=== PATIENT | female | born 1950 | race Caucasian/White ===

== ENCOUNTER 2018-06-30 14:34 | Inpatient (IN) | payer MEDICARE, MEDICAID ==
--- NOTE | 2018-06-30 15:30 | ED Physician Chart ---
ED Chief Complaint/HPI - Patient Information Date Seen:: 06/30/18 Time Seen:: 14:49 Chief Complaint:: anemia History of Present Illness:: PATIENT PRESENTS TO THE ER WITH HX OF ANEMIA WITH HB 6.8; NO TRAUMA, NO OTHER REMARKABLE S/S Allergies:: Allergies Allergy/AdvReac Type Severity Reaction Status Date / Time acetaminophen Allergy Verified 06/30/18 15:05 codeine Allergy Verified 06/30/18 15:05 hydrocodone Allergy Verified 06/30/18 15:05 tramadol Allergy Verified 06/30/18 15:06 Vitals:: Vital Signs - 8 hr 06/30/18 06/30/18 14:49 15:11 Temp 99.3 F HR 103 102 RR 24 BP 133/59 O2 Sat % 95 98 Historian:: Medical Records Review:: Nurse's Note Reviewed, Transfer documents Reviewed ED Review of Systems - Review of Systems General/Constitutional: Fever, No weight loss, Weakness, No diaphoresis, No edema, No loss of appetite Skin: No rash, No bruising, Other (deep sacral decubitus covered by a dressing) Head: No headache, No light-headedness Eyes: No loss of vision, No pain, No diplopia ENT: No earache, No nasal drainage, No sore throat, No tinnitus Neck: No neck pain, No swelling, No thyromegaly, No stiffness, No mass noted Cardio Vascular: No chest pain, No palpitations, No PND, No orthopnea, No edema Pulmonary: No SOB, No cough, No sputum, No wheezing GI: No nausea, No vomiting, No diarrhea, No pain, No melena, No hematochezia, No constipation, No hematemesis G/U: No dysuria, No frequency, No hematuria Musculoskeletal: No bone or joint pain, No back pain, No muscle pain Endocrine: No polyuria, No polydipsia Psychiatric: No prior psych history, No depression, No anxiety, No suicidal ideation Hematopoietic: No bruising, No lymphadenopathy Allergic/Immuno: No urticaria, No angioedema Neurological: No syncope, No focal symptoms, No weakness, No paresthesia, No headache, No seizure, No dizziness, No confusion, No vertigo ED Past Medical History - Past Medical History Obtainable: No Past Medical History: CAD, ESRD, Other (dialysis dependent; pneumonia; VENTILATOR DEPENDENT; RENAL DISEASE, HYPERLIPIDEMIA, TRACHEOSTOMY, GASTROSTOMY, RENAL DIALYSIS, VENTILATOR DEPENDENT, PSEUDOMONAS PNEUMONIA, DVT, ANOXIC BRAIN INJURY, ASPIRATION PNEUMONIA, CARDIAC ARREST, DYSPHAGIA, FALL HX WITH FX FEMORAL NECK, LEFT HUMERUS, ANEMIA, RESPIRATORY FAILURE, SEPSIS) Surgical History: PEG/GTube, other (tracheostomy) Family Medical History - Family Member Mother History Unknown: Yes ED Assessment - Assessment General Assessment: EK:24:27 p.m. atrial fibrillation, nonspecific ST T wave changes. CXR per my reading reveals bilateral pneumonia most marked on the left side. case presented to Dr. Snyder who raised his voice at both ca and [facility]. Dr. Snyder will admit the patient to the ICU. ED Septic Shock - . Is Septic Shock (SBP<90, OR Lactate>4 mmol\L) present?: No - <6hrs of presentation: Vital Signs: Vital Signs - 8 hr 06/30/18 06/30/18 14:49 15:11 Temp 99.3 F HR 103 102 RR 24 BP 133/59 O2 Sat % 95 98 ED Reassessment (Disposition) - Reassessment Reassessment Condition:: Unchanged - Diagnosis Diagnosis:: RENAL DISEASE, HYPERLIPIDEMIA, TRACHEOSTOMY, GASTROSTOMY, RENAL DIALYSIS, VENTILATOR DEPENDENT, PSEUDOMONAS PNEUMONIA, DVT, ANOXIC BRAIN INJURY, ASPIRATION PNEUMONIA, CARDIAC ARREST, DYSPHAGIA, FALL HX WITH FX FEMORAL NECK, LEFT HUMERUS, ANEMIA, RESPIRATORY FAILURE, SEPSIS - Patient Disposition Discharge/Transfer:: Acute Care w/in this hosp Admitted to:: ICU Condition at Disposition:: Stable, Unchanged
[2018-06-30 15:33] LABS: NEUTROPHILE ABSOLUTE 27.5 Th/cmm (1.8-8.0); RED CELL DISTRIBUTION WIDTH 17.3 % (11.5-20.0)
[2018-06-30 15:37] LABS: % BASOPHILS 0.1 % (0.0-2.0); % EOSINOPHILS 0.9 % (0.0-5.0); % LYMPHOCYTES 4.9 % (20.0-50.0); % MONOCYTES 4.2 % (2.0-10.0); % NEUTROPHILS 89.9 % (40.0-80.0); EOSINOPHILE ABSOLUTE 0.3 Th/cmm (0.1-0.4); LYMPHOCYTE ABSOLUTE 1.5 Th/cmm (1.5-3.0); MEAN CELL VOLUME 84.4 fl (81-100); MEAN CORPUSCULAR HGB CONC 33.2 pg (28.0-36.0); MEAN PLATELET VOLUME 7.6 fl; MONOCYTE ABSOLUTE 1.3 Th/cmm (0.3-1.0); PLATELET COUNT 390 Th/cmm (150-400); RED BLOOD COUNT 2.48 Mil/cmm (3.80-5.20)
[2018-06-30 15:40] LABS: HEMATOCRIT 20.9 % (41.0-60); WHITE BLOOD COUNT 30.6 Th/cmm (4.8-10.8)
[2018-06-30 15:51] LABS: INR 0.98 (0.5-1.4); PROTHROMBIN TIME (TEST) 10.2 SECONDS (9.5-11.5)
[2018-06-30 15:52] LABS: ALB/GLOB RATIO 0.6 (1.0-1.8); ALBUMIN 2.4 gm/dL (3.7-5.3); ANION GAP 18.9 (7.0-16.0); BILIRUBIN,TOTAL 0.3 mg/dL (0.3-1.0); CALCIUM SERUM 8.6 mg/dL (8.6-10.3); CARBON DIOXIDE 26.7 mEq/L (21.0-31.0); CREATININE - SERUM 3.5 mg/dL (0.6-1.2); GFR AFRICAN-AMERICAN 16.9 ml/min (>90); GFR NON AFRICAN-AMERICAN 13.9 ml/min; MAGNESIUM 2.8 mg/dL (1.9-2.7); PHOSPHOROUS 2.6 mg/dL (2.5-5.0); POTASSIUM SERUM 3.6 mEq/L (3.5-5.1); TOTAL PROTEIN,SERUM 6.3 gm/dL (6.0-8.3)
[2018-06-30] MEDS ORDERED: Dextrose 50% 50 mL Abboject IVP STA (16:10)
[2018-06-30] MEDS ORDERED: Dextrose 50% 50 mL Abboject IVP ONE ×2 (16:11→19:01)
[2018-06-30] MEDS ORDERED: Levofloxacin 250mg/50mL 250 MG/50 ML BAG IV ONE (16:16)
[2018-06-30 16:18] LABS: BAND NEUTROPHILE 10 % (0-10); EOSINOPHIL 1 % (0-5); LYMPHOCYTE 5 % (20-50); MONOCYTE 3 % (2-10); NEUTROPHILS 81 % (40-80)
[2018-06-30] MEDS ORDERED: LEVOFLOXACIN 750 MG/150 ML IV ONE (16:45)
[2018-06-30] MEDS ORDERED: Vancomycin HCl 1.5 GM in Sodium Chloride 0.9% 500 ML IV ONE (16:45)
[2018-06-30] MEDS ORDERED: Levofloxacin 500mg/100mL 500 MG/100 ML BAG IV ONE (16:45)
[2018-06-30] MEDS ORDERED: Dextrose 10% 1,000 ML IV ONE (17:19)
[2018-06-30] MEDS ORDERED: Dextrose 50% 50 mL Abboject IVP PRN (18:35)
[2018-06-30] MEDS ORDERED: GLUCAGON HCl 1 MG KIT IM PRN (18:35)
[2018-06-30] MEDS ORDERED: Dextrose 10% 1,000 ML IV SCH ×2 (19:30)
[2018-06-30 20:01] VITALS: BP 131/45
[2018-06-30] MEDS: Piperacillin/Tazobact 2.25 gm in 0.9% NS 50 ML IV SCH (20:13)
[2018-06-30] MEDS: INSULIN ASPART SLIDING SCALE 100 UNITS/ML UNIT SUBQ SCH (20:23)
[2018-07-01] MEDS ORDERED: Albumin 25% 12.5gm/50mL 12.5 GM/50 ML BTL IV ONE
[2018-07-01] MEDS: INSULIN ASPART SLIDING SCALE 100 UNITS/ML UNIT SUBQ SCH ×5 (00:02→23:52)
[2018-07-01] MEDS ORDERED: Piperacillin Sodium/Tazobact 2.25 gm Vial IV ONE (02:23)
[2018-07-01] MEDS: Piperacillin/Tazobact 2.25 gm in 0.9% NS 50 ML IV SCH ×3 (02:32→17:10)
[2018-07-01] MEDS ORDERED: Non-Formulary Item 1 EA (Esomeprazole Magnesium [Esomeprazole Magnesium] 40 MG) GT SCH ×2 (03:15→09:00)
[2018-07-01] MEDS ORDERED: ACIDOPHILUS GT SCH ×2 (03:15→09:00)
[2018-07-01] MEDS ORDERED: ALBUTEROL SULFATE 90 MCG IH SCH (03:15)
[2018-07-01] MEDS ORDERED: Non-Formulary Item 1 EA (Ipratropium Bromide [Atrovent Hfa] 2 PUFF) INH SCH (03:15)
[2018-07-01] MEDS ORDERED: PSYLLIUM HUSK GT SCH ×2 (03:15→09:00)
[2018-07-01] MEDS ORDERED: Non-Formulary Item 1 EA (Arginine/Ascorbate Sod/Vite Ac [Arginaid Powder] 1 EACH) GT SCH ×2 (03:15→09:00)
[2018-07-01] MEDS ORDERED: BULGARICUS GT SCH ×2 (03:15→09:00)
[2018-07-01] MEDS ORDERED: INSULIN ASPART SLIDING SCALE 100 UNITS/ML UNIT SUBQ SCH (03:15)
[2018-07-01] MEDS ORDERED: Insulin Detemir 100 units/mL 10mL Vial SUBQ SCH (03:15)
[2018-07-01] MEDS: Dextrose 5% 1,000 ML IV SCH (04:17)
--- NOTE | 2018-07-01 05:08 | History & Physical ---
ADMIT DATE: 06/30/2018 CHIEF COMPLAINT: Sent from the long term for abnormal labs with a hemoglobin of 6.8. On initial evaluation, the patient was altered. She was known to me from previous admission and she was more alert than right now. She was able to recognize the people. Currently, the patient is obtunded. On initial evaluation, vital signs showed temperature 99.3 degrees Fahrenheit, pulse 103, respirations 24, blood pressure 133/59. Laboratory work showed WBC count 30,600, hemoglobin 7.0, hematocrit 20.9, platelets are 390,000, neutrophil is 90%. Labs are reviewed. ALLERGIES: THE PATIENT IS ALLERGIC TO ACETAMINOPHEN, CODEINE, AND TRAMADOL. PAST MEDICAL HISTORY: Includes CKD stage 5, on hemodialysis under care of Dr. Juan Pablo Ball. Diabetes mellitus type 2, hypertension, vent-dependent respiratory failure, followed by Dr. Hernandez hyperlipidemia, GERD, status post PEG. PAST SURGICAL HISTORY: Includes a cholecystectomy and G-tube and left upper arm AV shunt placement. SOCIAL HISTORY: The patient lives at nursing facility. No history of smoking, alcohol or drug use. FAMILY HISTORY: Noncontributory. REVIEW OF SYSTEMS: The patient unable to give any history. So far, the patient has no fever. No diarrhea. No obvious GI bleed, hematochezia, hematemesis. PHYSICAL EXAMINATION: SKIN: Current vital shows temperature is 98.7 degrees Fahrenheit, pulse 96, respirations 24, blood pressure is 144/38. GENERAL: The patient is comfortable lying in the bed, not in acute distress, on the ventilator, status post tracheostomy., HEENT: Head is normocephalic, atraumatic. Oral cavity moist, pink tongue. Eyes: Pallor is present, no icterus. PERRLA, EOMI. NECK: Supple. No JVD. Trach site is clear. CHEST: Bilateral vesicular breath sounds. Occasional crackles. HEART: S1, S2 within normal limits. Regular rhythm. No murmur, no gallop. ABDOMEN: Soft, nontender, nondistended. Bowel sounds present. G-tube site is clear. EXTREMITIES: No cyanosis, no clubbing, no edema. BACK: The patient has stage IV sacral decubitus with yellow slough. NEUROLOGIC: Obtunded. LABORATORY DATA: Current lab shows WBC count is 30,600, hemoglobin 7, hematocrit 20.9, platelets are 390,000, neutrophils 89.9%. Sodium is 140, potassium 3.6, chloride 98, bicarbonate is 26.7, BUN is 97, creatinine is 3.5, glucose is 53. Chest x-ray is not available at this time. Lactic acid was 1.15. IMPRESSION: 1. Leukocytosis, most likely reactive versus sepsis. 2. Pneumonia. 3. Hypoglycemia with a blood glucose was in the 50s. 4. Diabetes mellitus type 2. 5. Hypertension. 6. Chronic kidney disease stage 5, on hemodialysis. 7. Ventilator-dependent respiratory failure. 8. History of status post PEG and status trach. 9. Anemia of chronic disease, rule out a gastrointestinal bleed. PLAN: Admitted to the ICU and consult Dr. Juan Pablo Ball Nephrology water resource consultant, Dr. Hernandez Pulmonary water resource consultant and Dr. Centeno for anemia. Do anemia workup including stool for occult blood and antibiotic suarez, I had started the patient on vancomycin, Zosyn and Levaquin. The patient had a recent history of Stenotrophomonas pneumonia, so I will continue Levaquin also. Two units of PRBC ordered during hemodialysis, it was given also. JOB# [id number] OSCAR
[2018-07-01 05:43] LABS: HEMOGLOBIN 8.9 gm/dL (12-16); MEAN CELL VOLUME 86.1 fl (81-100); MEAN CORPUSCULAR HEMOGLOBIN 28.7 pg (27.0-31.0); MEAN CORPUSCULAR HGB CONC 33.4 pg (28.0-36.0); MEAN PLATELET VOLUME 7.4 fl; PLATELET COUNT 317 Th/cmm (150-400); RED BLOOD COUNT 3.09 Mil/cmm (3.80-5.20); RED CELL DISTRIBUTION WIDTH 15.6 % (11.5-20.0)
[2018-07-01 05:53] LABS: WHITE BLOOD COUNT 20.9 Th/cmm (4.8-10.8)
[2018-07-01 06:13] LABS: CALCIUM SERUM 8.2 mg/dL (8.6-10.3); CARBON DIOXIDE 27.8 mEq/L (21.0-31.0); CREATININE - SERUM 2.1 mg/dL (0.6-1.2); GFR AFRICAN-AMERICAN 30.4 ml/min (>90); GFR NON AFRICAN-AMERICAN 25.1 ml/min
[2018-07-01 07:49] LABS: POTASSIUM SERUM 2.8 mEq/L (3.5-5.1)
[2018-07-01 08:01] LABS: HEMATOCRIT 26.6 % (41.0-60)
[2018-07-01 08:02] LABS: BAND NEUTROPHILE 3 % (0-10); BASOPHIL 0 % (0-3); EOSINOPHIL 0 % (0-5); LYMPHOCYTE 4 % (20-50); MONOCYTE 3 % (2-10); NEUTROPHILS 90 % (40-80)
[2018-07-01] MEDS ORDERED: VTE Chemical Prophylaxis Screen/ICU transfer MC PRN (08:09)
--- NOTE | 2018-07-01 08:41 | Diagnostic Imaging Report ---
CHEST X-RAY: AP view INDICATION: Pneumonia COMPARISON: None FINDINGS: Tracheostomy tube is noted. Congestive changes are seen with left lung infiltrates and small left effusion. Cardiomegaly is noted with atherosclerosis. There is deformity and probable old fracture of the left humeral neck and head. IMPRESSION: Congestive changes with left lung infiltrates and small left effusion. Follow-up recommended to ensure resolution Cardiomegaly and atherosclerotic vascular disease. Deformity and probable old fracture of the left humeral head and neck.
[2018-07-01 09:00] LABS: HEMATOCRIT 26.6 % (37.0-47.0); RBC RETICULOCYTE COUNT 3.09 Mil/cmm
[2018-07-01] MEDS ORDERED: Non-Formulary Item 1 EA (Amino Acids/Protein Hydrolys [Pro-Stat Sugar Free Liquid] 30 ML) GT SCH (09:00)
[2018-07-01] MEDS ORDERED: Non-Formulary Item 1 EA (Zinc Sulfate [Zinc Sulfate] 1 TAB) GT SCH (09:00)
[2018-07-01 09:01] LABS: ABSOLUTE RETICULOCYTE 117.4 Th/cmm; CORRECTED RETICULOCYTE COUNT 2.2 % (0.5-1.5); RETICULOCYTES % COUNTED 3.8 % (0.5-1.5)
[2018-07-01] MEDS: Pantoprazole 40 mg/Packet GT SCH (09:27)
[2018-07-01] MEDS: Lactobacillus Rhamnosus GG 15 Billion CFU CAP.SPRINK GT SCH (09:28)
[2018-07-01] MEDS: Vitamin B Complex w/Vitamin C Tab GT SCH (09:28)
[2018-07-01] MEDS: Insulin Detemir 100 units/mL 10mL Vial SUBQ SCH ×2 (09:29→21:11)
[2018-07-01] MEDS: KCL 20mEq/100mL Premix 20 MEQ/100 ML PIGGYBACK IV SCH ×2 (11:26→12:58)
[2018-07-01] MEDS ORDERED: Ipratropium Neb 0.5 mg/2.5 mL UD HHN SCH (13:00)
[2018-07-01] MEDS ORDERED: Albuterol Nebulizer 2.5mg/3mL HHN SCH (13:00)
[2018-07-01] MEDS: Sodium Ferric Gluconate 125 MG in Sodium Chloride 0.9% 100 ML IV SCH (13:30)
[2018-07-01] MEDS: Albuterol Nebulizer 2.5mg/3mL HHN SCH ×3 (15:00→23:20)
[2018-07-01] MEDS: Ipratropium Neb 0.5 mg/2.5 mL UD HHN SCH ×3 (15:01→23:20)
--- NOTE | 2018-07-01 15:07 | Infectious Disease Prog Note ---
Infectious Disease Subjective - Review of Systems Service Date: 07/01/18 Subjective: Doing the same, no fever. no diarrhea. Remains on the ventilator, s/pp trach and peg. Infectious Disease Objective - Results Result Diagrams: 07/01/18 05:25 07/01/18 05:25 Recent Labs: Laboratory Last Values WBC 20.9 Th/cmm (4.8-10.8) H* D 07/01/18 05:25 RBC 3.09 Mil/cmm (3.80-5.20) L 07/01/18 05:25 Hgb 8.9 gm/dL (12-16) L 07/01/18 05:25 Hct 26.6 % (37.0-47.0) L 07/01/18 05:25 MCV 86.1 fl (81-100) 07/01/18 05:25 MCH 28.7 pg (27.0-31.0) 07/01/18 05:25 MCHC Differential 33.4 pg (28.0-36.0) 07/01/18 05:25 RDW 15.6 % (11.5-20.0) 07/01/18 05:25 Plt Count 317 Th/cmm (150-400) 07/01/18 05:25 MPV 7.4 fl 07/01/18 05:25 Add Manual Diff YES 07/01/18 05:25 Neutrophils % 89.9 % (40.0-80.0) H 06/30/18 15:20 Band Neutrophils % 3 % (0-10) 07/01/18 05:25 Lymphocytes % 4.9 % (20.0-50.0) L 06/30/18 15:20 Monocytes % 4.2 % (2.0-10.0) 06/30/18 15:20 Eosinophils % 0.9 % (0.0-5.0) 06/30/18 15:20 Basophils % 0.1 % (0.0-2.0) 06/30/18 15:20 Neutrophils (Manual) 90 % (40-80) H 07/01/18 05:25 Lymphocytes 4 % (20-50) L 07/01/18 05:25 Monocytes 3 % (2-10) 07/01/18 05:25 Eosinophils 0 % (0-5) 07/01/18 05:25 Basophils 0 % (0-3) 07/01/18 05:25 Total Retics Counted 3.8 % (0.5-1.5) H 07/01/18 05:25 Absolute Retic 117.4 Th/cmm 07/01/18 05:25 Corrected Retic Count 2.2 % (0.5-1.5) H 07/01/18 05:25 PT 10.2 SECONDS (9.5-11.5) 06/30/18 15:20 INR 0.98 (0.5-1.4) 06/30/18 15:20 PTT (Actin FS) 29.5 SECONDS (26.0-38.0) 06/30/18 15:20 Sodium 138 mEq/L (136-145) 07/01/18 05:25 Potassium 2.8 mEq/L (3.5-5.1) L* 07/01/18 05:25 Chloride 97 mEq/L (98-107) L 07/01/18 05:25 Carbon Dioxide 27.8 mEq/L (21.0-31.0) 07/01/18 05:25 Anion Gap 16.0 (7.0-16.0) 07/01/18 05:25 BUN 44 mg/dL (7-25) H 07/01/18 05:25 Creatinine 2.1 mg/dL (0.6-1.2) H 07/01/18 05:25 Est GFR ( Amer) 30.4 ml/min (>90) 07/01/18 05:25 Est GFR (Non-Af Amer) 25.1 ml/min 07/01/18 05:25 BUN/Creatinine Ratio 21.0 07/01/18 05:25 Glucose 173 mg/dL (70-105) H D 07/01/18 05:25 POC Glucose 154 MG/DL (70 - 105) H 07/01/18 12:38 Whole Bld Lactic Acid 1.15 mmol/L (0.60-1.99) 06/30/18 15:20 Calcium 8.2 mg/dL (8.6-10.3) L 07/01/18 05:25 Phosphorus 2.6 mg/dL (2.5-5.0) 06/30/18 15:20 Magnesium 2.8 mg/dL (1.9-2.7) H 06/30/18 15:20 Total Bilirubin 0.3 mg/dL (0.3-1.0) 06/30/18 15:20 AST 27 U/L (13-39) 06/30/18 15:20 ALT 22 U/L (7-52) 06/30/18 15:20 Alkaline Phosphatase 426 U/L (34-104) H 06/30/18 15:20 Lactate Dehydrogenase 217 U/L (140-271) 07/01/18 05:25 Troponin I 0.07 ng/mL (0.01-0.05) H* 06/30/18 15:20 Total Protein 6.3 gm/dL (6.0-8.3) 06/30/18 15:20 Albumin 2.4 gm/dL (3.7-5.3) L 06/30/18 15:20 Globulin 3.9 gm/dL 06/30/18 15:20 Albumin/Globulin Ratio 0.6 (1.0-1.8) L 06/30/18 15:20 Random Vancomycin 27.5 ug/mL (5.0-40.0) 07/01/18 05:55 Blood Type O POSITIVE 06/30/18 21:44 Antibody Screen NEGATIVE 06/30/18 21:44 Crossmatch See Detail 06/30/18 21:44 - Physical Exam Vitals and I&O: Vital Signs Temp 98.5 F 07/01/18 14:00 Pulse 87 07/01/18 14:00 Resp 24 07/01/18 14:00 BP 119/20 07/01/18 14:00 Pulse Ox 100 07/01/18 14:00 Intake & Output 06/30/18 07/01/18 07/01/18 18:59 06:59 18:59 Intake Total 818.667 76.667 Balance 818.667 76.667 Weight (lbs) 65.771 kg Intake: Intake, IV Amount 818.667 76.667 Dextrose 5% 1,000 ml @ 40 68.667 mls/hr IV .Q24H [facility] Rx#: [id number] KCL 20mEq/100mL Premix 20 76.667 meq In 100 ml @ 50 mls/ hr IV Q2H [facility] Rx#: [id number] Levofloxacin 750mg/150mL 150 750 mg In 150 ml @ 100 mls/hr IV X1 ONE Rx#: [id number] Piperacillin Sodium/ 100 Tazobact 2.25 gm In Sodium Chloride 0.9% 50 ml @ 100 mls/hr IV Q8H [facility] Rx#:[id number] Other: Stool Characteristics Soft Brown Green Weight Source Estimated Active Medications: Current Medications Acetylcysteine (Mucomyst 20%) 3 ml HHN Q4HRT [facility] Stop: 08/30/18 14:59 Last Admin: 07/01/18 15:00 Dose: 3 ml Albuterol Sulfate (Albuterol 2.5mg/3ml Neb Ud) 2.5 mg HHN Q4HRT [facility] Stop: 08/30/18 14:59 Last Admin: 07/01/18 15:00 Dose: 2.5 mg Ascorbic Acid (Vitamin C) 500 mg GT BID [facility] Stop: 08/30/18 08:59 Last Admin: 07/01/18 09:28 Dose: 500 mg Atorvastatin Calcium (Lipitor) 40 mg GT HS [facility] Stop: 08/30/18 20:59 Calcium Carbonate (Os-Alon) 500 mg GT Q12H [facility] Stop: 08/30/18 08:59 Last Admin: 07/01/18 09:28 Dose: 500 mg Chlorhexidine Gluconate (Peridex) 15 ml MM 0800,1999 [facility] Stop: 08/30/18 19:59 Dextrose (D50w) 50 ml IVP PRN PRN PRN Reason: Blood Glucose less than 70 Stop: 08/29/18 18:34 Last Admin: 06/30/18 19:15 Dose: 50 ml Dextrose (Glutose 40%) 18.75 gm PO PRN PRN PRN Reason: Blood Glucose less than 70 Stop: 08/29/18 18:34 Folic Acid (Folate) 1 mg GT DAILY [facility] Stop: 08/31/18 08:59 Glucagon (Glucagen) 1 mg IM PRN PRN PRN Reason: Blood Glucose less than 70 Stop: 08/29/18 18:34 Heparin Sodium (Porcine) (Heparin) 5,000 units HD UD [facility] Stop: 07/02/18 00:00 Last Admin: 07/01/18 09:28 Dose: 5,000 units Piperacillin Sod/Tazobactam (Sod 2.25 gm/ Sodium Chloride) 50 mls @ 100 mls/hr IV Q8H [facility] Stop: 08/29/18 16:59 Last Admin: 07/01/18 09:27 Dose: 100 mls/hr Levofloxacin (Levaquin Pb) 500 mg in 100 mls @ 100 mls/hr IV Q48HR [facility] Stop: 08/31/18 19:59 Dextrose (D5w) 1,000 mls @ 40 mls/hr IV .Q24H [facility] Stop: 08/30/18 04:14 Last Infusion: 07/01/18 06:00 Dose: 40 mls/hr Ferric Sodium Gluconate Complex 125 mg/ Sodium Chloride 110 mls @ 100 mls/hr IV Q24HR [facility] Stop: 07/09/18 12:59 Last Admin: 07/01/18 13:30 Dose: 100 mls/hr Ibuprofen (Motrin) 400 mg GT Q6H PRN PRN Reason: PAIN OR TEMP >101 Stop: 08/30/18 03:13 Insulin Aspart (Novolog Insulin Sliding Scale) 0 units SUBQ Q6H [facility]; Protocol Stop: 08/30/18 05:59 Last Admin: 07/01/18 12:58 Dose: 2 units Insulin Detemir (Levemir Insulin) 20 units SUBQ Q12H [facility]; Protocol Stop: 08/30/18 08:59 Last Admin: 07/01/18 09:29 Dose: Not Given Ipratropium [place] (Atrovent Neb 0.5mg/2.5ml) 0.5 mg HHN Q4HRT [facility] Stop: 08/30/18 14:59 Last Admin: 07/01/18 15:01 Dose: 0.5 mg Lactobacillus Rhamnosus (Culturelle 15b) 1 each GT DAILY [facility] Stop: 08/30/18 08:59 Last Admin: 07/01/18 09:28 Dose: 1 each Miscellaneous (Vancomycin Iv Per Pharmacy) 1 ea PRN PRN PRN Reason: PROTOCOL Stop: 08/29/18 16:10 Miscellaneous (Zosyn Iv Per Pharmacy) 1 ea PRN PRN PRN Reason: PROTOCOL Stop: 08/29/18 16:16 Miscellaneous (Vte Chemical Prophylaxis Screen/Icu Transfer) 1 ea PRN PRN PRN Reason: PROTOCOL Stop: 08/30/18 08:08 Pantoprazole Sodium (Protonix) 40 mg GT DAILY [facility] Stop: 08/30/18 08:59 Last Admin: 07/01/18 09:27 Dose: 40 mg Psyllium Hydrophilic Mucilloid (Metamucil) 1 pkt GT Q12HR [facility] Stop: 08/30/18 08:59 Last Admin: 07/01/18 09:27 Dose: 1 pkt Vitamin B Complex/Vit C/Folic Acid (Vitamin B Complex W/Vitamin C) 1 tab GT DAILY [facility] Stop: 08/30/18 08:59 Last Admin: 07/01/18 09:28 Dose: 1 tab Zinc Sulfate (Zinc Sulfate) 220 mg GT DAILY [facility] Stop: 08/30/18 08:59 Last Admin: 07/01/18 09:28 Dose: 220 mg General: no acute distress, well developed, well nourished HEENT: atraumatic, normocephalic, PERRLA, EOMI Neck: supple, tracheostomy (ok), no thyromegaly Cardiovascular: S1S2, regular Lungs: clear to percussion, crackles Abdomen: soft, other (G tube ok.), no tender Extremities: AVF/AVG (left arm WNL.), no cyanosis, no clubbing Neurological: other (obtunded.) Skin: other (sacral stage 4 ulcer.) Infectious Disease Assmt/Plan - Problem List Patient Problems: All Active Problems ANEMIA WITH HB OF 6.8 (Acute) - Assessment Assessment: 1. Leukocytosis, most likely reactive versus sepsis. 2. Pneumonia. 3. Hypoglycemia with a blood glucose was in the 50s. 4. Diabetes mellitus type 2. 5. Hypertension. 6. Chronic kidney disease stage 5, on hemodialysis. 7. Ventilator-dependent respiratory failure. 8. History of status post PEG and status trach. 9. Anemia of chronic disease, rule out a gastrointestinal bleed. 10. Sacral decubitus. stage 4. - Plan Plan: Will continue the same regimen. Consult GI. Antibiotics. wound care. F/U as per consults. Nutritional Asmnt/Malnutr-PDOC - Dietary Evaluation Malnutrition Findings (Please click <Entered> for more info): Nutritional Asmnt/Malnutrition Start: 07/01/18 10: 22 Text: Status: Complete Freq: Protocol: Document 07/01/18 10:22 DALE (Rec: 07/01/18 10:31 DALE GENAO- [email or web address]) Nutritional Asmnt/Malnutrition Patient General Information Diagnosis PNA and Diaylsis dependent Pertinent Medical Hx/Surgical Hx ESRD-HD, DM II, HTN, gtube dependent Subjective Information Pt asleep at time of visit, visually verified TF running at 63ml/hr. Current Diet Order/ Nutrition Support Nepro @ 63ml/hr x 18hours Pertinent Medications vit C, lipitor, oscal, levemir 20units BID, culturelle, zosyn, metamucil, vit B complex with vit C, zinc sulfate Pertinent Labs 07/01: Na 138, Kk 2.8, CL 97, CO2 27.8, BUN 44, Cr 2.1, glucose 173, Ca 8.2 Nutritional Hx/Data Height 1.57 m Height (Calculated Centimeters) 157.5 Current Weight (lbs) 65.771 kg Weight (Calculated Kilograms) 65.8 Weight (Calculated Grams) 83993.9 Body Mass Index (BMI) 26.5 Weight Status Overweight GI Symptoms GI Symptoms None Last BM none noted Cultural/Ethnic/[employer] Belief unknown Usual diet at home Nepro @63ml/hr x 18hours Skin Integrity/Comment: Edvin score 10: sacrum pressure area ulceration bilateral heel pressure area reddened Estimated Nutritional Goals BEE in Kcals: Using Current wt Calories/Kcals/Kg 30-35kcals/kg Kcals Calculated 1979-2310kcals/day Protein: Using Current wt Protein g/k.4-1.6g/kg Protein Calculated 92-106g/day Fluid: ml per MD Nutritional Problem 1. Problem Problem Altered nutrition relate lab values related to Etiology renal dysfunction as evidenced by Signs/Symptoms: K 2.8, BUN 44, Cr 2.1. Intervention/Recommendation Comments Consider potassium supplement for better control of repleation with ESRD Recommend continuing Nepro @ 63ml/hr x 18hours providing 2268kcals and 102g protein Expected Outcomes/Goals Expected Outcomes/Goals Tolerance of Tube feeding
--- NOTE | 2018-07-01 17:03 | Consultation ---
DATE OF CONSULTATION: 07/01/2018 HEMATOLOGY ONCOLOGY CONSULTATION REFERRED BY: Dr. Jun Snyder. REASON FOR CONSULTATION: Severe anemia. HISTORY OF PRESENT ILLNESS: The patient is a 67-year-old female who was seen in ICU under [facility]. She was admitted with hemoglobin of 7 grams and transfuse 2 units packed red blood cells, her current hemoglobin is 8.9 grams. On admission, white count 3.6, MCV 84, platelet count 390. Coagulation panel normal. Creatinine 3.5. The patient was started on antibiotics and asked to evaluate because of severe anemia on admission. PAST MEDICAL HISTORY: Chronic kidney disease followed by the delivery consultant, history of GI bleeding, diabetes, hypertension, respiratory failure, status post tracheostomy. PAST SURGICAL HISTORY: Cholecystectomy, gastric tube placement, tracheostomy, and AV shunt for dialysis. SOCIAL HISTORY: Lives in nursing facility. PHYSICAL EXAMINATION: GENERAL: The patient is noncommunicative, obtunded. VITAL SIGNS: Stable. HEENT: Tracheostomy. No bleeding from mucosal surfaces. ABDOMEN: Soft, gastric tube in place. EXTREMITIES: Contracture of both upper and lower extremities with edema, more pronounced in the left upper extremity. Decubitus sacral ulcers, stage IV. Labs as mentioned above. ASSESSMENT: Normocytic anemia, most likely multifactorial from chronic kidney disease and possible blood loss from the sacral decubitus ulcer and/or GI source. I will follow the iron studies and the patient will benefit from IV iron. If the ferritin is less than 400 and if she has adequate iron reserves, then Epogen injection will be started. Also, stool occult blood to evaluate for GI blood loss. I will start the patient on Ferrlecit. Pending the iron results. Follow the B12 and folate level and stool occult blood and consider Epogen if the iron reserve is adequate. Discussed with the brother at bedside. Thank you, Dr. Snyder, for the opportunity to participate in the care of this interesting case. JOB# [id number]
--- NOTE | 2018-07-01 18:52 | Consultation ---
Consult Note - Consult Note Service Date: 07/01/18 Referring Physician: Jun Snyder Consult Note: PHYSICIAN Consultation Note: Date of Admission: 06/30/18 Purpose of Consultation: esrd Chief Complaint: low hemoglobin History of Present Illness: Patient RASHAAD HUANG was admitted to location Intensive Care Unit with PNEUMONIA AND DIAYLSIS DEPENDENT. She receives dialysis at [facility], has background of ESRD due to HTN and DM2 along with vent dependent respiratory failure. She was brought in for low hemoglobin and was given PRBC with dialysis last night. We are consulted to assist with renal mgmt. Past Medical History: as per hpi, she has anemia w esrd, has a L upper ext dialysis shunt, appears to have some degree of anoxic encephalopathy Allergies Allergy/AdvReac Type Severity Reaction Status Date / Time acetaminophen Allergy Verified 06/30/18 15:05 codeine Allergy Verified 06/30/18 15:05 hydrocodone Allergy Verified 06/30/18 15:05 tramadol Allergy Verified 06/30/18 15:06 Vital Signs Temp 97.9 F 07/01/18 17:00 Pulse 89 07/01/18 17:21 Resp 24 07/01/18 17:00 BP 127/25 07/01/18 17:00 Pulse Ox 100 07/01/18 18:00 Intake & Output 06/30/18 07/01/18 07/01/18 18:59 06:59 18:59 Intake Total 818.667 126.667 Balance 818.667 126.667 Weight (lbs) 65.771 kg Intake: Intake, IV Amount 818.667 126.667 Dextrose 5% 1,000 ml @ 40 68.667 mls/hr IV .Q24H ALONDRA Rx#: [id number] KCL 20mEq/100mL Premix 20 76.667 meq In 100 ml @ 50 mls/ hr IV Q2H ALONDRA Rx#: [id number] Levofloxacin 750mg/150mL 150 750 mg In 150 ml @ 100 mls/hr IV X1 ONE Rx#: [id number] Piperacillin Sodium/ 100 50 Tazobact 2.25 gm In Sodium Chloride 0.9% 50 ml @ 100 mls/hr IV Q8H ALONDRA Rx#:[id number] Other: Stool Characteristics Soft Liquid Brown Weight Source Estimated Laboratory Results - last 24 hr 06/30/18 06/30/1818 19:53 21:44 00:01 WBC RBC Hgb Hct MCV MCH MCHC Differential RDW Plt Count MPV Add Manual Diff Band Neutrophils % Neutrophils (Manual) Lymphocytes Monocytes Eosinophils Basophils Total Retics Counted Absolute Retic Corrected Retic Count Sodium Potassium Chloride Carbon Dioxide Anion Gap BUN Creatinine Est GFR ( Amer) Est GFR (Non-Af Amer) BUN/Creatinine Ratio Glucose POC Glucose 147 H 145 H Calcium Lactate Dehydrogenase Random Vancomycin Blood Type O POSITIVE Antibody Screen NEGATIVE Crossmatch See Detail 07/01/18 07/01/18 07/01/18 05:25 05:25 05:25 WBC 20.9 H* D RBC 3.09 L Hgb 8.9 L Hct 26.6 L D 26.6 L MCV 86.1 MCH 28.7 MCHC Differential 33.4 RDW 15.6 Plt Count 317 MPV 7.4 Add Manual Diff YES Band Neutrophils % 3 Neutrophils (Manual) 90 H Lymphocytes 4 L Monocytes 3 Eosinophils 0 Basophils 0 Total Retics Counted 3.8 H Absolute Retic 117.4 Corrected Retic Count 2.2 H Sodium 138 Potassium 2.8 L* Chloride 97 L Carbon Dioxide 27.8 Anion Gap 16.0 BUN 44 H Creatinine 2.1 H Est GFR ( Amer) 30.4 Est GFR (Non-Af Amer) 25.1 BUN/Creatinine Ratio 21.0 Glucose 173 H D POC Glucose Calcium 8.2 L Lactate Dehydrogenase 217 Random Vancomycin Blood Type Antibody Screen Crossmatch 07/01/18 07/01/18 07/01/18 05:55 06:06 09:31 WBC RBC Hgb Hct MCV MCH MCHC Differential RDW Plt Count MPV Add Manual Diff Band Neutrophils % Neutrophils (Manual) Lymphocytes Monocytes Eosinophils Basophils Total Retics Counted Absolute Retic Corrected Retic Count Sodium Potassium Chloride Carbon Dioxide Anion Gap BUN Creatinine Est GFR ( Amer) Est GFR (Non-Af Amer) BUN/Creatinine Ratio Glucose POC Glucose 178 H 168 H Calcium Lactate Dehydrogenase Random Vancomycin 27.5 Blood Type Antibody Screen Crossmatch 07/01/18 07/01/18 12:38 17:09 WBC RBC Hgb Hct MCV MCH MCHC Differential RDW Plt Count MPV Add Manual Diff Band Neutrophils % Neutrophils (Manual) Lymphocytes Monocytes Eosinophils Basophils Total Retics Counted Absolute Retic Corrected Retic Count Sodium Potassium Chloride Carbon Dioxide Anion Gap BUN Creatinine Est GFR ( Amer) Est GFR (Non-Af Amer) BUN/Creatinine Ratio Glucose POC Glucose 154 H 131 H Calcium Lactate Dehydrogenase Random Vancomycin Blood Type Antibody Screen Crossmatch Home Medication Medication Instructions Recorded Type Albuterol Sulfate [Proair Hfa] 90 mcg IH Q6H 06/30/18 History Amino Acids/Protein Hydrolys 30 ml GT DAILY 06/30/18 History [Pro-Stat Sugar Free 887 ml] Arginine/Ascorbate Sod/Melvina AC 1 each GT Q12H 06/30/18 History [Arginaid Powder] Ascorbic Acid [Vitamin C] 500 mg GT BID 06/30/18 History Atorvastatin Calcium [Lipitor] 40 mg GT HS 06/30/18 History Calcium Carbonate 500 mg GT Q12H 06/30/18 History Chlorhexidine Gluconate 0.12% 15 ml MM Q12H 06/30/18 History [Peridex] Esomeprazole Magnesium 40 mg GT Q12H 06/30/18 History Folic Acid/Vit Bcomp,C 0.8 mg GT DAILY 06/30/18 History [Nephro-Melvina Tablet] Ibuprofen 400 mg GT Q6H PRN 06/30/18 History Insulin Aspart Sliding Scale 0 units SUBQ Q6H 06/30/18 History [NovoLOG INSULIN SLIDING SCALE] Insulin Detemir [Levemir Insulin] 20 units SUBQ Q12H 06/30/18 History Ipratropium [place] [Atrovent Hfa] 2 puff INH Q6H 06/30/18 History L. Acidophilus/L.bulgaricus 1 each GT Q12H 06/30/18 History [Lactobacillus Tablet] Lidocaine Viscous 2% [Xylocaine 15 ml MM PRN PRN 06/30/18 History Viscous 2%] Psyllium Husk 1 gm GT Q12H 06/30/18 History Zinc Sulfate [Zinc Sulfate 111 1 tab GT DAILY 06/30/18 History mg-50 mg] Current Medications Generic Name Dose Route Start Last Admin Trade Name Freq PRN Reason Stop Dose Admin Acetylcysteine 3 ml 07/01/18 15:00 07/01/18 15:00 Mucomyst 20% HHN 08/30/18 14:59 3 ml Q4HRT ALONDRA Administration Albuterol Sulfate 2.5 mg 07/01/18 15:00 07/01/18 15:00 Albuterol 2.5mg/3ml Neb Ud HHN 08/30/18 14:59 2.5 mg Q4HRT ALONDRA Administration Ascorbic Acid 500 mg 07/01/18 09:00 07/01/18 17:11 Vitamin C GT 08/30/18 08:59 500 mg BID ALONDRA Administration Atorvastatin Calcium 40 mg 07/01/18 21:00 Lipitor GT 08/30/18 20:59 HS ALONDRA Calcium Carbonate 500 mg 07/01/18 09:00 07/01/18 09:28 Os-Alon GT 08/30/18 08:59 500 mg Q12H ALONDRA Administration [place] Oil/Micronesian Balsam/Trypsin 1 appl 07/02/18 09:00 Venelex TP 08/31/18 08:59 BID ALONDRA Chlorhexidine Gluconate 15 ml 07/01/18 20:00 Peridex MM 08/30/18 19:59 0800,2000 ALONDRA Dextrose 50 ml 06/30/18 18:35 06/30/18 19:15 D50w IVP 08/29/18 18:34 50 ml PRN PRN Administration Blood Glucose less than 70 Dextrose 18.75 gm 06/30/18 18:35 Glutose 40% PO 08/29/18 18:34 PRN PRN Blood Glucose less than 70 Folic Acid 1 mg 07/02/18 09:00 Folate GT 08/31/18 08:59 DAILY ALONDRA Glucagon 1 mg 06/30/18 18:35 Glucagen IM 08/29/18 18:34 PRN PRN Blood Glucose less than 70 Heparin Sodium (Porcine) 5,000 units 07/01/18 00:00 07/01/18 09:28 Heparin HD 07/02/18 00:00 5,000 units UD ALONDRA Administration Piperacillin Sod/Tazobactam 50 mls @ 100 mls/hr 06/30/18 17:00 07/01/18 17:10 Sod 2.25 gm/ Sodium Chloride IV 08/29/18 16:59 100 mls/hr Q8H ALONDRA Administration Levofloxacin 500 mg in 100 mls @ 100 mls/hr 07/02/18 20:00 Levaquin Pb IV 08/31/18 19:59 Q48HR ALONDRA Dextrose 1,000 mls @ 40 mls/hr 07/01/18 04:15 07/01/18 06:00 D5w IV 08/30/18 04:14 40 mls/hr .Q24H ALONDRA Infusion Ferric Sodium Gluconate 110 mls @ 100 mls/hr 07/01/18 13:00 07/01/18 13:30 Complex 125 mg/ Sodium IV 07/09/18 12:59 100 mls/hr Chloride Q24HR ALONDRA Administration Ibuprofen 400 mg 07/01/18 03:14 Motrin GT 08/30/18 03:13 Q6H PRN PAIN OR TEMP >101 Insulin Aspart 0 units 07/01/18 06:00 07/01/18 17:11 Novolog Insulin Sliding Scale SUBQ 08/30/18 05:59 Not Given Q6H ALONDRA Protocol Insulin Detemir 20 units 07/01/18 09:00 07/01/18 09:29 Levemir Insulin SUBQ 08/30/18 08:59 Not Given Q12H ALONDRA Protocol Ipratropium [place] 0.5 mg 07/01/18 15:00 07/01/18 15:01 Atrovent Neb 0.5mg/2.5ml HHN 08/30/18 14:59 0.5 mg Q4HRT ALONDRA Administration Lactobacillus Rhamnosus 1 each 07/01/18 09:00 07/01/18 09:28 Culturelle 15b 08/30/18 08:59 1 each DAILY ALONDRA Administration Miscellaneous 1 06/30/18 16:11 Vancomycin Iv Per Pharmacy 08/29/18 16:10 PRN PRN PROTOCOL Miscellaneous 1 06/30/18 16:17 Zosyn Iv Per Pharmacy 08/29/18 16:16 PRN PRN PROTOCOL Miscellaneous 1 07/01/18 08:09 Vte Chemical Prophylaxis Screen/Icu Transfer 08/30/18 08:08 PRN PRN PROTOCOL Pantoprazole Sodium 40 mg 07/01/18 09:00 07/01/18 09:27 Protonix GT 08/30/18 08:59 40 mg DAILY ALONDRA Administration Psyllium Hydrophilic Mucilloid 1 pkt 07/01/18 09:00 07/01/18 09:27 Metamucil GT 08/30/18 08:59 1 pkt Q12HR ALONDRA Administration Vitamin B Complex/Vit C/Folic Acid 1 tab 07/01/18 09:00 07/01/18 09:28 Vitamin B Complex W/Vitamin C GT 02/13/19 08:59 1 tab DAILY ALONDRA Administration Zinc Sulfate 220 mg 07/01/18 09:00 07/01/18 09:28 Zinc Sulfate GT 08/30/18 08:59 220 mg DAILY ALONDRA Administration Review of Systems: A 12 point ROS was reviewed with the pertinent positive and negatives noted in the HPI. Social History Smoking Status Smoker, status unknown Family Medical History Family Medical History Start: 06/30/18 17: 15 Freq: ONCE Status: Active Protocol: Document 06/30/18 19:15 DDTYRA (Rec: 06/30/18 20:17 DDTYRA [id number]) Family Medical History Mother History Unknown Yes Physical Exam: General: obtunded female in nad, vent dependent HEENT: head nc/at sclerae anicteric Neck: supple +trach Cardio: rrr Respiratory: coarse bs b/l Abdominal: soft ntnd +gtube intact Genital/Urinary: not done Extremities: no edema +lue avf +thrill Neurological: obtunded Assessment: 1. Sepsis 2. PNA 3. ESRd/dialysis status 4. Anemia w esrd acute on chronic s/p transfusion 5. VDRF Plan: Will receive next dialysis Tuesday unless earlier indictaed. Had HD last night w PRBC transfusion. Agree with abx dialysis dosed F/u cultures Supportive care guarded prognosis KRider x1 today for hypokalemia Signed, Faith Jaeger [id number]
[2018-07-01] MEDS: Chlorhexidine Gluconate 0.12% 15mL Mouthwash MM SCH (20:00)
[2018-07-01] MEDS: Atorvastatin Calcium 10 MG TAB GT SCH (20:47)
[2018-07-01] MEDS ORDERED: Non-Formulary Item 1 EA (Atorvastatin Calcium [Lipitor] 40 MG) GT SCH (21:00)
--- NOTE | 2018-07-02 00:09 | Consultation ---
DATE OF CONSULTATION: 07/01/2018 REQUESTING PHYSICIAN: Dr. Jun Snyder REASON FOR CONSULTATION: Severe anemia. HISTORY OF PRESENT ILLNESS: Thank you for asking me to see this patient in consultation. This is a 67-year-old female with chronic anoxic encephalopathy, vent and trach dependent as well as G-tube dependent, who presents with hemoglobin of 6.9. The patient has been seen by our group previously at the [facility] in [place] and has been consulted for a very similar type of presentation in which her FOBT was positive. Of note, she has had a colonoscopy in March of this year, which her daughter had told me reportedly was normal; however, we never were able to review these records as she cannot recall where this colonoscopy was performed. She has not been having any overt GI bleeding that has been witnessed. She does have chronic kidney disease and is currently being followed by Hematology as well. PAST SURGICAL HISTORY: Cholecystectomy, G-tube placement, tracheostomy, AV shunt for dialysis. PAST MEDICAL HISTORY: End-stage renal disease, GI bleeding, diabetes, hypertension, respiratory failure. SOCIAL HISTORY: Lives in a nursing facility. REVIEW OF SYSTEMS: Unable to obtain given the patient's current state. FAMILY HISTORY: Noncontributory for GI disease. PHYSICAL EXAMINATION: VITAL SIGNS: Temperature 98.5, pulse of 88, respiratory rate of 20, blood pressure is 108/20. GENERAL: In no acute distress. Intact tracheostomy. LUNGS: Clear bilaterally. No wheezes, rales or rhonchi. ABDOMEN: Soft, nontender, bowel sounds are positive. Intact G-tube. EXTREMITIES: Show no lower extremity edema. NEUROLOGIC: Unable to assess. HEART: Regular rate and rhythm. Normal S1, S2. LABORATORY DATA: Initial hemoglobin at time of transfer was 7.0, it is currently up to 9 after blood transfusion. MCV of 84. INR 1. Stool occult positive. ASSESSMENT AND PLAN: This is a 67-year-old female with anoxic encephalopathy, trach dependent, vent dependent, G-tube dependent, currently on hemodialysis with anemia. 1. Anemia, multifactorial. 2. FOBT positive with recent normal colonoscopy. 3. End-stage renal disease. 4. Trach dependent and G-tube dependent. At this point, given the patient's recent colonoscopy as well as other sources and multifactorial reasons to having anemia does not make good moral and ethical sense to repeat any endoscopic workup unless she is having any overt GI bleeding. FOBT is really more of a good screening test for colorectal cancer and if she has already had a negative colonoscopy, repeating the study is relatively meaningless value. We will try to track down her colonoscopy results. Discussed with the family about how aggressive they want any intervention, but only offer endoscopic workup if patient is having overt gastrointestinal bleeding. At this point, would just recommend and agree with Hematology's assessment and try erythropoietin, iron and monitoring CBC and transfuse on an as needed basis. We will continue to follow alongside with this patient with you. Thank you very much for this consultation. JOB# [id number]
[2018-07-02] MEDS: Piperacillin/Tazobact 2.25 gm in 0.9% NS 50 ML IV SCH ×3 (01:00→17:14)
[2018-07-02] MEDS: Ipratropium Neb 0.5 mg/2.5 mL UD HHN SCH ×6 (03:01→23:25)
[2018-07-02] MEDS: Albuterol Nebulizer 2.5mg/3mL HHN SCH ×6 (03:01→23:25)
[2018-07-02] MEDS: Dextrose 5% 1,000 ML IV SCH (04:00)
[2018-07-02] MEDS: INSULIN ASPART SLIDING SCALE 100 UNITS/ML UNIT SUBQ SCH ×3 (06:07→18:48)
[2018-07-02 06:10] LABS: HEMATOCRIT 26.5 % (41.0-60); HEMOGLOBIN 8.9 gm/dL (12-16); MEAN CELL VOLUME 85.3 fl (81-100); MEAN CORPUSCULAR HEMOGLOBIN 28.5 pg (27.0-31.0); MEAN CORPUSCULAR HGB CONC 33.4 pg (28.0-36.0); PLATELET COUNT 301 Th/cmm (150-400); RED BLOOD COUNT 3.11 Mil/cmm (3.80-5.20); RED CELL DISTRIBUTION WIDTH 15.8 % (11.5-20.0)
[2018-07-02 06:12] LABS: WHITE BLOOD COUNT 16.8 Th/cmm (4.8-10.8)
[2018-07-02 06:29] LABS: ALB/GLOB RATIO 0.6 (1.0-1.8); ALBUMIN 2.4 gm/dL (3.7-5.3); BILIRUBIN,TOTAL 0.3 mg/dL (0.3-1.0); CALCIUM SERUM 8.5 mg/dL (8.6-10.3); CARBON DIOXIDE 24.6 mEq/L (21.0-31.0); CREATININE - SERUM 2.9 mg/dL (0.6-1.2); GFR AFRICAN-AMERICAN 20.9 ml/min (>90); GFR NON AFRICAN-AMERICAN 17.3 ml/min; POTASSIUM SERUM 3.6 mEq/L (3.5-5.1); TOTAL PROTEIN,SERUM 6.2 gm/dL (6.0-8.3)
[2018-07-02 06:52] LABS: BAND NEUTROPHILE 3 % (0-10); BASOPHIL 0 % (0-3); EOSINOPHIL 0 % (0-5); LYMPHOCYTE 7 % (20-50); MONOCYTE 4 % (2-10); NEUTROPHILS 86 % (40-80)
--- NOTE | 2018-07-02 08:24 | Consultation ---
DATE OF CONSULTATION: Patient of Dr. Jun Snyder. Thank you very much for this consultation. HISTORY OF PRESENT ILLNESS: The patient is a 67-year-old female with history of chronic respiratory failure, ventilator dependent, renal failure on dialysis, who has history of cardiac arrest, anoxic encephalopathy, presented with congestion, anemia and fever. She was started on antibiotics, admitted for further treatment and management. Blood transfusion ordered. The patient is a [facility] resident, had a G-tube and she on a ventilator. OTHER PAST MEDICAL HISTORY: Diabetes, hypertension. SOCIAL HISTORY: Smoking and drinking. REVIEW OF SYSTEMS: Unable to obtain because of the patient's condition. PHYSICAL EXAMINATION: GENERAL: The patient is on a vent, no distress. VITAL SIGNS: Temperature is 98.4, pulse is 85, respiration 24, blood pressure 150/43, saturation 100%. HEENT: Atraumatic, normocephalic. Pupils react to light and accommodation. Ears, nose and throat normal. NECK: Supple. No JVD. CHEST: There is rhonchi bilaterally, fair air entry. HEART: Regular rate. ABDOMEN: Soft. EXTREMITIES: 1+ edema. LABORATORY DATA: WBC is 28.9, hemoglobin 8.9, hematocrit 26.6, platelets is 317. Sodium 130, potassium 2.8, BUN is 44, creatinine 2.1. IMPRESSION: 1. Respiratory failure. 2. Pneumonia. 3. Dysphagia . 4. Renal failure. 5. Anemia. PLAN: 1. Ventilator support. 2. Sputum culture with antibiotics. 3. Nebulizer. 4. Mucomyst and pulmonary toilet. Supportive care. I will follow the patient with you. Thank you very much for this consultation. Chest x-ray shows bilateral infiltrate more on the left than the right. JOB# [id number]
[2018-07-02] MEDS: Insulin Detemir 100 units/mL 10mL Vial SUBQ SCH ×2 (08:57→20:46)
[2018-07-02] MEDS: Vitamin B Complex w/Vitamin C Tab GT SCH (08:57)
[2018-07-02] MEDS: Pantoprazole 40 mg/Packet GT SCH (08:57)
[2018-07-02] MEDS: Lactobacillus Rhamnosus GG 15 Billion CFU CAP.SPRINK GT SCH (08:57)
[2018-07-02] MEDS: Chlorhexidine Gluconate 0.12% 15mL Mouthwash MM SCH ×2 (08:58→20:44)
[2018-07-02] MEDS: Venelex 60gm Tube TP SCH ×2 (09:05→17:15)
--- NOTE | 2018-07-02 10:03 | Diagnostic Imaging Report ---
CHEST X-RAY: AP view INDICATION: Shortness of breath COMPARISON: 06/30/2018 FINDINGS: Tracheostomy tube is stable. Left lung infiltrates are noted with small left effusion. Mild cardiomegaly is noted with atherosclerosis. IMPRESSION: Left lung infiltrates and small left effusion. A mild degree of congestion cannot be excluded.
[2018-07-02] MEDS: Sodium Ferric Gluconate 125 MG in Sodium Chloride 0.9% 100 ML IV SCH (13:00)
--- NOTE | 2018-07-02 19:04 | General Progress Note ---
Subjective - Review of Systems Service Date: 07/02/18 Events since last encounter: none new Subjective: obtunded on vent Objective - Results Result Diagrams: 07/02/18 06:00 07/02/18 06:00 Recent Labs: Laboratory Last Values WBC 16.8 Th/cmm (4.8-10.8) H 07/02/18 06:00 RBC 3.11 Mil/cmm (3.80-5.20) L 07/02/18 06:00 Hgb 8.9 gm/dL (12-16) L 07/02/18 06:00 Hct 26.5 % (41.0-60) L 07/02/18 06:00 MCV 85.3 fl (81-100) 07/02/18 06:00 MCH 28.5 pg (27.0-31.0) 07/02/18 06:00 MCHC Differential 33.4 pg (28.0-36.0) 07/02/18 06:00 RDW 15.8 % (11.5-20.0) 07/02/18 06:00 Plt Count 301 Th/cmm (150-400) 07/02/18 06:00 MPV 7.0 fl 07/02/18 06:00 Add Manual Diff YES 07/02/18 06:00 Neutrophils % 89.9 % (40.0-80.0) H 06/30/18 15:20 Band Neutrophils % 3 % (0-10) 07/02/18 06:00 Lymphocytes % 4.9 % (20.0-50.0) L 06/30/18 15:20 Monocytes % 4.2 % (2.0-10.0) 06/30/18 15:20 Eosinophils % 0.9 % (0.0-5.0) 06/30/18 15:20 Basophils % 0.1 % (0.0-2.0) 06/30/18 15:20 Neutrophils (Manual) 86 % (40-80) H 07/02/18 06:00 Lymphocytes 7 % (20-50) L 07/02/18 06:00 Monocytes 4 % (2-10) 07/02/18 06:00 Eosinophils 0 % (0-5) 07/02/18 06:00 Basophils 0 % (0-3) 07/02/18 06:00 Total Retics Counted 3.8 % (0.5-1.5) H 07/01/18 05:25 Absolute Retic 117.4 Th/cmm 07/01/18 05:25 Corrected Retic Count 2.2 % (0.5-1.5) H 07/01/18 05:25 PT 10.2 SECONDS (9.5-11.5) 06/30/18 15:20 INR 0.98 (0.5-1.4) 06/30/18 15:20 PTT (Actin FS) 29.5 SECONDS (26.0-38.0) 06/30/18 15:20 Sodium 135 mEq/L (136-145) L 07/02/18 06:00 Potassium 3.6 mEq/L (3.5-5.1) 07/02/18 06:00 Chloride 95 mEq/L (98-107) L 07/02/18 06:00 Carbon Dioxide 24.6 mEq/L (21.0-31.0) 07/02/18 06:00 Anion Gap 19.0 (7.0-16.0) H 07/02/18 06:00 BUN 63 mg/dL (7-25) H 07/02/18 06:00 Creatinine 2.9 mg/dL (0.6-1.2) H 07/02/18 06:00 Est GFR ( Amer) 20.9 ml/min (>90) 07/02/18 06:00 Est GFR (Non-Af Amer) 17.3 ml/min 07/02/18 06:00 BUN/Creatinine Ratio 21.7 07/02/18 06:00 Glucose 297 mg/dL (70-105) H 07/02/18 06:00 POC Glucose 84 MG/DL (70 - 105) 07/02/18 18:45 Whole Bld Lactic Acid 1.15 mmol/L (0.60-1.99) 06/30/18 15:20 Calcium 8.5 mg/dL (8.6-10.3) L 07/02/18 06:00 Phosphorus 2.6 mg/dL (2.5-5.0) 06/30/18 15:20 Magnesium 2.8 mg/dL (1.9-2.7) H 06/30/18 15:20 Total Bilirubin 0.3 mg/dL (0.3-1.0) 07/02/18 06:00 AST 27 U/L (13-39) 07/02/18 06:00 ALT 24 U/L (7-52) 07/02/18 06:00 Alkaline Phosphatase 373 U/L (34-104) H 07/02/18 06:00 Lactate Dehydrogenase 217 U/L (140-271) 07/01/18 05:25 Troponin I 0.07 ng/mL (0.01-0.05) H* 06/30/18 15:20 Total Protein 6.2 gm/dL (6.0-8.3) 07/02/18 06:00 Albumin 2.4 gm/dL (3.7-5.3) L 07/02/18 06:00 Globulin 3.8 gm/dL 07/02/18 06:00 Albumin/Globulin Ratio 0.6 (1.0-1.8) L 07/02/18 06:00 Stool Occult Blood NEGATIVE (NEGATIVE) 07/02/18 06:00 Random Vancomycin 20.3 ug/mL (5.0-40.0) 07/02/18 06:00 Hep Bs Antigen Negative (Negative) 06/30/18 15:20 Hepatitis C Antibody <0.1 s/co ratio (0.0-0.9) 06/30/18 15:20 Blood Type O POSITIVE 06/30/18 21:44 Antibody Screen NEGATIVE 06/30/18 21:44 Crossmatch See Detail 06/30/18 21:44 - Physical Exam Vitals and I&O: Vital Signs Temp 98.8 F 07/02/18 18:00 Pulse 95 07/02/18 18:00 Resp 24 07/02/18 18:00 BP 118/23 07/02/18 18:00 Pulse Ox 100 07/02/18 18:00 Intake & Output 07/02/18 07/02/18 07/03/18 06:59 18:59 06:59 Intake Total 1786 470 Output Total 0 Balance 1786 470 Weight (lbs) 76.657 kg 84.368 kg Intake: Intake, IV Amount 930 50 Dextrose 5% 1,000 ml @ 40 880 mls/hr IV .Q24H [facility] Rx#: [id number] Piperacillin Sodium/ 50 50 Tazobact 2.25 gm In Sodium Chloride 0.9% 50 ml @ 100 mls/hr IV Q8H [facility] Rx#:[id number] Oral 0 0 Tube Feeding 756 240 Other 100 180 Output: Urine 0 Other: # Voids 2 # Bowel Movements 2 2 Stool Characteristics Soft Liquid Liquid Brown Brown Weight Source Bedscale Bedscale Active Medications: Current Medications Acetylcysteine (Mucomyst 20%) 3 ml HHN Q4HRT [facility] Stop: 08/30/18 14:59 Last Admin: 07/02/18 14:54 Dose: 3 ml Albuterol Sulfate (Albuterol 2.5mg/3ml Neb Ud) 2.5 mg HHN Q4HRT [facility] Stop: 08/30/18 14:59 Last Admin: 07/02/18 14:54 Dose: 2.5 mg Ascorbic Acid (Vitamin C) 500 mg GT BID [facility] Stop: 08/30/18 08:59 Last Admin: 07/02/18 17:15 Dose: 500 mg Atorvastatin Calcium (Lipitor) 40 mg GT HS [facility] Stop: 08/30/18 20:59 Last Admin: 07/01/18 20:47 Dose: 40 mg Calcium Carbonate (Os-Alon) 500 mg GT Q12H [facility] Stop: 08/30/18 08:59 Last Admin: 07/02/18 08:57 Dose: 500 mg [place] Oil/[place] Balsam/Trypsin (Venelex) 1 appl TP BID [facility] Stop: 08/31/18 08:59 Last Admin: 07/02/18 17:15 Dose: 1 appl Chlorhexidine Gluconate (Peridex) 15 ml MM 0800,2000 [facility] Stop: 08/30/18 19:59 Last Admin: 07/02/18 08:58 Dose: 15 ml Dextrose (D50w) 50 ml IVP PRN PRN PRN Reason: Blood Glucose less than 70 Stop: 08/29/18 18:34 Last Admin: 06/30/18 19:15 Dose: 50 ml Dextrose (Glutose 40%) 18.75 gm PO PRN PRN PRN Reason: Blood Glucose less than 70 Stop: 08/29/18 18:34 Folic Acid (Folate) 1 mg GT DAILY [facility] Stop: 08/31/18 08:59 Last Admin: 07/02/18 08:57 Dose: 1 mg Glucagon (Glucagen) 1 mg IM PRN PRN PRN Reason: Blood Glucose less than 70 Stop: 08/29/18 18:34 Piperacillin Sod/Tazobactam (Sod 2.25 gm/ Sodium Chloride) 50 mls @ 100 mls/hr IV Q8H [facility] Stop: 08/29/18 16:59 Last Admin: 07/02/18 17:14 Dose: 100 mls/hr Levofloxacin (Levaquin Pb) 500 mg in 100 mls @ 100 mls/hr IV Q48HR [facility] Stop: 08/31/18 19:59 Dextrose (D5w) 1,000 mls @ 40 mls/hr IV .Q24H [facility] Stop: 08/30/18 04:14 Last Admin: 07/02/18 04:00 Dose: 40 mls/hr Ferric Sodium Gluconate Complex 125 mg/ Sodium Chloride 110 mls @ 100 mls/hr IV Q24HR [facility] Stop: 07/09/18 12:59 Last Admin: 07/02/18 13:00 Dose: 100 mls/hr Vancomycin HCl 1 gm/ Sodium (Chloride) 250 mls @ 165 mls/hr IV 1700 [facility] Stop: 07/02/18 23:00 Last Admin: 07/02/18 17:15 Dose: 165 mls/hr Ibuprofen (Motrin) 400 mg GT Q6H PRN PRN Reason: PAIN OR TEMP >101 Stop: 08/30/18 03:13 Insulin Aspart (Novolog Insulin Sliding Scale) 0 units SUBQ Q6H [facility]; Protocol Stop: 08/30/18 05:59 Last Admin: 07/02/18 18:48 Dose: Not Given Insulin Detemir (Levemir Insulin) 20 units SUBQ Q12H [facility]; Protocol Stop: 08/30/18 08:59 Last Admin: 07/02/18 08:57 Dose: 20 units Ipratropium [place] (Atrovent Neb 0.5mg/2.5ml) 0.5 mg HHN Q4HRT [facility] Stop: 08/30/18 14:59 Last Admin: 07/02/18 14:54 Dose: 0.5 mg Lactobacillus Rhamnosus (Culturelle 15b) 1 each GT DAILY [facility] Stop: 08/30/18 08:59 Last Admin: 07/02/18 08:57 Dose: 1 each Miscellaneous (Vancomycin Iv Per Pharmacy) 1 ea MC PRN PRN PRN Reason: PROTOCOL Stop: 08/29/18 16:10 Miscellaneous (Zosyn Iv Per Pharmacy) 1 ea PRN PRN PRN Reason: PROTOCOL Stop: 08/29/18 16:16 Miscellaneous (Vte Chemical Prophylaxis Screen/Icu Transfer) 1 ea PRN PRN PRN Reason: PROTOCOL Stop: 08/30/18 08:08 Pantoprazole Sodium (Protonix) 40 mg GT DAILY [facility] Stop: 08/30/18 08:59 Last Admin: 07/02/18 08:57 Dose: 40 mg Psyllium Hydrophilic Mucilloid (Metamucil) 1 pkt GT Q12HR [facility] Stop: 08/30/18 08:59 Last Admin: 07/02/18 09:06 Dose: Not Given Vitamin B Complex/Vit C/Folic Acid (Vitamin B Complex W/Vitamin C) 1 tab GT DAILY [facility] Stop: 08/30/18 08:59 Last Admin: 07/02/18 08:57 Dose: 1 tab Zinc Sulfate (Zinc Sulfate) 220 mg GT DAILY [facility] Stop: 08/30/18 08:59 Last Admin: 07/02/18 08:57 Dose: 220 mg Physical Exam: obtunded trach-vent nad head nc/at sclerae anicteric cv rrr lungs coarse b/l abd soft gtube ext no edema Assessment/Plan - Problem List Patient Problems: All Active Problems ANEMIA WITH HB OF 6.8 (Acute) - Assessment Assessment: severe sepsis coag neg staph bacteremia esrd/dialysis status anemia w esrd chronic vdrf - Plan Plan: hd tomorrow cont abx monitor labs supportive care Nutritional Asmnt/Malnutr-PDOC - Dietary Evaluation Malnutrition Findings (Please click <Entered> for more info): Nutritional Asmnt/Malnutrition Start: 07/01/18 10: 22 Text: Status: Complete Freq: Protocol: Document 07/01/18 10:22 DALE (Rec: 07/01/18 10:31 DALE GENAO- [email or web address]) Nutritional Asmnt/Malnutrition Patient General Information Diagnosis PNA and Diaylsis dependent Pertinent Medical Hx/Surgical Hx ESRD-HD, DM II, HTN, gtube dependent Subjective Information Pt asleep at time of visit, visually verified TF running at 63ml/hr. Current Diet Order/ Nutrition Support Nepro @ 63ml/hr x 18hours Pertinent Medications vit C, lipitor, oscal, levemir 20units BID, culturelle, zosyn, metamucil, vit B complex with vit C, zinc sulfate Pertinent Labs 07/01: Na 138, Kk 2.8, CL 97, CO2 27.8, BUN 44, Cr 2.1, glucose 173, Ca 8.2 Nutritional Hx/Data Height 1.57 m Height (Calculated Centimeters) 157.5 Current Weight (lbs) 65.771 kg Weight (Calculated Kilograms) 65.8 Weight (Calculated Grams) 49380.9 Body Mass Index (BMI) 26.5 Weight Status Overweight GI Symptoms GI Symptoms None Last BM none noted Cultural/Ethnic/Alevism Belief unknown Usual diet at home Nepro @63ml/hr x 18hours Skin Integrity/Comment: Edvin score 10: sacrum pressure area ulceration bilateral heel pressure area reddened Estimated Nutritional Goals BEE in Kcals: Using Current wt Calories/Kcals/Kg 30-35kcals/kg Kcals Calculated 1980-2310kcals/day Protein: Using Current wt Protein g/k.4-1.6g/kg Protein Calculated 92-106g/day Fluid: ml per MD Nutritional Problem 1. Problem Problem Altered nutrition relate lab values related to Etiology renal dysfunction as evidenced by Signs/Symptoms: K 2.8, BUN 44, Cr 2.1. Intervention/Recommendation Comments Consider potassium supplement for better control of repleation with ESRD Recommend continuing Nepro @ 63ml/hr x 18hours providing 2268kcals and 102g protein Expected Outcomes/Goals Expected Outcomes/Goals Tolerance of Tube feeding
[2018-07-02] MEDS: Levofloxacin 500mg/100mL Premix Bag IV SCH (20:44)
[2018-07-02] MEDS: Atorvastatin Calcium 10 MG TAB GT SCH (20:45)
[2018-07-03] MEDS: INSULIN ASPART SLIDING SCALE 100 UNITS/ML UNIT SUBQ SCH ×4 (00:17→18:00)
[2018-07-03] MEDS: Piperacillin/Tazobact 2.25 gm in 0.9% NS 50 ML IV SCH ×3 (00:19→17:20)
[2018-07-03] MEDS: Ipratropium Neb 0.5 mg/2.5 mL UD HHN SCH ×6 (03:01→22:40)
[2018-07-03] MEDS: Albuterol Nebulizer 2.5mg/3mL HHN SCH ×6 (03:01→22:40)
--- NOTE | 2018-07-03 03:16 | Progress Notes ---
DATE: 07/02/2018 ICU PROGRESS NOTE SUBJECTIVE: The patient lying in the bed, not in acute distress, no fever, no chills. OBJECTIVE: CURRENT VITAL SIGNS: Temperature 98.9, pulse is 95, respiration is 24, blood pressure 116/27. GENERAL: The patient is comfortable, not in acute distress, on the ventilator, status post tracheostomy, status post PEG. HEENT: Head is normocephalic, atraumatic. Oral cavity moist, pink tongue. Eyes: Pallor is present, no icterus. Pupils PERRLA. NECK: Trach site is clear. CHEST: Bilateral breath sounds. Crackles present bilaterally. HEART: S1, S2 within normal limits. Regular rhythm. No murmur, no gallop. ABDOMEN: Soft, nontender, nondistended. Bowel sounds present. G-tube site is clear. EXTREMITIES: No cyanosis, no clubbing, no edema. BACK: The patient has stage IV sacral decubitus ulcer. NEUROLOGIC: The patient's mental status is better, opens her eyes now. LABORATORY DATA: Current lab shows WBC count is 16,800, hemoglobin 8.9, hematocrit 26.5, platelets are 201,000, neutrophils 86%. INR is 0.98. Sodium is 135, potassium 3.6, chloride 95, bicarbonate is 25, BUN is 63, creatinine 2.9, glucose is 297,000. Occult blood, one of the 2 is positive. Blood cultures 2 sets growing gram-positive cocci in clusters. Sputum culture is growing poor specimen and sacral decubitus ulcer grew gram-negative rods. Chest x-ray showed left lung infiltrates with a small effusion. IMPRESSION: 1. Staphylococcal sepsis. 2. Pneumonia. 3. Infected sacral decubitus ulcer, stage 4. 4. Diabetes mellitus type 2. 5. Hypertension. 6. Chronic kidney disease stage 5, on hemodialysis. 7. Vent-dependent respiratory failure. 8. Status post PEG placement and status post trach placement. 9. Anemia of chronic disease and gastrointestinal bleed. 10. Metabolic encephalopathy, improving. PLAN: Continue as per the consultants. Antibiotic suarez, the patient will continue vancomycin IV, Levaquin IV and Zosyn. Wound care. Check 3-phase bone scan, rule out sacral osteomyelitis. Repeat blood cultures 2 sets. A 3-phase bone scan, rule out osteomyelitis. CT scan of chest, abdomen and pelvis to rule out any abscess, nodules respectively. JOB# [id number]
[2018-07-03 04:55] LABS: MEAN PLATELET VOLUME 7.6 fl
[2018-07-03 05:14] LABS: HEMATOCRIT 23.3 % (41.0-60); MEAN CELL VOLUME 84.3 fl (81-100); MEAN CORPUSCULAR HGB CONC 34.4 pg (28.0-36.0); PLATELET COUNT 289 Th/cmm (150-400); RED BLOOD COUNT 2.76 Mil/cmm (3.80-5.20); RED CELL DISTRIBUTION WIDTH 16.1 % (11.5-20.0)
[2018-07-03 05:26] LABS: WHITE BLOOD COUNT 18.4 Th/cmm (4.8-10.8)
[2018-07-03 05:35] LABS: POTASSIUM SERUM 3.8 mEq/L (3.5-5.1)
[2018-07-03 06:02] LABS: ALB/GLOB RATIO 0.6 (1.0-1.8); ALBUMIN 2.3 gm/dL (3.7-5.3); ANION GAP 20.4 (7.0-16.0); BILIRUBIN,TOTAL 0.4 mg/dL (0.3-1.0); CALCIUM SERUM 8.3 mg/dL (8.6-10.3); CARBON DIOXIDE 23.4 mEq/L (21.0-31.0); CREATININE - SERUM 3.6 mg/dL (0.6-1.2); GFR AFRICAN-AMERICAN 16.3 ml/min (>90); GFR NON AFRICAN-AMERICAN 13.5 ml/min
[2018-07-03 06:25] LABS: BAND NEUTROPHILE 2 % (0-10); EOSINOPHIL 2 % (0-5); LYMPHOCYTE 6 % (20-50); MONOCYTE 4 % (2-10); NEUTROPHILS 86 % (40-80)
[2018-07-03] MEDS: Chlorhexidine Gluconate 0.12% 15mL Mouthwash MM SCH ×2 (08:00→20:10)
[2018-07-03] MEDS: Venelex 60gm Tube TP SCH ×2 (09:00→18:00)
[2018-07-03] MEDS ORDERED: Probiotic Screen MC PRN (09:27)
[2018-07-03] MEDS: Lactobacillus Rhamnosus GG 15 Billion CFU CAP.SPRINK GT SCH (09:55)
[2018-07-03] MEDS: Vitamin B Complex w/Vitamin C Tab GT SCH (09:57)
--- NOTE | 2018-07-03 10:33 | General Progress Note ---
Subjective - Review of Systems Service Date: 07/03/18 Subjective: non communicative Objective - Results Result Diagrams: 07/03/18 04:20 07/03/18 04:20 Recent Labs: Laboratory Last Values WBC 18.4 Th/cmm (4.8-10.8) H 07/03/18 04:20 RBC 2.76 Mil/cmm (3.80-5.20) L 07/03/18 04:20 Hgb 8.0 gm/dL (12-16) L 07/03/18 04:20 Hct 23.3 % (41.0-60) L 07/03/18 04:20 MCV 84.3 fl (81-100) 07/03/18 04:20 MCH 29.0 pg (27.0-31.0) 07/03/18 04:20 MCHC Differential 34.4 pg (28.0-36.0) 07/03/18 04:20 RDW 16.1 % (11.5-20.0) 07/03/18 04:20 Plt Count 289 Th/cmm (150-400) 07/03/18 04:20 MPV 7.6 fl 07/03/18 04:20 Add Manual Diff YES 07/03/18 04:20 Neutrophils % 89.9 % (40.0-80.0) H 06/30/18 15:20 Band Neutrophils % 2 % (0-10) 07/03/18 04:20 Lymphocytes % 4.9 % (20.0-50.0) L 06/30/18 15:20 Monocytes % 4.2 % (2.0-10.0) 06/30/18 15:20 Eosinophils % 0.9 % (0.0-5.0) 06/30/18 15:20 Basophils % 0.1 % (0.0-2.0) 06/30/18 15:20 Neutrophils (Manual) 86 % (40-80) H 07/03/18 04:20 Lymphocytes 6 % (20-50) L 07/03/18 04:20 Monocytes 4 % (2-10) 07/03/18 04:20 Eosinophils 2 % (0-5) 07/03/18 04:20 Basophils 0 % (0-3) 07/02/18 06:00 Total Retics Counted 3.8 % (0.5-1.5) H 07/01/18 05:25 Absolute Retic 117.4 Th/cmm 07/01/18 05:25 Corrected Retic Count 2.2 % (0.5-1.5) H 07/01/18 05:25 PT 10.2 SECONDS (9.5-11.5) 06/30/18 15:20 INR 0.98 (0.5-1.4) 06/30/18 15:20 PTT (Actin FS) 29.5 SECONDS (26.0-38.0) 06/30/18 15:20 Sodium 132 mEq/L (136-145) L 07/03/18 04:20 Potassium 3.8 mEq/L (3.5-5.1) 07/03/18 04:20 Chloride 92 mEq/L (98-107) L 07/03/18 04:20 Carbon Dioxide 23.4 mEq/L (21.0-31.0) 07/03/18 04:20 Anion Gap 20.4 (7.0-16.0) H 07/03/18 04:20 BUN 76 mg/dL (7-25) H 07/03/18 04:20 Creatinine 3.6 mg/dL (0.6-1.2) H 07/03/18 04:20 Est GFR ( Amer) 16.3 ml/min (>90) 07/03/18 04:20 Est GFR (Non-Af Amer) 13.5 ml/min 07/03/18 04:20 BUN/Creatinine Ratio 21.1 07/03/18 04:20 Glucose 245 mg/dL (70-105) H 07/03/18 04:20 POC Glucose 294 MG/DL (70 - 105) H 07/03/18 06:19 Whole Bld Lactic Acid 1.15 mmol/L (0.60-1.99) 06/30/18 15:20 Calcium 8.3 mg/dL (8.6-10.3) L 07/03/18 04:20 Phosphorus 2.6 mg/dL (2.5-5.0) 06/30/18 15:20 Magnesium 2.8 mg/dL (1.9-2.7) H 06/30/18 15:20 Total Bilirubin 0.4 mg/dL (0.3-1.0) 07/03/18 04:20 AST 24 U/L (13-39) 07/03/18 04:20 ALT 20 U/L (7-52) 07/03/18 04:20 Alkaline Phosphatase 351 U/L (34-104) H 07/03/18 04:20 Lactate Dehydrogenase 217 U/L (140-271) 07/01/18 05:25 Troponin I 0.07 ng/mL (0.01-0.05) H* 06/30/18 15:20 Total Protein 6.0 gm/dL (6.0-8.3) 07/03/18 04:20 Albumin 2.3 gm/dL (3.7-5.3) L 07/03/18 04:20 Globulin 3.7 gm/dL 07/03/18 04:20 Albumin/Globulin Ratio 0.6 (1.0-1.8) L 07/03/18 04:20 Stool Occult Blood NEGATIVE (NEGATIVE) 07/02/18 06:00 Random Vancomycin 30.0 ug/mL (5.0-40.0) 07/03/18 04:20 Hep Bs Antigen Negative (Negative) 06/30/18 15:20 Hepatitis C Antibody <0.1 s/co ratio (0.0-0.9) 06/30/18 15:20 Blood Type O POSITIVE 06/30/18 21:44 Antibody Screen NEGATIVE 06/30/18 21:44 Crossmatch See Detail 06/30/18 21:44 - Physical Exam Vitals and I&O: Vital Signs Temp 98.9 F 07/03/18 06:00 Pulse 97 07/03/18 09:10 Resp 24 07/03/18 06:00 BP 139/30 07/03/18 06:00 Pulse Ox 100 07/03/18 09:10 Intake & Output 07/02/18 07/03/18 07/03/18 18:59 06:59 18:59 Intake Total 630 1230 Balance 630 1230 Weight (lbs) 84.368 kg 84.459 kg Intake: Intake, IV Amount 210 150 Levofloxacin 500mg/100mL 100 500 mg In 100 ml @ 100 mls/hr IV Q48HR [facility] Rx#: [id number] Piperacillin Sodium/ 100 50 Tazobact 2.25 gm In Sodium Chloride 0.9% 50 ml @ 100 mls/hr IV Q8H [facility] Rx#:[id number] Sodium Ferric Gluconate 110 125 mg In Sodium Chloride 0.9% 100 ml @ 100 mls/hr IV Q24HR [facility] Rx#: [id number] Oral 0 Tube Feeding 240 930 Other 180 150 Other: # Voids 0 1 # Bowel Movements 2 1 Stool Characteristics Liquid Liquid Brown Brown Weight Source Bedscale Bedscale Active Medications: Current Medications Acetylcysteine (Mucomyst 20%) 3 ml HHN Q4HRT [facility] Stop: 08/30/18 14:59 Last Admin: 07/03/18 07:10 Dose: 3 ml Albuterol Sulfate (Albuterol 2.5mg/3ml Neb Ud) 2.5 mg HHN Q4HRT [facility] Stop: 08/30/18 14:59 Last Admin: 07/03/18 07:10 Dose: 2.5 mg Ascorbic Acid (Vitamin C) 500 mg GT BID [facility] Stop: 08/30/18 08:59 Last Admin: 07/03/18 09:52 Dose: Not Given Atorvastatin Calcium (Lipitor) 40 mg GT HS [facility] Stop: 08/30/18 20:59 Last Admin: 07/02/18 20:45 Dose: 40 mg Calcium Carbonate (Os-Alon) 500 mg GT Q12H [facility] Stop: 08/30/18 08:59 Last Admin: 07/03/18 09:54 Dose: Not Given [place] Oil/[place] Balsam/Trypsin (Venelex) 1 appl TP BID [facility] Stop: 08/31/18 08:59 Last Admin: 07/02/18 17:15 Dose: 1 appl Chlorhexidine Gluconate (Peridex) 15 ml MM 0800,2000 [facility] Stop: 08/30/18 19:59 Last Admin: 07/02/18 20:44 Dose: 15 ml Dextrose (D50w) 50 ml IVP PRN PRN PRN Reason: Blood Glucose less than 70 Stop: 08/29/18 18:34 Last Admin: 06/30/18 19:15 Dose: 50 ml Dextrose (Glutose 40%) 18.75 gm PO PRN PRN PRN Reason: Blood Glucose less than 70 Stop: 08/29/18 18:34 Folic Acid (Folate) 1 mg GT DAILY [facility] Stop: 08/31/18 08:59 Last Admin: 07/03/18 09:55 Dose: Not Given Glucagon (Glucagen) 1 mg IM PRN PRN PRN Reason: Blood Glucose less than 70 Stop: 08/29/18 18:34 Piperacillin Sod/Tazobactam (Sod 2.25 gm/ Sodium Chloride) 50 mls @ 100 mls/hr IV Q8H [facility] Stop: 08/29/18 16:59 Last Admin: 07/03/18 10:05 Dose: 100 mls/hr Levofloxacin (Levaquin Pb) 500 mg in 100 mls @ 100 mls/hr IV Q48HR [facility] Stop: 08/31/18 19:59 Last Infusion: 07/03/18 00:18 Dose: Infused Dextrose (D5w) 1,000 mls @ 40 mls/hr IV .Q24H [facility] Stop: 08/30/18 04:14 Last Admin: 07/02/18 04:00 Dose: 40 mls/hr Ferric Sodium Gluconate Complex 125 mg/ Sodium Chloride 110 mls @ 100 mls/hr IV Q24HR [facility] Stop: 07/09/18 12:59 Last Infusion: 07/02/18 14:06 Dose: Infused Ibuprofen (Motrin) 400 mg GT Q6H PRN PRN Reason: PAIN OR TEMP >101 Stop: 08/30/18 03:13 Insulin Aspart (Novolog Insulin Sliding Scale) 0 units SUBQ Q6H [facility]; Protocol Stop: 08/30/18 05:59 Last Admin: 07/03/18 06:24 Dose: 6 units Insulin Detemir (Levemir Insulin) 20 units SUBQ Q12H [facility]; Protocol Stop: 08/30/18 08:59 Last Admin: 07/02/18 20:46 Dose: Not Given Ipratropium [place] (Atrovent Neb 0.5mg/2.5ml) 0.5 mg HHN Q4HRT [facility] Stop: 08/30/18 14:59 Last Admin: 07/03/18 07:10 Dose: 0.5 mg Lactobacillus Rhamnosus (Culturelle 15b) 1 each GT DAILY [facility] Stop: 08/30/18 08:59 Last Admin: 07/03/18 09:55 Dose: Not Given Miscellaneous (Vancomycin Iv Per Pharmacy) 1 ea MC PRN PRN PRN Reason: PROTOCOL Stop: 08/29/18 16:10 Miscellaneous (Zosyn Iv Per Pharmacy) 1 ea PRN PRN PRN Reason: PROTOCOL Stop: 08/29/18 16:16 Miscellaneous (Vte Chemical Prophylaxis Screen/Icu Transfer) 1 ea PRN PRN PRN Reason: PROTOCOL Stop: 08/30/18 08:08 Miscellaneous (Probiotic Screen) 1 ea PRN PRN PRN Reason: PROTOCOL Stop: 09/01/18 09:26 Pantoprazole Sodium (Protonix) 40 mg GT DAILY [facility] Stop: 08/30/18 08:59 Last Admin: 07/02/18 08:57 Dose: 40 mg Psyllium Hydrophilic Mucilloid (Metamucil) 1 pkt GT Q12HR [facility] Stop: 08/30/18 08:59 Last Admin: 07/03/18 09:56 Dose: Not Given Vitamin B Complex/Vit C/Folic Acid (Vitamin B Complex W/Vitamin C) 1 tab GT DAILY [facility] Stop: 08/30/18 08:59 Last Admin: 07/03/18 09:57 Dose: Not Given Zinc Sulfate (Zinc Sulfate) 220 mg GT DAILY [facility] Stop: 08/30/18 08:59 Last Admin: 07/03/18 09:57 Dose: Not Given General: Other HEENT: Atraumatic, Other (trach) Abdomen: Other (gastric tube) Extremities: Edema, Other (peripheral iv in right arm) - Procedures Procedures: Procedures Procedure Code Date RESPIRATORY VENTILATION, 24-96 CONSECUTIVE HOURS [id number] 06/30/18 Assessment/Plan - Problem List Patient Problems: All Active Problems ANEMIA WITH HB OF 6.8 (Acute) - Assessment Assessment: Normocytic anemia, most likely multifactorial from chronic kidney disease and possible blood loss from the sacral decubitus ulcer and/or GI source. I will follow the iron studies and the patient will benefit from IV iron. If the ferritin is less than 400 and if she has adequate iron reserves, then Epogen injection will be started. Also, stool occult blood to evaluate for GI blood loss. I will start the patient on Ferrlecit. Pending the iron results. Follow the B12 and folate level and stool occult blood and consider Epogen if the iron reserve is adequate. Nutritional Asmnt/Malnutr-PDOC - Dietary Evaluation Malnutrition Findings (Please click <Entered> for more info): Nutritional Asmnt/Malnutrition Start: 07/01/18 10: 22 Text: Status: Complete Freq: Protocol: Document 07/01/18 10:22 CARIJAMIE (Rec: 07/01/18 10:31 DALE CHADWICK- [email or web address]) Nutritional Asmnt/Malnutrition Patient General Information Diagnosis PNA and Diaylsis dependent Pertinent Medical Hx/Surgical Hx ESRD-HD, DM II, HTN, gtube dependent Subjective Information Pt asleep at time of visit, visually verified TF running at 63ml/hr. Current Diet Order/ Nutrition Support Nepro @ 63ml/hr x 18hours Pertinent Medications vit C, lipitor, oscal, levemir 20units BID, culturelle, zosyn, metamucil, vit B complex with vit C, zinc sulfate Pertinent Labs 07/01: Na 138, Kk 2.8, CL 97, CO2 27.8, BUN 44, Cr 2.1, glucose 173, Ca 8.2 Nutritional Hx/Data Height 1.57 m Height (Calculated Centimeters) 157.5 Current Weight (lbs) 65.771 kg Weight (Calculated Kilograms) 65.8 Weight (Calculated Grams) 50123.9 Body Mass Index (BMI) 26.5 Weight Status Overweight GI Symptoms GI Symptoms None Last BM none noted Cultural/Ethnic/Sabianism Belief unknown Usual diet at home Nepro @63ml/hr x 18hours Skin Integrity/Comment: Edvin score 10: sacrum pressure area ulceration bilateral heel pressure area reddened Estimated Nutritional Goals BEE in Kcals: Using Current wt Calories/Kcals/Kg 30-35kcals/kg Kcals Calculated 1979-2310kcals/day Protein: Using Current wt Protein g/k.4-1.6g/kg Protein Calculated 92-106g/day Fluid: ml per MD Nutritional Problem 1. Problem Problem Altered nutrition relate lab values related to Etiology renal dysfunction as evidenced by Signs/Symptoms: K 2.8, BUN 44, Cr 2.1. Intervention/Recommendation Comments Consider potassium supplement for better control of repleation with ESRD Recommend continuing Nepro @ 63ml/hr x 18hours providing 2268kcals and 102g protein Expected Outcomes/Goals Expected Outcomes/Goals Tolerance of Tube feeding
[2018-07-03] MEDS: Insulin Detemir 100 units/mL 10mL Vial SUBQ SCH ×2 (10:53→21:36)
[2018-07-03] MEDS: Pantoprazole 40 mg/Packet GT SCH (13:05)
--- NOTE | 2018-07-03 13:14 | GI Progress Note ---
Subjective - Review of Systems Service Date: 07/03/18 Events since last encounter: Pt seen and examined, no events Objective - Results Result Diagrams: 07/03/18 04:20 07/03/18 04:20 Recent Labs: Laboratory Last Values WBC 18.4 Th/cmm (4.8-10.8) H 07/03/18 04:20 RBC 2.76 Mil/cmm (3.80-5.20) L 07/03/18 04:20 Hgb 8.0 gm/dL (12-16) L 07/03/18 04:20 Hct 23.3 % (41.0-60) L 07/03/18 04:20 MCV 84.3 fl (81-100) 07/03/18 04:20 MCH 29.0 pg (27.0-31.0) 07/03/18 04:20 MCHC Differential 34.4 pg (28.0-36.0) 07/03/18 04:20 RDW 16.1 % (11.5-20.0) 07/03/18 04:20 Plt Count 289 Th/cmm (150-400) 07/03/18 04:20 MPV 7.6 fl 07/03/18 04:20 Add Manual Diff YES 07/03/18 04:20 Neutrophils % 89.9 % (40.0-80.0) H 06/30/18 15:20 Band Neutrophils % 2 % (0-10) 07/03/18 04:20 Lymphocytes % 4.9 % (20.0-50.0) L 06/30/18 15:20 Monocytes % 4.2 % (2.0-10.0) 06/30/18 15:20 Eosinophils % 0.9 % (0.0-5.0) 06/30/18 15:20 Basophils % 0.1 % (0.0-2.0) 06/30/18 15:20 Neutrophils (Manual) 86 % (40-80) H 07/03/18 04:20 Lymphocytes 6 % (20-50) L 07/03/18 04:20 Monocytes 4 % (2-10) 07/03/18 04:20 Eosinophils 2 % (0-5) 07/03/18 04:20 Basophils 0 % (0-3) 07/02/18 06:00 Total Retics Counted 3.8 % (0.5-1.5) H 07/01/18 05:25 Absolute Retic 117.4 Th/cmm 07/01/18 05:25 Corrected Retic Count 2.2 % (0.5-1.5) H 07/01/18 05:25 PT 10.2 SECONDS (9.5-11.5) 06/30/18 15:20 INR 0.98 (0.5-1.4) 06/30/18 15:20 PTT (Actin FS) 29.5 SECONDS (26.0-38.0) 06/30/18 15:20 Sodium 132 mEq/L (136-145) L 07/03/18 04:20 Potassium 3.8 mEq/L (3.5-5.1) 07/03/18 04:20 Chloride 92 mEq/L (98-107) L 07/03/18 04:20 Carbon Dioxide 23.4 mEq/L (21.0-31.0) 07/03/18 04:20 Anion Gap 20.4 (7.0-16.0) H 07/03/18 04:20 BUN 76 mg/dL (7-25) H 07/03/18 04:20 Creatinine 3.6 mg/dL (0.6-1.2) H 07/03/18 04:20 Est GFR ( Amer) 16.3 ml/min (>90) 07/03/18 04:20 Est GFR (Non-Af Amer) 13.5 ml/min 07/03/18 04:20 BUN/Creatinine Ratio 21.1 07/03/18 04:20 Glucose 245 mg/dL (70-105) H 07/03/18 04:20 POC Glucose 210 MG/DL (70 - 105) H 07/03/18 12:53 Whole Bld Lactic Acid 1.15 mmol/L (0.60-1.99) 06/30/18 15:20 Calcium 8.3 mg/dL (8.6-10.3) L 07/03/18 04:20 Phosphorus 2.6 mg/dL (2.5-5.0) 06/30/18 15:20 Magnesium 2.8 mg/dL (1.9-2.7) H 06/30/18 15:20 Total Bilirubin 0.4 mg/dL (0.3-1.0) 07/03/18 04:20 AST 24 U/L (13-39) 07/03/18 04:20 ALT 20 U/L (7-52) 07/03/18 04:20 Alkaline Phosphatase 351 U/L (34-104) H 07/03/18 04:20 Lactate Dehydrogenase 217 U/L (140-271) 07/01/18 05:25 Troponin I 0.07 ng/mL (0.01-0.05) H* 06/30/18 15:20 Total Protein 6.0 gm/dL (6.0-8.3) 07/03/18 04:20 Albumin 2.3 gm/dL (3.7-5.3) L 07/03/18 04:20 Globulin 3.7 gm/dL 07/03/18 04:20 Albumin/Globulin Ratio 0.6 (1.0-1.8) L 07/03/18 04:20 Stool Occult Blood NEGATIVE (NEGATIVE) 07/02/18 06:00 Random Vancomycin 30.0 ug/mL (5.0-40.0) 07/03/18 04:20 Hep Bs Antigen Negative (Negative) 06/30/18 15:20 Hepatitis C Antibody <0.1 s/co ratio (0.0-0.9) 06/30/18 15:20 Blood Type O POSITIVE 06/30/18 21:44 Antibody Screen NEGATIVE 06/30/18 21:44 Crossmatch See Detail 06/30/18 21:44 - Physical Exam Vitals and I&O: Vital Signs Temp 97.8 F 07/03/18 08:00 Pulse 101 07/03/18 13:08 Resp 24 07/03/18 11:00 BP 110/26 07/03/18 11:00 Pulse Ox 100 07/03/18 13:08 Intake & Output 07/02/18 07/03/18 07/03/18 18:59 06:59 18:59 Intake Total 630 1230 Balance 630 1230 Weight (lbs) 84.368 kg 84.459 kg Intake: Intake, IV Amount 210 150 Levofloxacin 500mg/100mL 100 500 mg In 100 ml @ 100 mls/hr IV Q48HR [facility] Rx#: [id number] Piperacillin Sodium/ 100 50 Tazobact 2.25 gm In Sodium Chloride 0.9% 50 ml @ 100 mls/hr IV Q8H [facility] Rx#:[id number] Sodium Ferric Gluconate 110 125 mg In Sodium Chloride 0.9% 100 ml @ 100 mls/hr IV Q24HR [facility] Rx#: [id number] Oral 0 Tube Feeding 240 930 Other 180 150 Other: # Voids 0 1 # Bowel Movements 2 1 Stool Characteristics Liquid Liquid Brown Brown Weight Source Bedscale Bedscale Active Medications: Current Medications Acetylcysteine (Mucomyst 20%) [address] [facility] Stop: 08/30/18 14:59 Last Admin: 07/03/18 11:13 Dose: 3 ml Albuterol Sulfate (Albuterol 2.5mg/3ml Neb Ud) 2.[address] [facility] Stop: 08/30/18 14:59 Last Admin: 07/03/18 11:14 Dose: 2.5 mg Ascorbic Acid (Vitamin C) [address] [facility] Stop: 08/30/18 08:59 Last Admin: 07/03/18 09:52 Dose: Not Given Atorvastatin Calcium (Lipitor) [address] [facility] Stop: 08/30/18 20:59 Last Admin: 07/02/18 20:45 Dose: 40 mg Calcium Carbonate (Os-Alon) [address] [facility] Stop: 08/30/18 08:59 Last Admin: 07/03/18 09:54 Dose: Not Given [place] Oil/[place] Balsam/Trypsin (Venelex) [address] [facility] Stop: 08/31/18 08:59 Last Admin: 07/03/18 09:00 Dose: 1 appl Chlorhexidine Gluconate (Peridex) 15 ml MM 0800,1999 [facility] Stop: 08/30/18 19:59 Last Admin: 07/03/18 08:00 Dose: 15 ml Dextrose (D50w) 50 ml IVP PRN PRN PRN Reason: Blood Glucose less than 70 Stop: 08/29/18 18:34 Last Admin: 06/30/18 19:15 Dose: 50 ml Dextrose (Glutose 40%) 18.75 gm PO PRN PRN PRN Reason: Blood Glucose less than 70 Stop: 08/29/18 18:34 Folic Acid (Folate) [address] [facility] Stop: 08/31/18 08:59 Last Admin: 07/03/18 09:55 Dose: Not Given Glucagon (Glucagen) 1 mg IM PRN PRN PRN Reason: Blood Glucose less than 70 Stop: 08/29/18 18:34 Piperacillin Sod/Tazobactam (Sod 2.25 gm/ Sodium Chloride) 50 mls @ 100 mls/hr IV Q8H [facility] Stop: 08/29/18 16:59 Last Admin: 07/03/18 10:05 Dose: 100 mls/hr Levofloxacin (Levaquin Pb) 500 mg in 100 mls @ 100 mls/hr IV Q48HR [facility] Stop: 08/31/18 19:59 Last Infusion: 07/03/18 00:18 Dose: Infused Dextrose (D5w) 1,000 mls @ 40 mls/hr IV .Q24H [facility] Stop: 08/30/18 04:14 Last Admin: 07/02/18 04:00 Dose: 40 mls/hr Ferric Sodium Gluconate Complex 125 mg/ Sodium Chloride 110 mls @ 100 mls/hr IV Q24HR [facility] Stop: 07/09/18 12:59 Last Infusion: 07/02/18 14:06 Dose: Infused Ibuprofen (Motrin) 400 mg GT Q6H PRN PRN Reason: PAIN OR TEMP >101 Stop: 08/30/18 03:13 Insulin Aspart (Novolog Insulin Sliding Scale) [address] [facility]; Protocol Stop: 08/30/18 05:59 Last Admin: 07/03/18 12:58 Dose: 4 units Insulin Detemir (Levemir Insulin) [address] [facility]; Protocol Stop: 08/30/18 08:59 Last Admin: 07/03/18 10:53 Dose: 20 units Ipratropium [place] (Atrovent Neb 0.5mg/2.5ml) 0.[address] [facility] Stop: 08/30/18 14:59 Last Admin: 07/03/18 11:14 Dose: 0.5 mg Lactobacillus Rhamnosus (Culturelle 15b) [address] [facility] Stop: 08/30/18 08:59 Last Admin: 07/03/18 09:55 Dose: Not Given Miscellaneous (Vancomycin Iv Per Pharmacy) 1 ea MC PRN PRN PRN Reason: PROTOCOL Stop: 08/29/18 16:10 Miscellaneous (Zosyn Iv Per Pharmacy) 1 ea PRN PRN PRN Reason: PROTOCOL Stop: 08/29/18 16:16 Miscellaneous (Vte Chemical Prophylaxis Screen/Icu Transfer) 1 ea PRN PRN PRN Reason: PROTOCOL Stop: 08/30/18 08:08 Miscellaneous (Probiotic Screen) 1 ea PRN PRN PRN Reason: PROTOCOL Stop: 09/01/18 09:26 Pantoprazole Sodium (Protonix) 40 mg GT DAILY [facility] Stop: 08/30/18 08:59 Last Admin: 07/03/18 13:05 Dose: 40 mg Psyllium Hydrophilic Mucilloid (Metamucil) 1 pkt GT Q12HR [facility] Stop: 08/30/18 08:59 Last Admin: 07/03/18 09:56 Dose: Not Given Vitamin B Complex/Vit C/Folic Acid (Vitamin B Complex W/Vitamin C) 1 tab GT DAILY [facility] Stop: 08/30/18 08:59 Last Admin: 07/03/18 09:57 Dose: Not Given Zinc Sulfate (Zinc Sulfate) 220 mg GT DAILY [facility] Stop: 08/30/18 08:59 Last Admin: 07/03/18 09:57 Dose: Not Given General: Other HEENT: Atraumatic, PERRLA, EOMI, Other (trach) Neck: Supple Cardiovascular: Regular rate, Normal S1, Normal S2 Lungs: Clear to auscultation Abdomen: Bowel sounds, Soft, Other (gastric tube) Extremities: Edema, Other (peripheral iv in right arm) - Procedures Procedures: Procedures Procedure Code Date RESPIRATORY VENTILATION, 24-96 CONSECUTIVE HOURS [id number] 06/30/18 Assessment/Plan - Problem List Patient Problems: All Active Problems ANEMIA WITH HB OF 6.8 (Acute) - Assessment Assessment: 1. FOBT+, then negative 2. Anemia - multifactorial 3. Recent negative colonoscopy 4. ESRD, septicemia -would be conservative in this case -track down colonoscopy report to personally review, I tasked nursing staff to help -Iron supplementation, supportive care -PRBCs if Hg<7 -Will follow
[2018-07-03] MEDS: Sodium Ferric Gluconate 125 MG in Sodium Chloride 0.9% 100 ML IV SCH (17:21)
--- NOTE | 2018-07-03 18:29 | General Progress Note ---
Subjective - Review of Systems Service Date: 07/03/18 Events since last encounter: REMAINS MECHANICALLY VENTILATED VIA TRACH HB BETTER AT 8 FROM ADMISSION LEVEL OF 6.8 AFTER 2 UNITS PRBCS Subjective: UNABLE TO OBTAIN Objective - Results Result Diagrams: 07/03/18 04:20 07/03/18 04:20 Recent Labs: Laboratory Last Values WBC 18.4 Th/cmm (4.8-10.8) H 07/03/18 04:20 RBC 2.76 Mil/cmm (3.80-5.20) L 07/03/18 04:20 Hgb 8.0 gm/dL (12-16) L 07/03/18 04:20 Hct 23.3 % (41.0-60) L 07/03/18 04:20 MCV 84.3 fl (81-100) 07/03/18 04:20 MCH 29.0 pg (27.0-31.0) 07/03/18 04:20 MCHC Differential 34.4 pg (28.0-36.0) 07/03/18 04:20 RDW 16.1 % (11.5-20.0) 07/03/18 04:20 Plt Count 289 Th/cmm (150-400) 07/03/18 04:20 MPV 7.6 fl 07/03/18 04:20 Add Manual Diff YES 07/03/18 04:20 Neutrophils % 89.9 % (40.0-80.0) H 06/30/18 15:20 Band Neutrophils % 2 % (0-10) 07/03/18 04:20 Lymphocytes % 4.9 % (20.0-50.0) L 06/30/18 15:20 Monocytes % 4.2 % (2.0-10.0) 06/30/18 15:20 Eosinophils % 0.9 % (0.0-5.0) 06/30/18 15:20 Basophils % 0.1 % (0.0-2.0) 06/30/18 15:20 Neutrophils (Manual) 86 % (40-80) H 07/03/18 04:20 Lymphocytes 6 % (20-50) L 07/03/18 04:20 Monocytes 4 % (2-10) 07/03/18 04:20 Eosinophils 2 % (0-5) 07/03/18 04:20 Basophils 0 % (0-3) 07/02/18 06:00 Total Retics Counted 3.8 % (0.5-1.5) H 07/01/18 05:25 Absolute Retic 117.4 Th/cmm 07/01/18 05:25 Corrected Retic Count 2.2 % (0.5-1.5) H 07/01/18 05:25 PT 10.2 SECONDS (9.5-11.5) 06/30/18 15:20 INR 0.98 (0.5-1.4) 06/30/18 15:20 PTT (Actin FS) 29.5 SECONDS (26.0-38.0) 06/30/18 15:20 Sodium 132 mEq/L (136-145) L 07/03/18 04:20 Potassium 3.8 mEq/L (3.5-5.1) 07/03/18 04:20 Chloride 92 mEq/L (98-107) L 07/03/18 04:20 Carbon Dioxide 23.4 mEq/L (21.0-31.0) 07/03/18 04:20 Anion Gap 20.4 (7.0-16.0) H 07/03/18 04:20 BUN 76 mg/dL (7-25) H 07/03/18 04:20 Creatinine 3.6 mg/dL (0.6-1.2) H 07/03/18 04:20 Est GFR ( Amer) 16.3 ml/min (>90) 07/03/18 04:20 Est GFR (Non-Af Amer) 13.5 ml/min 07/03/18 04:20 BUN/Creatinine Ratio 21.1 07/03/18 04:20 Glucose 245 mg/dL (70-105) H 07/03/18 04:20 POC Glucose 116 MG/DL (70 - 105) H 07/03/18 17:38 Whole Bld Lactic Acid 1.15 mmol/L (0.60-1.99) 06/30/18 15:20 Calcium 8.3 mg/dL (8.6-10.3) L 07/03/18 04:20 Phosphorus 2.6 mg/dL (2.5-5.0) 06/30/18 15:20 Magnesium 2.8 mg/dL (1.9-2.7) H 06/30/18 15:20 Total Bilirubin 0.4 mg/dL (0.3-1.0) 07/03/18 04:20 AST 24 U/L (13-39) 07/03/18 04:20 ALT 20 U/L (7-52) 07/03/18 04:20 Alkaline Phosphatase 351 U/L (34-104) H 07/03/18 04:20 Lactate Dehydrogenase 217 U/L (140-271) 07/01/18 05:25 Troponin I 0.07 ng/mL (0.01-0.05) H* 06/30/18 15:20 Total Protein 6.0 gm/dL (6.0-8.3) 07/03/18 04:20 Albumin 2.3 gm/dL (3.7-5.3) L 07/03/18 04:20 Globulin 3.7 gm/dL 07/03/18 04:20 Albumin/Globulin Ratio 0.6 (1.0-1.8) L 07/03/18 04:20 Stool Occult Blood NEGATIVE (NEGATIVE) 07/02/18 06:00 Random Vancomycin 30.0 ug/mL (5.0-40.0) 07/03/18 04:20 Hep Bs Antigen Negative (Negative) 06/30/18 15:20 Hepatitis C Antibody <0.1 s/co ratio (0.0-0.9) 06/30/18 15:20 Blood Type O POSITIVE 06/30/18 21:44 Antibody Screen NEGATIVE 06/30/18 21:44 Crossmatch See Detail 06/30/18 21:44 - Physical Exam Vitals and I&O: Vital Signs Temp 98.7 F 07/03/18 12:00 Pulse 96 07/03/18 17:10 Resp 24 07/03/18 15:00 BP 118/32 07/03/18 15:00 Pulse Ox 100 07/03/18 17:10 Intake & Output 07/02/18 07/03/18 07/03/18 18:59 06:59 18:59 Intake Total 630 1230 50 Balance 630 1230 50 Weight (lbs) 84.368 kg 84.459 kg Intake: Intake, IV Amount 210 150 50 Levofloxacin 500mg/100mL 100 500 mg In 100 ml @ 100 mls/hr IV Q48HR [facility] Rx#: [id number] Piperacillin Sodium/ 100 50 50 Tazobact 2.25 gm In Sodium Chloride 0.9% 50 ml @ 100 mls/hr IV Q8H [facility] Rx#:[id number] Sodium Ferric Gluconate 110 125 mg In Sodium Chloride 0.9% 100 ml @ 100 mls/hr IV Q24HR [facility] Rx#: [id number] Oral 0 Tube Feeding 240 930 Other 180 150 Other: # Voids 0 1 # Bowel Movements 2 1 Stool Characteristics Liquid Liquid Brown Brown Weight Source Bedscale Bedscale Active Medications: Current Medications Acetylcysteine (Mucomyst 20%) 3 ml HHN Q4HRT [facility] Stop: 08/30/18 14:59 Last Admin: 07/03/18 14:57 Dose: 3 ml Albuterol Sulfate (Albuterol 2.5mg/3ml Neb Ud) 2.5 mg HHN Q4HRT [facility] Stop: 08/30/18 14:59 Last Admin: 07/03/18 14:57 Dose: 2.5 mg Ascorbic Acid (Vitamin C) 500 mg GT BID [facility] Stop: 08/30/18 08:59 Last Admin: 07/03/18 17:21 Dose: 500 mg Atorvastatin Calcium (Lipitor) 40 mg GT HS [facility] Stop: 08/30/18 20:59 Calcium Carbonate (Os-Alon) 500 mg GT Q12H [facility] Stop: 08/30/18 08:59 Last Admin: 07/03/18 09:54 Dose: Not Given [place] Oil/[place] Balsam/Trypsin (Venelex) 1 appl TP BID [facility] Stop: 08/31/18 08:59 Last Admin: 07/03/18 09:00 Dose: 1 appl Chlorhexidine Gluconate (Peridex) 15 ml MM 0800,1999 [facility] Stop: 08/30/18 19:59 Last Admin: 07/03/18 08:00 Dose: 15 ml Dextrose (D50w) 50 ml IVP PRN PRN PRN Reason: Blood Glucose less than 70 Stop: 08/29/18 18:34 Last Admin: 06/30/18 19:15 Dose: 50 ml Dextrose (Glutose 40%) 18.75 gm PO PRN PRN PRN Reason: Blood Glucose less than 70 Stop: 08/29/18 18:34 Folic Acid (Folate) 1 mg GT DAILY [facility] Stop: 08/31/18 08:59 Last Admin: 07/03/18 09:55 Dose: Not Given Glucagon (Glucagen) 1 mg IM PRN PRN PRN Reason: Blood Glucose less than 70 Stop: 08/29/18 18:34 Piperacillin Sod/Tazobactam (Sod 2.25 gm/ Sodium Chloride) 50 mls @ 100 mls/hr IV Q8H [facility] Stop: 08/29/18 16:59 Last Admin: 07/03/18 17:20 Dose: 100 mls/hr Levofloxacin (Levaquin Pb) 500 mg in 100 mls @ 100 mls/hr IV Q48HR [facility] Stop: 08/31/18 19:59 Last Infusion: 07/03/18 00:18 Dose: Infused Dextrose (D5w) 1,000 mls @ 40 mls/hr IV .Q24H [facility] Stop: 08/30/18 04:14 Last Admin: 07/02/18 04:00 Dose: 40 mls/hr Ferric Sodium Gluconate Complex 125 mg/ Sodium Chloride 110 mls @ 100 mls/hr IV Q24HR [facility] Stop: 07/09/18 12:59 Last Admin: 07/03/18 17:21 Dose: 100 mls/hr Ibuprofen (Motrin) 400 mg GT Q6H PRN PRN Reason: PAIN OR TEMP >101 Stop: 08/30/18 03:13 Insulin Aspart (Novolog Insulin Sliding Scale) 0 units SUBQ Q6H [facility]; Protocol Stop: 08/30/18 05:59 Last Admin: 07/03/18 12:58 Dose: 4 units Insulin Detemir (Levemir Insulin) 20 units SUBQ Q12H [facility]; Protocol Stop: 08/30/18 08:59 Last Admin: 07/03/18 10:53 Dose: 20 units Ipratropium [place] (Atrovent Neb 0.5mg/2.5ml) 0.5 mg HHN Q4HRT [facility] Stop: 08/30/18 14:59 Last Admin: 07/03/18 14:58 Dose: 0.5 mg Lactobacillus Rhamnosus (Culturelle 15b) 1 each GT DAILY [facility] Stop: 08/30/18 08:59 Last Admin: 07/03/18 09:55 Dose: Not Given Miscellaneous (Vancomycin Iv Per Pharmacy) 1 ea MC PRN PRN PRN Reason: PROTOCOL Stop: 08/29/18 16:10 Miscellaneous (Zosyn Iv Per Pharmacy) 1 ea PRN PRN PRN Reason: PROTOCOL Stop: 08/29/18 16:16 Miscellaneous (Vte Chemical Prophylaxis Screen/Icu Transfer) 1 ea PRN PRN PRN Reason: PROTOCOL Stop: 08/30/18 08:08 Miscellaneous (Probiotic Screen) 1 ea PRN PRN PRN Reason: PROTOCOL Stop: 09/01/18 09:26 Pantoprazole Sodium (Protonix) 40 mg GT DAILY [facility] Stop: 08/30/18 08:59 Last Admin: 07/03/18 13:05 Dose: 40 mg Psyllium Hydrophilic Mucilloid (Metamucil) 1 pkt GT Q12HR [facility] Stop: 08/30/18 08:59 Last Admin: 07/03/18 09:56 Dose: Not Given Vitamin B Complex/Vit C/Folic Acid (Vitamin B Complex W/Vitamin C) 1 tab GT DAILY [facility] Stop: 08/30/18 08:59 Last Admin: 07/03/18 09:57 Dose: Not Given Zinc Sulfate (Zinc Sulfate) 220 mg GT DAILY [facility] Stop: 08/30/18 08:59 Last Admin: 07/03/18 09:57 Dose: Not Given General: Other (MECHANICALLY VENTILATED VIA TRACH) HEENT: Atraumatic, PERRLA, EOMI, Other (trach) Neck: Supple Cardiovascular: Regular rate, Normal S1, Normal S2 Lungs: Clear to auscultation Abdomen: Bowel sounds, Soft, Other (gastric tube) Extremities: Edema, Other (peripheral iv in right arm) - Procedures Procedures: Procedures Procedure Code Date RESPIRATORY VENTILATION, 24-96 CONSECUTIVE HOURS [id number] 06/30/18 Assessment/Plan - Problem List Patient Problems: All Active Problems ANEMIA WITH HB OF 6.8 (Acute) - Assessment Assessment: ESRD FROM DM/HTN ACUTE ON CHRONIC ANEMIA OF CKD CHRONIC VENT DEPENDENT RESP FAILURE DYSPHAGIA WITH G TUBE STATUS - Plan Plan: HD TODAY START EPO CONT IV IRON TRANSFUSE NECESSARY Nutritional Asmnt/Malnutr-PDOC - Dietary Evaluation Malnutrition Findings (Please click <Entered> for more info): Nutritional Asmnt/Malnutrition Start: 07/01/18 10: 22 Text: Status: Complete Freq: Protocol: Document 07/01/18 10:22 DALE (Rec: 07/01/18 10:31 CARIJAMIE GENAO- [email or web address]) Nutritional Asmnt/Malnutrition Patient General Information Diagnosis PNA and Diaylsis dependent Pertinent Medical Hx/Surgical Hx ESRD-HD, DM II, HTN, gtube dependent Subjective Information Pt asleep at time of visit, visually verified TF running at 63ml/hr. Current Diet Order/ Nutrition Support Nepro @ 63ml/hr x 18hours Pertinent Medications vit C, lipitor, oscal, levemir 20units BID, culturelle, zosyn, metamucil, vit B complex with vit C, zinc sulfate Pertinent Labs 07/01: Na 138, Kk 2.8, CL 97, CO2 27.8, BUN 44, Cr 2.1, glucose 173, Ca 8.2 Nutritional Hx/Data Height 1.57 m Height (Calculated Centimeters) 157.5 Current Weight (lbs) 65.771 kg Weight (Calculated Kilograms) 65.8 Weight (Calculated Grams) 16899.9 Body Mass Index (BMI) 26.5 Weight Status Overweight GI Symptoms GI Symptoms None Last BM none noted Cultural/Ethnic/Yarsani Belief unknown Usual diet at home Nepro @63ml/hr x 18hours Skin Integrity/Comment: Edvin score 10: sacrum pressure area ulceration bilateral heel pressure area reddened Estimated Nutritional Goals BEE in Kcals: Using Current wt Calories/Kcals/Kg 30-35kcals/kg Kcals Calculated 1979-2310kcals/day Protein: Using Current wt Protein g/k.4-1.6g/kg Protein Calculated 92-106g/day Fluid: ml per MD Nutritional Problem 1. Problem Problem Altered nutrition relate lab values related to Etiology renal dysfunction as evidenced by Signs/Symptoms: K 2.8, BUN 44, Cr 2.1. Intervention/Recommendation Comments Consider potassium supplement for better control of repleation with ESRD Recommend continuing Nepro @ 63ml/hr x 18hours providing 2268kcals and 102g protein Expected Outcomes/Goals Expected Outcomes/Goals Tolerance of Tube feeding
[2018-07-03] MEDS: Dextrose 5% 1,000 ML IV SCH (19:00)
[2018-07-04] MEDS: INSULIN ASPART SLIDING SCALE 100 UNITS/ML UNIT SUBQ SCH ×4 (00:31→18:23)
[2018-07-04] MEDS: Piperacillin/Tazobact 2.25 gm in 0.9% NS 50 ML IV SCH ×3 (00:31→16:27)
[2018-07-04] MEDS: Albuterol Nebulizer 2.5mg/3mL HHN SCH ×6 (03:18→23:32)
[2018-07-04] MEDS: Ipratropium Neb 0.5 mg/2.5 mL UD HHN SCH ×6 (03:18→23:32)
[2018-07-04 06:07] LABS: FOLIC ACID 18.3 ng/mL (>3.0)
[2018-07-04 06:32] LABS: HEMATOCRIT 24.6 % (41.0-60); MEAN CELL VOLUME 85.1 fl (81-100); MEAN CORPUSCULAR HEMOGLOBIN 27.6 pg (27.0-31.0); MEAN CORPUSCULAR HGB CONC 32.5 pg (28.0-36.0); MEAN PLATELET VOLUME 7.3 fl; PLATELET COUNT 255 Th/cmm (150-400); RED BLOOD COUNT 2.89 Mil/cmm (3.80-5.20); RED CELL DISTRIBUTION WIDTH 16.2 % (11.5-20.0); WHITE BLOOD COUNT 12.4 Th/cmm (4.8-10.8)
[2018-07-04 07:35] LABS: ALB/GLOB RATIO 0.6 (1.0-1.8); ALBUMIN 2.3 gm/dL (3.7-5.3); ANION GAP 16.7 (7.0-16.0); BILIRUBIN,TOTAL 0.4 mg/dL (0.3-1.0); CALCIUM SERUM 8.4 mg/dL (8.6-10.3); CARBON DIOXIDE 26.6 mEq/L (21.0-31.0); CREATININE - SERUM 2.6 mg/dL (0.6-1.2); GFR AFRICAN-AMERICAN 23.8 ml/min (>90); GFR NON AFRICAN-AMERICAN 19.6 ml/min; POTASSIUM SERUM 3.3 mEq/L (3.5-5.1); TOTAL PROTEIN,SERUM 5.9 gm/dL (6.0-8.3)
[2018-07-04 07:51] LABS: BAND NEUTROPHILE 3 % (0-10); NEUTROPHILS 84 % (40-80)
[2018-07-04 07:52] LABS: BASOPHIL 0 % (0-3); EOSINOPHIL 0 % (0-5); LYMPHOCYTE 9 % (20-50); MONOCYTE 4 % (2-10)
[2018-07-04] MEDS: Venelex 60gm Tube TP SCH ×2 (09:00→17:35)
--- NOTE | 2018-07-04 09:06 | Diagnostic Imaging Report ---
CHEST X-RAY: AP view INDICATION: Shortness of breath COMPARISON: 07/02/2018 FINDINGS: Tracheostomy tube is stable. Multifocal left lung infiltrates are seen with small left effusion and mild congestive changes also noted. Cardiomegaly is noted. There is posttraumatic deformity of the left shoulder. IMPRESSION: Multifocal left lung infiltrates and small left effusion. Mild congestive changes.
[2018-07-04] MEDS: Pantoprazole 40 mg/Packet GT SCH (09:15)
[2018-07-04] MEDS: Chlorhexidine Gluconate 0.12% 15mL Mouthwash MM SCH ×2 (09:15→20:15)
[2018-07-04] MEDS: Vitamin B Complex w/Vitamin C Tab GT SCH (09:16)
[2018-07-04] MEDS: Lactobacillus Rhamnosus GG 15 Billion CFU CAP.SPRINK GT SCH (09:16)
--- NOTE | 2018-07-04 09:31 | Diagnostic Imaging Report ---
CT Chest without IV contrast HISTORY: Nodules COMPARISON: Chest x-ray on 07/04/2018. Technique: Axial images were obtained from the base of the neck to the upper abdomen without administration of IV contrast. Coronal reconstructions were made. Total DLP 374, CTD I 10.2 Findings: Tracheostomy tube is noted. Small amount of mucus is seen within the trachea. Multiple mildly prominent mediastinal lymph nodes are seen the largest along the pretracheal region measuring 1.5 cm. Diffuse atherosclerotic vascular disease is noted with mitral valve calcifications. There are multifocal bilateral pulmonary infiltrates and areas of consolidative change greatest along the bibasal region.. Multifocal small nodular infiltrates are noted. Right upper lobe consolidative changes is noted measuring 2.2 x 1.4 cm. Small bilateral pleural effusions are noted. Degenerative changes are seen throughout the spine. IMPRESSION: Multifocal bilateral pulmonary infiltrates including small multifocal nodular infiltrates. Consolidative changes of the lung bases are noted. There is also focal consolidation changes in the right upper lobe is noted measuring 2.2 x 1.4. Findings suggest infectious etiology. Neoplastic etiology is less likely, however, follow-up is recommended to ensure resolution of these findings. Mild mediastinal lymphadenopathy which may be due to infectious, inflammatory, neoplastic process. Diffuse atherosclerotic vascular disease. Tracheostomy tube noted.
[2018-07-04] MEDS: Insulin Detemir 100 units/mL 10mL Vial SUBQ SCH ×2 (09:44→20:51)
--- NOTE | 2018-07-04 09:44 | Diagnostic Imaging Report ---
CT abdomen and pelvis without intravenous contrast Indication: Abscess Comparison: CT chest the same day, Technique: Axial images were obtained from the lung bases to the bilateral proximal femurs without IV contrast. Coronal reconstructions were made. total DLP: 374, CTDI10.2 FINDINGS: Evaluation of the solid organs is limited due to lack of IV contrast. No evidence of focal hepatic lesions. Calcification seen adjacent of ligament. The patient status post cholecystectomy. A 2 mm splenic granulomas noted. No focal pancreatic lesions. There is heterogeneous density 5.3 cm left adrenal mass containing fat components. There is also additional heterogeneous density 4.2 cm right adrenal mass containing fat components. No hydronephrosis or nephrolithiasis Heavy atherosclerotic vascular calcifications are seen including renal vascular calcifications. Uterine calcifications are noted. Postsurgical changes are seen within the pelvis with surgical clips noted. There are inflammatory changes seen along the posterior sacral region. Multiple fluid-filled loops of small and large bowel are noted. No appendicitis. Percutaneous gastric feeding tube is noted. Trace presacral free fluid is noted. Degenerative changes of the spine and pelvis are noted at including advanced degenerative changes lower lumbar spine. Markedly displaced fracture left femoral head and neck is noted soft tissue density seen in this region and likely an effusion. Old left inferior pubic ramus bone fracture is noted. Anasarca noted. There is mild urinary bladder wall thickening. IMPRESSION: No evidence of an abscess. Multiple fluid-filled loops of small and large bowel, nonspecific. No evidence of obstruction. Inflammatory process cannot be excluded. Complex age indeterminate fracture of the left proximal femur involving the head and neck with its region with soft tissue density and probably joint effusion. Please correlate patient's clinical history and old exams. Bilateral adrenal heterogeneous density masses on the left measuring 5.3 cm and on the right measuring 4.2 cm there is a fat density. Findings likely represent adrenal myelolipomas. Percutaneous gastric feeding tube. Postsurgical changes of the pelvic region, please correlate with surgical history Trace presacral free fluid. Anasarca. Mild urinary bladder wall thickening, inflammatory process cannot be excluded. Inflammatory changes of the posterior sacral region. Small sacral decubitus ulcer cannot be excluded. Evidence of prior cholecystectomy Heavy atherosclerotic vascular disease.
--- NOTE | 2018-07-04 10:08 | Progress Notes ---
DATE: 07/03/2018 SUBJECTIVE: The patient lying in the bed, not in acute distress, no fever, no chills. OBJECTIVE: VITAL SIGNS: Shows temperature is 97.8, pulse 100, respirations 24, blood pressure 186/25. GENERAL: The patient is comfortable lying in the bed, not in acute distress, on the ventilator, status post tracheostomy. HEAD, EYES, EARS, NOSE, AND THROAT: Head is normocephalic, atraumatic. Oral cavity moist, pink tongue. NECK: Supple, no JVD, no carotid bruit. Trachea midline. CHEST: Bilateral breath sounds. No crackles or wheezing. HEART: S1, S2 within normal limits. Regular rhythm. No murmur or gallop. ABDOMEN: Soft, nontender, nondistended. Bowel sounds present. EXTREMITIES: No cyanosis, no clubbing, no edema. NEUROLOGIC: Alert and awake, but unable to communicate. LABORATORY DATA: Current lab shows WBC count is 18,600, hemoglobin 8.0, hematocrit 23.3, platelets are 289,000, neutrophils 56%. INR 0.98, sodium is 132, potassium 3.8, chloride 92, bicarb is 23.4, BUN is 76, creatinine 3.6, glucose is 245. ASSESSMENT: 1. Staphylococcal sepsis. 2. Pneumonia. 3. Infected sacral decubitus ulcer stage 4. 4. Diabetes mellitus type 2. 5. Hypertension. 6. History of chronic kidney disease stage 5, on hemodialysis. 7. Vent dependent respiratory failure. 8. Status post PEG placement, status post trach placement. 9. Anemia of chronic disease and GI bleed. 10. Metabolic encephalopathy, improving. RECOMMENDATION AND PLAN: Plan continue as per the surgical product sales consultant. Antibiotic suarez, the patient is receiving vancomycin, Levaquin and Zosyn. Wound care. Check 3-phase bone scan, rule out osteomyelitis. Check the repeat blood culture done today. CT scan of the abdomen, pelvis and chest pending. JOB# [id number]
[2018-07-04] MEDS: Sodium Ferric Gluconate 125 MG in Sodium Chloride 0.9% 100 ML IV SCH (12:24)
--- NOTE | 2018-07-04 15:39 | GI Progress Note ---
Subjective - Review of Systems Service Date: 07/04/18 Events since last encounter: No events, reviewed Ct scan, abdomen is soft, tolerating tube feeds. We cannot locate her daughter to try and retrive colonoscopy report Objective - Results Result Diagrams: 07/04/18 06:00 07/04/18 06:00 Recent Labs: Laboratory Last Values WBC 12.4 Th/cmm (4.8-10.8) H 07/04/18 06:00 RBC 2.89 Mil/cmm (3.80-5.20) L 07/04/18 06:00 Hgb 8.0 gm/dL (12-16) L 07/04/18 06:00 Hct 24.6 % (41.0-60) L 07/04/18 06:00 MCV 85.1 fl (81-100) 07/04/18 06:00 MCH 27.6 pg (27.0-31.0) 07/04/18 06:00 MCHC Differential 32.5 pg (28.0-36.0) 07/04/18 06:00 RDW 16.2 % (11.5-20.0) 07/04/18 06:00 Plt Count 255 Th/cmm (150-400) 07/04/18 06:00 MPV 7.3 fl 07/04/18 06:00 Add Manual Diff YES 07/04/18 06:00 Neutrophils % 89.9 % (40.0-80.0) H 06/30/18 15:20 Band Neutrophils % 3 % (0-10) 07/04/18 06:00 Lymphocytes % 4.9 % (20.0-50.0) L 06/30/18 15:20 Monocytes % 4.2 % (2.0-10.0) 06/30/18 15:20 Eosinophils % 0.9 % (0.0-5.0) 06/30/18 15:20 Basophils % 0.1 % (0.0-2.0) 06/30/18 15:20 Neutrophils (Manual) 84 % (40-80) H 07/04/18 06:00 Lymphocytes 9 % (20-50) L 07/04/18 06:00 Monocytes 4 % (2-10) 07/04/18 06:00 Eosinophils 0 % (0-5) 07/04/18 06:00 Basophils 0 % (0-3) 07/04/18 06:00 Total Retics Counted 3.8 % (0.5-1.5) H 07/01/18 05:25 Absolute Retic 117.4 Th/cmm 07/01/18 05:25 Corrected Retic Count 2.2 % (0.5-1.5) H 07/01/18 05:25 PT 10.2 SECONDS (9.5-11.5) 06/30/18 15:20 INR 0.98 (0.5-1.4) 06/30/18 15:20 PTT (Actin FS) 29.5 SECONDS (26.0-38.0) 06/30/18 15:20 Sodium 133 mEq/L (136-145) L 07/04/18 06:00 Potassium 3.3 mEq/L (3.5-5.1) L 07/04/18 06:00 Chloride 93 mEq/L (98-107) L 07/04/18 06:00 Carbon Dioxide 26.6 mEq/L (21.0-31.0) 07/04/18 06:00 Anion Gap 16.7 (7.0-16.0) H 07/04/18 06:00 BUN 50 mg/dL (7-25) H 07/04/18 06:00 Creatinine 2.6 mg/dL (0.6-1.2) H 07/04/18 06:00 Est GFR ( Amer) 23.8 ml/min (>90) 07/04/18 06:00 Est GFR (Non-Af Amer) 19.6 ml/min 07/04/18 06:00 BUN/Creatinine Ratio 19.2 07/04/18 06:00 Glucose 276 mg/dL (70-105) H 07/04/18 06:00 POC Glucose 239 MG/DL (70 - 105) H 07/04/18 12:09 Whole Bld Lactic Acid 1.15 mmol/L (0.60-1.99) 06/30/18 15:20 Calcium 8.4 mg/dL (8.6-10.3) L 07/04/18 06:00 Phosphorus 2.6 mg/dL (2.5-5.0) 06/30/18 15:20 Magnesium 2.8 mg/dL (1.9-2.7) H 06/30/18 15:20 Iron 20 ug/dL (27-139) L 07/01/18 05:25 TIBC 98 ug/dL (250-450) L 07/01/18 05:25 Iron Saturation 20 % (15-55) 07/01/18 05:25 Unsaturated IBC 78 ug/dL (118-369) L 07/01/18 05:25 Transferrin 78 mg/dL (200-370) L 07/01/18 05:25 Erythropoietin 16.0 mIU/mL (2.6-18.5) 07/01/18 05:25 Ferritin 3105 ng/mL (15-150) H 07/01/18 05:25 Total Bilirubin 0.4 mg/dL (0.3-1.0) 07/04/18 06:00 AST 21 U/L (13-39) 07/04/18 06:00 ALT 19 U/L (7-52) 07/04/18 06:00 Alkaline Phosphatase 336 U/L (34-104) H 07/04/18 06:00 Lactate Dehydrogenase 217 U/L (140-271) 07/01/18 05:25 Troponin I 0.07 ng/mL (0.01-0.05) H* 06/30/18 15:20 Total Protein 5.9 gm/dL (6.0-8.3) L 07/04/18 06:00 Albumin 2.3 gm/dL (3.7-5.3) L 07/04/18 06:00 Globulin 3.6 gm/dL 07/04/18 06:00 Albumin/Globulin Ratio 0.6 (1.0-1.8) L 07/04/18 06:00 Vitamin B12 >1999 pg/mL (232-1245) H 07/01/18 05:25 Folic Acid 18.3 ng/mL (>3.0) 07/01/18 05:25 Stool Occult Blood POSITIVE (NEGATIVE) H 07/04/18 03:12 Vancomycin Trough 24.9 ug/mL (5-10) H 07/04/18 06:00 Random Vancomycin 30.0 ug/mL (5.0-40.0) 07/03/18 04:20 Hep Bs Antigen Negative (Negative) 06/30/18 15:20 Hepatitis C Antibody <0.1 s/co ratio (0.0-0.9) 06/30/18 15:20 Blood Type O POSITIVE 06/30/18 21:44 Antibody Screen NEGATIVE 06/30/18 21:44 Crossmatch See Detail 06/30/18 21:44 - Physical Exam Vitals and I&O: Vital Signs Temp 99.7 F 07/04/18 12:00 Pulse 100 07/04/18 14:21 Resp 24 07/04/18 14:00 BP 125/43 07/04/18 14:00 Pulse Ox 100 07/04/18 14:21 Intake & Output 07/03/18 07/04/18 07/04/18 18:59 06:59 18:59 Intake Total 50 2207.333 50 Output Total 1999 Balance 50 207.333 50 Weight (lbs) 83.869 kg Intake: Intake, IV Amount 50 667.333 50 Dextrose 5% 1,000 ml @ 40 457.333 mls/hr IV .Q24H [facility] Rx#: [id number] Piperacillin Sodium/ 50 100 50 Tazobact 2.25 gm In Sodium Chloride 0.9% 50 ml @ 100 mls/hr IV Q8H [facility] Rx#:[id number] Sodium Ferric Gluconate 110 125 mg In Sodium Chloride 0.9% 100 ml @ 100 mls/hr IV Q24HR [facility] Rx#: [id number] Tube Feeding 1260 Other 280 Output: Hemodialysis 1999 Other: # Voids 0 # Bowel Movements 2 Stool Characteristics Soft Liquid Green Brown Weight Source Bedscale Active Medications: Current Medications Acetylcysteine (Mucomyst 20%) 3 ml HHN Q4HRT [facility] Stop: 08/30/18 14:59 Last Admin: 07/04/18 14:20 Dose: 3 ml Albuterol Sulfate (Albuterol 2.5mg/3ml Neb Ud) 2.5 mg HHN Q4HRT [facility] Stop: 08/30/18 14:59 Last Admin: 07/04/18 14:20 Dose: 2.5 mg Ascorbic Acid (Vitamin C) 500 mg GT BID [facility] Stop: 08/30/18 08:59 Last Admin: 07/04/18 09:16 Dose: 500 mg Atorvastatin Calcium (Lipitor) 40 mg GT HS [facility] Stop: 08/30/18 20:59 Last Admin: 12/17/18 20:09 Dose: 40 mg Calcium Carbonate (Os-Alon) 500 mg GT Q12H [facility] Stop: 08/30/18 08:59 Last Admin: 07/04/18 09:16 Dose: 500 mg [place] Oil/[place] Balsam/Trypsin (Venelex) 1 appl TP BID [facility] Stop: 08/31/18 08:59 Last Admin: 07/03/18 18:00 Dose: 1 appl Chlorhexidine Gluconate (Peridex) 15 ml MM 0800,1999 [facility] Stop: 08/30/18 19:59 Last Admin: 07/04/18 09:15 Dose: 15 ml Dextrose (D50w) 50 ml IVP PRN PRN PRN Reason: Blood Glucose less than 70 Stop: 08/29/18 18:34 Last Admin: 06/30/18 19:15 Dose: 50 ml Dextrose (Glutose 40%) 18.75 gm PO PRN PRN PRN Reason: Blood Glucose less than 70 Stop: 08/29/18 18:34 Epoetin Rj (Epogen) 10,000 units SUBQ TuTa [facility] Stop: 09/02/18 15:59 Folic Acid (Folate) 1 mg GT DAILY [facility] Stop: 08/31/18 08:59 Last Admin: 07/04/18 09:16 Dose: 1 mg Glucagon (Glucagen) 1 mg IM PRN PRN PRN Reason: Blood Glucose less than 70 Stop: 08/29/18 18:34 Piperacillin Sod/Tazobactam (Sod 2.25 gm/ Sodium Chloride) 50 mls @ 100 mls/hr IV Q8H [facility] Stop: 08/29/18 16:59 Last Infusion: 07/04/18 12:18 Dose: Infused Levofloxacin (Levaquin Pb) 500 mg in 100 mls @ 100 mls/hr IV Q48HR [facility] Stop: 08/31/18 19:59 Last Infusion: 07/03/18 00:18 Dose: Infused Dextrose (D5w) 1,000 mls @ 40 mls/hr IV .Q24H [facility] Stop: 08/30/18 04:14 Last Infusion: 07/04/18 06:26 Dose: 40 mls/hr Ferric Sodium Gluconate Complex 125 mg/ Sodium Chloride 110 mls @ 100 mls/hr IV Q24HR [facility] Stop: 07/09/18 12:59 Last Admin: 07/04/18 12:24 Dose: 100 mls/hr Vancomycin HCl 1 gm/ Sodium (Chloride) 250 mls @ 165 mls/hr IV ONCE ONE Stop: 07/04/18 18:30 Ibuprofen (Motrin) 400 mg GT Q6H PRN PRN Reason: PAIN OR TEMP >101 Stop: 08/30/18 03:13 Insulin Aspart (Novolog Insulin Sliding Scale) 0 units SUBQ Q6H [facility]; Protocol Stop: 08/30/18 05:59 Last Admin: 07/04/18 12:13 Dose: 4 units Insulin Detemir (Levemir Insulin) 20 units SUBQ Q12H [facility]; Protocol Stop: 08/30/18 08:59 Last Admin: 07/04/18 09:44 Dose: 20 units Ipratropium [place] (Atrovent Neb 0.5mg/2.5ml) 0.5 mg HHN Q4HRT [facility] Stop: 08/30/18 14:59 Last Admin: 07/04/18 14:20 Dose: 0.5 mg Lactobacillus Rhamnosus (Culturelle 15b) 1 each GT DAILY [facility] Stop: 08/30/18 08:59 Last Admin: 07/04/18 09:16 Dose: 1 each Miscellaneous (Vancomycin Iv Per Pharmacy) 1 [facility] PRN PRN PRN Reason: PROTOCOL Stop: 08/29/18 16:10 Miscellaneous (Zosyn Iv Per Pharmacy) 1 [facility] PRN PRN PRN Reason: PROTOCOL Stop: 08/29/18 16:16 Miscellaneous (Vte Chemical Prophylaxis Screen/Icu Transfer) 1 [facility] PRN PRN PRN Reason: PROTOCOL Stop: 08/30/18 08:08 Miscellaneous (Probiotic Screen) 1 [facility] PRN PRN PRN Reason: PROTOCOL Stop: 09/01/18 09:26 Pantoprazole Sodium (Protonix) 40 mg GT DAILY [facility] Stop: 08/30/18 08:59 Last Admin: 07/04/18 09:15 Dose: 40 mg Psyllium Hydrophilic Mucilloid (Metamucil) 1 pkt GT Q12HR [facility] Stop: 08/30/18 08:59 Last Admin: 07/04/18 11:15 Dose: Not Given Vitamin B Complex/Vit C/Folic Acid (Vitamin B Complex W/Vitamin C) 1 tab GT DAILY [facility] Stop: 08/30/18 08:59 Last Admin: 07/04/18 09:16 Dose: 1 tab Zinc Sulfate (Zinc Sulfate) 220 mg GT DAILY [facility] Stop: 08/30/18 08:59 Last Admin: 07/04/18 09:15 Dose: 220 mg General: Other (MECHANICALLY VENTILATED VIA TRACH) HEENT: Atraumatic, PERRLA, EOMI, Other (trach) Neck: Supple Cardiovascular: Regular rate, Normal S1, Normal S2 Lungs: Clear to auscultation Abdomen: Bowel sounds, Soft, Other (gastric tube) Extremities: Edema, Other (peripheral iv in right arm) - Procedures Procedures: Procedures Procedure Code Date RESPIRATORY VENTILATION, 24-96 CONSECUTIVE HOURS [id number] 06/30/18 Assessment/Plan - Problem List Patient Problems: All Active Problems ANEMIA WITH HB OF 6.8 (Acute) - Assessment Assessment: 1. FOBT+, then negative 2. Anemia - multifactorial 3. Recent negative colonoscopy 4. ESRD, septicemia -would be conservative in this case. Has had a recent colonoscopy , risks outweigh benefits, no overt bleeding -track down colonoscopy report to personally review, I tasked nursing staff to help -Iron supplementation, supportive care -Pt is not acting like an acute bowel obstruction, may have mild ileus but not clinically active just yet -PRBCs if Hg<7 -Will follow
[2018-07-04] MEDS ORDERED: Epoetin Alfa 20000 Units/mL Vial SUBQ SCH (16:00)
--- NOTE | 2018-07-04 16:15 | Cardiology ---
07/03/2018 PATIENT OF: Dr. Jun Snyder. M-MODE ECHOCARDIOGRAM: Mitral valve, anterior leaflet of mitral valve shows normal excursion, EF velocity. Posterior leaflet of the mitral valve shows normal excursion. Left ventricular posterior wall showed increased thickness, normal excursion. Interventricular septum shows increased thickness, normal excursion, hypertrophy of the left ventricle, ejection fraction 35%. Left atrium enlarged 5.3 cm. There is a mass in the right atrium consistent with myxoma. Aortic root shows normal dimension, normal excursion of aortic leaflets. CONCLUSION: Left atrial myxoma, left atrial enlargement, hypertrophy of the left ventricle, ejection fraction 75%. 2D ECHO: Long axis view showed normal sized left ventricle with hypertrophy of the left ventricle. Left atrium enlarged. There is a left atrial myxoma nonobstructing. Aortic root shows normal dimension, normal excursion of aortic leaflets. Short axis view of mitral valve is normal. Short axis view of aortic valve normal. Apical four chamber view showed normal sized left ventricle with hypertrophy of the left ventricle, ejection fraction 75%. Left atrium enlarged 5.3 cm with left atrial myxoma. Right ventricle and right atrium normal. No pericardial effusion. CONCLUSION: Hypertrophy of the left ventricle. Left atrial enlargement, left atrial myxoma, ejection fraction 75%. Doppler study showed [id number] mitral regurgitation. Trace tricuspid regurgitation, right ventricular systolic pressure 30 mmHg. JOB# [id number]
--- NOTE | 2018-07-04 16:28 | General Progress Note ---
Subjective - Review of Systems Service Date: 07/04/18 Subjective: Pt seen and examined. No distress Objective - Results Result Diagrams: 07/04/18 06:00 07/04/18 06:00 Recent Labs: Laboratory Last Values WBC 12.4 Th/cmm (4.8-10.8) H 07/04/18 06:00 RBC 2.89 Mil/cmm (3.80-5.20) L 07/04/18 06:00 Hgb 8.0 gm/dL (12-16) L 07/04/18 06:00 Hct 24.6 % (41.0-60) L 07/04/18 06:00 MCV 85.1 fl (81-100) 07/04/18 06:00 MCH 27.6 pg (27.0-31.0) 07/04/18 06:00 MCHC Differential 32.5 pg (28.0-36.0) 07/04/18 06:00 RDW 16.2 % (11.5-20.0) 07/04/18 06:00 Plt Count 255 Th/cmm (150-400) 07/04/18 06:00 MPV 7.3 fl 07/04/18 06:00 Add Manual Diff YES 07/04/18 06:00 Neutrophils % 89.9 % (40.0-80.0) H 06/30/18 15:20 Band Neutrophils % 3 % (0-10) 07/04/18 06:00 Lymphocytes % 4.9 % (20.0-50.0) L 06/30/18 15:20 Monocytes % 4.2 % (2.0-10.0) 06/30/18 15:20 Eosinophils % 0.9 % (0.0-5.0) 06/30/18 15:20 Basophils % 0.1 % (0.0-2.0) 06/30/18 15:20 Neutrophils (Manual) 84 % (40-80) H 07/04/18 06:00 Lymphocytes 9 % (20-50) L 07/04/18 06:00 Monocytes 4 % (2-10) 07/04/18 06:00 Eosinophils 0 % (0-5) 07/04/18 06:00 Basophils 0 % (0-3) 07/04/18 06:00 Total Retics Counted 3.8 % (0.5-1.5) H 07/01/18 05:25 Absolute Retic 117.4 Th/cmm 07/01/18 05:25 Corrected Retic Count 2.2 % (0.5-1.5) H 07/01/18 05:25 PT 10.2 SECONDS (9.5-11.5) 06/30/18 15:20 INR 0.98 (0.5-1.4) 06/30/18 15:20 PTT (Actin FS) 29.5 SECONDS (26.0-38.0) 06/30/18 15:20 Sodium 133 mEq/L (136-145) L 07/04/18 06:00 Potassium 3.3 mEq/L (3.5-5.1) L 07/04/18 06:00 Chloride 93 mEq/L (98-107) L 07/04/18 06:00 Carbon Dioxide 26.6 mEq/L (21.0-31.0) 07/04/18 06:00 Anion Gap 16.7 (7.0-16.0) H 07/04/18 06:00 BUN 50 mg/dL (7-25) H 07/04/18 06:00 Creatinine 2.6 mg/dL (0.6-1.2) H 07/04/18 06:00 Est GFR ( Amer) 23.8 ml/min (>90) 07/04/18 06:00 Est GFR (Non-Af Amer) 19.6 ml/min 07/04/18 06:00 BUN/Creatinine Ratio 19.2 07/04/18 06:00 Glucose 276 mg/dL (70-105) H 07/04/18 06:00 POC Glucose 178 MG/DL (70 - 105) H 07/04/18 15:45 Whole Bld Lactic Acid 1.15 mmol/L (0.60-1.99) 06/30/18 15:20 Calcium 8.4 mg/dL (8.6-10.3) L 07/04/18 06:00 Phosphorus 2.6 mg/dL (2.5-5.0) 06/30/18 15:20 Magnesium 2.8 mg/dL (1.9-2.7) H 06/30/18 15:20 Iron 20 ug/dL (27-139) L 07/01/18 05:25 TIBC 98 ug/dL (250-450) L 07/01/18 05:25 Iron Saturation 20 % (15-55) 07/01/18 05:25 Unsaturated IBC 78 ug/dL (118-369) L 07/01/18 05:25 Transferrin 78 mg/dL (200-370) L 07/01/18 05:25 Erythropoietin 16.0 mIU/mL (2.6-18.5) 07/01/18 05:25 Ferritin 3105 ng/mL (15-150) H 07/01/18 05:25 Total Bilirubin 0.4 mg/dL (0.3-1.0) 07/04/18 06:00 AST 21 U/L (13-39) 07/04/18 06:00 ALT 19 U/L (7-52) 07/04/18 06:00 Alkaline Phosphatase 336 U/L (34-104) H 07/04/18 06:00 Lactate Dehydrogenase 217 U/L (140-271) 07/01/18 05:25 Troponin I 0.07 ng/mL (0.01-0.05) H* 06/30/18 15:20 Total Protein 5.9 gm/dL (6.0-8.3) L 07/04/18 06:00 Albumin 2.3 gm/dL (3.7-5.3) L 07/04/18 06:00 Globulin 3.6 gm/dL 07/04/18 06:00 Albumin/Globulin Ratio 0.6 (1.0-1.8) L 07/04/18 06:00 Vitamin B12 >1999 pg/mL (232-1245) H 07/01/18 05:25 Folic Acid 18.3 ng/mL (>3.0) 07/01/18 05:25 Stool Occult Blood POSITIVE (NEGATIVE) H 07/04/18 03:12 Vancomycin Trough 24.9 ug/mL (5-10) H 07/04/18 06:00 Random Vancomycin 30.0 ug/mL (5.0-40.0) 07/03/18 04:20 Hep Bs Antigen Negative (Negative) 06/30/18 15:20 Hepatitis C Antibody <0.1 s/co ratio (0.0-0.9) 06/30/18 15:20 Blood Type O POSITIVE 06/30/18 21:44 Antibody Screen NEGATIVE 06/30/18 21:44 Crossmatch See Detail 06/30/18 21:44 - Physical Exam Vitals and I&O: Vital Signs Temp 99.7 F 07/04/18 12:00 Pulse 99 07/04/18 15:00 Resp 24 07/04/18 15:00 BP 112/43 07/04/18 15:00 Pulse Ox 100 07/04/18 15:00 Intake & Output 07/03/18 07/04/18 07/04/18 18:59 06:59 18:59 Intake Total 50 2207.333 160 Output Total 1999 Balance 50 207.333 160 Weight (lbs) 83.869 kg Intake: Intake, IV Amount 50 667.333 160 Dextrose 5% 1,000 ml @ 40 457.333 mls/hr IV .Q24H [facility] Rx#: [id number] Piperacillin Sodium/ 50 100 50 Tazobact 2.25 gm In Sodium Chloride 0.9% 50 ml @ 100 mls/hr IV Q8H [facility] Rx#:[id number] Sodium Ferric Gluconate 110 110 125 mg In Sodium Chloride 0.9% 100 ml @ 100 mls/hr IV Q24HR [facility] Rx#: [id number] Tube Feeding 1260 Other 280 Output: Hemodialysis 1999 Other: # Voids 0 # Bowel Movements 2 Stool Characteristics Soft Liquid Green Brown Weight Source Bedscale Active Medications: Current Medications Acetylcysteine (Mucomyst 20%) 3 ml HHN Q4HRT [facility] Stop: 08/30/18 14:59 Last Admin: 07/04/18 14:20 Dose: 3 ml Albuterol Sulfate (Albuterol 2.5mg/3ml Neb Ud) 2.5 mg HHN Q4HRT [facility] Stop: 08/30/18 14:59 Last Admin: 07/04/18 14:20 Dose: 2.5 mg Ascorbic Acid (Vitamin C) 500 mg GT BID [facility] Stop: 08/30/18 08:59 Last Admin: 07/04/18 09:16 Dose: 500 mg Atorvastatin Calcium (Lipitor) 40 mg GT HS [facility] Stop: 08/30/18 20:59 Last Admin: 07/03/18 20:09 Dose: 40 mg Calcium Carbonate (Os-Mago) 500 mg GT Q12H [facility] Stop: 08/30/18 08:59 Last Admin: 07/04/18 09:16 Dose: 500 mg [place] Oil/[place] Balsam/Trypsin (Venelex) 1 appl TP BID [facility] Stop: 08/31/18 08:59 Last Admin: 07/03/18 18:00 Dose: 1 appl Chlorhexidine Gluconate (Peridex) 15 ml MM 0800,2000 [facility] Stop: 08/30/18 19:59 Last Admin: 07/04/18 09:15 Dose: 15 ml Dextrose (D50w) 50 ml IVP PRN PRN PRN Reason: Blood Glucose less than 70 Stop: 08/29/18 18:34 Last Admin: 06/30/18 19:15 Dose: 50 ml Dextrose (Glutose 40%) 18.75 gm PO PRN PRN PRN Reason: Blood Glucose less than 70 Stop: 08/29/18 18:34 Epoetin Rj (Epogen) 10,000 units SUBQ TuThSa [facility] Stop: 09/02/18 15:59 Folic Acid (Folate) 1 mg GT DAILY [facility] Stop: 08/31/18 08:59 Last Admin: 07/04/18 09:16 Dose: 1 mg Glucagon (Glucagen) 1 mg IM PRN PRN PRN Reason: Blood Glucose less than 70 Stop: 08/29/18 18:34 Piperacillin Sod/Tazobactam (Sod 2.25 gm/ Sodium Chloride) 50 mls @ 100 mls/hr IV Q8H [facility] Stop: 08/29/18 16:59 Last Infusion: 07/04/18 12:18 Dose: Infused Levofloxacin (Levaquin Pb) 500 mg in 100 mls @ 100 mls/hr IV Q48HR [facility] Stop: 08/31/18 19:59 Last Infusion: 07/03/18 00:18 Dose: Infused Dextrose (D5w) 1,000 mls @ 40 mls/hr IV .Q24H [facility] Stop: 08/30/18 04:14 Last Infusion: 07/04/18 06:26 Dose: 40 mls/hr Ferric Sodium Gluconate Complex 125 mg/ Sodium Chloride 110 mls @ 100 mls/hr IV Q24HR [facility] Stop: 07/09/18 12:59 Last Infusion: 07/04/18 15:57 Dose: Infused Vancomycin HCl 1 gm/ Sodium (Chloride) 250 mls @ 165 mls/hr IV ONCE ONE Stop: 07/04/18 18:30 Ibuprofen (Motrin) 400 mg GT Q6H PRN PRN Reason: PAIN OR TEMP >101 Stop: 08/30/18 03:13 Insulin Aspart (Novolog Insulin Sliding Scale) 0 units SUBQ Q6H [facility]; Protocol Stop: 08/30/18 05:59 Last Admin: 07/04/18 12:13 Dose: 4 units Insulin Detemir (Levemir Insulin) 20 units SUBQ Q12H [facility]; Protocol Stop: 08/30/18 08:59 Last Admin: 07/04/18 09:44 Dose: 20 units Ipratropium [place] (Atrovent Neb 0.5mg/2.5ml) 0.5 mg HHN Q4HRT [facility] Stop: 08/30/18 14:59 Last Admin: 07/04/18 14:20 Dose: 0.5 mg Lactobacillus Rhamnosus (Culturelle 15b) 1 each GT DAILY [facility] Stop: 08/30/18 08:59 Last Admin: 07/04/18 09:16 Dose: 1 each Miscellaneous (Vancomycin Iv Per Pharmacy) 1 [facility] PRN PRN PRN Reason: PROTOCOL Stop: 08/29/18 16:10 Miscellaneous (Zosyn Iv Per Pharmacy) 1 [facility] PRN PRN PRN Reason: PROTOCOL Stop: 08/29/18 16:16 Miscellaneous (Vte Chemical Prophylaxis Screen/Icu Transfer) 1 [facility] PRN PRN PRN Reason: PROTOCOL Stop: 08/30/18 08:08 Miscellaneous (Probiotic Screen) 1 [facility] PRN PRN PRN Reason: PROTOCOL Stop: 09/01/18 09:26 Pantoprazole Sodium (Protonix) 40 mg GT DAILY [facility] Stop: 08/30/18 08:59 Last Admin: 07/04/18 09:15 Dose: 40 mg Psyllium Hydrophilic Mucilloid (Metamucil) 1 pkt GT Q12HR [facility] Stop: 08/30/18 08:59 Last Admin: 07/04/18 11:15 Dose: Not Given Vitamin B Complex/Vit C/Folic Acid (Vitamin B Complex W/Vitamin C) 1 tab GT DAILY [facility] Stop: 08/30/18 08:59 Last Admin: 07/04/18 09:16 Dose: 1 tab Zinc Sulfate (Zinc Sulfate) 220 mg GT DAILY [facility] Stop: 08/30/18 08:59 Last Admin: 07/04/18 09:15 Dose: 220 mg General: Other (MECHANICALLY VENTILATED VIA TRACH) HEENT: Atraumatic, PERRLA, EOMI, Other (trach) Cardiovascular: Regular rate, Normal S1, Normal S2 Lungs: Clear to auscultation Abdomen: Bowel sounds, Soft, Other (gastric tube) Extremities: Edema, Other (peripheral iv in right arm) - Procedures Procedures: Procedures Procedure Code Date RESPIRATORY VENTILATION, GREATER THAN 96 CONSECUTIVE HOURS [id number] 06/30/18 Assessment/Plan - Problem List Patient Problems: All Active Problems ANEMIA WITH HB OF 6.8 (Acute) - Assessment Assessment: ESRD with dialysis status sepsis anemia w esrd chronic resp failure pneumonia - Plan Plan: HD tomorrow cont abx monitor labs supportive care/vent Nutritional Asmnt/Malnutr-PDOC - Dietary Evaluation Malnutrition Findings (Please click <Entered> for more info): Nutritional Asmnt/Malnutrition Start: 07/01/18 10: 22 Text: Status: Complete Freq: Protocol: Document 07/04/18 14:30 [email or web address] (Rec: 07/04/18 14:39 [email or web address]) Nutritional Asmnt/Malnutrition Patient General Information Nutritional Screening High Risk Diagnosis pneumonia and dialysis dependent Pertinent Medical Hx/Surgical Hx HTN, RESP FAILURE, DM, ANEMIA Subjective Information PER NURSING NOTE, PT OBTUNDED, TRACH TO VENT, ABDOMEN SOFT, NONTENDER, BOWEL SOUNDS NOTED 2+ EDEMA Current Diet Order/ Nutrition Support NEPRO @ 63 ML/HR Patient / S.O Not Indicated Pertinent Medications MULTI VIT, PROTONIX, CULTURFELLE, ZINC SULFATE, LEVEMIR, INS-SS, VIT C, LIPITOR, OS MAGO, FOLATE, GLUCAGEN Pertinent Labs NA 133, POTASS 3.3, CL 93, BUN /CR 50/2.6, eGFR 19.6, CA 8.4, WBC 12.4 BEDSIDE GLUCOSE: 239, 282, 292 , 144 Nutritional Hx/Data Height 1.57 m Height (Calculated Centimeters) 157.5 Current Weight (lbs) 83.461 kg Weight (Calculated Kilograms) 83.5 Weight (Calculated Grams) 36156.0 [place] Body Weight 110 % [place] Body Weight 167 Body Mass Index (BMI) 33.6 Weight Status Obese GI Symptoms Last BM TODAY X 2 Difficult in: Chewing Swallowing Food Allergies No Skin Integrity/Comment: REED: 12, PRESSURE AREAS: SACRUM, XUAN HEEL Estimated Nutritional Goals BEE in Kcals: Adj wt of IBW Protein: Adj wt of IBW
[2018-07-04] MEDS: Levofloxacin 500mg/100mL Premix Bag IV SCH (19:56)
[2018-07-04] MEDS: Linezolid 600mg/300mL 600 MG/300 ML BAG IV SCH (20:55)
[2018-07-05] MEDS: INSULIN ASPART SLIDING SCALE 100 UNITS/ML UNIT SUBQ SCH ×5 (00:25→23:32)
[2018-07-05] MEDS: Piperacillin/Tazobact 2.25 gm in 0.9% NS 50 ML IV SCH ×3 (00:28→17:19)
--- NOTE | 2018-07-05 03:30 | Progress Notes ---
DATE: 07/04/2018 SUBJECTIVE: The patient lying in the bed, in no acute distress, no fever, no chills. OBJECTIVE: VITAL SIGNS: Currently shows temperature is 99 degrees Fahrenheit, pulse 104, respirations 24, blood pressure 115/29. GENERAL: The patient is comfortable lying in the bed, not in acute distress. HEENT: Head is normocephalic, atraumatic. Oral cavity moist, pink tongue. NECK: Supple. No JVD. Trach site is clear. CHEST: Bilateral breath sounds. Crackles present. HEART: S1, S2 within normal limits. Regular rhythm. No murmur, no gallop. ABDOMEN: Soft, nontender, nondistended. PEG site is clear. EXTREMITIES: No cyanosis, no clubbing. No edema. BACK: The patient has stage IV sacral decubitus ulcer. NEUROLOGIC: Alert and awake. LABORATORY DATA: WBC count 12,400, hemoglobin 8, hematocrit 24.6, platelets are 255,000, neutrophils 84%. Sodium is 133, potassium 3.3, chloride 93, bicarbonate is 26.6, BUN is 50, creatinine 2.6, glucose is 276. The wound culture from the sacrum grew Proteus mirabilis and VRE. Blood culture grew Staphylococcus haemolyticus and Staphylococcus epidermidis in different sets. ASSESSMENT: 1. Sepsis. 2. Pneumonia. 3. Infected sacral decubitus ulcer stage IV. 4. Rule out osteomyelitis. 5. Diabetes mellitus type 2. 6. Hypertension. 7. Chronic kidney disease stage 5, on hemodialysis. 8. Vent-dependent respiratory failure. 9. Status post PEG placement, status post trach, PEG placement. 10. Anemia of chronic disease and GI bleed. 11. Metabolic encephalopathy, improving. PLAN: 1. Continue as per the consult. 2. Antibiotic Wells: Change vancomycin to Zyvox and continue Zosyn. 3. Wound care. 4. Check 3-phase bone scan report. JOB# [id number]
[2018-07-05] MEDS: Albuterol Nebulizer 2.5mg/3mL HHN SCH ×6 (04:44→23:05)
[2018-07-05] MEDS: Ipratropium Neb 0.5 mg/2.5 mL UD HHN SCH ×6 (04:44→23:05)
[2018-07-05 05:52] LABS: % BASOPHILS 0.7 % (0.0-2.0); % EOSINOPHILS 1.2 % (0.0-5.0); % LYMPHOCYTES 7.3 % (20.0-50.0); % MONOCYTES 5.7 % (2.0-10.0); % NEUTROPHILS 85.1 % (40.0-80.0); BASOPHILE ABSOLUTE 0.1 Th/cumm (0-0.2); EOSINOPHILE ABSOLUTE 0.2 Th/cmm (0.1-0.4); HEMATOCRIT 23.6 % (41.0-60); LYMPHOCYTE ABSOLUTE 1.1 Th/cmm (1.5-3.0); MEAN PLATELET VOLUME 6.9 fl; MONOCYTE ABSOLUTE 0.8 Th/cmm (0.3-1.0); NEUTROPHILE ABSOLUTE 12.2 Th/cmm (1.8-8.0); PLATELET COUNT 252 Th/cmm (150-400); RED BLOOD COUNT 2.77 Mil/cmm (3.80-5.20)
[2018-07-05 06:24] LABS: HEMOGLOBIN 7.8 gm/dL (12-16)
[2018-07-05 07:23] LABS: BAND NEUTROPHILE 1 % (0-10); NEUTROPHILS 80 % (40-80)
[2018-07-05 07:24] LABS: EOSINOPHIL 1 % (0-5); LYMPHOCYTE 10 % (20-50); MONOCYTE 8 % (2-10)
[2018-07-05 07:26] LABS: WHITE BLOOD COUNT 14.4 Th/cmm (4.8-10.8)
[2018-07-05 07:47] LABS: ALB/GLOB RATIO 0.6 (1.0-1.8); ALBUMIN 2.2 gm/dL (3.7-5.3); ANION GAP 18.1 (7.0-16.0); BILIRUBIN,TOTAL 0.3 mg/dL (0.3-1.0); CALCIUM SERUM 8.6 mg/dL (8.6-10.3); CARBON DIOXIDE 26.4 mEq/L (21.0-31.0); CREATININE - SERUM 3.5 mg/dL (0.6-1.2); GFR AFRICAN-AMERICAN 16.9 ml/min (>90); GFR NON AFRICAN-AMERICAN 13.9 ml/min; POTASSIUM SERUM 3.5 mEq/L (3.5-5.1); TOTAL PROTEIN,SERUM 5.7 gm/dL (6.0-8.3)
[2018-07-05] MEDS: Chlorhexidine Gluconate 0.12% 15mL Mouthwash MM SCH ×2 (09:07→20:45)
--- NOTE | 2018-07-05 09:18 | Diagnostic Imaging Report ---
Nuclear medicine 3 phase bone scan History: Pain rule out sacral osteomyelitis Comparison: CT abdomen and pelvis on 07/03/2018 Technique/procedure: 25.4 mCi of technetium 99m MDP was administered intravenously flow blood flow and delayed images of the pelvis and bilateral proximal femurs were obtained. Findings: Flow images demonstrate no significant increased focal uptake. Blood pool images demonstrate faint uptake seen along the left proximal femoral region. Delayed images demonstrate increased uptake along the left hip joint and left proximal femur. Assessment for sacral uptake was limited due to positioning, however, no focal sacral uptake identified. IMPRESSION: Limited examination due to patient's medical condition. Assessment for sacral uptake was limited due to positioning however, no focal sacral uptake identified. Increased uptake along left hip joint and left proximal femur likely related to findings of age indeterminate left femoral neck fracture extending left to the left femoral head with destructive changes noted in this region. This may be a combination of posttraumatic etiology and possible infectious etiologies. Osteomyelitis in this region cannot be excluded. Clinical correlation and follow-up recommended.
[2018-07-05] MEDS: Insulin Detemir 100 units/mL 10mL Vial SUBQ SCH ×2 (09:30→20:50)
--- NOTE | 2018-07-05 11:13 | General Progress Note ---
Subjective - Review of Systems Service Date: 07/05/18 Subjective: non communicative Objective - Results Result Diagrams: 07/05/18 05:35 07/05/18 05:35 Recent Labs: Laboratory Last Values WBC 14.4 Th/cmm (4.8-10.8) H 07/05/18 05:35 RBC 2.77 Mil/cmm (3.80-5.20) L 07/05/18 05:35 Hgb 7.8 gm/dL (12-16) L* 07/05/18 05:35 Hct 23.6 % (41.0-60) L 07/05/18 05:35 MCV 85.0 fl (81-100) 07/05/18 05:35 MCH 28.0 pg (27.0-31.0) 07/05/18 05:35 MCHC Differential 33.0 pg (28.0-36.0) 07/05/18 05:35 RDW 16.0 % (11.5-20.0) 07/05/18 05:35 Plt Count 252 Th/cmm (150-400) 07/05/18 05:35 MPV 6.9 fl 07/05/18 05:35 Add Manual Diff YES 07/04/18 06:00 Neutrophils % 85.1 % (40.0-80.0) H 07/05/18 05:35 Band Neutrophils % 1 % (0-10) 07/05/18 05:35 Lymphocytes % 7.3 % (20.0-50.0) L 07/05/18 05:35 Monocytes % 5.7 % (2.0-10.0) 07/05/18 05:35 Eosinophils % 1.2 % (0.0-5.0) 07/05/18 05:35 Basophils % 0.7 % (0.0-2.0) 07/05/18 05:35 Neutrophils (Manual) 80 % (40-80) 07/05/18 05:35 Lymphocytes 10 % (20-50) L 07/05/18 05:35 Monocytes 8 % (2-10) 07/05/18 05:35 Eosinophils 1 % (0-5) 07/05/18 05:35 Basophils 0 % (0-3) 07/04/18 06:00 Total Retics Counted 3.8 % (0.5-1.5) H 07/01/18 05:25 Absolute Retic 117.4 Th/cmm 07/01/18 05:25 Corrected Retic Count 2.2 % (0.5-1.5) H 07/01/18 05:25 PT 10.2 SECONDS (9.5-11.5) 06/30/18 15:20 INR 0.98 (0.5-1.4) 06/30/18 15:20 PTT (Actin FS) 29.5 SECONDS (26.0-38.0) 06/30/18 15:20 Sodium 132 mEq/L (136-145) L 07/05/18 05:35 Potassium 3.5 mEq/L (3.5-5.1) 07/05/18 05:35 Chloride 91 mEq/L (98-107) L 07/05/18 05:35 Carbon Dioxide 26.4 mEq/L (21.0-31.0) 07/05/18 05:35 Anion Gap 18.1 (7.0-16.0) H 07/05/18 05:35 BUN 68 mg/dL (7-25) H 07/05/18 05:35 Creatinine 3.5 mg/dL (0.6-1.2) H 07/05/18 05:35 Est GFR ( Amer) 16.9 ml/min (>90) 07/05/18 05:35 Est GFR (Non-Af Amer) 13.9 ml/min 07/05/18 05:35 BUN/Creatinine Ratio 19.4 07/05/18 05:35 Glucose 113 mg/dL (70-105) H D 07/05/18 05:35 POC Glucose 147 MG/DL (70 - 105) H 07/05/18 09:10 Whole Bld Lactic Acid 1.15 mmol/L (0.60-1.99) 06/30/18 15:20 Calcium 8.6 mg/dL (8.6-10.3) 07/05/18 05:35 Phosphorus 2.6 mg/dL (2.5-5.0) 06/30/18 15:20 Magnesium 2.8 mg/dL (1.9-2.7) H 06/30/18 15:20 Iron 20 ug/dL (27-139) L 07/01/18 05:25 TIBC 98 ug/dL (250-450) L 07/01/18 05:25 Iron Saturation 20 % (15-55) 07/01/18 05:25 Unsaturated IBC 78 ug/dL (118-369) L 07/01/18 05:25 Transferrin 78 mg/dL (200-370) L 07/01/18 05:25 Erythropoietin 16.0 mIU/mL (2.6-18.5) 07/01/18 05:25 Ferritin 3105 ng/mL (15-150) H 07/01/18 05:25 Total Bilirubin 0.3 mg/dL (0.3-1.0) 07/05/18 05:35 AST 22 U/L (13-39) 07/05/18 05:35 ALT 19 U/L (7-52) 07/05/18 05:35 Alkaline Phosphatase 312 U/L (34-104) H 07/05/18 05:35 Lactate Dehydrogenase 217 U/L (140-271) 07/01/18 05:25 Troponin I 0.07 ng/mL (0.01-0.05) H* 06/30/18 15:20 Total Protein 5.7 gm/dL (6.0-8.3) L 07/05/18 05:35 Albumin 2.2 gm/dL (3.7-5.3) L 07/05/18 05:35 Globulin 3.5 gm/dL 07/05/18 05:35 Albumin/Globulin Ratio 0.6 (1.0-1.8) L 07/05/18 05:35 Vitamin B12 >1999 pg/mL (232-1245) H 07/01/18 05:25 Folic Acid 18.3 ng/mL (>3.0) 07/01/18 05:25 Stool Occult Blood POSITIVE (NEGATIVE) H 07/04/18 03:12 Vancomycin Trough 24.9 ug/mL (5-10) H 07/04/18 06:00 Random Vancomycin 30.0 ug/mL (5.0-40.0) 07/03/18 04:20 Hep Bs Antigen Negative (Negative) 06/30/18 15:20 Hepatitis C Antibody <0.1 s/co ratio (0.0-0.9) 06/30/18 15:20 Blood Type O POSITIVE 07/05/18 09:40 Antibody Screen NEGATIVE 07/05/18 09:40 Crossmatch See Detail 07/05/18 09:40 - Physical Exam Vitals and I&O: Vital Signs Temp 99.0 F 07/05/18 10:00 Pulse 96 07/05/18 10:56 Resp 24 07/05/18 10:00 BP 126/56 07/05/18 10:00 Pulse Ox 99 07/05/18 10:56 Intake & Output 07/04/18 07/05/18 07/05/18 18:59 06:59 18:59 Intake Total 1138 1300 Balance 1138 1300 Weight (lbs) 83.461 kg 82.327 kg Intake: Intake, IV Amount 210 450 Levofloxacin 500mg/100mL 100 500 mg In 100 ml @ 100 mls/hr IV Q48HR [facility] Rx#: [id number] Linezolid 600mg/300mL 600 300 mg In 300 ml @ 300 mls/ hr IV Q12HR [facility] Rx#: [id number] Piperacillin Sodium/ 100 50 Tazobact 2.25 gm In Sodium Chloride 0.9% 50 ml @ 100 mls/hr IV Q8H [facility] Rx#:[id number] Sodium Ferric Gluconate 110 125 mg In Sodium Chloride 0.9% 100 ml @ 100 mls/hr IV Q24HR [facility] Rx#: [id number] Tube Feeding 378 850 Other 550 Other: # Bowel Movements 2 2 Stool Characteristics Soft Soft Brown Brown Green Weight Source Bedscale Bedscale Active Medications: Current Medications Acetylcysteine (Mucomyst 20%) 3 ml HHN Q4HRT [facility] Stop: 08/30/18 14:59 Last Admin: 07/05/18 10:55 Dose: 3 ml Albuterol Sulfate (Albuterol 2.5mg/3ml Neb Ud) 2.5 mg HHN Q4HRT [facility] Stop: 08/30/18 14:59 Last Admin: 07/05/18 10:55 Dose: 2.5 mg Ascorbic Acid (Vitamin C) 500 mg GT BID [facility] Stop: 08/30/18 08:59 Last Admin: 07/04/18 16:28 Dose: 500 mg Atorvastatin Calcium (Lipitor) 40 mg GT HS [facility] Stop: 08/30/18 20:59 Last Admin: 07/04/18 20:14 Dose: 40 mg Calcium Carbonate (Os-Mago) 500 mg GT Q12H [facility] Stop: 08/30/18 08:59 Last Admin: 07/04/18 20:50 Dose: 500 mg [place] Oil/[place] Balsam/Trypsin (Venelex) 1 appl TP BID [facility] Stop: 08/31/18 08:59 Last Admin: 07/04/18 17:35 Dose: 1 appl Chlorhexidine Gluconate (Peridex) 15 ml MM 0800,2000 [facility] Stop: 08/30/18 19:59 Last Admin: 07/05/18 09:07 Dose: 15 ml Dextrose (D50w) 50 ml IVP PRN PRN PRN Reason: Blood Glucose less than 70 Stop: 08/29/18 18:34 Last Admin: 06/30/18 19:15 Dose: 50 ml Dextrose (Glutose 40%) 18.75 gm PO PRN PRN PRN Reason: Blood Glucose less than 70 Stop: 08/29/18 18:34 Epoetin Rj (Epogen) 10,000 units SUBQ TuThSa [facility] Stop: 09/02/18 15:59 Last Admin: 07/04/18 16:27 Dose: 10,000 units Folic Acid (Folate) 1 mg GT DAILY [facility] Stop: 08/31/18 08:59 Last Admin: 07/04/18 09:16 Dose: 1 mg Glucagon (Glucagen) 1 mg IM PRN PRN PRN Reason: Blood Glucose less than 70 Stop: 08/29/18 18:34 Piperacillin Sod/Tazobactam (Sod 2.25 gm/ Sodium Chloride) 50 mls @ 100 mls/hr IV Q8H [facility] Stop: 08/29/18 16:59 Last Infusion: 07/05/18 01:17 Dose: Infused Ferric Sodium Gluconate Complex 125 mg/ Sodium Chloride 110 mls @ 100 mls/hr IV Q24HR [facility] Stop: 07/09/18 12:59 Last Infusion: 07/04/18 15:57 Dose: Infused Linezolid (Zyvox) 600 mg in 300 mls @ 300 mls/hr IV Q12HR [facility] Stop: 09/02/18 20:59 Last Infusion: 07/04/18 22:00 Dose: Infused Ibuprofen (Motrin) 400 mg GT Q6H PRN PRN Reason: PAIN OR TEMP >101 Stop: 08/30/18 03:13 Insulin Aspart (Novolog Insulin Sliding Scale) 0 units SUBQ Q6H [facility]; Protocol Stop: 08/30/18 05:59 Last Admin: 07/05/18 05:56 Dose: Not Given Insulin Detemir (Levemir Insulin) 20 units SUBQ Q12H [facility]; Protocol Stop: 08/30/18 08:59 Last Admin: 07/05/18 09:30 Dose: Not Given Ipratropium [place] (Atrovent Neb 0.5mg/2.5ml) 0.5 mg HHN Q4HRT [facility] Stop: 08/30/18 14:59 Last Admin: 07/05/18 10:55 Dose: 0.5 mg Lactobacillus Rhamnosus (Culturelle 15b) 1 each GT DAILY [facility] Stop: 08/30/18 08:59 Last Admin: 07/04/18 09:16 Dose: 1 each Miscellaneous (Zosyn Iv Per Pharmacy) 1 [facility] PRN PRN PRN Reason: PROTOCOL Stop: 08/29/18 16:16 Miscellaneous (Vte Chemical Prophylaxis Screen/Icu Transfer) 1 [facility] PRN PRN PRN Reason: PROTOCOL Stop: 08/30/18 08:08 Miscellaneous (Probiotic Screen) 1 [facility] PRN PRN PRN Reason: PROTOCOL Stop: 09/01/18 09:26 Pantoprazole Sodium (Protonix) 40 mg GT DAILY [facility] Stop: 08/30/18 08:59 Last Admin: 07/04/18 09:15 Dose: 40 mg Psyllium Hydrophilic Mucilloid (Metamucil) 1 pkt GT Q12HR [facility] Stop: 08/30/18 08:59 Last Admin: 07/04/18 20:46 Dose: Not Given Vitamin B Complex/Vit C/Folic Acid (Vitamin B Complex W/Vitamin C) 1 tab GT DAILY [facility] Stop: 08/30/18 08:59 Last Admin: 07/04/18 09:16 Dose: 1 tab Zinc Sulfate (Zinc Sulfate) 220 mg GT DAILY [facility] Stop: 08/30/18 08:59 Last Admin: 07/04/18 09:15 Dose: 220 mg General: Other (MECHANICALLY VENTILATED VIA TRACH) HEENT: Atraumatic, PERRLA, EOMI, Other (trach) Neck: Supple Cardiovascular: Regular rate, Normal S1, Normal S2 Lungs: Clear to auscultation Abdomen: Bowel sounds, Soft, Other (gastric tube) Extremities: Edema, Other (peripheral iv in right arm) - Procedures Procedures: Procedures Procedure Code Date RESPIRATORY VENTILATION, GREATER THAN 96 CONSECUTIVE HOURS [id number] 06/30/18 Assessment/Plan - Problem List Patient Problems: All Active Problems ANEMIA WITH HB OF 6.8 (Acute) - Assessment Assessment: Normocytic anemia, most likely multifactorial from chronic kidney disease and possible blood loss from the sacral decubitus ulcer and/or GI source. I will follow the iron studies and the patient will benefit from IV iron. If the ferritin is less than 400 and if she has adequate iron reserves, then Epogen injection will be started. Also, stool occult blood to evaluate for GI blood loss. I will start the patient on Ferrlecit. Pending the iron results. Follow the B12 and folate level and stool occult blood and consider Epogen if the iron reserve is adequate. 07/05: hgb is lower, tx with HD today. Continue iv ferrlecit, epo, folic acid and follow anemia wagner Nutritional Asmnt/Malnutr-PDOC - Dietary Evaluation Malnutrition Findings (Please click <Entered> for more info): Nutritional Asmnt/Malnutrition Start: 07/01/18 10: 22 Text: Status: Complete Freq: Protocol: Document 07/04/18 14:30 MBONUS (Rec: 07/04/18 14:39 [email or web address]) Nutritional Asmnt/Malnutrition Patient General Information Nutritional Screening High Risk Diagnosis pneumonia and dialysis dependent Pertinent Medical Hx/Surgical Hx HTN, RESP FAILURE, DM, ANEMIA Subjective Information PER NURSING NOTE, PT OBTUNDED, TRACH TO VENT, ABDOMEN SOFT, NONTENDER, BOWEL SOUNDS NOTED 2+ EDEMA Current Diet Order/ Nutrition Support NEPRO @ 63 ML/HR Patient / S.O Not Indicated Pertinent Medications MULTI VIT, PROTONIX, CULTURFELLE, ZINC SULFATE, LEVEMIR, INS-SS, VIT C, LIPITOR, OS MAGO, FOLATE, GLUCAGEN Pertinent Labs NA 133, POTASS 3.3, CL 93, BUN /CR 50/2.6, eGFR 19.6, CA 8.4, WBC 12.4 BEDSIDE GLUCOSE: 239, 282, 292 , 144 Nutritional Hx/Data Height 1.57 m Height (Calculated Centimeters) 157.5 Current Weight (lbs) 83.461 kg Weight (Calculated Kilograms) 83.5 Weight (Calculated Grams) 69610.0 [place] Body Weight 110 % [place] Body Weight 167 Body Mass Index (BMI) 33.6 Weight Status Obese GI Symptoms Last BM TODAY X 2 Difficult in: Chewing Swallowing Food Allergies No Skin Integrity/Comment: REED: 12, PRESSURE AREAS: SACRUM, XUAN HEEL Estimated Nutritional Goals BEE in Kcals: Adj wt of IBW Protein: Adj wt of IBW
[2018-07-05] MEDS: Venelex 60gm Tube TP SCH ×2 (12:53→17:20)
[2018-07-05] MEDS: Sodium Ferric Gluconate 125 MG in Sodium Chloride 0.9% 100 ML IV SCH (12:53)
[2018-07-05] MEDS: Lactobacillus Rhamnosus GG 15 Billion CFU CAP.SPRINK GT SCH (12:53)
[2018-07-05] MEDS: Vitamin B Complex w/Vitamin C Tab GT SCH (12:53)
[2018-07-05] MEDS: Pantoprazole 40 mg/Packet GT SCH (12:53)
[2018-07-05] MEDS: Linezolid 600mg/300mL 600 MG/300 ML BAG IV SCH ×2 (12:54→20:45)
--- NOTE | 2018-07-05 13:59 | GI Progress Note ---
Subjective - Review of Systems Service Date: 07/05/18 Events since last encounter: No events Objective - Results Result Diagrams: 07/05/18 05:35 07/05/18 05:35 Recent Labs: Laboratory Last Values WBC 14.4 Th/cmm (4.8-10.8) H 07/05/18 05:35 RBC 2.77 Mil/cmm (3.80-5.20) L 07/05/18 05:35 Hgb 7.8 gm/dL (12-16) L* 07/05/18 05:35 Hct 23.6 % (41.0-60) L 07/05/18 05:35 MCV 85.0 fl (81-100) 07/05/18 05:35 MCH 28.0 pg (27.0-31.0) 07/05/18 05:35 MCHC Differential 33.0 pg (28.0-36.0) 07/05/18 05:35 RDW 16.0 % (11.5-20.0) 07/05/18 05:35 Plt Count 252 Th/cmm (150-400) 07/05/18 05:35 MPV 6.9 fl 07/05/18 05:35 Add Manual Diff YES 07/04/18 06:00 Neutrophils % 85.1 % (40.0-80.0) H 07/05/18 05:35 Band Neutrophils % 1 % (0-10) 07/05/18 05:35 Lymphocytes % 7.3 % (20.0-50.0) L 07/05/18 05:35 Monocytes % 5.7 % (2.0-10.0) 07/05/18 05:35 Eosinophils % 1.2 % (0.0-5.0) 07/05/18 05:35 Basophils % 0.7 % (0.0-2.0) 07/05/18 05:35 Neutrophils (Manual) 80 % (40-80) 07/05/18 05:35 Lymphocytes 10 % (20-50) L 07/05/18 05:35 Monocytes 8 % (2-10) 07/05/18 05:35 Eosinophils 1 % (0-5) 07/05/18 05:35 Basophils 0 % (0-3) 07/04/18 06:00 Total Retics Counted 3.8 % (0.5-1.5) H 07/01/18 05:25 Absolute Retic 117.4 Th/cmm 07/01/18 05:25 Corrected Retic Count 2.2 % (0.5-1.5) H 07/01/18 05:25 PT 10.2 SECONDS (9.5-11.5) 06/30/18 15:20 INR 0.98 (0.5-1.4) 06/30/18 15:20 PTT (Actin FS) 29.5 SECONDS (26.0-38.0) 06/30/18 15:20 Sodium 132 mEq/L (136-145) L 07/05/18 05:35 Potassium 3.5 mEq/L (3.5-5.1) 07/05/18 05:35 Chloride 91 mEq/L (98-107) L 07/05/18 05:35 Carbon Dioxide 26.4 mEq/L (21.0-31.0) 07/05/18 05:35 Anion Gap 18.1 (7.0-16.0) H 07/05/18 05:35 BUN 68 mg/dL (7-25) H 07/05/18 05:35 Creatinine 3.5 mg/dL (0.6-1.2) H 07/05/18 05:35 Est GFR ( Amer) 16.9 ml/min (>90) 07/05/18 05:35 Est GFR (Non-Af Amer) 13.9 ml/min 07/05/18 05:35 BUN/Creatinine Ratio 19.4 07/05/18 05:35 Glucose 113 mg/dL (70-105) H D 07/05/18 05:35 POC Glucose 128 MG/DL (70 - 105) H 07/05/18 12:41 Whole Bld Lactic Acid 1.15 mmol/L (0.60-1.99) 06/30/18 15:20 Calcium 8.6 mg/dL (8.6-10.3) 07/05/18 05:35 Phosphorus 2.6 mg/dL (2.5-5.0) 06/30/18 15:20 Magnesium 2.8 mg/dL (1.9-2.7) H 06/30/18 15:20 Iron 20 ug/dL (27-139) L 07/01/18 05:25 TIBC 98 ug/dL (250-450) L 07/01/18 05:25 Iron Saturation 20 % (15-55) 07/01/18 05:25 Unsaturated IBC 78 ug/dL (118-369) L 07/01/18 05:25 Transferrin 78 mg/dL (200-370) L 07/01/18 05:25 Erythropoietin 16.0 mIU/mL (2.6-18.5) 07/01/18 05:25 Ferritin 3105 ng/mL (15-150) H 07/01/18 05:25 Total Bilirubin 0.3 mg/dL (0.3-1.0) 07/05/18 05:35 AST 22 U/L (13-39) 07/05/18 05:35 ALT 19 U/L (7-52) 07/05/18 05:35 Alkaline Phosphatase 312 U/L (34-104) H 07/05/18 05:35 Lactate Dehydrogenase 217 U/L (140-271) 07/01/18 05:25 Troponin I 0.07 ng/mL (0.01-0.05) H* 06/30/18 15:20 Total Protein 5.7 gm/dL (6.0-8.3) L 07/05/18 05:35 Albumin 2.2 gm/dL (3.7-5.3) L 07/05/18 05:35 Globulin 3.5 gm/dL 07/05/18 05:35 Albumin/Globulin Ratio 0.6 (1.0-1.8) L 07/05/18 05:35 Vitamin B12 >1999 pg/mL (232-1245) H 07/01/18 05:25 Folic Acid 18.3 ng/mL (>3.0) 07/01/18 05:25 Stool Occult Blood POSITIVE (NEGATIVE) H 07/04/18 03:12 Vancomycin Trough 24.9 ug/mL (5-10) H 07/04/18 06:00 Random Vancomycin 30.0 ug/mL (5.0-40.0) 07/03/18 04:20 Hep Bs Antigen Negative (Negative) 06/30/18 15:20 Hepatitis C Antibody <0.1 s/co ratio (0.0-0.9) 06/30/18 15:20 Blood Type O POSITIVE 07/05/18 09:40 Antibody Screen NEGATIVE 07/05/18 09:40 Crossmatch See Detail 07/05/18 09:40 - Physical Exam Vitals and I&O: Vital Signs Temp 99.0 F 07/05/18 10:00 Pulse 89 07/05/18 13:40 Resp 24 07/05/18 10:00 BP 126/56 07/05/18 10:00 Pulse Ox 99 07/05/18 13:40 Intake & Output 07/04/18 07/05/18 07/05/18 18:59 06:59 18:59 Intake Total 1138 1300 Balance 1138 1300 Weight (lbs) 83.461 kg 82.327 kg Intake: Intake, IV Amount 210 450 Levofloxacin 500mg/100mL 100 500 mg In 100 ml @ 100 mls/hr IV Q48HR [facility] Rx#: [id number] Linezolid 600mg/300mL 600 300 mg In 300 ml @ 300 mls/ hr IV Q12HR [facility] Rx#: [id number] Piperacillin Sodium/ 100 50 Tazobact 2.25 gm In Sodium Chloride 0.9% 50 ml @ 100 mls/hr IV Q8H [facility] Rx#:[id number] Sodium Ferric Gluconate 110 125 mg In Sodium Chloride 0.9% 100 ml @ 100 mls/hr IV Q24HR [facility] Rx#: [id number] Tube Feeding 378 850 Other 550 Other: # Bowel Movements 2 2 Stool Characteristics Soft Soft Brown Brown Green Weight Source Bedscale Bedscale Active Medications: Current Medications Acetylcysteine (Mucomyst 20%) 3 ml HHN Q4HRT [facility] Stop: 08/30/18 14:59 Last Admin: 07/05/18 10:55 Dose: 3 ml Albuterol Sulfate (Albuterol 2.5mg/3ml Neb Ud) 2.5 mg HHN Q4HRT [facility] Stop: 08/30/18 14:59 Last Admin: 07/05/18 10:55 Dose: 2.5 mg Ascorbic Acid (Vitamin C) 500 mg GT BID [facility] Stop: 08/30/18 08:59 Last Admin: 07/05/18 12:53 Dose: 500 mg Atorvastatin Calcium (Lipitor) 40 mg GT HS [facility] Stop: 08/30/18 20:59 Last Admin: 07/04/18 20:14 Dose: 40 mg Calcium Carbonate (Os-Al[place]) 500 mg GT Q12H [facility] Stop: 08/30/18 08:59 Last Admin: 07/05/18 12:53 Dose: 500 mg [employer] Oil/[place] Balsam/Trypsin (Venelex) 1 appl TP BID [facility] Stop: 08/31/18 08:59 Last Admin: 07/05/18 12:53 Dose: 1 appl Chlorhexidine Gluconate (Peridex) 15 ml MM 0800,2000 [facility] Stop: 08/30/18 19:59 Last Admin: 07/05/18 09:07 Dose: 15 ml Dextrose (D50w) 50 ml IVP PRN PRN PRN Reason: Blood Glucose less than 70 Stop: 08/29/18 18:34 Last Admin: 06/30/18 19:15 Dose: 50 ml Dextrose (Glutose 40%) 18.75 gm PO PRN PRN PRN Reason: Blood Glucose less than 70 Stop: 08/29/18 18:34 Epoetin Rj (Epogen) 10,000 units SUBQ TuTa [facility] Stop: 09/02/18 15:59 Last Admin: 07/04/18 16:27 Dose: 10,000 units Folic Acid (Folate) 1 mg GT DAILY [facility] Stop: 08/31/18 08:59 Last Admin: 07/05/18 12:53 Dose: 1 mg Glucagon (Glucagen) 1 mg IM PRN PRN PRN Reason: Blood Glucose less than 70 Stop: 08/29/18 18:34 Piperacillin Sod/Tazobactam (Sod 2.25 gm/ Sodium Chloride) 50 mls @ 100 mls/hr IV Q8H [facility] Stop: 08/29/18 16:59 Last Admin: 07/05/18 12:53 Dose: 100 mls/hr Ferric Sodium Gluconate Complex 125 mg/ Sodium Chloride 110 mls @ 100 mls/hr IV Q24HR [facility] Stop: 07/09/18 12:59 Last Admin: 07/05/18 12:53 Dose: 100 mls/hr Linezolid (Zyvox) 600 mg in 300 mls @ 300 mls/hr IV Q12HR [facility] Stop: 09/02/18 20:59 Last Admin: 07/05/18 12:54 Dose: 300 mls/hr Ibuprofen (Motrin) 400 mg GT Q6H PRN PRN Reason: PAIN OR TEMP >101 Stop: 08/30/18 03:13 Insulin Aspart (Novolog Insulin Sliding Scale) 0 units SUBQ Q6H [facility]; Protocol Stop: 08/30/18 05:59 Last Admin: 07/05/18 12:55 Dose: Not Given Insulin Detemir (Levemir Insulin) 20 units SUBQ Q12H [facility]; Protocol Stop: 08/30/18 08:59 Last Admin: 07/05/18 09:30 Dose: Not Given Ipratropium [place] (Atrovent Neb 0.5mg/2.5ml) 0.5 mg HHN Q4HRT [facility] Stop: 08/30/18 14:59 Last Admin: 07/05/18 10:55 Dose: 0.5 mg Lactobacillus Rhamnosus (Culturelle 15b) 1 each GT DAILY [facility] Stop: 08/30/18 08:59 Last Admin: 07/05/18 12:53 Dose: 1 each Miscellaneous (Zosyn Iv Per Pharmacy) 1 [facility] PRN PRN PRN Reason: PROTOCOL Stop: 08/29/18 16:16 Miscellaneous (Vte Chemical Prophylaxis Screen/Icu Transfer) 1 [facility] PRN PRN PRN Reason: PROTOCOL Stop: 08/30/18 08:08 Miscellaneous (Probiotic Screen) 1 [facility] PRN PRN PRN Reason: PROTOCOL Stop: 09/01/18 09:26 Pantoprazole Sodium (Protonix) 40 mg GT DAILY [facility] Stop: 08/30/18 08:59 Last Admin: 07/05/18 12:53 Dose: 40 mg Psyllium Hydrophilic Mucilloid (Metamucil) 1 pkt GT Q12HR [facility] Stop: 08/30/18 08:59 Last Admin: 07/05/18 12:55 Dose: Not Given Vitamin B Complex/Vit C/Folic Acid (Vitamin B Complex W/Vitamin C) 1 tab GT DAILY [facility] Stop: 08/30/18 08:59 Last Admin: 07/05/18 12:53 Dose: 1 tab Zinc Sulfate (Zinc Sulfate) 220 mg GT DAILY [facility] Stop: 08/30/18 08:59 Last Admin: 07/05/18 12:53 Dose: 220 mg General: Other (MECHANICALLY VENTILATED VIA TRACH) HEENT: Atraumatic, PERRLA, EOMI, Other (trach) Neck: Supple Cardiovascular: Regular rate, Normal S1, Normal S2 Lungs: Clear to auscultation Abdomen: Bowel sounds, Soft, Other (gastric tube) Extremities: Edema, Other (peripheral iv in right arm) - Procedures Procedures: Procedures Procedure Code Date RESPIRATORY VENTILATION, GREATER THAN 96 CONSECUTIVE HOURS [id number] 06/30/18 Assessment/Plan - Problem List Patient Problems: All Active Problems ANEMIA WITH HB OF 6.8 (Acute) - Assessment Assessment: 1. FOBT+, then negative 2. Anemia - multifactorial 3. Recent negative colonoscopy 4. ESRD, septicemia -Has had a recent colonoscopy , risks outweigh benefits, no overt bleeding -Iron supplementation, supportive care -Pt is not acting like an acute bowel obstruction, may have mild ileus but not clinically active just yet -PRBCs if Hg<7 -Will follow
[2018-07-05 14:20] LABS: HEMOGLOBIN 10.6 gm/dL (12-16)
[2018-07-05 14:23] LABS: HEMATOCRIT 31.3 % (41.0-60)
--- NOTE | 2018-07-05 15:32 | Infectious Disease Prog Note ---
Infectious Disease Subjective - Review of Systems Service Date: 07/05/18 Subjective: Doing the same, no fever. no diarrhea. Remains on the ventilator, s/pp trach and peg. Infectious Disease Objective - Results Result Diagrams: 07/05/18 14:15 07/05/18 05:35 Recent Labs: Laboratory Last Values WBC 14.4 Th/cmm (4.8-10.8) H 07/05/18 05:35 RBC 2.77 Mil/cmm (3.80-5.20) L 07/05/18 05:35 Hgb 10.6 gm/dL (12-16) L 07/05/18 14:15 Hct 31.3 % (41.0-60) L D 07/05/18 14:15 MCV 85.0 fl (81-100) 07/05/18 05:35 MCH 28.0 pg (27.0-31.0) 07/05/18 05:35 MCHC Differential 33.0 pg (28.0-36.0) 07/05/18 05:35 RDW 16.0 % (11.5-20.0) 07/05/18 05:35 Plt Count 252 Th/cmm (150-400) 07/05/18 05:35 MPV 6.9 fl 07/05/18 05:35 Add Manual Diff YES 07/04/18 06:00 Neutrophils % 85.1 % (40.0-80.0) H 07/05/18 05:35 Band Neutrophils % 1 % (0-10) 07/05/18 05:35 Lymphocytes % 7.3 % (20.0-50.0) L 07/05/18 05:35 Monocytes % 5.7 % (2.0-10.0) 07/05/18 05:35 Eosinophils % 1.2 % (0.0-5.0) 07/05/18 05:35 Basophils % 0.7 % (0.0-2.0) 07/05/18 05:35 Neutrophils (Manual) 80 % (40-80) 07/05/18 05:35 Lymphocytes 10 % (20-50) L 07/05/18 05:35 Monocytes 8 % (2-10) 07/05/18 05:35 Eosinophils 1 % (0-5) 07/05/18 05:35 Basophils 0 % (0-3) 07/04/18 06:00 Total Retics Counted 3.8 % (0.5-1.5) H 07/01/18 05:25 Absolute Retic 117.4 Th/cmm 07/01/18 05:25 Corrected Retic Count 2.2 % (0.5-1.5) H 07/01/18 05:25 PT 10.2 SECONDS (9.5-11.5) 06/30/18 15:20 INR 0.98 (0.5-1.4) 06/30/18 15:20 PTT (Actin FS) 29.5 SECONDS (26.0-38.0) 06/30/18 15:20 Sodium 132 mEq/L (136-145) L 07/05/18 05:35 Potassium 3.5 mEq/L (3.5-5.1) 07/05/18 05:35 Chloride 91 mEq/L (98-107) L 07/05/18 05:35 Carbon Dioxide 26.4 mEq/L (21.0-31.0) 07/05/18 05:35 Anion Gap 18.1 (7.0-16.0) H 07/05/18 05:35 BUN 68 mg/dL (7-25) H 07/05/18 05:35 Creatinine 3.5 mg/dL (0.6-1.2) H 07/05/18 05:35 Est GFR ( Amer) 16.9 ml/min (>90) 07/05/18 05:35 Est GFR (Non-Af Amer) 13.9 ml/min 07/05/18 05:35 BUN/Creatinine Ratio 19.4 07/05/18 05:35 Glucose 113 mg/dL (70-105) H D 07/05/18 05:35 POC Glucose 128 MG/DL (70 - 105) H 07/05/18 12:41 Whole Bld Lactic Acid 1.15 mmol/L (0.60-1.99) 06/30/18 15:20 Calcium 8.6 mg/dL (8.6-10.3) 07/05/18 05:35 Phosphorus 2.6 mg/dL (2.5-5.0) 06/30/18 15:20 Magnesium 2.8 mg/dL (1.9-2.7) H 06/30/18 15:20 Iron 20 ug/dL (27-139) L 07/01/18 05:25 TIBC 98 ug/dL (250-450) L 07/01/18 05:25 Iron Saturation 20 % (15-55) 07/01/18 05:25 Unsaturated IBC 78 ug/dL (118-369) L 07/01/18 05:25 Transferrin 78 mg/dL (200-370) L 07/01/18 05:25 Erythropoietin 16.0 mIU/mL (2.6-18.5) 07/01/18 05:25 Ferritin 3105 ng/mL (15-150) H 07/01/18 05:25 Total Bilirubin 0.3 mg/dL (0.3-1.0) 07/05/18 05:35 AST 22 U/L (13-39) 07/05/18 05:35 ALT 19 U/L (7-52) 07/05/18 05:35 Alkaline Phosphatase 312 U/L (34-104) H 07/05/18 05:35 Lactate Dehydrogenase 217 U/L (140-271) 07/01/18 05:25 Troponin I 0.07 ng/mL (0.01-0.05) H* 06/30/18 15:20 Total Protein 5.7 gm/dL (6.0-8.3) L 07/05/18 05:35 Albumin 2.2 gm/dL (3.7-5.3) L 07/05/18 05:35 Globulin 3.5 gm/dL 07/05/18 05:35 Albumin/Globulin Ratio 0.6 (1.0-1.8) L 07/05/18 05:35 Vitamin B12 >1999 pg/mL (232-1245) H 07/01/18 05:25 Folic Acid 18.3 ng/mL (>3.0) 07/01/18 05:25 Stool Occult Blood POSITIVE (NEGATIVE) H 07/04/18 03:12 Vancomycin Trough 24.9 ug/mL (5-10) H 07/04/18 06:00 Random Vancomycin 30.0 ug/mL (5.0-40.0) 07/03/18 04:20 Hep Bs Antigen Negative (Negative) 06/30/18 15:20 Hepatitis C Antibody <0.1 s/co ratio (0.0-0.9) 06/30/18 15:20 Blood Type O POSITIVE 07/05/18 09:40 Antibody Screen NEGATIVE 07/05/18 09:40 Crossmatch See Detail 07/05/18 09:40 - Physical Exam Vitals and I&O: Vital Signs Temp 99.0 F 07/05/18 10:00 Pulse 89 07/05/18 13:40 Resp 24 07/05/18 10:00 BP 126/56 07/05/18 10:00 Pulse Ox 99 07/05/18 13:40 Intake & Output 07/04/18 07/05/18 07/05/18 18:59 06:59 18:59 Intake Total 1138 1300 Balance 1138 1300 Weight (lbs) 83.461 kg 82.327 kg Intake: Intake, IV Amount 210 450 Levofloxacin 500mg/100mL 100 500 mg In 100 ml @ 100 mls/hr IV Q48HR [facility] Rx#: [id number] Linezolid 600mg/300mL 600 300 mg In 300 ml @ 300 mls/ hr IV Q12HR [facility] Rx#: [id number] Piperacillin Sodium/ 100 50 Tazobact 2.25 gm In Sodium Chloride 0.9% 50 ml @ 100 mls/hr IV Q8H [facility] Rx#:[id number] Sodium Ferric Gluconate 110 125 mg In Sodium Chloride 0.9% 100 ml @ 100 mls/hr IV Q24HR [facility] Rx#: [id number] Tube Feeding 378 850 Other 550 Other: # Bowel Movements 2 2 Stool Characteristics Soft Soft Brown Brown Green Weight Source Bedscale Bedscale Active Medications: Current Medications Acetylcysteine (Mucomyst 20%) 3 ml HHN Q4HRT [facility] Stop: 08/30/18 14:59 Last Admin: 07/05/18 10:55 Dose: 3 ml Albuterol Sulfate (Albuterol 2.5mg/3ml Neb Ud) 2.5 mg HHN Q4HRT [facility] Stop: 08/30/18 14:59 Last Admin: 07/05/18 10:55 Dose: 2.5 mg Ascorbic Acid (Vitamin C) 500 mg GT BID [facility] Stop: 08/30/18 08:59 Last Admin: 07/05/18 12:53 Dose: 500 mg Atorvastatin Calcium (Lipitor) 40 mg GT HS [facility] Stop: 08/30/18 20:59 Last Admin: 07/04/18 20:14 Dose: 40 mg Calcium Carbonate (Os-Mago) 500 mg GT Q12H [facility] Stop: 08/30/18 08:59 Last Admin: 07/05/18 12:53 Dose: 500 mg [place] Oil/[place] Balsam/Trypsin (Venelex) 1 appl TP BID [facility] Stop: 08/31/18 08:59 Last Admin: 07/05/18 12:53 Dose: 1 appl Chlorhexidine Gluconate (Peridex) 15 ml MM 0800,2000 [facility] Stop: 08/30/18 19:59 Last Admin: 07/05/18 09:07 Dose: 15 ml Dextrose (D50w) 50 ml IVP PRN PRN PRN Reason: Blood Glucose less than 70 Stop: 08/29/18 18:34 Last Admin: 06/30/18 19:15 Dose: 50 ml Dextrose (Glutose 40%) 18.75 gm PO PRN PRN PRN Reason: Blood Glucose less than 70 Stop: 08/29/18 18:34 Epoetin Rj (Epogen) 10,000 units SUBQ TuThSa [facility] Stop: 09/02/18 15:59 Last Admin: 07/04/18 16:27 Dose: 10,000 units Folic Acid (Folate) 1 mg GT DAILY [facility] Stop: 08/31/18 08:59 Last Admin: 07/05/18 12:53 Dose: 1 mg Glucagon (Glucagen) 1 mg IM PRN PRN PRN Reason: Blood Glucose less than 70 Stop: 08/29/18 18:34 Piperacillin Sod/Tazobactam (Sod 2.25 gm/ Sodium Chloride) 50 mls @ 100 mls/hr IV Q8H [facility] Stop: 08/29/18 16:59 Last Admin: 07/05/18 12:53 Dose: 100 mls/hr Ferric Sodium Gluconate Complex 125 mg/ Sodium Chloride 110 mls @ 100 mls/hr IV Q24HR [facility] Stop: 07/09/18 12:59 Last Admin: 07/05/18 12:53 Dose: 100 mls/hr Linezolid (Zyvox) 600 mg in 300 mls @ 300 mls/hr IV Q12HR [facility] Stop: 09/02/18 20:59 Last Admin: 07/05/18 12:54 Dose: 300 mls/hr Colistimethate Sodium 150 mg/ (Sodium Chloride) 100 mls @ 100 mls/hr IV Q12HR [facility] Stop: 09/03/18 20:59 Ibuprofen (Motrin) 400 mg GT Q6H PRN PRN Reason: PAIN OR TEMP >101 Stop: 08/30/18 03:13 Insulin Aspart (Novolog Insulin Sliding Scale) 0 units SUBQ Q6H [facility]; Protocol Stop: 08/30/18 05:59 Last Admin: 07/05/18 12:55 Dose: Not Given Insulin Detemir (Levemir Insulin) 20 units SUBQ Q12H [facility]; Protocol Stop: 08/30/18 08:59 Last Admin: 07/05/18 09:30 Dose: Not Given Ipratropium [place] (Atrovent Neb 0.5mg/2.5ml) 0.5 mg HHN Q4HRT [facility] Stop: 08/30/18 14:59 Last Admin: 07/05/18 10:55 Dose: 0.5 mg Lactobacillus Rhamnosus (Culturelle 15b) 1 each GT DAILY [facility] Stop: 08/30/18 08:59 Last Admin: 07/05/18 12:53 Dose: 1 each Miscellaneous (Zosyn Iv Per Pharmacy) 1 ea PRN PRN PRN Reason: PROTOCOL Stop: 08/29/18 16:16 Miscellaneous (Vte Chemical Prophylaxis Screen/Icu Transfer) 1 [facility] PRN PRN PRN Reason: PROTOCOL Stop: 08/30/18 08:08 Miscellaneous (Probiotic Screen) 1 [facility] PRN PRN PRN Reason: PROTOCOL Stop: 09/01/18 09:26 Pantoprazole Sodium (Protonix) 40 mg GT DAILY [facility] Stop: 08/30/18 08:59 Last Admin: 07/05/18 12:53 Dose: 40 mg Psyllium Hydrophilic Mucilloid (Metamucil) 1 pkt GT Q12HR [facility] Stop: 08/30/18 08:59 Last Admin: 07/05/18 12:55 Dose: Not Given Vitamin B Complex/Vit C/Folic Acid (Vitamin B Complex W/Vitamin C) 1 tab GT DAILY [facility] Stop: 08/30/18 08:59 Last Admin: 07/05/18 12:53 Dose: 1 tab Zinc Sulfate (Zinc Sulfate) 220 mg GT DAILY [facility] Stop: 08/30/18 08:59 Last Admin: 07/05/18 12:53 Dose: 220 mg General: no acute distress, well developed, well nourished, other (ventilator dependant.) HEENT: atraumatic, normocephalic, PERRLA Neck: supple, no thyromegaly, no lymphadenopathy Cardiovascular: S1S2, regular Lungs: clear to percussion, crackles, no clear to auscultation bilaterally Abdomen: soft, other (g tube is ok.), no tender, no distended, no mass Extremities: edema, no cyanosis, no clubbing Neurological: awake, alert Skin: other (sacral stage 4 ulcer) - Procedures Procedures: Procedures Procedure Code Date RESPIRATORY VENTILATION, GREATER THAN 96 CONSECUTIVE HOURS [id number] 06/30/18 Infectious Disease Assmt/Plan - Problem List Patient Problems: All Active Problems ANEMIA WITH HB OF 6.8 (Acute) - Assessment Assessment: 1. Leukocytosis, most likely reactive versus sepsis. 2. Pneumonia. 3. Hypoglycemia with a blood glucose was in the 50s. 4. Diabetes mellitus type 2. 5. Hypertension. 6. Chronic kidney disease stage 5, on hemodialysis. 7. Ventilator-dependent respiratory failure. 8. History of status post PEG and status trach. 9. Anemia of chronic disease, rule out a gastrointestinal bleed. 10. Sacral decubitus. stage 4. 11. MDRO Pseudomonas infection. 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 13. Proteus infection. - Plan Plan: Will continue the same treatment,.. Consult GI. Antibiotics. Continue Zyvox, and change zosyn to colisitin. wound care. F/U as per consults. US arterial upper extremities Nutritional Asmnt/Malnutr-PDOC - Dietary Evaluation Malnutrition Findings (Please click <Entered> for more info): Nutritional Asmnt/Malnutrition Start: 07/01/18 10: 22 Text: Status: Complete Freq: Protocol: Document 07/04/18 14:30 MBONUS (Rec: 07/04/18 14:39 [email or web address]) Nutritional Asmnt/Malnutrition Patient General Information Nutritional Screening High Risk Diagnosis pneumonia and dialysis dependent Pertinent Medical Hx/Surgical Hx HTN, RESP FAILURE, DM, ANEMIA Subjective Information PER NURSING NOTE, PT OBTUNDED, TRACH TO VENT, ABDOMEN SOFT, NONTENDER, BOWEL SOUNDS NOTED 2+ EDEMA Current Diet Order/ Nutrition Support NEPRO @ 63 ML/HR Patient / S.O Not Indicated Pertinent Medications MULTI VIT, PROTONIX, CULTURFELLE, ZINC SULFATE, LEVEMIR, INS-SS, VIT C, LIPITOR, OS MAGO, FOLATE, GLUCAGEN Pertinent Labs NA 133, POTASS 3.3, CL 93, BUN /CR 50/2.6, eGFR 19.6, CA 8.4, WBC 12.4 BEDSIDE GLUCOSE: 239, 282, 292 , 144 Nutritional Hx/Data Height 1.57 m Height (Calculated Centimeters) 157.5 Current Weight (lbs) 83.461 kg Weight (Calculated Kilograms) 83.5 Weight (Calculated Grams) 68680.0 [place] Body Weight 110 % [place] Body Weight 167 Body Mass Index (BMI) 33.6 Weight Status Obese GI Symptoms Last BM TODAY X 2 Difficult in: Chewing Swallowing Food Allergies No Skin Integrity/Comment: REED: 12, PRESSURE AREAS: SACRUM, XUAN HEEL Estimated Nutritional Goals BEE in Kcals: Adj wt of IBW Protein: Adj wt of IBW
--- NOTE | 2018-07-05 16:10 | General Progress Note ---
Subjective - Review of Systems Service Date: 07/05/18 Subjective: Pt seen and examined. No distress Objective - Results Result Diagrams: 07/05/18 14:15 07/05/18 05:35 Recent Labs: Laboratory Last Values WBC 14.4 Th/cmm (4.8-10.8) H 07/05/18 05:35 RBC 2.77 Mil/cmm (3.80-5.20) L 07/05/18 05:35 Hgb 10.6 gm/dL (12-16) L 07/05/18 14:15 Hct 31.3 % (41.0-60) L D 07/05/18 14:15 MCV 85.0 fl (81-100) 07/05/18 05:35 MCH 28.0 pg (27.0-31.0) 07/05/18 05:35 MCHC Differential 33.0 pg (28.0-36.0) 07/05/18 05:35 RDW 16.0 % (11.5-20.0) 07/05/18 05:35 Plt Count 252 Th/cmm (150-400) 07/05/18 05:35 MPV 6.9 fl 07/05/18 05:35 Add Manual Diff YES 07/04/18 06:00 Neutrophils % 85.1 % (40.0-80.0) H 07/05/18 05:35 Band Neutrophils % 1 % (0-10) 07/05/18 05:35 Lymphocytes % 7.3 % (20.0-50.0) L 07/05/18 05:35 Monocytes % 5.7 % (2.0-10.0) 07/05/18 05:35 Eosinophils % 1.2 % (0.0-5.0) 07/05/18 05:35 Basophils % 0.7 % (0.0-2.0) 07/05/18 05:35 Neutrophils (Manual) 80 % (40-80) 07/05/18 05:35 Lymphocytes 10 % (20-50) L 07/05/18 05:35 Monocytes 8 % (2-10) 07/05/18 05:35 Eosinophils 1 % (0-5) 07/05/18 05:35 Basophils 0 % (0-3) 07/04/18 06:00 Total Retics Counted 3.8 % (0.5-1.5) H 07/01/18 05:25 Absolute Retic 117.4 Th/cmm 07/01/18 05:25 Corrected Retic Count 2.2 % (0.5-1.5) H 07/01/18 05:25 PT 10.2 SECONDS (9.5-11.5) 06/30/18 15:20 INR 0.98 (0.5-1.4) 06/30/18 15:20 PTT (Actin FS) 29.5 SECONDS (26.0-38.0) 06/30/18 15:20 Sodium 132 mEq/L (136-145) L 07/05/18 05:35 Potassium 3.5 mEq/L (3.5-5.1) 07/05/18 05:35 Chloride 91 mEq/L (98-107) L 07/05/18 05:35 Carbon Dioxide 26.4 mEq/L (21.0-31.0) 07/05/18 05:35 Anion Gap 18.1 (7.0-16.0) H 07/05/18 05:35 BUN 68 mg/dL (7-25) H 07/05/18 05:35 Creatinine 3.5 mg/dL (0.6-1.2) H 07/05/18 05:35 Est GFR ( Amer) 16.9 ml/min (>90) 07/05/18 05:35 Est GFR (Non-Af Amer) 13.9 ml/min 07/05/18 05:35 BUN/Creatinine Ratio 19.4 07/05/18 05:35 Glucose 113 mg/dL (70-105) H D 07/05/18 05:35 POC Glucose 128 MG/DL (70 - 105) H 07/05/18 12:41 Whole Bld Lactic Acid 1.15 mmol/L (0.60-1.99) 06/30/18 15:20 Calcium 8.6 mg/dL (8.6-10.3) 07/05/18 05:35 Phosphorus 2.6 mg/dL (2.5-5.0) 06/30/18 15:20 Magnesium 2.8 mg/dL (1.9-2.7) H 06/30/18 15:20 Iron 20 ug/dL (27-139) L 07/01/18 05:25 TIBC 98 ug/dL (250-450) L 07/01/18 05:25 Iron Saturation 20 % (15-55) 07/01/18 05:25 Unsaturated IBC 78 ug/dL (118-369) L 07/01/18 05:25 Transferrin 78 mg/dL (200-370) L 07/01/18 05:25 Erythropoietin 16.0 mIU/mL (2.6-18.5) 07/01/18 05:25 Ferritin 3105 ng/mL (15-150) H 07/01/18 05:25 Total Bilirubin 0.3 mg/dL (0.3-1.0) 07/05/18 05:35 AST 22 U/L (13-39) 07/05/18 05:35 ALT 19 U/L (7-52) 07/05/18 05:35 Alkaline Phosphatase 312 U/L (34-104) H 07/05/18 05:35 Lactate Dehydrogenase 217 U/L (140-271) 07/01/18 05:25 Troponin I 0.07 ng/mL (0.01-0.05) H* 06/30/18 15:20 Total Protein 5.7 gm/dL (6.0-8.3) L 07/05/18 05:35 Albumin 2.2 gm/dL (3.7-5.3) L 07/05/18 05:35 Globulin 3.5 gm/dL 07/05/18 05:35 Albumin/Globulin Ratio 0.6 (1.0-1.8) L 07/05/18 05:35 Vitamin B12 >1999 pg/mL (232-1245) H 07/01/18 05:25 Folic Acid 18.3 ng/mL (>3.0) 07/01/18 05:25 Stool Occult Blood POSITIVE (NEGATIVE) H 07/04/18 03:12 Vancomycin Trough 24.9 ug/mL (5-10) H 07/04/18 06:00 Random Vancomycin 30.0 ug/mL (5.0-40.0) 07/03/18 04:20 Hep Bs Antigen Negative (Negative) 06/30/18 15:20 Hepatitis C Antibody <0.1 s/co ratio (0.0-0.9) 06/30/18 15:20 Blood Type O POSITIVE 07/05/18 09:40 Antibody Screen NEGATIVE 07/05/18 09:40 Crossmatch See Detail 07/05/18 09:40 - Physical Exam Vitals and I&O: Vital Signs Temp 99.0 F 07/05/18 10:00 Pulse 97 07/05/18 15:25 Resp 24 07/05/18 10:00 BP 126/56 07/05/18 10:00 Pulse Ox 99 07/05/18 15:25 Intake & Output 07/04/18 07/05/18 07/05/18 18:59 06:59 18:59 Intake Total 1138 1300 Balance 1138 1300 Weight (lbs) 83.461 kg 82.327 kg Intake: Intake, IV Amount 210 450 Levofloxacin 500mg/100mL 100 500 mg In 100 ml @ 100 mls/hr IV Q48HR [facility] Rx#: [id number] Linezolid 600mg/300mL 600 300 mg In 300 ml @ 300 mls/ hr IV Q12HR [facility] Rx#: [id number] Piperacillin Sodium/ 100 50 Tazobact 2.25 gm In Sodium Chloride 0.9% 50 ml @ 100 mls/hr IV Q8H [facility] Rx#:[id number] Sodium Ferric Gluconate 110 125 mg In Sodium Chloride 0.9% 100 ml @ 100 mls/hr IV Q24HR [facility] Rx#: [id number] Tube Feeding 378 850 Other 550 Other: # Bowel Movements 2 2 Stool Characteristics Soft Soft Soft Brown Brown Liquid Green Brown Weight Source Bedscale Bedscale Active Medications: Current Medications Acetylcysteine (Mucomyst 20%) 3 ml HHN Q4HRT [facility] Stop: 08/30/18 14:59 Last Admin: 07/05/18 15:38 Dose: 3 ml Albuterol Sulfate (Albuterol 2.5mg/3ml Neb Ud) 2.5 mg HHN Q4HRT [facility] Stop: 08/30/18 14:59 Last Admin: 07/05/18 15:38 Dose: 2.5 mg Ascorbic Acid (Vitamin C) 500 mg GT BID [facility] Stop: 08/30/18 08:59 Last Admin: 07/05/18 12:53 Dose: 500 mg Atorvastatin Calcium (Lipitor) 40 mg GT HS [facility] Stop: 08/30/18 20:59 Last Admin: 12/18/18 20:14 Dose: 40 mg Calcium Carbonate (Os-Mago) 500 mg GT Q12H [facility] Stop: 08/30/18 08:59 Last Admin: 07/05/18 12:53 Dose: 500 mg [place] Oil/[place] Balsam/Trypsin (Venelex) 1 appl TP BID [facility] Stop: 08/31/18 08:59 Last Admin: 07/05/18 12:53 Dose: 1 appl Chlorhexidine Gluconate (Peridex) 15 ml MM 0800,2000 [facility] Stop: 08/30/18 19:59 Last Admin: 07/05/18 09:07 Dose: 15 ml Dextrose (D50w) 50 ml IVP PRN PRN PRN Reason: Blood Glucose less than 70 Stop: 08/29/18 18:34 Last Admin: 06/30/18 19:15 Dose: 50 ml Dextrose (Glutose 40%) 18.75 gm PO PRN PRN PRN Reason: Blood Glucose less than 70 Stop: 08/29/18 18:34 Epoetin Rj (Epogen) 10,000 units SUBQ TuTa [facility] Stop: 09/02/18 15:59 Last Admin: 07/04/18 16:27 Dose: 10,000 units Folic Acid (Folate) 1 mg GT DAILY [facility] Stop: 08/31/18 08:59 Last Admin: 07/05/18 12:53 Dose: 1 mg Glucagon (Glucagen) 1 mg IM PRN PRN PRN Reason: Blood Glucose less than 70 Stop: 08/29/18 18:34 Piperacillin Sod/Tazobactam (Sod 2.25 gm/ Sodium Chloride) 50 mls @ 100 mls/hr IV Q8H [facility] Stop: 08/29/18 16:59 Last Admin: 07/05/18 12:53 Dose: 100 mls/hr Ferric Sodium Gluconate Complex 125 mg/ Sodium Chloride 110 mls @ 100 mls/hr IV Q24HR [facility] Stop: 07/09/18 12:59 Last Admin: 07/05/18 12:53 Dose: 100 mls/hr Linezolid (Zyvox) 600 mg in 300 mls @ 300 mls/hr IV Q12HR [facility] Stop: 09/02/18 20:59 Last Admin: 07/05/18 12:54 Dose: 300 mls/hr Colistimethate Sodium 150 mg/ (Sodium Chloride) 100 mls @ 100 mls/hr IV Q36H [facility] Stop: 09/03/18 16:59 Ibuprofen (Motrin) 400 mg GT Q6H PRN PRN Reason: PAIN OR TEMP >101 Stop: 08/30/18 03:13 Insulin Aspart (Novolog Insulin Sliding Scale) 0 units SUBQ Q6H [facility]; Protocol Stop: 08/30/18 05:59 Last Admin: 07/05/18 12:55 Dose: Not Given Insulin Detemir (Levemir Insulin) 20 units SUBQ Q12H [facility]; Protocol Stop: 08/30/18 08:59 Last Admin: 07/05/18 09:30 Dose: Not Given Ipratropium [place] (Atrovent Neb 0.5mg/2.5ml) 0.5 mg HHN Q4HRT [facility] Stop: 08/30/18 14:59 Last Admin: 07/05/18 15:38 Dose: 0.5 mg Lactobacillus Rhamnosus (Culturelle 15b) 1 each GT DAILY [facility] Stop: 08/30/18 08:59 Last Admin: 07/05/18 12:53 Dose: 1 each Miscellaneous (Vte Chemical Prophylaxis Screen/Icu Transfer) 1 ea PRN PRN PRN Reason: PROTOCOL Stop: 08/30/18 08:08 Miscellaneous (Probiotic Screen) 1 ea PRN PRN PRN Reason: PROTOCOL Stop: 09/01/18 09:26 Pantoprazole Sodium (Protonix) 40 mg GT DAILY [facility] Stop: 08/30/18 08:59 Last Admin: 07/05/18 12:53 Dose: 40 mg Psyllium Hydrophilic Mucilloid (Metamucil) 1 pkt GT Q12HR [facility] Stop: 08/30/18 08:59 Last Admin: 07/05/18 12:55 Dose: Not Given Vitamin B Complex/Vit C/Folic Acid (Vitamin B Complex W/Vitamin C) 1 tab GT DAILY [facility] Stop: 08/30/18 08:59 Last Admin: 07/05/18 12:53 Dose: 1 tab Zinc Sulfate (Zinc Sulfate) 220 mg GT DAILY [facility] Stop: 08/30/18 08:59 Last Admin: 07/05/18 12:53 Dose: 220 mg General: Other (MECHANICALLY VENTILATED VIA TRACH) HEENT: Atraumatic, PERRLA, EOMI, Other (trach) Neck: Supple Cardiovascular: Regular rate, Normal S1, Normal S2 Lungs: Clear to auscultation Abdomen: Bowel sounds, Soft, Other (gastric tube) Extremities: Edema (BUE 1-2 edema) - Procedures Procedures: Procedures Procedure Code Date RESPIRATORY VENTILATION, GREATER THAN 96 CONSECUTIVE HOURS [id number] 06/30/18 Assessment/Plan - Problem List Patient Problems: All Active Problems ANEMIA WITH HB OF 6.8 (Acute) - Assessment Assessment: ESRD with dialysis status sepsis anemia w esrd chronic resp failure pneumonia BUE edema - Plan Plan: HD today transfuse 1 unit PRBC cont epogen cont abx check C diff in stool supportive care/vent Nutritional Asmnt/Malnutr-PDOC - Dietary Evaluation Malnutrition Findings (Please click <Entered> for more info): Nutritional Asmnt/Malnutrition Start: 07/01/18 10: 22 Text: Status: Complete Freq: Protocol: Document 07/04/18 14:30 MBONUS (Rec: 07/04/18 14:39 [email or web address]) Nutritional Asmnt/Malnutrition Patient General Information Nutritional Screening High Risk Diagnosis pneumonia and dialysis dependent Pertinent Medical Hx/Surgical Hx HTN, RESP FAILURE, DM, ANEMIA Subjective Information PER NURSING NOTE, PT OBTUNDED, TRACH TO VENT, ABDOMEN SOFT, NONTENDER, BOWEL SOUNDS NOTED 2+ EDEMA Current Diet Order/ Nutrition Support NEPRO @ 63 ML/HR Patient / S.O Not Indicated Pertinent Medications MULTI VIT, PROTONIX, CULTURFELLE, ZINC SULFATE, LEVEMIR, INS-SS, VIT C, LIPITOR, OS MAGO, FOLATE, GLUCAGEN Pertinent Labs NA 133, POTASS 3.3, CL 93, BUN /CR 50/2.6, eGFR 19.6, CA 8.4, WBC 12.4 BEDSIDE GLUCOSE: 239, 282, 292 , 144 Nutritional Hx/Data Height 1.57 m Height (Calculated Centimeters) 157.5 Current Weight (lbs) 83.461 kg Weight (Calculated Kilograms) 83.5 Weight (Calculated Grams) 12090.0 [place] Body Weight 110 % [place] Body Weight 167 Body Mass Index (BMI) 33.6 Weight Status Obese GI Symptoms Last BM TODAY X 2 Difficult in: Chewing Swallowing Food Allergies No Skin Integrity/Comment: REED: 12, PRESSURE AREAS: SACRUM, XUAN HEEL Estimated Nutritional Goals BEE in Kcals: Adj wt of IBW Protein: Adj wt of IBW
[2018-07-05] MEDS ORDERED: Menthol/Zinc Oxide Oint 113gm Tube TP PRN (16:25)
[2018-07-06] MEDS: Piperacillin/Tazobact 2.25 gm in 0.9% NS 50 ML IV SCH ×3 (00:27→16:26)
[2018-07-06] MEDS: Albuterol Nebulizer 2.5mg/3mL HHN SCH ×6 (03:11→22:36)
[2018-07-06] MEDS: Ipratropium Neb 0.5 mg/2.5 mL UD HHN SCH ×6 (03:11→22:36)
[2018-07-06 05:08] LABS: % EOSINOPHILS 1.2 % (0.0-5.0); % LYMPHOCYTES 10.8 % (20.0-50.0); % MONOCYTES 5.9 % (2.0-10.0); % NEUTROPHILS 82.1 % (40.0-80.0); EOSINOPHILE ABSOLUTE 0.1 Th/cmm (0.1-0.4); HEMATOCRIT 27.1 % (41.0-60); LYMPHOCYTE ABSOLUTE 1.2 Th/cmm (1.5-3.0); MEAN CELL VOLUME 85.3 fl (81-100); MEAN CORPUSCULAR HEMOGLOBIN 28.3 pg (27.0-31.0); MEAN CORPUSCULAR HGB CONC 33.2 pg (28.0-36.0); MEAN PLATELET VOLUME 7.4 fl; MONOCYTE ABSOLUTE 0.7 Th/cmm (0.3-1.0); NEUTROPHILE ABSOLUTE 9.4 Th/cmm (1.8-8.0); PLATELET COUNT 250 Th/cmm (150-400); RED BLOOD COUNT 3.17 Mil/cmm (3.80-5.20); RED CELL DISTRIBUTION WIDTH 15.6 % (11.5-20.0); WHITE BLOOD COUNT 11.4 Th/cmm (4.8-10.8)
[2018-07-06 05:21] LABS: ALB/GLOB RATIO 0.6 (1.0-1.8); ALBUMIN 2.2 gm/dL (3.7-5.3); ANION GAP 16.5 (7.0-16.0); BILIRUBIN,TOTAL 0.4 mg/dL (0.3-1.0); CALCIUM SERUM 8.7 mg/dL (8.6-10.3); CARBON DIOXIDE 26.4 mEq/L (21.0-31.0); CREATININE - SERUM 2.7 mg/dL (0.6-1.2); GFR AFRICAN-AMERICAN 22.7 ml/min (>90); GFR NON AFRICAN-AMERICAN 18.8 ml/min; TOTAL PROTEIN,SERUM 5.9 gm/dL (6.0-8.3)
[2018-07-06 05:37] LABS: POTASSIUM SERUM 2.9 mEq/L (3.5-5.1)
[2018-07-06] MEDS: INSULIN ASPART SLIDING SCALE 100 UNITS/ML UNIT SUBQ SCH ×4 (05:59→23:59)
--- NOTE | 2018-07-06 06:16 | Consultation ---
DATE OF CONSULTATION: 07/05/2018 SURGICAL CONSULTATION NOTE TIME: 10:09 p.m. HISTORY OF PRESENT ILLNESS: The patient is sent from sn[facility] for abnormal labs with a hemoglobin of 6.8, altered, obtunded. Surgical consultation requested for sacrococcyx decubitus wound. The patient with leukocytosis, pneumonia, hypoglycemia, diabetes, hypertension, chronic kidney disease stage 5, on dialysis, ventilatory dependent respiratory failure, status post trach and PEG, anemia of chronic disease, rule out GI bleed. Dr. Juan Pablo Ball, Nephrology fashion consultant has been following the patient as well as Dr. Hernandez from a pulmonary standpoint. The patient has recent history of pneumonia as well too. PHYSICAL EXAMINATION: VITAL SIGNS: The patient has a low-grade fever, some tachycardia. She is overweight. She has BMI of 34, 84 kilograms. GENERAL: She is obtunded. Encephalopathic. HEENT AND NECK: Otherwise unremarkable. CHEST: Clear to auscultation bilaterally. CARDIOVASCULAR: Regular rate. ABDOMEN: Soft. She has surgical incisions, which are well healed. No obvious ventral hernias. She has a G-tube. She is bedridden. She is fecally incontinent. Her sacral coccyx decubitus ulcer area showed some excoriated skin. 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 There is no obvious bony involvement. There is some yellow slough and denuded skin, subcutaneous tissue and fascia and some ischemic areas. NEUROVASCULAR AND EXTREMITIES: Otherwise normal. LABORATORY AND DIAGNOSTIC DATA: Her white blood cell count is 14.4, H and H is 7.8 and 23.6, packed red blood cells earlier today, platelet count 252. Sodium is 132, chloride 91, anion gap is 18.1, BUN and creatinine 68 and 3.5, alk phos 312. Microbiology endotracheal wash Pseudomonas aeruginosa in sacrum, Proteus mirabilis and Enterococcus durans/hirae. Blood staph haemolyticus and Staph epidermidis in the blood on 06/30/2018, the patient is on Zosyn, Metamucil. IMPRESSION AND PLAN: The patient with multiple medical problems, multiple consultants on the case including Infectious Disease. The patient with anemia of chronic disease, given packed red blood cells. The patient with sepsis, anemia, chronic respiratory failure, pneumonia and the patient has sacrococcyx decubitus wound with some ischemic denuded yellow sloughed areas, probably can get by with some Santyl onto the wound. No surgical debridement necessarily required at this time as these are considered a bedside debridement. We will talk with family and obtain consent if they agree to the procedure. Continue local wound care. Consideration for diverting colostomy. The patient has an excoriated sacrococcyx buttock area. The patient is fecally incontinent and bedridden state, encephalopathic, diversion of stool may help to keep this area clean, but she is of somewhat poor surgical candidate. We will speak with family about that possibility as well too. JOB# [id number]
[2018-07-06] MEDS ORDERED: Potassium Chloride Elixir 20 mEq /15 mL UDC GT ONE (07:42)
[2018-07-06] MEDS ORDERED: KCL 20mEq/100mL Premix 20 MEQ/100 ML PIGGYBACK IV ONE (07:43)
--- NOTE | 2018-07-06 07:58 | GI Progress Note ---
Subjective - Review of Systems Service Date: 07/06/18 Events since last encounter: No events, no reported gi bleeding Objective - Results Result Diagrams: 07/06/18 04:18 07/06/18 04:18 Recent Labs: Laboratory Last Values WBC 11.4 Th/cmm (4.8-10.8) H D 07/06/18 04:18 RBC 3.17 Mil/cmm (3.80-5.20) L 07/06/18 04:18 Hgb 9.0 gm/dL (12-16) L 07/06/18 04:18 Hct 27.1 % (41.0-60) L 07/06/18 04:18 MCV 85.3 fl (81-100) 07/06/18 04:18 MCH 28.3 pg (27.0-31.0) 07/06/18 04:18 MCHC Differential 33.2 pg (28.0-36.0) 07/06/18 04:18 RDW 15.6 % (11.5-20.0) 07/06/18 04:18 Plt Count 250 Th/cmm (150-400) 07/06/18 04:18 MPV 7.4 fl 07/06/18 04:18 Add Manual Diff YES 07/04/18 06:00 Neutrophils % 82.1 % (40.0-80.0) H 07/06/18 04:18 Band Neutrophils % 1 % (0-10) 07/05/18 05:35 Lymphocytes % 10.8 % (20.0-50.0) L 07/06/18 04:18 Monocytes % 5.9 % (2.0-10.0) 07/06/18 04:18 Eosinophils % 1.2 % (0.0-5.0) 07/06/18 04:18 Basophils % 0.0 % (0.0-2.0) 07/06/18 04:18 Neutrophils (Manual) 80 % (40-80) 07/05/18 05:35 Lymphocytes 10 % (20-50) L 07/05/18 05:35 Monocytes 8 % (2-10) 07/05/18 05:35 Eosinophils 1 % (0-5) 07/05/18 05:35 Basophils 0 % (0-3) 07/04/18 06:00 Total Retics Counted 3.8 % (0.5-1.5) H 07/01/18 05:25 Absolute Retic 117.4 Th/cmm 07/01/18 05:25 Corrected Retic Count 2.2 % (0.5-1.5) H 07/01/18 05:25 PT 10.2 SECONDS (9.5-11.5) 06/30/18 15:20 INR 0.98 (0.5-1.4) 06/30/18 15:20 PTT (Actin FS) 29.5 SECONDS (26.0-38.0) 06/30/18 15:20 Sodium 134 mEq/L (136-145) L 07/06/18 04:18 Potassium 2.9 mEq/L (3.5-5.1) L* 07/06/18 04:18 Chloride 94 mEq/L (98-107) L 07/06/18 04:18 Carbon Dioxide 26.4 mEq/L (21.0-31.0) 07/06/18 04:18 Anion Gap 16.5 (7.0-16.0) H 07/06/18 04:18 BUN 45 mg/dL (7-25) H 07/06/18 04:18 Creatinine 2.7 mg/dL (0.6-1.2) H 07/06/18 04:18 Est GFR ( Amer) 22.7 ml/min (>90) 07/06/18 04:18 Est GFR (Non-Af Amer) 18.8 ml/min 07/06/18 04:18 BUN/Creatinine Ratio 16.7 07/06/18 04:18 Glucose 143 mg/dL (70-105) H 07/06/18 04:18 POC Glucose 123 MG/DL (70 - 105) H 07/06/18 05:58 Whole Bld Lactic Acid 1.15 mmol/L (0.60-1.99) 06/30/18 15:20 Calcium 8.7 mg/dL (8.6-10.3) 07/06/18 04:18 Phosphorus 2.6 mg/dL (2.5-5.0) 06/30/18 15:20 Magnesium 2.8 mg/dL (1.9-2.7) H 06/30/18 15:20 Iron 20 ug/dL (27-139) L 07/01/18 05:25 TIBC 98 ug/dL (250-450) L 07/01/18 05:25 Iron Saturation 20 % (15-55) 07/01/18 05:25 Unsaturated IBC 78 ug/dL (118-369) L 07/01/18 05:25 Transferrin 78 mg/dL (200-370) L 07/01/18 05:25 Erythropoietin 16.0 mIU/mL (2.6-18.5) 07/01/18 05:25 Ferritin 3105 ng/mL (15-150) H 07/01/18 05:25 Total Bilirubin 0.4 mg/dL (0.3-1.0) 07/06/18 04:18 AST 26 U/L (13-39) 07/06/18 04:18 ALT 21 U/L (7-52) 07/06/18 04:18 Alkaline Phosphatase 367 U/L (34-104) H 07/06/18 04:18 Lactate Dehydrogenase 217 U/L (140-271) 07/01/18 05:25 Troponin I 0.07 ng/mL (0.01-0.05) H* 06/30/18 15:20 Total Protein 5.9 gm/dL (6.0-8.3) L 07/06/18 04:18 Albumin 2.2 gm/dL (3.7-5.3) L 07/06/18 04:18 Globulin 3.7 gm/dL 07/06/18 04:18 Albumin/Globulin Ratio 0.6 (1.0-1.8) L 07/06/18 04:18 Vitamin B12 >1999 pg/mL (232-1245) H 07/01/18 05:25 Folic Acid 18.3 ng/mL (>3.0) 07/01/18 05:25 Stool Occult Blood POSITIVE (NEGATIVE) H 07/04/18 03:12 Vancomycin Trough 24.9 ug/mL (5-10) H 07/04/18 06:00 Random Vancomycin 30.0 ug/mL (5.0-40.0) 07/03/18 04:20 Hep Bs Antigen Negative (Negative) 06/30/18 15:20 Hepatitis C Antibody <0.1 s/co ratio (0.0-0.9) 06/30/18 15:20 Blood Type O POSITIVE 07/05/18 09:40 Antibody Screen NEGATIVE 07/05/18 09:40 Crossmatch See Detail 07/05/18 09:40 - Physical Exam Vitals and I&O: Vital Signs Temp 99.0 F 07/06/18 07:00 Pulse 96 07/06/18 07:00 Resp 24 07/06/18 07:00 BP 111/27 07/06/18 07:00 Pulse Ox 100 07/06/18 07:00 Intake & Output 07/05/18 07/06/18 07/06/18 18:59 06:59 18:59 Intake Total 1168 1256 Output Total 0 Balance 1168 1256 Weight (lbs) 84.822 kg 78.925 kg Intake: Intake, IV Amount 610 350 Colistimethate 150 mg In 100 Sodium Chloride 0.9% 100 ml @ 100 mls/hr IV Q36H [facility] Rx#:[id number] Linezolid 600mg/300mL 600 300 300 mg In 300 ml @ 300 mls/ hr IV Q12HR [facility] Rx#: [id number] Piperacillin Sodium/ 100 50 Tazobact 2.25 gm In Sodium Chloride 0.9% 50 ml @ 100 mls/hr IV Q8H [facility] Rx#:[id number] Sodium Ferric Gluconate 110 125 mg In Sodium Chloride 0.9% 100 ml @ 100 mls/hr IV Q24HR [facility] Rx#: [id number] Oral 0 Tube Feeding 378 756 Other 180 150 Output: Urine 0 Other: # Bowel Movements 2 2 Stool Characteristics Soft Soft Liquid Liquid Brown Brown Weight Source Bedscale Bedscale Active Medications: Current Medications Acetylcysteine (Mucomyst 20%) 3 ml HHN Q4HRT [facility] Stop: 08/30/18 14:59 Last Admin: 07/06/18 07:19 Dose: 3 ml Albuterol Sulfate (Albuterol 2.5mg/3ml Neb Ud) 2.5 mg HHN Q4HRT [facility] Stop: 08/30/18 14:59 Last Admin: 07/06/18 07:19 Dose: 2.5 mg Ascorbic Acid (Vitamin C) 500 mg GT BID [facility] Stop: 08/30/18 08:59 Last Admin: 07/05/18 17:20 Dose: 500 mg Atorvastatin Calcium (Lipitor) 40 mg GT HS [facility] Stop: 08/30/18 20:59 Last Admin: 07/05/18 20:46 Dose: 40 mg Calamine/Phenol (Calmoseptine) 1 appl TP QID PRN PRN Reason: Skin Irritation Stop: 09/03/18 16:24 Calcium Carbonate (Os-Alon) 500 mg GT Q12H [facility] Stop: 08/30/18 08:59 Last Admin: 07/05/18 20:46 Dose: 500 mg Cedar Oil/[place] Balsam/Trypsin (Venelex) 1 appl TP BID [facility] Stop: 08/31/18 08:59 Last Admin: 07/05/18 17:20 Dose: 1 appl Chlorhexidine Gluconate (Peridex) 15 ml MM 0800,1999 [facility] Stop: 08/30/18 19:59 Last Admin: 07/05/18 20:45 Dose: 15 ml Dextrose (D50w) 50 ml IVP PRN PRN PRN Reason: Blood Glucose less than 70 Stop: 08/29/18 18:34 Last Admin: 06/30/18 19:15 Dose: 50 ml Dextrose (Glutose 40%) 18.75 gm PO PRN PRN PRN Reason: Blood Glucose less than 70 Stop: 08/29/18 18:34 Epoetin Rj (Epogen) 10,000 units SUBQ TuThSa [facility] Stop: 09/02/18 15:59 Last Admin: 07/04/18 16:27 Dose: 10,000 units Folic Acid (Folate) 1 mg GT DAILY [facility] Stop: 08/31/18 08:59 Last Admin: 07/05/18 12:53 Dose: 1 mg Glucagon (Glucagen) 1 mg IM PRN PRN PRN Reason: Blood Glucose less than 70 Stop: 08/29/18 18:34 Piperacillin Sod/Tazobactam (Sod 2.25 gm/ Sodium Chloride) 50 mls @ 100 mls/hr IV Q8H [facility] Stop: 08/29/18 16:59 Last Infusion: 07/06/18 01:00 Dose: Infused Ferric Sodium Gluconate Complex 125 mg/ Sodium Chloride 110 mls @ 100 mls/hr IV Q24HR [facility] Stop: 07/09/18 12:59 Last Infusion: 07/05/18 18:45 Dose: Infused Linezolid (Zyvox) 600 mg in 300 mls @ 300 mls/hr IV Q12HR [facility] Stop: 09/02/18 20:59 Last Infusion: 07/05/18 21:50 Dose: Infused Colistimethate Sodium 150 mg/ (Sodium Chloride) 100 mls @ 100 mls/hr IV Q36H [facility] Stop: 09/03/18 16:59 Last Infusion: 07/05/18 18:45 Dose: Infused Potassium Chloride (Potassium Chloride) 20 meq in 100 mls @ 50 mls/hr IV X1 ONE Stop: 07/06/18 09:42 Ibuprofen (Motrin) 400 mg GT Q6H PRN PRN Reason: PAIN OR TEMP >101 Stop: 08/30/18 03:13 Insulin Aspart (Novolog Insulin Sliding Scale) 0 units SUBQ Q6H [facility]ON[facility]; Protocol Stop: 08/30/18 05:59 Last Admin: 07/06/18 05:59 Dose: Not Given Insulin Detemir (Levemir Insulin) 20 units SUBQ Q12H [facility]; Protocol Stop: 08/30/18 08:59 Last Admin: 07/05/18 20:50 Dose: 20 units Ipratropium [place] (Atrovent Neb 0.5mg/2.5ml) 0.5 mg HHN Q4HRT [facility] Stop: 08/30/18 14:59 Last Admin: 07/06/18 03:11 Dose: 0.5 mg Lactobacillus Rhamnosus (Culturelle 15b) 1 each GT DAILY [facility] Stop: 08/30/18 08:59 Last Admin: 07/05/18 12:53 Dose: 1 each Miscellaneous (Vte Chemical Prophylaxis Screen/Icu Transfer) 1 ea PRN PRN PRN Reason: PROTOCOL Stop: 08/30/18 08:08 Miscellaneous (Probiotic Screen) 1 ea PRN PRN PRN Reason: PROTOCOL Stop: 09/01/18 09:26 Pantoprazole Sodium (Protonix) 40 mg GT DAILY [facility]A Stop: 08/30/18 08:59 Last Admin: 07/05/18 12:53 Dose: 40 mg Psyllium Hydrophilic Mucilloid (Metamucil) 1 pkt GT Q12HR [facility] Stop: 08/30/18 08:59 Last Admin: 07/05/18 20:45 Dose: Not Given Vitamin B Complex/Vit C/Folic Acid (Vitamin B Complex W/Vitamin C) 1 tab GT DAILY [facility] Stop: 08/30/18 08:59 Last Admin: 07/05/18 12:53 Dose: 1 tab Zinc Sulfate (Zinc Sulfate) 220 mg GT DAILY [facility] Stop: 08/30/18 08:59 Last Admin: 07/05/18 12:53 Dose: 220 mg General: Other (MECHANICALLY VENTILATED VIA TRACH) HEENT: Atraumatic, PERRLA, EOMI, Other (trach) Neck: Supple Cardiovascular: Regular rate, Normal S1, Normal S2 Lungs: Clear to auscultation Abdomen: Bowel sounds, Soft, Other (gastric tube) Extremities: Edema (BUE 1-2 edema) - Procedures Procedures: Procedures Procedure Code Date RESPIRATORY VENTILATION, GREATER THAN 96 CONSECUTIVE HOURS [id number] 06/30/18 Assessment/Plan - Problem List Patient Problems: All Active Problems ANEMIA WITH HB OF 6.8 (Acute) - Assessment Assessment: 1. FOBT+, then negative 2. Anemia - multifactorial 3. Recent negative colonoscopy 4. ESRD, septicemia -Has had a recent colonoscopy , risks outweigh benefits, no overt bleeding; multifactorial anemia -Iron supplementation, supportive care -Pt is not acting like an acute bowel obstruction, may have mild ileus but not clinically active just yet -PRBCs if Hg<7 -Will follow
[2018-07-06] MEDS: Chlorhexidine Gluconate 0.12% 15mL Mouthwash MM SCH ×2 (08:18→21:15)
[2018-07-06] MEDS: Pantoprazole 40 mg/Packet GT SCH (08:19)
[2018-07-06] MEDS: Lactobacillus Rhamnosus GG 15 Billion CFU CAP.SPRINK GT SCH (08:19)
[2018-07-06] MEDS: Vitamin B Complex w/Vitamin C Tab GT SCH (08:19)
--- NOTE | 2018-07-06 09:04 | Diagnostic Imaging Report ---
Bilateral upper extremity Doppler venous ultrasound exam HISTORY: Swelling Sonographic sector images were obtained to the venous systems of both arms. Associated Doppler data was obtained. Exam of the right arm demonstrates patency of the internal jugular, subclavian, axillary, brachial, ectopic veins. No thrombus is seen. Normal compressibility and augmentation responses. Evaluation of the venous system of the left arm is very limited and suboptimal due to patient size and overlying dressings. The left internal jugular vein appears patent. There is incomplete visualization through the region of the left axillary, brachial, and basilic veins. Findings consistent with a JEWEL ST[employer]ER shunt noted which appears patent. The left cephalic vein is patent. IMPRESSION: 1. Incomplete visualization and assessment of the venous system of the left arm due to patient's size and overlying dressings 2. Patency of the venous system of the right arm.
[2018-07-06] MEDS: Venelex 60gm Tube TP SCH ×2 (09:18→16:25)
[2018-07-06] MEDS: Insulin Detemir 100 units/mL 10mL Vial SUBQ SCH ×2 (09:49→21:07)
--- NOTE | 2018-07-06 11:27 | General Progress Note ---
Subjective - Review of Systems Service Date: 07/06/18 Subjective: non communicative on vent/ trach Objective - Results Result Diagrams: 07/06/18 04:18 07/06/18 04:18 Recent Labs: Laboratory Last Values WBC 11.4 Th/cmm (4.8-10.8) H D 07/06/18 04:18 RBC 3.17 Mil/cmm (3.80-5.20) L 07/06/18 04:18 Hgb 9.0 gm/dL (12-16) L 07/06/18 04:18 Hct 27.1 % (41.0-60) L 07/06/18 04:18 MCV 85.3 fl (81-100) 07/06/18 04:18 MCH 28.3 pg (27.0-31.0) 07/06/18 04:18 MCHC Differential 33.2 pg (28.0-36.0) 07/06/18 04:18 RDW 15.6 % (11.5-20.0) 07/06/18 04:18 Plt Count 250 Th/cmm (150-400) 07/06/18 04:18 MPV 7.4 fl 07/06/18 04:18 Add Manual Diff YES 07/04/18 06:00 Neutrophils % 82.1 % (40.0-80.0) H 07/06/18 04:18 Band Neutrophils % 1 % (0-10) 07/05/18 05:35 Lymphocytes % 10.8 % (20.0-50.0) L 07/06/18 04:18 Monocytes % 5.9 % (2.0-10.0) 07/06/18 04:18 Eosinophils % 1.2 % (0.0-5.0) 07/06/18 04:18 Basophils % 0.0 % (0.0-2.0) 07/06/18 04:18 Neutrophils (Manual) 80 % (40-80) 07/05/18 05:35 Lymphocytes 10 % (20-50) L 07/05/18 05:35 Monocytes 8 % (2-10) 07/05/18 05:35 Eosinophils 1 % (0-5) 07/05/18 05:35 Basophils 0 % (0-3) 07/04/18 06:00 Total Retics Counted 3.8 % (0.5-1.5) H 07/01/18 05:25 Absolute Retic 117.4 Th/cmm 07/01/18 05:25 Corrected Retic Count 2.2 % (0.5-1.5) H 07/01/18 05:25 PT 10.2 SECONDS (9.5-11.5) 06/30/18 15:20 INR 0.98 (0.5-1.4) 06/30/18 15:20 PTT (Actin FS) 29.5 SECONDS (26.0-38.0) 06/30/18 15:20 Sodium 134 mEq/L (136-145) L 07/06/18 04:18 Potassium 2.9 mEq/L (3.5-5.1) L* 07/06/18 04:18 Chloride 94 mEq/L (98-107) L 07/06/18 04:18 Carbon Dioxide 26.4 mEq/L (21.0-31.0) 07/06/18 04:18 Anion Gap 16.5 (7.0-16.0) H 07/06/18 04:18 BUN 45 mg/dL (7-25) H 07/06/18 04:18 Creatinine 2.7 mg/dL (0.6-1.2) H 07/06/18 04:18 Est GFR ( Amer) 22.7 ml/min (>90) 07/06/18 04:18 Est GFR (Non-Af Amer) 18.8 ml/min 07/06/18 04:18 BUN/Creatinine Ratio 16.7 07/06/18 04:18 Glucose 143 mg/dL (70-105) H 07/06/18 04:18 POC Glucose 123 MG/DL (70 - 105) H 07/06/18 05:58 Whole Bld Lactic Acid 1.15 mmol/L (0.60-1.99) 06/30/18 15:20 Calcium 8.7 mg/dL (8.6-10.3) 07/06/18 04:18 Phosphorus 2.6 mg/dL (2.5-5.0) 06/30/18 15:20 Magnesium 2.8 mg/dL (1.9-2.7) H 06/30/18 15:20 Iron 20 ug/dL (27-139) L 07/01/18 05:25 TIBC 98 ug/dL (250-450) L 07/01/18 05:25 Iron Saturation 20 % (15-55) 07/01/18 05:25 Unsaturated IBC 78 ug/dL (118-369) L 07/01/18 05:25 Transferrin 78 mg/dL (200-370) L 07/01/18 05:25 Erythropoietin 16.0 mIU/mL (2.6-18.5) 07/01/18 05:25 Ferritin 3105 ng/mL (15-150) H 07/01/18 05:25 Total Bilirubin 0.4 mg/dL (0.3-1.0) 07/06/18 04:18 AST 26 U/L (13-39) 07/06/18 04:18 ALT 21 U/L (7-52) 07/06/18 04:18 Alkaline Phosphatase 367 U/L (34-104) H 07/06/18 04:18 Lactate Dehydrogenase 217 U/L (140-271) 07/01/18 05:25 Troponin I 0.07 ng/mL (0.01-0.05) H* 06/30/18 15:20 Total Protein 5.9 gm/dL (6.0-8.3) L 07/06/18 04:18 Albumin 2.2 gm/dL (3.7-5.3) L 07/06/18 04:18 Globulin 3.7 gm/dL 07/06/18 04:18 Albumin/Globulin Ratio 0.6 (1.0-1.8) L 07/06/18 04:18 Vitamin B12 >1999 pg/mL (232-1245) H 07/01/18 05:25 Folic Acid 18.3 ng/mL (>3.0) 07/01/18 05:25 Stool Occult Blood POSITIVE (NEGATIVE) H 07/04/18 03:12 Vancomycin Trough 24.9 ug/mL (5-10) H 07/04/18 06:00 Random Vancomycin 30.0 ug/mL (5.0-40.0) 07/03/18 04:20 Hep Bs Antigen Negative (Negative) 06/30/18 15:20 Hepatitis C Antibody <0.1 s/co ratio (0.0-0.9) 06/30/18 15:20 Blood Type O POSITIVE 07/05/18 09:40 Antibody Screen NEGATIVE 07/05/18 09:40 Crossmatch See Detail 07/05/18 09:40 - Physical Exam Vitals and I&O: Vital Signs Temp 99.0 F 07/06/18 07:00 Pulse 94 07/06/18 11:05 Resp 24 07/06/18 07:00 BP 111/27 07/06/18 07:00 Pulse Ox 100 07/06/18 11:05 Intake & Output 07/05/18 07/06/18 07/06/18 18:59 06:59 18:59 Intake Total 1168 1256 Output Total 0 Balance 1168 1256 Weight (lbs) 84.822 kg 78.925 kg Intake: Intake, IV Amount 610 350 Colistimethate 150 mg In 100 Sodium Chloride 0.9% 100 ml @ 100 mls/hr IV Q36H [facility] Rx#:[id number] Linezolid 600mg/300mL 600 300 300 mg In 300 ml @ 300 mls/ hr IV Q12HR [facility] Rx#: [id number] Piperacillin Sodium/ 100 50 Tazobact 2.25 gm In Sodium Chloride 0.9% 50 ml @ 100 mls/hr IV Q8H [facility] Rx#:[id number] Sodium Ferric Gluconate 110 125 mg In Sodium Chloride 0.9% 100 ml @ 100 mls/hr IV Q24HR COUNTS INCLUDE 234 BEDS AT [facility] Rx#: [id number] Oral 0 Tube Feeding 378 756 Other 180 150 Output: Urine 0 Other: # Bowel Movements 2 2 Stool Characteristics Soft Soft Liquid Liquid Brown Brown Weight Source Bedscale Bedscale Active Medications: Current Medications Acetylcysteine (Mucomyst 20%) 3 ml HHN Q4HRT [facility] Stop: 08/30/18 14:59 Last Admin: 07/06/18 11:03 Dose: 3 ml Albuterol Sulfate (Albuterol 2.5mg/3ml Neb Ud) 2.5 mg HHN Q4HRT [facility] Stop: 08/30/18 14:59 Last Admin: 07/06/18 11:02 Dose: 2.5 mg Ascorbic Acid (Vitamin C) 500 mg GT BID [facility] Stop: 08/30/18 08:59 Last Admin: 07/06/18 08:19 Dose: 500 mg Atorvastatin Calcium (Lipitor) 40 mg GT HS [facility] Stop: 08/30/18 20:59 Last Admin: 07/05/18 20:46 Dose: 40 mg Calamine/Phenol (Calmoseptine) 1 appl TP QID PRN PRN Reason: Skin Irritation Stop: 09/03/18 16:24 Last Admin: 07/06/18 08:19 Dose: 1 appl Calcium Carbonate (Os-Mago) 500 mg GT Q12H [facility] Stop: 08/30/18 08:59 Last Admin: 07/06/18 08:19 Dose: 500 mg [place] Oil/[place]onese Balsam/Trypsin (Venelex) 1 appl TP BID COUNTS INCLUDE 234 BEDS AT THE [facility] Stop: 08/31/18 08:59 Last Admin: 07/06/18 09:18 Dose: 1 appl Chlorhexidine Gluconate (Peridex) 15 ml MM 0800,1999 COUNTS INCLUDE 234 BEDS AT [facility] Stop: 08/30/18 19:59 Last Admin: 07/06/18 08:18 Dose: 15 ml Dextrose (D50w) 50 ml IVP PRN PRN PRN Reason: Blood Glucose less than 70 Stop: 08/29/18 18:34 Last Admin: 06/30/18 19:15 Dose: 50 ml Dextrose (Glutose 40%) 18.75 gm PO PRN PRN PRN Reason: Blood Glucose less than 70 Stop: 08/29/18 18:34 Epoetin Rj (Epogen) 10,000 units SUBQ TuTa COUNTS INCLUDE 234 BEDS AT THE [facility] Stop: 09/02/18 15:59 Last Admin: 07/04/18 16:27 Dose: 10,000 units Folic Acid (Folate) 1 mg GT DAILY COUNTS INCLUDE 234 BEDS AT THE [facility] Stop: 08/31/18 08:59 Last Admin: 07/06/18 08:19 Dose: 1 mg Glucagon (Glucagen) 1 mg IM PRN PRN PRN Reason: Blood Glucose less than 70 Stop: 08/29/18 18:34 Piperacillin Sod/Tazobactam (Sod 2.25 gm/ Sodium Chloride) 50 mls @ 100 mls/hr IV Q8H COUNTS INCLUDE 234 BEDS AT THE [facility] Stop: 08/29/18 16:59 Last Admin: 07/06/18 09:18 Dose: 100 mls/hr Linezolid (Zyvox) 600 mg in 300 mls @ 300 mls/hr IV Q12HR COUNTS INCLUDE 234 BEDS AT THE [facility] Stop: 09/02/18 20:59 Last Infusion: 07/05/18 21:50 Dose: Infused Colistimethate Sodium 150 mg/ (Sodium Chloride) 100 mls @ 100 mls/hr IV Q36H [facility] Stop: 09/03/18 16:59 Last Infusion: 07/05/18 18:45 Dose: Infused Ibuprofen (Motrin) 400 mg GT Q6H PRN PRN Reason: PAIN OR TEMP >101 Stop: 08/30/18 03:13 Insulin Aspart (Novolog Insulin Sliding Scale) 0 units SUBQ Q6H COUNTS INCLUDE 234 BEDS AT THE [facility]; Protocol Stop: 08/30/18 05:59 Last Admin: 07/06/18 05:59 Dose: Not Given Insulin Detemir (Levemir Insulin) 20 units SUBQ Q12H [facility]; Protocol Stop: 08/30/18 08:59 Last Admin: 07/06/18 09:49 Dose: Not Given Ipratropium [place] (Atrovent Neb 0.5mg/2.5ml) 0.5 mg HHN Q4HRT [facility] Stop: 08/30/18 14:59 Last Admin: 07/06/18 11:02 Dose: 0.5 mg Lactobacillus Rhamnosus (Culturelle 15b) 1 each GT DAILY [facility] Stop: 08/30/18 08:59 Last Admin: 07/06/18 08:19 Dose: 1 each Miscellaneous (Vte Chemical Prophylaxis Screen/Icu Transfer) 1 ea PRN PRN PRN Reason: PROTOCOL Stop: 08/30/18 08:08 Miscellaneous (Probiotic Screen) 1 ea PRN PRN PRN Reason: PROTOCOL Stop: 09/01/18 09:26 Pantoprazole Sodium (Protonix) 40 mg GT DAILY [facility] Stop: 08/30/18 08:59 Last Admin: 07/06/18 08:19 Dose: 40 mg Psyllium Hydrophilic Mucilloid (Metamucil) 1 pkt GT Q12HR [facility] Stop: 08/30/18 08:59 Last Admin: 07/06/18 09:50 Dose: Not Given Vitamin B Complex/Vit C/Folic Acid (Vitamin B Complex W/Vitamin C) 1 tab GT DAILY [facility] Stop: 08/30/18 08:59 Last Admin: 07/06/18 08:19 Dose: 1 tab Zinc Sulfate (Zinc Sulfate) 220 mg GT DAILY [facility] Stop: 08/30/18 08:59 Last Admin: 07/06/18 08:19 Dose: 220 mg General: Other (MECHANICALLY VENTILATED VIA TRACH) HEENT: Atraumatic, PERRLA, EOMI, Other (trach) Neck: Supple Cardiovascular: Regular rate, Normal S1, Normal S2 Lungs: Clear to auscultation Abdomen: Bowel sounds, Soft, Other (gastric tube) Extremities: Edema (BUE 1-2 edema) - Procedures Procedures: Procedures Procedure Code Date RESPIRATORY VENTILATION, GREATER THAN 96 CONSECUTIVE HOURS [id number] 06/30/18 Assessment/Plan - Problem List Patient Problems: All Active Problems ANEMIA WITH HB OF 6.8 (Acute) - Assessment Assessment: Normocytic anemia, most likely multifactorial from chronic kidney disease and possible blood loss from the sacral decubitus ulcer and/or GI source. I will follow the iron studies and the patient will benefit from IV iron. If the ferritin is less than 400 and if she has adequate iron reserves, then Epogen injection will be started. Also, stool occult blood to evaluate for GI blood loss. I will start the patient on Ferrlecit. Pending the iron results. Follow the B12 and folate level and stool occult blood and consider Epogen if the iron reserve is adequate. 07/05: hgb is lower, tx with HD today. Continue iv ferrlecit, epo, folic acid and follow anemia wagner 07/06: lab noted ferritin>3000. dc ferrlecit and continue epo and folic acid. For sacral dec debridment Nutritional Asmnt/Malnutr-PDOC - Dietary Evaluation Malnutrition Findings (Please click <Entered> for more info): Nutritional Asmnt/Malnutrition Start: 07/01/18 10: 22 Text: Status: Complete Freq: Protocol: Document 07/04/18 14:30 MBONUS (Rec: 07/04/18 14:39 [email or web address]) Nutritional Asmnt/Malnutrition Patient General Information Nutritional Screening High Risk Diagnosis pneumonia and dialysis dependent Pertinent Medical Hx/Surgical Hx HTN, RESP FAILURE, DM, ANEMIA Subjective Information PER NURSING NOTE, PT OBTUNDED, TRACH TO VENT, ABDOMEN SOFT, NONTENDER, BOWEL SOUNDS NOTED 2+ EDEMA Current Diet Order/ Nutrition Support NEPRO @ 63 ML/HR Patient / S.O Not Indicated Pertinent Medications MULTI VIT, PROTONIX, CULTURFELLE, ZINC SULFATE, LEVEMIR, INS-SS, VIT C, LIPITOR, OS MAGO, FOLATE, GLUCAGEN Pertinent Labs NA 133, POTASS 3.3, CL 93, BUN /CR 50/2.6, eGFR 19.6, CA 8.4, WBC 12.4 BEDSIDE GLUCOSE: 239, 282, 292 , 144 Nutritional Hx/Data Height 1.57 m Height (Calculated Centimeters) 157.5 Current Weight (lbs) 83.461 kg Weight (Calculated Kilograms) 83.5 Weight (Calculated Grams) 12847.0 [place] Body Weight 110 % [place] Body Weight 167 Body Mass Index (BMI) 33.6 Weight Status Obese GI Symptoms Last BM TODAY X 2 Difficult in: Chewing Swallowing Food Allergies No Skin Integrity/Comment: REED: 12, PRESSURE AREAS: SACRUM, XUAN HEEL Estimated Nutritional Goals BEE in Kcals: Adj wt of IBW Protein: Adj wt of IBW
[2018-07-06] MEDS: Linezolid 600mg/300mL 600 MG/300 ML BAG IV SCH ×2 (11:33→21:14)
[2018-07-06 12:36] LABS: ANION GAP 18.5 (7.0-16.0); CALCIUM SERUM 8.6 mg/dL (8.6-10.3); CARBON DIOXIDE 25.2 mEq/L (21.0-31.0); CREATININE - SERUM 2.9 mg/dL (0.6-1.2); GFR AFRICAN-AMERICAN 20.9 ml/min (>90); GFR NON AFRICAN-AMERICAN 17.3 ml/min; POTASSIUM SERUM 3.7 mEq/L (3.5-5.1)
--- NOTE | 2018-07-06 13:11 | Infectious Disease Prog Note ---
Infectious Disease Subjective - Review of Systems Service Date: 07/06/18 Subjective: Doing the same, no fever. no diarrhea. Remains on the ventilator, s/p trach and peg. Infectious Disease Objective - Results Result Diagrams: 07/06/18 04:18 07/06/18 12:00 Recent Labs: Laboratory Last Values WBC 11.4 Th/cmm (4.8-10.8) H D 07/06/18 04:18 RBC 3.17 Mil/cmm (3.80-5.20) L 07/06/18 04:18 Hgb 9.0 gm/dL (12-16) L 07/06/18 04:18 Hct 27.1 % (41.0-60) L 07/06/18 04:18 MCV 85.3 fl (81-100) 07/06/18 04:18 MCH 28.3 pg (27.0-31.0) 07/06/18 04:18 MCHC Differential 33.2 pg (28.0-36.0) 07/06/18 04:18 RDW 15.6 % (11.5-20.0) 07/06/18 04:18 Plt Count 250 Th/cmm (150-400) 07/06/18 04:18 MPV 7.4 fl 07/06/18 04:18 Add Manual Diff YES 07/04/18 06:00 Neutrophils % 82.1 % (40.0-80.0) H 07/06/18 04:18 Band Neutrophils % 1 % (0-10) 07/05/18 05:35 Lymphocytes % 10.8 % (20.0-50.0) L 07/06/18 04:18 Monocytes % 5.9 % (2.0-10.0) 07/06/18 04:18 Eosinophils % 1.2 % (0.0-5.0) 07/06/18 04:18 Basophils % 0.0 % (0.0-2.0) 07/06/18 04:18 Neutrophils (Manual) 80 % (40-80) 07/05/18 05:35 Lymphocytes 10 % (20-50) L 07/05/18 05:35 Monocytes 8 % (2-10) 07/05/18 05:35 Eosinophils 1 % (0-5) 07/05/18 05:35 Basophils 0 % (0-3) 07/04/18 06:00 Total Retics Counted 3.8 % (0.5-1.5) H 07/01/18 05:25 Absolute Retic 117.4 Th/cmm 07/01/18 05:25 Corrected Retic Count 2.2 % (0.5-1.5) H 07/01/18 05:25 PT 10.2 SECONDS (9.5-11.5) 06/30/18 15:20 INR 0.98 (0.5-1.4) 06/30/18 15:20 PTT (Actin FS) 29.5 SECONDS (26.0-38.0) 06/30/18 15:20 Sodium 133 mEq/L (136-145) L 07/06/18 12:00 Potassium 3.7 mEq/L (3.5-5.1) 07/06/18 12:00 Chloride 93 mEq/L (98-107) L 07/06/18 12:00 Carbon Dioxide 25.2 mEq/L (21.0-31.0) 07/06/18 12:00 Anion Gap 18.5 (7.0-16.0) H 07/06/18 12:00 BUN 50 mg/dL (7-25) H 07/06/18 12:00 Creatinine 2.9 mg/dL (0.6-1.2) H 07/06/18 12:00 Est GFR ( Amer) 20.9 ml/min (>90) 07/06/18 12:00 Est GFR (Non-Af Amer) 17.3 ml/min 07/06/18 12:00 BUN/Creatinine Ratio 17.2 07/06/18 12:00 Glucose 159 mg/dL (70-105) H 07/06/18 12:00 POC Glucose 135 MG/DL (70 - 105) H 07/06/18 11:45 Whole Bld Lactic Acid 1.15 mmol/L (0.60-1.99) 06/30/18 15:20 Calcium 8.6 mg/dL (8.6-10.3) 07/06/18 12:00 Phosphorus 2.6 mg/dL (2.5-5.0) 06/30/18 15:20 Magnesium 2.8 mg/dL (1.9-2.7) H 06/30/18 15:20 Iron 20 ug/dL (27-139) L 07/01/18 05:25 TIBC 98 ug/dL (250-450) L 07/01/18 05:25 Iron Saturation 20 % (15-55) 07/01/18 05:25 Unsaturated IBC 78 ug/dL (118-369) L 07/01/18 05:25 Transferrin 78 mg/dL (200-370) L 07/01/18 05:25 Erythropoietin 16.0 mIU/mL (2.6-18.5) 07/01/18 05:25 Ferritin 3105 ng/mL (15-150) H 07/01/18 05:25 Total Bilirubin 0.4 mg/dL (0.3-1.0) 07/06/18 04:18 AST 26 U/L (13-39) 07/06/18 04:18 ALT 21 U/L (7-52) 07/06/18 04:18 Alkaline Phosphatase 367 U/L (34-104) H 07/06/18 04:18 Lactate Dehydrogenase 217 U/L (140-271) 07/01/18 05:25 Troponin I 0.07 ng/mL (0.01-0.05) H* 06/30/18 15:20 Total Protein 5.9 gm/dL (6.0-8.3) L 07/06/18 04:18 Albumin 2.2 gm/dL (3.7-5.3) L 07/06/18 04:18 Globulin 3.7 gm/dL 07/06/18 04:18 Albumin/Globulin Ratio 0.6 (1.0-1.8) L 07/06/18 04:18 Vitamin B12 >1999 pg/mL (232-1245) H 07/01/18 05:25 Folic Acid 18.3 ng/mL (>3.0) 07/01/18 05:25 Stool Occult Blood POSITIVE (NEGATIVE) H 07/04/18 03:12 Vancomycin Trough 24.9 ug/mL (5-10) H 07/04/18 06:00 Random Vancomycin 30.0 ug/mL (5.0-40.0) 07/03/18 04:20 Hep Bs Antigen Negative (Negative) 06/30/18 15:20 Hepatitis C Antibody <0.1 s/co ratio (0.0-0.9) 06/30/18 15:20 Blood Type O POSITIVE 07/05/18 09:40 Antibody Screen NEGATIVE 07/05/18 09:40 Crossmatch See Detail 07/05/18 09:40 - Physical Exam Vitals and I&O: Vital Signs Temp 99.0 F 07/06/18 07:00 Pulse 94 07/06/18 11:05 Resp 24 07/06/18 07:00 BP 111/27 07/06/18 07:00 Pulse Ox 100 07/06/18 11:05 Intake & Output 07/05/18 07/06/18 07/06/18 18:59 06:59 18:59 Intake Total 1168 1256 150 Output Total 0 Balance 1168 1256 150 Weight (lbs) 84.822 kg 78.925 kg Intake: Intake, IV Amount 610 350 150 Colistimethate 150 mg In 100 Sodium Chloride 0.9% 100 ml @ 100 mls/hr IV Q36H [facility] Rx#:[id number] Linezolid 600mg/300mL 600 300 300 mg In 300 ml @ 300 mls/ hr IV Q12HR [facility] Rx#: [id number] Piperacillin Sodium/ 100 50 50 Tazobact 2.25 gm In Sodium Chloride 0.9% 50 ml @ 100 mls/hr IV Q8H [facility] Rx#:[id number] Sodium Ferric Gluconate 110 125 mg In Sodium Chloride 0.9% 100 ml @ 100 mls/hr IV Q24HR [facility] Rx#: [id number] Oral 0 Tube Feeding 378 756 Other 180 150 Output: Urine 0 Other: # Bowel Movements 2 2 Stool Characteristics Soft Soft Soft Liquid Liquid Liquid Brown Brown Brown Weight Source Bedscale Bedscale Active Medications: Current Medications Acetylcysteine (Mucomyst 20%) 3 ml HHN Q4HRT [facility] Stop: 08/30/18 14:59 Last Admin: 07/06/18 11:03 Dose: 3 ml Albuterol Sulfate (Albuterol 2.5mg/3ml Neb Ud) 2.5 mg HHN Q4HRT [facility] Stop: 08/30/18 14:59 Last Admin: 07/06/18 11:02 Dose: 2.5 mg Ascorbic Acid (Vitamin C) 500 mg GT BID [facility] Stop: 08/30/18 08:59 Last Admin: 07/06/18 08:19 Dose: 500 mg Atorvastatin Calcium (Lipitor) 40 mg GT HS [facility] Stop: 08/30/18 20:59 Last Admin: 07/05/18 20:46 Dose: 40 mg Calamine/Phenol (Calmoseptine) 1 appl TP QID PRN PRN Reason: Skin Irritation Stop: 09/03/18 16:24 Last Admin: 07/06/18 08:19 Dose: 1 appl Calcium Carbonate (Os-Mago) 500 mg GT Q12H [facility] Stop: 08/30/18 08:59 Last Admin: 07/06/18 08:19 Dose: 500 mg [place] Oil/[place]e Balsam/Trypsin (Venelex) 1 appl TP BID [facility] Stop: 08/31/18 08:59 Last Admin: 07/06/18 09:18 Dose: 1 appl Chlorhexidine Gluconate (Peridex) 15 ml MM 0800,2000 [facility] Stop: 08/30/18 19:59 Last Admin: 07/06/18 08:18 Dose: 15 ml Dextrose (D50w) 50 ml IVP PRN PRN PRN Reason: Blood Glucose less than 70 Stop: 08/29/18 18:34 Last Admin: 06/30/18 19:15 Dose: 50 ml Dextrose (Glutose 40%) 18.75 gm PO PRN PRN PRN Reason: Blood Glucose less than 70 Stop: 08/29/18 18:34 Epoetin Rj (Epogen) 10,000 units SUBQ TuThSa [facility] Stop: 09/02/18 15:59 Last Admin: 07/04/18 16:27 Dose: 10,000 units Folic Acid (Folate) 1 mg GT DAILY [facility] Stop: 08/31/18 08:59 Last Admin: 07/06/18 08:19 Dose: 1 mg Glucagon (Glucagen) 1 mg IM PRN PRN PRN Reason: Blood Glucose less than 70 Stop: 08/29/18 18:34 Piperacillin Sod/Tazobactam (Sod 2.25 gm/ Sodium Chloride) 50 mls @ 100 mls/hr IV Q8H [facility] Stop: 08/29/18 16:59 Last Infusion: 07/06/18 11:48 Dose: Infused Linezolid (Zyvox) 600 mg in 300 mls @ 300 mls/hr IV Q12HR [facility] Stop: 09/02/18 20:59 Last Admin: 07/06/18 11:33 Dose: 300 mls/hr Colistimethate Sodium 150 mg/ (Sodium Chloride) 100 mls @ 100 mls/hr IV Q36H [facility] Stop: 09/03/18 16:59 Last Infusion: 07/05/18 18:45 Dose: Infused Ibuprofen (Motrin) 400 mg GT Q6H PRN PRN Reason: PAIN OR TEMP >101 Stop: 08/30/18 03:13 Insulin Aspart (Novolog Insulin Sliding Scale) 0 units SUBQ Q6H [facility]; Protocol Stop: 08/30/18 05:59 Last Admin: 07/06/18 11:48 Dose: Not Given Insulin Detemir (Levemir Insulin) 20 units SUBQ Q12H [facility]; Protocol Stop: 08/30/18 08:59 Last Admin: 07/06/18 09:49 Dose: Not Given Ipratropium [place] (Atrovent Neb 0.5mg/2.5ml) 0.5 mg HHN Q4HRT [facility] Stop: 08/30/18 14:59 Last Admin: 07/06/18 11:02 Dose: 0.5 mg Lactobacillus Rhamnosus (Culturelle 15b) 1 each GT DAILY [facility] Stop: 08/30/18 08:59 Last Admin: 07/06/18 08:19 Dose: 1 each Miscellaneous (Vte Chemical Prophylaxis Screen/Icu Transfer) 1 ea PRN PRN PRN Reason: PROTOCOL Stop: 08/30/18 08:08 Miscellaneous (Probiotic Screen) 1 [facility] PRN PRN PRN Reason: PROTOCOL Stop: 09/01/18 09:26 Pantoprazole Sodium (Protonix) 40 mg GT DAILY [facility] Stop: 08/30/18 08:59 Last Admin: 07/06/18 08:19 Dose: 40 mg Psyllium Hydrophilic Mucilloid (Metamucil) 1 pkt GT Q12HR [facility] Stop: 08/30/18 08:59 Last Admin: 07/06/18 09:50 Dose: Not Given Vitamin B Complex/Vit C/Folic Acid (Vitamin B Complex W/Vitamin C) 1 tab GT DAILY [facility] Stop: 08/30/18 08:59 Last Admin: 07/06/18 08:19 Dose: 1 tab Zinc Sulfate (Zinc Sulfate) 220 mg GT DAILY [facility] Stop: 08/30/18 08:59 Last Admin: 07/06/18 08:19 Dose: 220 mg General: no acute distress, well developed, well nourished HEENT: atraumatic, normocephalic, PERRLA, EOMI Neck: supple, tracheostomy, no thyromegaly, no lymphadenopathy Cardiovascular: S1S2, regular Lungs: clear to auscultation bilaterally, clear to percussion Abdomen: soft, no tender, no distended Extremities: no cyanosis, no clubbing, no edema Neurological: awake, alert Skin: other (sacral wound) - Procedures Procedures: Procedures Procedure Code Date RESPIRATORY VENTILATION, GREATER THAN 96 CONSECUTIVE HOURS [id number] 06/30/18 Infectious Disease Assmt/Plan - Problem List Patient Problems: All Active Problems ANEMIA WITH HB OF 6.8 (Acute) - Assessment Assessment: 1. Leukocytosis, most likely reactive versus sepsis. 2. Pneumonia. 3. Hypoglycemia with a blood glucose was in the 50s. 4. Diabetes mellitus type 2. 5. Hypertension. 6. Chronic kidney disease stage 5, on hemodialysis. 7. Ventilator-dependent respiratory failure. 8. History of status post PEG and status trach. 9. Anemia of chronic disease, rule out a gastrointestinal bleed. 10. Sacral decubitus. stage 4. 11. MDRO Pseudomonas infection. 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 13. Proteus infection. - Plan Plan: Will continue the same treatment,.. Consult GI. Antibiotics. Continue Zyvox, and colisitin. wound care. F/U as per consults. debridement tomorrow. Nutritional Asmnt/Malnutr-PDOC - Dietary Evaluation Malnutrition Findings (Please click <Entered> for more info): Nutritional Asmnt/Malnutrition Start: 07/01/18 10: 22 Text: Status: Complete Freq: Protocol: Document 07/04/18 14:30 MBONUS (Rec: 07/04/18 14:39 [email or web address]) Nutritional Asmnt/Malnutrition Patient General Information Nutritional Screening High Risk Diagnosis pneumonia and dialysis dependent Pertinent Medical Hx/Surgical Hx HTN, RESP FAILURE, DM, ANEMIA Subjective Information PER NURSING NOTE, PT OBTUNDED, TRACH TO VENT, ABDOMEN SOFT, NONTENDER, BOWEL SOUNDS NOTED 2+ EDEMA Current Diet Order/ Nutrition Support NEPRO @ 63 ML/HR Patient / S.O Not Indicated Pertinent Medications MULTI VIT, PROTONIX, CULTURFELLE, ZINC SULFATE, LEVEMIR, INS-SS, VIT C, LIPITOR, OS MAGO, FOLATE, GLUCAGEN Pertinent Labs NA 133, POTASS 3.3, CL 93, BUN /CR 50/2.6, eGFR 19.6, CA 8.4, WBC 12.4 BEDSIDE GLUCOSE: 239, 282, 292 , 144 Nutritional Hx/Data Height 1.57 m Height (Calculated Centimeters) 157.5 Current Weight (lbs) 83.461 kg Weight (Calculated Kilograms) 83.5 Weight (Calculated Grams) 29252.0 [place] Body Weight 110 % [place] Body Weight 167 Body Mass Index (BMI) 33.6 Weight Status Obese GI Symptoms Last BM TODAY X 2 Difficult in: Chewing Swallowing Food Allergies No Skin Integrity/Comment: REED: 12, PRESSURE AREAS: SACRUM, XUAN HEEL Estimated Nutritional Goals BEE in Kcals: Adj wt of IBW Protein: Adj wt of IBW
[2018-07-06] MEDS: Epoetin Alfa 20000 Units/mL Vial SUBQ SCH (16:26)
--- NOTE | 2018-07-06 16:40 | General Progress Note ---
Subjective - Review of Systems Service Date: 07/06/18 Events since last encounter: none new dialyzed yesterday w prbc transfusion Subjective: obtunded on vent Objective - Results Result Diagrams: 07/06/18 04:18 07/06/18 12:00 Recent Labs: Laboratory Last Values WBC 11.4 Th/cmm (4.8-10.8) H D 07/06/18 04:18 RBC 3.17 Mil/cmm (3.80-5.20) L 07/06/18 04:18 Hgb 9.0 gm/dL (12-16) L 07/06/18 04:18 Hct 27.1 % (41.0-60) L 07/06/18 04:18 MCV 85.3 fl (81-100) 07/06/18 04:18 MCH 28.3 pg (27.0-31.0) 07/06/18 04:18 MCHC Differential 33.2 pg (28.0-36.0) 07/06/18 04:18 RDW 15.6 % (11.5-20.0) 07/06/18 04:18 Plt Count 250 Th/cmm (150-400) 07/06/18 04:18 MPV 7.4 fl 07/06/18 04:18 Add Manual Diff YES 07/04/18 06:00 Neutrophils % 82.1 % (40.0-80.0) H 07/06/18 04:18 Band Neutrophils % 1 % (0-10) 07/05/18 05:35 Lymphocytes % 10.8 % (20.0-50.0) L 07/06/18 04:18 Monocytes % 5.9 % (2.0-10.0) 07/06/18 04:18 Eosinophils % 1.2 % (0.0-5.0) 07/06/18 04:18 Basophils % 0.0 % (0.0-2.0) 07/06/18 04:18 Neutrophils (Manual) 80 % (40-80) 07/05/18 05:35 Lymphocytes 10 % (20-50) L 07/05/18 05:35 Monocytes 8 % (2-10) 07/05/18 05:35 Eosinophils 1 % (0-5) 07/05/18 05:35 Basophils 0 % (0-3) 07/04/18 06:00 Total Retics Counted 3.8 % (0.5-1.5) H 07/01/18 05:25 Absolute Retic 117.4 Th/cmm 07/01/18 05:25 Corrected Retic Count 2.2 % (0.5-1.5) H 07/01/18 05:25 PT 10.2 SECONDS (9.5-11.5) 06/30/18 15:20 INR 0.98 (0.5-1.4) 06/30/18 15:20 PTT (Actin FS) 29.5 SECONDS (26.0-38.0) 06/30/18 15:20 Sodium 133 mEq/L (136-145) L 07/06/18 12:00 Potassium 3.7 mEq/L (3.5-5.1) 07/06/18 12:00 Chloride 93 mEq/L (98-107) L 07/06/18 12:00 Carbon Dioxide 25.2 mEq/L (21.0-31.0) 07/06/18 12:00 Anion Gap 18.5 (7.0-16.0) H 07/06/18 12:00 BUN 50 mg/dL (7-25) H 07/06/18 12:00 Creatinine 2.9 mg/dL (0.6-1.2) H 07/06/18 12:00 Est GFR ( Amer) 20.9 ml/min (>90) 07/06/18 12:00 Est GFR (Non-Af Amer) 17.3 ml/min 07/06/18 12:00 BUN/Creatinine Ratio 17.2 07/06/18 12:00 Glucose 159 mg/dL (70-105) H 07/06/18 12:00 POC Glucose 135 MG/DL (70 - 105) H 07/06/18 11:45 Whole Bld Lactic Acid 1.15 mmol/L (0.60-1.99) 06/30/18 15:20 Calcium 8.6 mg/dL (8.6-10.3) 07/06/18 12:00 Phosphorus 2.6 mg/dL (2.5-5.0) 06/30/18 15:20 Magnesium 2.8 mg/dL (1.9-2.7) H 06/30/18 15:20 Iron 20 ug/dL (27-139) L 07/01/18 05:25 TIBC 98 ug/dL (250-450) L 07/01/18 05:25 Iron Saturation 20 % (15-55) 07/01/18 05:25 Unsaturated IBC 78 ug/dL (118-369) L 07/01/18 05:25 Transferrin 78 mg/dL (200-370) L 07/01/18 05:25 Erythropoietin 16.0 mIU/mL (2.6-18.5) 07/01/18 05:25 Ferritin 3105 ng/mL (15-150) H 07/01/18 05:25 Total Bilirubin 0.4 mg/dL (0.3-1.0) 07/06/18 04:18 AST 26 U/L (13-39) 07/06/18 04:18 ALT 21 U/L (7-52) 07/06/18 04:18 Alkaline Phosphatase 367 U/L (34-104) H 07/06/18 04:18 Lactate Dehydrogenase 217 U/L (140-271) 07/01/18 05:25 Troponin I 0.07 ng/mL (0.01-0.05) H* 06/30/18 15:20 Total Protein 5.9 gm/dL (6.0-8.3) L 07/06/18 04:18 Albumin 2.2 gm/dL (3.7-5.3) L 07/06/18 04:18 Globulin 3.7 gm/dL 07/06/18 04:18 Albumin/Globulin Ratio 0.6 (1.0-1.8) L 07/06/18 04:18 Vitamin B12 >1999 pg/mL (232-1245) H 07/01/18 05:25 Folic Acid 18.3 ng/mL (>3.0) 07/01/18 05:25 Stool Occult Blood POSITIVE (NEGATIVE) H 07/04/18 03:12 Vancomycin Trough 24.9 ug/mL (5-10) H 07/04/18 06:00 Random Vancomycin 30.0 ug/mL (5.0-40.0) 07/03/18 04:20 Hep Bs Antigen Negative (Negative) 06/30/18 15:20 Hepatitis C Antibody <0.1 s/co ratio (0.0-0.9) 06/30/18 15:20 Blood Type O POSITIVE 07/05/18 09:40 Antibody Screen NEGATIVE 07/05/18 09:40 Crossmatch See Detail 07/05/18 09:40 - Physical Exam Vitals and I&O: Vital Signs Temp 98.6 F 07/06/18 12:00 Pulse 95 07/06/18 15:45 Resp 23 07/06/18 14:00 BP 143/60 07/06/18 14:00 Pulse Ox 100 07/06/18 15:45 Intake & Output 07/05/18 07/06/18 07/06/18 18:59 06:59 18:59 Intake Total 1168 1256 450 Output Total 0 Balance 1168 1256 450 Weight (lbs) 84.822 kg 78.925 kg Intake: Intake, IV Amount 610 350 450 Colistimethate 150 mg In 100 Sodium Chloride 0.9% 100 ml @ 100 mls/hr IV Q36H [facility] Rx#:[id number] Linezolid 600mg/300mL 600 300 300 300 mg In 300 ml @ 300 mls/ hr IV Q12HR [facility] Rx#: [id number] Piperacillin Sodium/ 100 50 50 Tazobact 2.25 gm In Sodium Chloride 0.9% 50 ml @ 100 mls/hr IV Q8H [facility] Rx#:[id number] Sodium Ferric Gluconate 110 125 mg In Sodium Chloride 0.9% 100 ml @ 100 mls/hr IV Q24HR [facility] Rx#: [id number] Oral 0 Tube Feeding 378 756 Other 180 150 Output: Urine 0 Other: # Bowel Movements 2 2 Stool Characteristics Soft Soft Soft Liquid Liquid Liquid Brown Brown Brown Weight Source Bedscale Bedscale Active Medications: Current Medications Acetylcysteine (Mucomyst 20%) 3 ml HHN Q4HRT [facility] Stop: 08/30/18 14:59 Last Admin: 07/06/18 14:00 Dose: 3 ml Albuterol Sulfate (Albuterol 2.5mg/3ml Neb Ud) 2.5 mg HHN Q4HRT [facility] Stop: 08/30/18 14:59 Last Admin: 07/06/18 14:00 Dose: 2.5 mg Ascorbic Acid (Vitamin C) 500 mg GT BID [facility] Stop: 08/30/18 08:59 Last Admin: 07/06/18 16:26 Dose: 500 mg Atorvastatin Calcium (Lipitor) 40 mg GT HS [facility] Stop: 08/30/18 20:59 Last Admin: 07/05/18 20:46 Dose: 40 mg Calamine/Phenol (Calmoseptine) 1 appl TP QID PRN PRN Reason: Skin Irritation Stop: 09/03/18 16:24 Last Admin: 07/06/18 08:19 Dose: 1 appl Calcium Carbonate (Os-Mago) 500 mg GT Q12H [facility] Stop: 08/30/18 08:59 Last Admin: 07/06/18 08:19 Dose: 500 mg [place] Oil/[place] Balsam/Trypsin (Venelex) 1 appl TP BID [facility] Stop: 08/31/18 08:59 Last Admin: 07/06/18 16:25 Dose: 1 appl Chlorhexidine Gluconate (Peridex) 15 ml MM 0800,1999 [facility] Stop: 08/30/18 19:59 Last Admin: 07/06/18 08:18 Dose: 15 ml Dextrose (D50w) 50 ml IVP PRN PRN PRN Reason: Blood Glucose less than 70 Stop: 08/29/18 18:34 Last Admin: 06/30/18 19:15 Dose: 50 ml Dextrose (Glutose 40%) 18.75 gm PO PRN PRN PRN Reason: Blood Glucose less than 70 Stop: 08/29/18 18:34 Epoetin Rj (Epogen) 10,000 units SUBQ TuThSa@1700 [facility] Stop: 09/02/18 15:59 Last Admin: 07/06/18 16:26 Dose: 10,000 units Folic Acid (Folate) 1 mg GT DAILY [facility] Stop: 08/31/18 08:59 Last Admin: 07/06/18 08:19 Dose: 1 mg Glucagon (Glucagen) 1 mg IM PRN PRN PRN Reason: Blood Glucose less than 70 Stop: 08/29/18 18:34 Piperacillin Sod/Tazobactam (Sod 2.25 gm/ Sodium Chloride) 50 mls @ 100 mls/hr IV Q8H [facility] Stop: 08/29/18 16:59 Last Admin: 07/06/18 16:26 Dose: 100 mls/hr Linezolid (Zyvox) 600 mg in 300 mls @ 300 mls/hr IV Q12HR [facility] Stop: 09/02/18 20:59 Last Infusion: 07/06/18 14:53 Dose: Infused Colistimethate Sodium 150 mg/ (Sodium Chloride) 100 mls @ 100 mls/hr IV Q36H [facility] Stop: 09/03/18 16:59 Last Infusion: 07/05/18 18:45 Dose: Infused Ibuprofen (Motrin) 400 mg GT Q6H PRN PRN Reason: PAIN OR TEMP >101 Stop: 08/30/18 03:13 Insulin Aspart (Novolog Insulin Sliding Scale) 0 units SUBQ Q6H [facility]; Protocol Stop: 08/30/18 05:59 Last Admin: 07/06/18 11:48 Dose: Not Given Insulin Detemir (Levemir Insulin) 20 units SUBQ Q12H [facility]; Protocol Stop: 08/30/18 08:59 Last Admin: 07/06/18 09:49 Dose: Not Given Ipratropium [place] (Atrovent Neb 0.5mg/2.5ml) 0.5 mg HHN Q4HRT [facility] Stop: 08/30/18 14:59 Last Admin: 07/06/18 14:00 Dose: 0.5 mg Lactobacillus Rhamnosus (Culturelle 15b) 1 each GT DAILY [facility] Stop: 08/30/18 08:59 Last Admin: 07/06/18 08:19 Dose: 1 each Miscellaneous (Vte Chemical Prophylaxis Screen/Icu Transfer) 1 ea PRN PRN PRN Reason: PROTOCOL Stop: 08/30/18 08:08 Miscellaneous (Probiotic Screen) 1 [facility] PRN PRN PRN Reason: PROTOCOL Stop: 09/01/18 09:26 Pantoprazole Sodium (Protonix) 40 mg GT DAILY [facility] Stop: 08/30/18 08:59 Last Admin: 07/06/18 08:19 Dose: 40 mg Psyllium Hydrophilic Mucilloid (Metamucil) 1 pkt GT Q12HR [facility] Stop: 08/30/18 08:59 Last Admin: 07/06/18 09:50 Dose: Not Given Vitamin B Complex/Vit C/Folic Acid (Vitamin B Complex W/Vitamin C) 1 tab GT DAILY [facility] Stop: 08/30/18 08:59 Last Admin: 07/06/18 08:19 Dose: 1 tab Zinc Sulfate (Zinc Sulfate) 220 mg GT DAILY [facility] Stop: 08/30/18 08:59 Last Admin: 07/06/18 08:19 Dose: 220 mg Physical Exam: obtunded trach-vent nad head nc/at sclerae anicteric cv rrr lungs coarse b/l abd soft gtube ext no edema General: Other (MECHANICALLY VENTILATED VIA TRACH) HEENT: Atraumatic, PERRLA, EOMI, Other (trach) Neck: Supple Cardiovascular: Regular rate, Normal S1, Normal S2 Lungs: Clear to auscultation Abdomen: Bowel sounds, Soft, Other (gastric tube) Extremities: Edema (BUE 1-2 edema) - Procedures Procedures: Procedures Procedure Code Date RESPIRATORY VENTILATION, GREATER THAN 96 CONSECUTIVE HOURS [id number] 06/30/18 Assessment/Plan - Problem List Patient Problems: All Active Problems ANEMIA WITH HB OF 6.8 (Acute) - Assessment Assessment: severe sepsis coag neg staph bacteremia esrd/dialysis status anemia w esrd chronic vdrf - Plan Plan: hd tomorrow cont abx debridement tomorrow monitor labs supportive care Nutritional Asmnt/Malnutr-PDOC - Dietary Evaluation Malnutrition Findings (Please click <Entered> for more info): Nutritional Asmnt/Malnutrition Start: 07/01/18 10: 22 Text: Status: Complete Freq: Protocol: Document 07/04/18 14:30 [email or web address] (Rec: 07/04/18 14:39 [email or web address]) Nutritional Asmnt/Malnutrition Patient General Information Nutritional Screening High Risk Diagnosis pneumonia and dialysis dependent Pertinent Medical Hx/Surgical Hx HTN, RESP FAILURE, DM, ANEMIA Subjective Information PER NURSING NOTE, PT OBTUNDED, TRACH TO VENT, ABDOMEN SOFT, NONTENDER, BOWEL SOUNDS NOTED 2+ EDEMA Current Diet Order/ Nutrition Support NEPRO @ 63 ML/HR Patient / S.O Not Indicated Pertinent Medications MULTI VIT, PROTONIX, CULTURFELLE, ZINC SULFATE, LEVEMIR, INS-SS, VIT C, LIPITOR, OS MAGO, FOLATE, GLUCAGEN Pertinent Labs NA 133, POTASS 3.3, CL 93, BUN /CR 50/2.6, eGFR 19.6, CA 8.4, WBC 12.4 BEDSIDE GLUCOSE: 239, 282, 292 , 144 Nutritional Hx/Data Height 1.57 m Height (Calculated Centimeters) 157.5 Current Weight (lbs) 83.461 kg Weight (Calculated Kilograms) 83.5 Weight (Calculated Grams) 81944.0 [place] Body Weight 110 % [place] Body Weight 167 Body Mass Index (BMI) 33.6 Weight Status Obese GI Symptoms Last BM TODAY X 2 Difficult in: Chewing Swallowing Food Allergies No Skin Integrity/Comment: REED: 12, PRESSURE AREAS: SACRUM, XUAN HEEL Estimated Nutritional Goals BEE in Kcals: Adj wt of IBW Protein: Adj wt of IBW
[2018-07-07] MEDS ORDERED: D5-0.9%NS 1,000 ML IV SCH
[2018-07-07] MEDS: Ipratropium Neb 0.5 mg/2.5 mL UD HHN SCH ×6 (03:13→23:19)
[2018-07-07] MEDS: Albuterol Nebulizer 2.5mg/3mL HHN SCH ×6 (03:13→23:19)
[2018-07-07 06:18] LABS: % BASOPHILS 0.9 % (0.0-2.0); % EOSINOPHILS 3.2 % (0.0-5.0); % LYMPHOCYTES 10.6 % (20.0-50.0); % MONOCYTES 5.2 % (2.0-10.0); % NEUTROPHILS 80.1 % (40.0-80.0); BASOPHILE ABSOLUTE 0.1 Th/cumm (0-0.2); EOSINOPHILE ABSOLUTE 0.4 Th/cmm (0.1-0.4); HEMATOCRIT 24.7 % (41.0-60); HEMOGLOBIN 8.1 gm/dL (12-16); LYMPHOCYTE ABSOLUTE 1.2 Th/cmm (1.5-3.0); MEAN CELL VOLUME 87.4 fl (81-100); MEAN CORPUSCULAR HEMOGLOBIN 28.8 pg (27.0-31.0); MEAN CORPUSCULAR HGB CONC 32.9 pg (28.0-36.0); MEAN PLATELET VOLUME 7.7 fl; MONOCYTE ABSOLUTE 0.6 Th/cmm (0.3-1.0); NEUTROPHILE ABSOLUTE 9.1 Th/cmm (1.8-8.0); PLATELET COUNT 277 Th/cmm (150-400); RED BLOOD COUNT 2.83 Mil/cmm (3.80-5.20); RED CELL DISTRIBUTION WIDTH 15.8 % (11.5-20.0); WHITE BLOOD COUNT 11.4 Th/cmm (4.8-10.8)
[2018-07-07] MEDS: INSULIN ASPART SLIDING SCALE 100 UNITS/ML UNIT SUBQ SCH ×3 (06:56→17:29)
[2018-07-07 07:15] LABS: ALB/GLOB RATIO 0.6 (1.0-1.8); ALBUMIN 2.1 gm/dL (3.7-5.3); ANION GAP 17.3 (7.0-16.0); BILIRUBIN,TOTAL 0.4 mg/dL (0.3-1.0); CALCIUM SERUM 8.4 mg/dL (8.6-10.3); CARBON DIOXIDE 25.2 mEq/L (21.0-31.0); GFR AFRICAN-AMERICAN 15.8 ml/min (>90); GFR NON AFRICAN-AMERICAN 13.1 ml/min; POTASSIUM SERUM 3.5 mEq/L (3.5-5.1); TOTAL PROTEIN,SERUM 5.5 gm/dL (6.0-8.3)
[2018-07-07 07:36] LABS: CREATININE - SERUM 3.7 mg/dL (0.6-1.2)
[2018-07-07] MEDS: Linezolid 600mg/300mL 600 MG/300 ML BAG IV SCH ×2 (08:05→20:38)
[2018-07-07] MEDS: Chlorhexidine Gluconate 0.12% 15mL Mouthwash MM SCH ×2 (08:05→20:38)
[2018-07-07] MEDS: Venelex 60gm Tube TP SCH ×2 (09:00→18:05)
[2018-07-07] MEDS: Pantoprazole 40 mg/Packet GT SCH (09:55)
[2018-07-07] MEDS: Insulin Detemir 100 units/mL 10mL Vial SUBQ SCH ×2 (09:55→20:41)
[2018-07-07] MEDS: Lactobacillus Rhamnosus GG 15 Billion CFU CAP.SPRINK GT SCH (09:55)
[2018-07-07] MEDS: Vitamin B Complex w/Vitamin C Tab GT SCH (10:01)
[2018-07-07] MEDS: Piperacillin/Tazobact 2.25 gm in 0.9% NS 50 ML IV SCH ×3 (10:06→18:03)
--- NOTE | 2018-07-07 12:12 | Operative Report ---
Post Operative Report - POST-OPERATIVE NOTE Preoperative diagnosis:: infected gangrenous sacrococcyx decubitus ulcer/wounds Postoperative diagnosis:: same Operation performed:: sharp excisional debridement skin subcut sacrococcyx decubtus wound Specimen:: debris Anesthesia:: Mac, Local Anesthesiologist:: Chula Thomason Blood Loss (fluid management):: minimal <5ml Surgeon:: Jessee Perkins Ends Down Checker:: none Findings:: denuded infected gangrenous sacrococcyx decubitus wound Prosthetic devices, grafts, tissue or device implanted:: none Complications:: none
--- NOTE | 2018-07-07 14:50 | General Progress Note ---
Subjective - Review of Systems Service Date: 07/07/18 Subjective: non communicative on vent/ trach s/p debridment Objective - Results Result Diagrams: 07/07/18 05:00 07/07/18 05:00 Recent Labs: Laboratory Last Values WBC 11.4 Th/cmm (4.8-10.8) H 07/07/18 05:00 RBC 2.83 Mil/cmm (3.80-5.20) L 07/07/18 05:00 Hgb 8.1 gm/dL (12-16) L 07/07/18 05:00 Hct 24.7 % (41.0-60) L 07/07/18 05:00 MCV 87.4 fl (81-100) 07/07/18 05:00 MCH 28.8 pg (27.0-31.0) 07/07/18 05:00 MCHC Differential 32.9 pg (28.0-36.0) 07/07/18 05:00 RDW 15.8 % (11.5-20.0) 07/07/18 05:00 Plt Count 277 Th/cmm (150-400) 07/07/18 05:00 MPV 7.7 fl 07/07/18 05:00 Add Manual Diff YES 07/04/18 06:00 Neutrophils % 80.1 % (40.0-80.0) H 07/07/18 05:00 Band Neutrophils % 1 % (0-10) 07/05/18 05:35 Lymphocytes % 10.6 % (20.0-50.0) L 07/07/18 05:00 Monocytes % 5.2 % (2.0-10.0) 07/07/18 05:00 Eosinophils % 3.2 % (0.0-5.0) 07/07/18 05:00 Basophils % 0.9 % (0.0-2.0) 07/07/18 05:00 Neutrophils (Manual) 80 % (40-80) 07/05/18 05:35 Lymphocytes 10 % (20-50) L 07/05/18 05:35 Monocytes 8 % (2-10) 07/05/18 05:35 Eosinophils 1 % (0-5) 07/05/18 05:35 Basophils 0 % (0-3) 07/04/18 06:00 Total Retics Counted 3.8 % (0.5-1.5) H 07/01/18 05:25 Absolute Retic 117.4 Th/cmm 07/01/18 05:25 Corrected Retic Count 2.2 % (0.5-1.5) H 07/01/18 05:25 PT 10.2 SECONDS (9.5-11.5) 06/30/18 15:20 INR 0.98 (0.5-1.4) 06/30/18 15:20 PTT (Actin FS) 29.5 SECONDS (26.0-38.0) 06/30/18 15:20 Sodium 129 mEq/L (136-145) L 07/07/18 05:00 Potassium 3.5 mEq/L (3.5-5.1) 07/07/18 05:00 Chloride 90 mEq/L (98-107) L 07/07/18 05:00 Carbon Dioxide 25.2 mEq/L (21.0-31.0) 07/07/18 05:00 Anion Gap 17.3 (7.0-16.0) H 07/07/18 05:00 BUN 60 mg/dL (7-25) H 07/07/18 05:00 Creatinine 3.7 mg/dL (0.6-1.2) H 07/07/18 05:00 Est GFR ( Amer) 15.8 ml/min (>90) 07/07/18 05:00 Est GFR (Non-Af Amer) 13.1 ml/min 07/07/18 05:00 BUN/Creatinine Ratio 16.2 07/07/18 05:00 Glucose 197 mg/dL (70-105) H 07/07/18 05:00 POC Glucose 169 MG/DL (70 - 105) H 07/07/18 05:03 Whole Bld Lactic Acid 1.15 mmol/L (0.60-1.99) 06/30/18 15:20 Calcium 8.4 mg/dL (8.6-10.3) L 07/07/18 05:00 Phosphorus 2.6 mg/dL (2.5-5.0) 06/30/18 15:20 Magnesium 2.8 mg/dL (1.9-2.7) H 06/30/18 15:20 Iron 20 ug/dL (27-139) L 07/01/18 05:25 TIBC 98 ug/dL (250-450) L 07/01/18 05:25 Iron Saturation 20 % (15-55) 07/01/18 05:25 Unsaturated IBC 78 ug/dL (118-369) L 07/01/18 05:25 Transferrin 78 mg/dL (200-370) L 07/01/18 05:25 Erythropoietin 16.0 mIU/mL (2.6-18.5) 07/01/18 05:25 Ferritin 3105 ng/mL (15-150) H 07/01/18 05:25 Total Bilirubin 0.4 mg/dL (0.3-1.0) 07/07/18 05:00 AST 22 U/L (13-39) 07/07/18 05:00 ALT 18 U/L (7-52) 07/07/18 05:00 Alkaline Phosphatase 330 U/L (34-104) H 07/07/18 05:00 Lactate Dehydrogenase 217 U/L (140-271) 07/01/18 05:25 Troponin I 0.07 ng/mL (0.01-0.05) H* 06/30/18 15:20 Total Protein 5.5 gm/dL (6.0-8.3) L 07/07/18 05:00 Albumin 2.1 gm/dL (3.7-5.3) L 07/07/18 05:00 Globulin 3.4 gm/dL 07/07/18 05:00 Albumin/Globulin Ratio 0.6 (1.0-1.8) L 07/07/18 05:00 Vitamin B12 >1999 pg/mL (232-1245) H 07/01/18 05:25 Folic Acid 18.3 ng/mL (>3.0) 07/01/18 05:25 Stool Occult Blood POSITIVE (NEGATIVE) H 07/04/18 03:12 Vancomycin Trough 24.9 ug/mL (5-10) H 07/04/18 06:00 Random Vancomycin 30.0 ug/mL (5.0-40.0) 07/03/18 04:20 Hep Bs Antigen Negative (Negative) 06/30/18 15:20 Hepatitis C Antibody <0.1 s/co ratio (0.0-0.9) 06/30/18 15:20 Blood Type O POSITIVE 07/05/18 09:40 Antibody Screen NEGATIVE 07/05/18 09:40 Crossmatch See Detail 07/05/18 09:40 - Physical Exam Vitals and I&O: Vital Signs Temp 98.0 F 07/07/18 12:00 Pulse 94 07/07/18 14:08 Resp 14 07/07/18 12:00 BP 144/49 07/07/18 12:00 Pulse Ox 99 07/07/18 14:08 Intake & Output 07/06/18 07/07/18 07/07/18 18:59 06:59 18:59 Intake Total 1000 450 350 Output Total 0 Balance 1000 450 350 Weight (lbs) 78.925 kg Intake: Intake, IV Amount 500 450 350 Colistimethate 150 mg In 100 Sodium Chloride 0.9% 100 ml @ 100 mls/hr IV Q36H [facility] Rx#:[id number] Linezolid 600mg/300mL 600 300 300 300 mg In 300 ml @ 300 mls/ hr IV Q12HR [facility] Rx#: [id number] Piperacillin Sodium/ 100 50 50 Tazobact 2.25 gm In Sodium Chloride 0.9% 50 ml @ 100 mls/hr IV Q8H [facility] Rx#:[id number] Tube Feeding 500 Output: Urine 0 Other: # Bowel Movements 4 Stool Characteristics Soft Soft Soft Liquid Liquid Liquid Brown Brown Brown Weight Source Bedscale Active Medications: Current Medications Acetylcysteine (Mucomyst 20%) 3 ml HHN Q4HRT [facility] Stop: 08/30/18 14:59 Last Admin: 07/07/18 14:07 Dose: 3 ml Albuterol Sulfate (Albuterol 2.5mg/3ml Neb Ud) 2.5 mg HHN Q4HRT [facility] Stop: 08/30/18 14:59 Last Admin: 07/07/18 14:08 Dose: 2.5 mg Ascorbic Acid (Vitamin C) 500 mg GT BID [facility] Stop: 08/30/18 08:59 Last Admin: 07/07/18 09:54 Dose: Not Given Atorvastatin Calcium (Lipitor) 40 mg GT HS [facility] Stop: 08/30/18 20:59 Last Admin: 07/06/18 21:14 Dose: 40 mg Calamine/Phenol (Calmoseptine) 1 appl TP QID PRN PRN Reason: Skin Irritation Stop: 09/03/18 16:24 Last Admin: 07/06/18 08:19 Dose: 1 appl Calcium Carbonate (Os-Mago) 500 mg GT Q12H [facility] Stop: 08/30/18 08:59 Last Admin: 07/07/18 09:54 Dose: Not Given [place] Oil/[place] Balsam/Trypsin (Venelex) 1 appl TP BID [facility] Stop: 08/31/18 08:59 Last Admin: 07/06/18 16:25 Dose: 1 appl Chlorhexidine Gluconate (Peridex) 15 ml MM 0800,1999 [facility] Stop: 08/30/18 19:59 Last Admin: 07/07/18 08:05 Dose: 15 ml Dextrose (D50w) 50 ml IVP PRN PRN PRN Reason: Blood Glucose less than 70 Stop: 08/29/18 18:34 Last Admin: 06/30/18 19:15 Dose: 50 ml Dextrose (Glutose 40%) 18.75 gm PO PRN PRN PRN Reason: Blood Glucose less than 70 Stop: 08/29/18 18:34 Epoetin Rj (Epogen) 10,000 units SUBQ TuThSa@1700 [facility] Stop: 09/02/18 15:59 Last Admin: 07/06/18 16:26 Dose: 10,000 units Folic Acid (Folate) 1 mg GT DAILY [facility] Stop: 08/31/18 08:59 Last Admin: 07/07/18 09:54 Dose: Not Given Glucagon (Glucagen) 1 mg IM PRN PRN PRN Reason: Blood Glucose less than 70 Stop: 08/29/18 18:34 Piperacillin Sod/Tazobactam (Sod 2.25 gm/ Sodium Chloride) 50 mls @ 100 mls/hr IV Q8H [facility] Stop: 08/29/18 16:59 Last Infusion: 07/07/18 12:43 Dose: Infused Linezolid (Zyvox) 600 mg in 300 mls @ 300 mls/hr IV Q12HR [facility] Stop: 09/02/18 20:59 Last Infusion: 07/07/18 10:02 Dose: Infused Colistimethate Sodium 150 mg/ (Sodium Chloride) 100 mls @ 100 mls/hr IV Q36H [facility] Stop: 09/03/18 16:59 Last Infusion: 07/07/18 06:00 Dose: Infused Dextrose/Sodium Chloride (D5-0.9%Ns) 1,000 mls @ 50 mls/hr IV .Q20H [facility] Stop: 07/08/18 00:00 Last Admin: 07/07/18 00:04 Dose: 50 mls/hr Ibuprofen (Motrin) 400 mg GT Q6H PRN PRN Reason: PAIN OR TEMP >101 Stop: 08/30/18 03:13 Insulin Aspart (Novolog Insulin Sliding Scale) 0 units SUBQ Q6H [facility]; Protocol Stop: 08/30/18 05:59 Last Admin: 07/07/18 12:56 Dose: 6 units Insulin Detemir (Levemir Insulin) 20 units SUBQ Q12H [facility]; Protocol Stop: 08/30/18 08:59 Last Admin: 07/07/18 09:55 Dose: Not Given Ipratropium [place] (Atrovent Neb 0.5mg/2.5ml) 0.5 mg HHN Q4HRT [facility] Stop: 08/30/18 14:59 Last Admin: 07/07/18 14:08 Dose: 0.5 mg Lactobacillus Rhamnosus (Culturelle 15b) 1 each GT DAILY [facility] Stop: 08/30/18 08:59 Last Admin: 07/07/18 09:55 Dose: Not Given Miscellaneous (Vte Chemical Prophylaxis Screen/Icu Transfer) 1 ea PRN PRN PRN Reason: PROTOCOL Stop: 08/30/18 08:08 Miscellaneous (Probiotic Screen) 1 [facility] PRN PRN PRN Reason: PROTOCOL Stop: 09/01/18 09:26 Pantoprazole Sodium (Protonix) 40 mg GT DAILY [facility] Stop: 08/30/18 08:59 Last Admin: 07/07/18 09:55 Dose: Not Given Psyllium Hydrophilic Mucilloid (Metamucil) 1 pkt GT Q12HR [facility] Stop: 08/30/18 08:59 Last Admin: 07/07/18 10:00 Dose: Not Given Vitamin B Complex/Vit C/Folic Acid (Vitamin B Complex W/Vitamin C) 1 tab GT DAILY [facility] Stop: 08/30/18 08:59 Last Admin: 07/07/18 10:01 Dose: Not Given Zinc Sulfate (Zinc Sulfate) 220 mg GT DAILY [facility] Stop: 08/30/18 08:59 Last Admin: 07/07/18 10:01 Dose: Not Given General: Other (MECHANICALLY VENTILATED VIA TRACH) HEENT: Atraumatic, PERRLA, EOMI, Other (trach) Neck: Supple Cardiovascular: Regular rate, Normal S1, Normal S2 Lungs: Clear to auscultation Abdomen: Bowel sounds, Soft, Other (gastric tube) Extremities: Edema (BUE 1-2 edema) - Procedures Procedures: Procedures Procedure Code Date RESPIRATORY VENTILATION, GREATER THAN 96 CONSECUTIVE HOURS [id number] 06/30/18 Assessment/Plan - Problem List Patient Problems: All Active Problems ANEMIA WITH HB OF 6.8 (Acute) - Assessment Assessment: Normocytic anemia, most likely multifactorial from chronic kidney disease and possible blood loss from the sacral decubitus ulcer and/or GI source. I will follow the iron studies and the patient will benefit from IV iron. If the ferritin is less than 400 and if she has adequate iron reserves, then Epogen injection will be started. Also, stool occult blood to evaluate for GI blood loss. I will start the patient on Ferrlecit. Pending the iron results. Follow the B12 and folate level and stool occult blood and consider Epogen if the iron reserve is adequate. 07/05: hgb is lower, tx with HD today. Continue iv ferrlecit, epo, folic acid and follow anemia wagner 07/06: lab noted ferritin>3000. dc ferrlecit and continue epo and folic acid. For sacral dec debridment 07/07: lab noted. hgb lower likely blood loss from decube. continue epo, folate Nutritional Asmnt/Malnutr-PDOC - Dietary Evaluation Malnutrition Findings (Please click <Entered> for more info): Nutritional Asmnt/Malnutrition Start: 07/01/18 10: 22 Text: Status: Complete Freq: Protocol: Document 07/04/18 14:30 MBONUS (Rec: 07/04/18 14:39 [email or web address]) Nutritional Asmnt/Malnutrition Patient General Information Nutritional Screening High Risk Diagnosis pneumonia and dialysis dependent Pertinent Medical Hx/Surgical Hx HTN, RESP FAILURE, DM, ANEMIA Subjective Information PER NURSING NOTE, PT OBTUNDED, TRACH TO VENT, ABDOMEN SOFT, NONTENDER, BOWEL SOUNDS NOTED 2+ EDEMA Current Diet Order/ Nutrition Support NEPRO @ 63 ML/HR Patient / S.O Not Indicated Pertinent Medications MULTI VIT, PROTONIX, CULTURFELLE, ZINC SULFATE, LEVEMIR, INS-SS, VIT C, LIPITOR, OS MAGO, FOLATE, GLUCAGEN Pertinent Labs NA 133, POTASS 3.3, CL 93, BUN /CR 50/2.6, eGFR 19.6, CA 8.4, WBC 12.4 BEDSIDE GLUCOSE: 239, 282, 292 , 144 Nutritional Hx/Data Height 1.57 m Height (Calculated Centimeters) 157.5 Current Weight (lbs) 83.461 kg Weight (Calculated Kilograms) 83.5 Weight (Calculated Grams) 68571.0 [place] Body Weight 110 % [place] Body Weight 167 Body Mass Index (BMI) 33.6 Weight Status Obese GI Symptoms Last BM TODAY X 2 Difficult in: Chewing Swallowing Food Allergies No Skin Integrity/Comment: REED: 12, PRESSURE AREAS: SACRUM, XUAN HEEL Estimated Nutritional Goals BEE in Kcals: Adj wt of IBW Protein: Adj wt of IBW
--- NOTE | 2018-07-07 16:24 | GI Progress Note ---
Subjective - Review of Systems Service Date: 07/07/18 Events since last encounter: No overt GI bleeding, had debridement performed Objective - Results Result Diagrams: 07/07/18 05:00 07/07/18 05:00 Recent Labs: Laboratory Last Values WBC 11.4 Th/cmm (4.8-10.8) H 07/07/18 05:00 RBC 2.83 Mil/cmm (3.80-5.20) L 07/07/18 05:00 Hgb 8.1 gm/dL (12-16) L 07/07/18 05:00 Hct 24.7 % (41.0-60) L 07/07/18 05:00 MCV 87.4 fl (81-100) 07/07/18 05:00 MCH 28.8 pg (27.0-31.0) 07/07/18 05:00 MCHC Differential 32.9 pg (28.0-36.0) 07/07/18 05:00 RDW 15.8 % (11.5-20.0) 07/07/18 05:00 Plt Count 277 Th/cmm (150-400) 07/07/18 05:00 MPV 7.7 fl 07/07/18 05:00 Add Manual Diff YES 07/04/18 06:00 Neutrophils % 80.1 % (40.0-80.0) H 07/07/18 05:00 Band Neutrophils % 1 % (0-10) 07/05/18 05:35 Lymphocytes % 10.6 % (20.0-50.0) L 07/07/18 05:00 Monocytes % 5.2 % (2.0-10.0) 07/07/18 05:00 Eosinophils % 3.2 % (0.0-5.0) 07/07/18 05:00 Basophils % 0.9 % (0.0-2.0) 07/07/18 05:00 Neutrophils (Manual) 80 % (40-80) 07/05/18 05:35 Lymphocytes 10 % (20-50) L 07/05/18 05:35 Monocytes 8 % (2-10) 07/05/18 05:35 Eosinophils 1 % (0-5) 07/05/18 05:35 Basophils 0 % (0-3) 07/04/18 06:00 Total Retics Counted 3.8 % (0.5-1.5) H 07/01/18 05:25 Absolute Retic 117.4 Th/cmm 07/01/18 05:25 Corrected Retic Count 2.2 % (0.5-1.5) H 07/01/18 05:25 PT 10.2 SECONDS (9.5-11.5) 06/30/18 15:20 INR 0.98 (0.5-1.4) 06/30/18 15:20 PTT (Actin FS) 29.5 SECONDS (26.0-38.0) 06/30/18 15:20 Sodium 129 mEq/L (136-145) L 07/07/18 05:00 Potassium 3.5 mEq/L (3.5-5.1) 07/07/18 05:00 Chloride 90 mEq/L (98-107) L 07/07/18 05:00 Carbon Dioxide 25.2 mEq/L (21.0-31.0) 07/07/18 05:00 Anion Gap 17.3 (7.0-16.0) H 07/07/18 05:00 BUN 60 mg/dL (7-25) H 07/07/18 05:00 Creatinine 3.7 mg/dL (0.6-1.2) H 07/07/18 05:00 Est GFR ( Amer) 15.8 ml/min (>90) 07/07/18 05:00 Est GFR (Non-Af Amer) 13.1 ml/min 07/07/18 05:00 BUN/Creatinine Ratio 16.2 07/07/18 05:00 Glucose 197 mg/dL (70-105) H 07/07/18 05:00 POC Glucose 169 MG/DL (70 - 105) H 07/07/18 05:03 Whole Bld Lactic Acid 1.15 mmol/L (0.60-1.99) 06/30/18 15:20 Calcium 8.4 mg/dL (8.6-10.3) L 07/07/18 05:00 Phosphorus 2.6 mg/dL (2.5-5.0) 06/30/18 15:20 Magnesium 2.8 mg/dL (1.9-2.7) H 06/30/18 15:20 Iron 20 ug/dL (27-139) L 07/01/18 05:25 TIBC 98 ug/dL (250-450) L 07/01/18 05:25 Iron Saturation 20 % (15-55) 07/01/18 05:25 Unsaturated IBC 78 ug/dL (118-369) L 07/01/18 05:25 Transferrin 78 mg/dL (200-370) L 07/01/18 05:25 Erythropoietin 16.0 mIU/mL (2.6-18.5) 07/01/18 05:25 Ferritin 3105 ng/mL (15-150) H 07/01/18 05:25 Total Bilirubin 0.4 mg/dL (0.3-1.0) 07/07/18 05:00 AST 22 U/L (13-39) 07/07/18 05:00 ALT 18 U/L (7-52) 07/07/18 05:00 Alkaline Phosphatase 330 U/L (34-104) H 07/07/18 05:00 Lactate Dehydrogenase 217 U/L (140-271) 07/01/18 05:25 Troponin I 0.07 ng/mL (0.01-0.05) H* 06/30/18 15:20 Total Protein 5.5 gm/dL (6.0-8.3) L 07/07/18 05:00 Albumin 2.1 gm/dL (3.7-5.3) L 07/07/18 05:00 Globulin 3.4 gm/dL 07/07/18 05:00 Albumin/Globulin Ratio 0.6 (1.0-1.8) L 07/07/18 05:00 Vitamin B12 >1999 pg/mL (232-1245) H 07/01/18 05:25 Folic Acid 18.3 ng/mL (>3.0) 07/01/18 05:25 Stool Occult Blood POSITIVE (NEGATIVE) H 07/04/18 03:12 Vancomycin Trough 24.9 ug/mL (5-10) H 07/04/18 06:00 Random Vancomycin 30.0 ug/mL (5.0-40.0) 07/03/18 04:20 Hep Bs Antigen Negative (Negative) 06/30/18 15:20 Hepatitis C Antibody <0.1 s/co ratio (0.0-0.9) 06/30/18 15:20 Blood Type O POSITIVE 07/05/18 09:40 Antibody Screen NEGATIVE 07/05/18 09:40 Crossmatch See Detail 07/05/18 09:40 - Physical Exam Vitals and I&O: Vital Signs Temp 98.0 F 07/07/18 12:00 Pulse 94 07/07/18 14:08 Resp 14 07/07/18 12:00 BP 144/49 07/07/18 13:00 Pulse Ox 99 07/07/18 14:08 Intake & Output 07/06/18 07/07/18 07/07/18 18:59 06:59 18:59 Intake Total 1000 450 350 Output Total 0 Balance 1000 450 350 Weight (lbs) 78.925 kg Intake: Intake, IV Amount 500 450 350 Colistimethate 150 mg In 100 Sodium Chloride 0.9% 100 ml @ 100 mls/hr IV Q36H [facility] Rx#:[id number] Linezolid 600mg/300mL 600 300 300 300 mg In 300 ml @ 300 mls/ hr IV Q12HR [facility] Rx#: [id number] Piperacillin Sodium/ 100 50 50 Tazobact 2.25 gm In Sodium Chloride 0.9% 50 ml @ 100 mls/hr IV Q8H [facility] Rx#:[id number] Tube Feeding 500 Output: Urine 0 Other: # Bowel Movements 4 Stool Characteristics Soft Soft Soft Liquid Liquid Liquid Brown Brown Brown Weight Source Bedscale Active Medications: Current Medications Acetylcysteine (Mucomyst 20%) 3 ml HHN Q4HRT [facility] Stop: 08/30/18 14:59 Last Admin: 07/07/18 14:07 Dose: 3 ml Albuterol Sulfate (Albuterol 2.5mg/3ml Neb Ud) 2.5 mg HHN Q4HRT [facility] Stop: 08/30/18 14:59 Last Admin: 07/07/18 14:08 Dose: 2.5 mg Ascorbic Acid (Vitamin C) 500 mg GT BID [facility] Stop: 08/30/18 08:59 Last Admin: 07/07/18 09:54 Dose: Not Given Atorvastatin Calcium (Lipitor) 40 mg GT HS [facility] Stop: 08/30/18 20:59 Last Admin: 07/06/18 21:14 Dose: 40 mg Calamine/Phenol (Calmoseptine) 1 appl TP QID PRN PRN Reason: Skin Irritation Stop: 09/03/18 16:24 Last Admin: 07/06/18 08:19 Dose: 1 appl Calcium Carbonate (Os-Alon) 500 mg GT Q12H [facility] Stop: 08/30/18 08:59 Last Admin: 07/07/18 09:54 Dose: Not Given [place] Oil/Emirati Balsam/Trypsin (Venelex) 1 appl TP BID [facility] Stop: 08/31/18 08:59 Last Admin: 07/07/18 09:00 Dose: 1 appl Chlorhexidine Gluconate (Peridex) 15 ml MM 0800,1999 [facility] Stop: 08/30/18 19:59 Last Admin: 07/07/18 08:05 Dose: 15 ml Dextrose (D50w) 50 ml IVP PRN PRN PRN Reason: Blood Glucose less than 70 Stop: 08/29/18 18:34 Last Admin: 06/30/18 19:15 Dose: 50 ml Dextrose (Glutose 40%) 18.75 gm PO PRN PRN PRN Reason: Blood Glucose less than 70 Stop: 08/29/18 18:34 Epoetin Rj (Epogen) 10,000 units SUBQ TuThSa@1700 [facility] Stop: 09/02/18 15:59 Last Admin: 07/06/18 16:26 Dose: 10,000 units Folic Acid (Folate) 1 mg GT DAILY [facility] Stop: 08/31/18 08:59 Last Admin: 07/07/18 09:54 Dose: Not Given Glucagon (Glucagen) 1 mg IM PRN PRN PRN Reason: Blood Glucose less than 70 Stop: 08/29/18 18:34 Piperacillin Sod/Tazobactam (Sod 2.25 gm/ Sodium Chloride) 50 mls @ 100 mls/hr IV Q8H [facility] Stop: 08/29/18 16:59 Last Infusion: 07/07/18 12:43 Dose: Infused Linezolid (Zyvox) 600 mg in 300 mls @ 300 mls/hr IV Q12HR [facility] Stop: 09/02/18 20:59 Last Infusion: 07/07/18 10:02 Dose: Infused Colistimethate Sodium 150 mg/ (Sodium Chloride) 100 mls @ 100 mls/hr IV Q36H [facility] Stop: 09/03/18 16:59 Last Infusion: 07/07/18 06:00 Dose: Infused Dextrose/Sodium Chloride (D5-0.9%Ns) 1,000 mls @ 50 mls/hr IV .Q20H [facility] Stop: 07/08/18 00:00 Last Admin: 07/07/18 00:04 Dose: 50 mls/hr Ibuprofen (Motrin) 400 mg GT Q6H PRN PRN Reason: PAIN OR TEMP >101 Stop: 08/30/18 03:13 Insulin Aspart (Novolog Insulin Sliding Scale) 0 units SUBQ Q6H [facility]; Protocol Stop: 08/30/18 05:59 Last Admin: 07/07/18 12:56 Dose: 6 units Insulin Detemir (Levemir Insulin) 20 units SUBQ Q12H [facility]; Protocol Stop: 08/30/18 08:59 Last Admin: 07/07/18 09:55 Dose: Not Given Ipratropium [place] (Atrovent Neb 0.5mg/2.5ml) 0.5 mg HHN Q4HRT [facility] Stop: 08/30/18 14:59 Last Admin: 07/07/18 14:08 Dose: 0.5 mg Lactobacillus Rhamnosus (Culturelle 15b) 1 each GT DAILY [facility] Stop: 08/30/18 08:59 Last Admin: 07/07/18 09:55 Dose: Not Given Miscellaneous (Vte Chemical Prophylaxis Screen/Icu Transfer) 1 ea PRN PRN PRN Reason: PROTOCOL Stop: 08/30/18 08:08 Miscellaneous (Probiotic Screen) 1 [facility] PRN PRN PRN Reason: PROTOCOL Stop: 09/01/18 09:26 Pantoprazole Sodium (Protonix) 40 mg GT DAILY [facility] Stop: 08/30/18 08:59 Last Admin: 07/07/18 09:55 Dose: Not Given Psyllium Hydrophilic Mucilloid (Metamucil) 1 pkt GT Q12HR [facility] Stop: 08/30/18 08:59 Last Admin: 07/07/18 10:00 Dose: Not Given Vitamin B Complex/Vit C/Folic Acid (Vitamin B Complex W/Vitamin C) 1 tab GT DAILY [facility] Stop: 08/30/18 08:59 Last Admin: 07/07/18 10:01 Dose: Not Given Zinc Sulfate (Zinc Sulfate) 220 mg GT DAILY [facility] Stop: 02/13/19 08:59 Last Admin: 07/07/18 10:01 Dose: Not Given General: Other (MECHANICALLY VENTILATED VIA TRACH) HEENT: Atraumatic, PERRLA, EOMI, Other (trach) Neck: Supple Cardiovascular: Regular rate, Normal S1, Normal S2 Lungs: Clear to auscultation Abdomen: Bowel sounds, Soft, Other (gastric tube) Extremities: Edema (BUE 1-2 edema) - Procedures Procedures: Procedures Procedure Code Date EXCISION OF BACK SUBCU/FASCIA, OPEN APPROACH [id number] 06/30/18 PERFORMANCE OF URINARY FILTRATION, <6 HRS/DAY [id number] 06/30/18 RESPIRATORY VENTILATION, GREATER THAN 96 CONSECUTIVE HOURS [id number] 06/30/18 TRANSFUSE NONAUT RED BLOOD CELLS IN PERIPH VEIN, PERC 20363G1 06/30/18 Assessment/Plan - Problem List Patient Problems: All Active Problems ANEMIA WITH HB OF 6.8 (Acute) - Assessment Assessment: 1. FOBT+, then negative 2. Anemia - multifactorial 3. Recent negative colonoscopy 4. ESRD, septicemia -Has had a recent colonoscopy , risks outweigh benefits, no overt bleeding; multifactorial anemia -Iron supplementation, supportive care -Pt is not acting like an acute bowel obstruction, may have mild ileus but not clinically active just yet -PRBCs if Hg<7 -Gi is not planning any endoscopic intervention without obvious signs of GI bleeding, she may continue to drop Hg as her production of RBC is likely significantly impaired -Will follow
[2018-07-07] MEDS ORDERED: Albumin 25% 25gm/100mL 25 GM/100 ML BTL IV ONE ×2 (18:25→18:26)
--- NOTE | 2018-07-07 18:27 | General Progress Note ---
Subjective - Review of Systems Service Date: 07/07/18 Events since last encounter: S/P BEDSIDE DEBRIDEMENT HB SLOWLY TRENDING DOWN Subjective: UNABLE TO OBTAIN Objective - Results Result Diagrams: 07/07/18 05:00 07/07/18 05:00 Recent Labs: Laboratory Last Values WBC 11.4 Th/cmm (4.8-10.8) H 07/07/18 05:00 RBC 2.83 Mil/cmm (3.80-5.20) L 07/07/18 05:00 Hgb 8.1 gm/dL (12-16) L 07/07/18 05:00 Hct 24.7 % (41.0-60) L 07/07/18 05:00 MCV 87.4 fl (81-100) 07/07/18 05:00 MCH 28.8 pg (27.0-31.0) 07/07/18 05:00 MCHC Differential 32.9 pg (28.0-36.0) 07/07/18 05:00 RDW 15.8 % (11.5-20.0) 07/07/18 05:00 Plt Count 277 Th/cmm (150-400) 07/07/18 05:00 MPV 7.7 fl 07/07/18 05:00 Add Manual Diff YES 07/04/18 06:00 Neutrophils % 80.1 % (40.0-80.0) H 07/07/18 05:00 Band Neutrophils % 1 % (0-10) 07/05/18 05:35 Lymphocytes % 10.6 % (20.0-50.0) L 07/07/18 05:00 Monocytes % 5.2 % (2.0-10.0) 07/07/18 05:00 Eosinophils % 3.2 % (0.0-5.0) 07/07/18 05:00 Basophils % 0.9 % (0.0-2.0) 07/07/18 05:00 Neutrophils (Manual) 80 % (40-80) 07/05/18 05:35 Lymphocytes 10 % (20-50) L 07/05/18 05:35 Monocytes 8 % (2-10) 07/05/18 05:35 Eosinophils 1 % (0-5) 07/05/18 05:35 Basophils 0 % (0-3) 07/04/18 06:00 Total Retics Counted 3.8 % (0.5-1.5) H 07/01/18 05:25 Absolute Retic 117.4 Th/cmm 07/01/18 05:25 Corrected Retic Count 2.2 % (0.5-1.5) H 07/01/18 05:25 PT 10.2 SECONDS (9.5-11.5) 06/30/18 15:20 INR 0.98 (0.5-1.4) 06/30/18 15:20 PTT (Actin FS) 29.5 SECONDS (26.0-38.0) 06/30/18 15:20 Sodium 129 mEq/L (136-145) L 07/07/18 05:00 Potassium 3.5 mEq/L (3.5-5.1) 07/07/18 05:00 Chloride 90 mEq/L (98-107) L 07/07/18 05:00 Carbon Dioxide 25.2 mEq/L (21.0-31.0) 07/07/18 05:00 Anion Gap 17.3 (7.0-16.0) H 07/07/18 05:00 BUN 60 mg/dL (7-25) H 07/07/18 05:00 Creatinine 3.7 mg/dL (0.6-1.2) H 07/07/18 05:00 Est GFR ( Amer) 15.8 ml/min (>90) 07/07/18 05:00 Est GFR (Non-Af Amer) 13.1 ml/min 07/07/18 05:00 BUN/Creatinine Ratio 16.2 07/07/18 05:00 Glucose 197 mg/dL (70-105) H 07/07/18 05:00 POC Glucose 170 MG/DL (70 - 105) H 07/07/18 17:24 Whole Bld Lactic Acid 1.15 mmol/L (0.60-1.99) 06/30/18 15:20 Calcium 8.4 mg/dL (8.6-10.3) L 07/07/18 05:00 Phosphorus 2.6 mg/dL (2.5-5.0) 06/30/18 15:20 Magnesium 2.8 mg/dL (1.9-2.7) H 06/30/18 15:20 Iron 20 ug/dL (27-139) L 07/01/18 05:25 TIBC 98 ug/dL (250-450) L 07/01/18 05:25 Iron Saturation 20 % (15-55) 07/01/18 05:25 Unsaturated IBC 78 ug/dL (118-369) L 07/01/18 05:25 Transferrin 78 mg/dL (200-370) L 07/01/18 05:25 Erythropoietin 16.0 mIU/mL (2.6-18.5) 07/01/18 05:25 Ferritin 3105 ng/mL (15-150) H 07/01/18 05:25 Total Bilirubin 0.4 mg/dL (0.3-1.0) 07/07/18 05:00 AST 22 U/L (13-39) 07/07/18 05:00 ALT 18 U/L (7-52) 07/07/18 05:00 Alkaline Phosphatase 330 U/L (34-104) H 07/07/18 05:00 Lactate Dehydrogenase 217 U/L (140-271) 07/01/18 05:25 Troponin I 0.07 ng/mL (0.01-0.05) H* 06/30/18 15:20 Total Protein 5.5 gm/dL (6.0-8.3) L 07/07/18 05:00 Albumin 2.1 gm/dL (3.7-5.3) L 07/07/18 05:00 Globulin 3.4 gm/dL 07/07/18 05:00 Albumin/Globulin Ratio 0.6 (1.0-1.8) L 07/07/18 05:00 Vitamin B12 >1999 pg/mL (232-1245) H 07/01/18 05:25 Folic Acid 18.3 ng/mL (>3.0) 07/01/18 05:25 Stool Occult Blood POSITIVE (NEGATIVE) H 07/04/18 03:12 Vancomycin Trough 24.9 ug/mL (5-10) H 07/04/18 06:00 Random Vancomycin 30.0 ug/mL (5.0-40.0) 07/03/18 04:20 Hep Bs Antigen Negative (Negative) 06/30/18 15:20 Hepatitis C Antibody <0.1 s/co ratio (0.0-0.9) 06/30/18 15:20 Blood Type O POSITIVE 07/05/18 09:40 Antibody Screen NEGATIVE 07/05/18 09:40 Crossmatch See Detail 07/05/18 09:40 - Physical Exam Vitals and I&O: Vital Signs Temp 97.6 F 07/07/18 16:00 Pulse 101 07/07/18 17:00 Resp 24 07/07/18 17:00 BP 115/50 07/07/18 17:00 Pulse Ox 100 07/07/18 18:00 Intake & Output 07/06/18 07/07/18 07/07/18 18:59 06:59 18:59 Intake Total 1000 450 727 Output Total 0 0 Balance 1000 450 727 Weight (lbs) 78.925 kg 78.925 kg Intake: Intake, IV Amount 500 450 350 Colistimethate 150 mg In 100 Sodium Chloride 0.9% 100 ml @ 100 mls/hr IV Q36H [facility] Rx#:[id number] Linezolid 600mg/300mL 600 300 300 300 mg In 300 ml @ 300 mls/ hr IV Q12HR [facility] Rx#: [id number] Piperacillin Sodium/ 100 50 50 Tazobact 2.25 gm In Sodium Chloride 0.9% 50 ml @ 100 mls/hr IV Q8H [facility] Rx#:[id number] Tube Feeding 500 177 Other 200 Output: Urine 0 0 Other: # Bowel Movements 4 2 Stool Characteristics Soft Soft Soft Liquid Liquid Liquid Brown Brown Brown Weight Source Bedscale Bedscale Active Medications: Current Medications Acetylcysteine (Mucomyst 20%) 3 ml HHN Q4HRT [facility] Stop: 08/30/18 14:59 Last Admin: 07/07/18 14:07 Dose: 3 ml Albuterol Sulfate (Albuterol 2.5mg/3ml Neb Ud) 2.5 mg HHN Q4HRT [facility] Stop: 08/30/18 14:59 Last Admin: 07/07/18 14:08 Dose: 2.5 mg Ascorbic Acid (Vitamin C) 500 mg GT BID [facility] Stop: 08/30/18 08:59 Last Admin: 07/07/18 17:28 Dose: 500 mg Atorvastatin Calcium (Lipitor) 40 mg GT HS [facility] Stop: 08/30/18 20:59 Last Admin: 07/06/18 21:14 Dose: 40 mg Calamine/Phenol (Calmoseptine) 1 appl TP QID PRN PRN Reason: Skin Irritation Stop: 09/03/18 16:24 Last Admin: 07/06/18 08:19 Dose: 1 appl Calcium Carbonate (Os-Mago) 500 mg GT Q12H [facility] Stop: 08/30/18 08:59 Last Admin: 07/07/18 09:54 Dose: Not Given [place] Oil/[place] Balsam/Trypsin (Venelex) 1 appl TP BID [facility] Stop: 08/31/18 08:59 Last Admin: 07/07/18 18:05 Dose: 1 appl Chlorhexidine Gluconate (Peridex) 15 ml MM 0800,1999 [facility] Stop: 08/30/18 19:59 Last Admin: 07/07/18 08:05 Dose: 15 ml Dextrose (D50w) 50 ml IVP PRN PRN PRN Reason: Blood Glucose less than 70 Stop: 08/29/18 18:34 Last Admin: 06/30/18 19:15 Dose: 50 ml Dextrose (Glutose 40%) 18.75 gm PO PRN PRN PRN Reason: Blood Glucose less than 70 Stop: 08/29/18 18:34 Epoetin Rj (Epogen) 10,000 units SUBQ TuThSa@1700 [facility] Stop: 09/02/18 15:59 Last Admin: 07/06/18 16:26 Dose: 10,000 units Folic Acid (Folate) 1 mg GT DAILY [facility] Stop: 08/31/18 08:59 Last Admin: 07/07/18 09:54 Dose: Not Given Glucagon (Glucagen) 1 mg IM PRN PRN PRN Reason: Blood Glucose less than 70 Stop: 08/29/18 18:34 Piperacillin Sod/Tazobactam (Sod 2.25 gm/ Sodium Chloride) 50 mls @ 100 mls/hr IV Q8H [facility] Stop: 08/29/18 16:59 Last Admin: 07/07/18 18:03 Dose: 100 mls/hr Linezolid (Zyvox) 600 mg in 300 mls @ 300 mls/hr IV Q12HR [facility] Stop: 09/02/18 20:59 Last Infusion: 07/07/18 10:02 Dose: Infused Colistimethate Sodium 150 mg/ (Sodium Chloride) 100 mls @ 100 mls/hr IV Q36H [facility] Stop: 09/03/18 16:59 Last Infusion: 07/07/18 06:00 Dose: Infused Dextrose/Sodium Chloride (D5-0.9%Ns) 1,000 mls @ 50 mls/hr IV .Q20H [facility] Stop: 07/08/18 00:00 Last Admin: 07/07/18 00:04 Dose: 50 mls/hr Ibuprofen (Motrin) 400 mg GT Q6H PRN PRN Reason: PAIN OR TEMP >101 Stop: 08/30/18 03:13 Last Admin: 07/07/18 17:28 Dose: 400 mg Insulin Aspart (Novolog Insulin Sliding Scale) 0 units SUBQ Q6H [facility]; Protocol Stop: 08/30/18 05:59 Last Admin: 07/07/18 17:29 Dose: 2 units Insulin Detemir (Levemir Insulin) 20 units SUBQ Q12H [facility]; Protocol Stop: 08/30/18 08:59 Last Admin: 07/07/18 09:55 Dose: Not Given Ipratropium [place] (Atrovent Neb 0.5mg/2.5ml) 0.5 mg HHN Q4HRT [facility] Stop: 08/30/18 14:59 Last Admin: 07/07/18 14:08 Dose: 0.5 mg Lactobacillus Rhamnosus (Culturelle 15b) 1 each GT DAILY [facility] Stop: 08/30/18 08:59 Last Admin: 07/07/18 09:55 Dose: Not Given Miscellaneous (Vte Chemical Prophylaxis Screen/Icu Transfer) 1 ea PRN PRN PRN Reason: PROTOCOL Stop: 08/30/18 08:08 Miscellaneous (Probiotic Screen) 1 ea PRN PRN PRN Reason: PROTOCOL Stop: 09/01/18 09:26 Pantoprazole Sodium (Protonix) 40 mg GT DAILY [facility] Stop: 08/30/18 08:59 Last Admin: 07/07/18 09:55 Dose: Not Given Psyllium Hydrophilic Mucilloid (Metamucil) 1 pkt GT Q12HR [facility] Stop: 08/30/18 08:59 Last Admin: 07/07/18 10:00 Dose: Not Given Vitamin B Complex/Vit C/Folic Acid (Vitamin B Complex W/Vitamin C) 1 tab GT DAILY [facility] Stop: 08/30/18 08:59 Last Admin: 07/07/18 10:01 Dose: Not Given Zinc Sulfate (Zinc Sulfate) 220 mg GT DAILY [facility] Stop: 08/30/18 08:59 Last Admin: 07/07/18 10:01 Dose: Not Given General: Other (MECHANICALLY VENTILATED VIA TRACH, SEEN ON DIALYSIS) HEENT: Atraumatic, PERRLA, EOMI, Other (trach) Neck: Supple Cardiovascular: Regular rate, Normal S1, Normal S2 Lungs: Clear to auscultation Abdomen: Bowel sounds, Soft, Other (gastric tube) Extremities: Edema (BUE 1-2 edema) - Procedures Procedures: Procedures Procedure Code Date EXCISION OF BACK SUBCU/FASCIA, OPEN APPROACH [id number] 06/30/18 PERFORMANCE OF URINARY FILTRATION, <6 HRS/DAY [id number] 06/30/18 RESPIRATORY VENTILATION, GREATER THAN 96 CONSECUTIVE HOURS [id number] 06/30/18 TRANSFUSE NONAUT RED BLOOD CELLS IN PERIPH VEIN, PERC 53692J6 06/30/18 Assessment/Plan - Problem List Patient Problems: All Active Problems ANEMIA WITH HB OF 6.8 (Acute) - Assessment Assessment: ESRD FROM DM/HTN ACUTE ON CHRONIC ANEMIA OF CKD CHRONIC VENT DEPENDENT RESP FAILURE DYSPHAGIA WITH G TUBE STATUS - Plan Plan: HD TODAY , NEXT TUESDAY CONT EPO CONT IV IRON TRANSFUSE NECESSARY, TREND HB Nutritional Asmnt/Malnutr-PDOC - Dietary Evaluation Malnutrition Findings (Please click <Entered> for more info): Nutritional Asmnt/Malnutrition Start: 07/01/18 10: 22 Text: Status: Complete Freq: Protocol: Document 07/04/18 14:30 [email or web address] (Rec: 07/04/18 14:39 [email or web address]) Nutritional Asmnt/Malnutrition Patient General Information Nutritional Screening High Risk Diagnosis pneumonia and dialysis dependent Pertinent Medical Hx/Surgical Hx HTN, RESP FAILURE, DM, ANEMIA Subjective Information PER NURSING NOTE, PT OBTUNDED, TRACH TO VENT, ABDOMEN SOFT, NONTENDER, BOWEL SOUNDS NOTED 2+ EDEMA Current Diet Order/ Nutrition Support NEPRO @ 63 ML/HR Patient / S.O Not Indicated Pertinent Medications MULTI VIT, PROTONIX, CULTURFELLE, ZINC SULFATE, LEVEMIR, INS-SS, VIT C, LIPITOR, OS MAGO, FOLATE, GLUCAGEN Pertinent Labs NA 133, POTASS 3.3, CL 93, BUN /CR 50/2.6, eGFR 19.6, CA 8.4, WBC 12.4 BEDSIDE GLUCOSE: 239, 282, 292 , 144 Nutritional Hx/Data Height 1.57 m Height (Calculated Centimeters) 157.5 Current Weight (lbs) 83.461 kg Weight (Calculated Kilograms) 83.5 Weight (Calculated Grams) 08730.0 [place] Body Weight 110 % [place] Body Weight 167 Body Mass Index (BMI) 33.6 Weight Status Obese GI Symptoms Last BM TODAY X 2 Difficult in: Chewing Swallowing Food Allergies No Skin Integrity/Comment: REED: 12, PRESSURE AREAS: SACRUM, XUAN HEEL Estimated Nutritional Goals BEE in Kcals: Adj wt of IBW Protein: Adj wt of IBW
--- NOTE | 2018-07-08 00:37 | Progress Notes ---
DATE: 07/07/2018 SURGICAL PROGRESS NOTE PHYSICAL EXAMINATION: GENERAL: Afebrile. VITAL SIGNS: Stable. NECK: The patient is trached, on vent. CHEST: Clear to auscultation bilaterally. CARDIAC: Regular rhythm and rate. ABDOMEN: Soft, nontender, nondistended. She has a G-tube in place. NEUROVASCULAR: Otherwise normal. She has a very excoriated sacrococcyx buttock wound area. She has a 10 x 8 cm area of sacrococcyx decubitus ulcer with denuded skin. She has ischemic and gangrenous areas and infected tissue at that site. The patient planned for surgical debridement today. LABORATORY DATA: White blood cell count 11.4 today, H and H are 8 and 24.7, platelet count is 277. Sodium is 129, chloride 90, BUN and creatinine 60 and 3.7, glucose 197. Alkaline phosphatase 330. MEDICATIONS: The patient is on acetylcysteine, albuterol, colistimethate, epoetin, insulin, Zyvox, Protonix, Zosyn. DIAGNOSTIC DATA: No recent imaging tests. IMPRESSION AND PLAN: The patient with multiple medical problems, multiple consultants on the case. The patient with sacrococcyx decubitus wound with a 10 x 8 cm area of excoriated skin, infected gangrenous and denuded skin and subcutaneous tissue, unstageable at this time. Debridement required, this is planned for today with IV sedation, anesthesia services and OR services available today. I spoke with the daughter about the debridement procedure. She had agreed to the procedure earlier and consent signed. Risks and benefits were explained. I also had a lengthy discussion with the daughter, Franchesca South about the possibility and recommendation for diverting colostomy. She is somewhat of a risk because of her obesity, but this may allow her wounds to heal and prevent fecal contamination of the sacrococcyx wound. I believe that the patient's leukocytosis and sepsis may be in part and mainly related to the fecal incontinence and fecal contamination of sacrococcyx wound. There is no obvious evidence of osteomyelitis, but diverting colostomy would help to divert the stool away. The daughter has not fully committed to the diverting colostomy at this time. She said that she needs to speak with family and have a family discussion first. For now, she wishes to just place a rectal Flexi-Seal tube to divert the stool if possible. If the patient's family agrees to diverting colostomy, this can likely be scheduled sometime next week. JOB# [id number]
[2018-07-08] MEDS: Piperacillin/Tazobact 2.25 gm in 0.9% NS 50 ML IV SCH (00:55)
[2018-07-08] MEDS: INSULIN ASPART SLIDING SCALE 100 UNITS/ML UNIT SUBQ SCH ×4 (00:56→17:19)
[2018-07-08] MEDS: Albuterol Nebulizer 2.5mg/3mL HHN SCH ×4 (03:14→15:35)
[2018-07-08] MEDS: Ipratropium Neb 0.5 mg/2.5 mL UD HHN SCH ×4 (03:14→15:35)
[2018-07-08 04:43] LABS: % BASOPHILS 0.8 % (0.0-2.0); % EOSINOPHILS 1.6 % (0.0-5.0); % LYMPHOCYTES 6.6 % (20.0-50.0); % MONOCYTES 3.7 % (2.0-10.0); % NEUTROPHILS 87.3 % (40.0-80.0); BASOPHILE ABSOLUTE 0.1 Th/cumm (0-0.2); EOSINOPHILE ABSOLUTE 0.3 Th/cmm (0.1-0.4); HEMATOCRIT 24.8 % (41.0-60); HEMOGLOBIN 8.3 gm/dL (12-16); LYMPHOCYTE ABSOLUTE 1.1 Th/cmm (1.5-3.0); MEAN CORPUSCULAR HEMOGLOBIN 28.6 pg (27.0-31.0); MEAN CORPUSCULAR HGB CONC 33.6 pg (28.0-36.0); MEAN PLATELET VOLUME 6.7 fl; MONOCYTE ABSOLUTE 0.6 Th/cmm (0.3-1.0); NEUTROPHILE ABSOLUTE 14.2 Th/cmm (1.8-8.0); PLATELET COUNT 256 Th/cmm (150-400); RED BLOOD COUNT 2.92 Mil/cmm (3.80-5.20); RED CELL DISTRIBUTION WIDTH 15.8 % (11.5-20.0)
[2018-07-08 04:59] LABS: WHITE BLOOD COUNT 16.3 Th/cmm (4.8-10.8)
[2018-07-08 05:25] LABS: BAND NEUTROPHILE 1 % (0-10); EOSINOPHIL 1 % (0-5); LYMPHOCYTE 7 % (20-50); MONOCYTE 3 % (2-10); NEUTROPHILS 88 % (40-80)
[2018-07-08 05:26] LABS: ALB/GLOB RATIO 0.8 (1.0-1.8); ALBUMIN 2.5 gm/dL (3.7-5.3); ANION GAP 17.8 (7.0-16.0); BILIRUBIN,TOTAL 0.4 mg/dL (0.3-1.0); CALCIUM SERUM 8.8 mg/dL (8.6-10.3); CARBON DIOXIDE 30.3 mEq/L (21.0-31.0); CREATININE - SERUM 2.3 mg/dL (0.6-1.2); GFR AFRICAN-AMERICAN 27.4 ml/min (>90); GFR NON AFRICAN-AMERICAN 22.6 ml/min; POTASSIUM SERUM 3.1 mEq/L (3.5-5.1); TOTAL PROTEIN,SERUM 5.8 gm/dL (6.0-8.3)
--- NOTE | 2018-07-08 08:30 | Progress Notes ---
DATE: 07/07/2018 INFECTIOUS DISEASE PROGRESS NOTE SUBJECTIVE: The patient is lying in the bed, not in acute distress, on the ventilator status post tracheostomy. OBJECTIVE: CURRENT VITAL SIGNS: Showed temperature 99 degrees Fahrenheit, pulse 100, respirations 24, blood pressure 126/50. GENERAL: The patient is comfortable, lying in the bed, not in acute distress, on the ventilator status post tracheostomy. HEENT: Head is normocephalic, atraumatic. Oral cavity moist. [place] tongue. Eyes: Pallor is noted, no icterus, PERRLA, EOMI. NECK: Supple. No JVD. No carotid bruit. Trachea in midline. Tracheostomy site is clean. CHEST: Bilateral breath sounds. No crackles present. HEART: S1 and S2 within normal limits. Regular rhythm. No murmur. No gallop. ABDOMEN: Soft, nontender, nondistended. Bowel sounds present. EXTREMITIES: No cyanosis, no clubbing, no edema. NEUROLOGIC: Alert, awake, but unable to communicate. LABORATORY DATA: Current lab shows WBC count 11,400, hemoglobin 8.1, hematocrit 24.7, platelets are 277,000, neutrophils 84%. Sodium 135, potassium 3.5, chloride 103. Blood culture, no growth. IMPRESSION: 1. Leukocytosis. 2. Pneumonia. 3. Hypoglycemia. 4. Anemia. 5. Diabetes mellitus type 2. 6. Hypertension. 7. Chronic kidney disease, stage 5, on hemodialysis. 8. Ventilator-dependent respiratory failure. 9. Anemia of chronic disease. 10. Sacral decubitus ulcer. 11. Vancomycin resistant Enterococci infection, Proteus mirabilis infection, multidrug-resistant Pseudomonas infection. RECOMMENDATION: We will continue same treatment. Antibiotic suarez, ____ Colistin. Debridement done today. May initiate discharge plan. JOB# [id number]
[2018-07-08] MEDS: Chlorhexidine Gluconate 0.12% 15mL Mouthwash MM SCH (08:40)
--- NOTE | 2018-07-08 08:48 | GI Progress Note ---
Subjective - Review of Systems Service Date: 07/08/18 Subjective: No overt bleeding. No overnight events Objective - Results Result Diagrams: 07/08/18 04:30 07/08/18 04:30 Recent Labs: Laboratory Last Values WBC 16.3 Th/cmm (4.8-10.8) H D 07/08/18 04:30 RBC 2.92 Mil/cmm (3.80-5.20) L 07/08/18 04:30 Hgb 8.3 gm/dL (12-16) L 07/08/18 04:30 Hct 24.8 % (41.0-60) L 07/08/18 04:30 MCV 85.0 fl (81-100) 07/08/18 04:30 MCH 28.6 pg (27.0-31.0) 07/08/18 04:30 MCHC Differential 33.6 pg (28.0-36.0) 07/08/18 04:30 RDW 15.8 % (11.5-20.0) 07/08/18 04:30 Plt Count 256 Th/cmm (150-400) 07/08/18 04:30 MPV 6.7 fl 07/08/18 04:30 Add Manual Diff YES 07/04/18 06:00 Neutrophils % 87.3 % (40.0-80.0) H 07/08/18 04:30 Band Neutrophils % 1 % (0-10) 07/08/18 04:30 Lymphocytes % 6.6 % (20.0-50.0) L 07/08/18 04:30 Monocytes % 3.7 % (2.0-10.0) 07/08/18 04:30 Eosinophils % 1.6 % (0.0-5.0) 07/08/18 04:30 Basophils % 0.8 % (0.0-2.0) 07/08/18 04:30 Neutrophils (Manual) 88 % (40-80) H 07/08/18 04:30 Lymphocytes 7 % (20-50) L 07/08/18 04:30 Monocytes 3 % (2-10) 07/08/18 04:30 Eosinophils 1 % (0-5) 07/08/18 04:30 Basophils 0 % (0-3) 07/04/18 06:00 Total Retics Counted 3.8 % (0.5-1.5) H 07/01/18 05:25 Absolute Retic 117.4 Th/cmm 07/01/18 05:25 Corrected Retic Count 2.2 % (0.5-1.5) H 07/01/18 05:25 PT 10.2 SECONDS (9.5-11.5) 06/30/18 15:20 INR 0.98 (0.5-1.4) 06/30/18 15:20 PTT (Actin FS) 29.5 SECONDS (26.0-38.0) 06/30/18 15:20 Sodium 143 mEq/L (136-145) D 07/08/18 04:30 Potassium 3.1 mEq/L (3.5-5.1) L 07/08/18 04:30 Chloride 98 mEq/L (98-107) 07/08/18 04:30 Carbon Dioxide 30.3 mEq/L (21.0-31.0) 07/08/18 04:30 Anion Gap 17.8 (7.0-16.0) H 07/08/18 04:30 BUN 35 mg/dL (7-25) H 07/08/18 04:30 Creatinine 2.3 mg/dL (0.6-1.2) H 07/08/18 04:30 Est GFR ( Amer) 27.4 ml/min (>90) 07/08/18 04:30 Est GFR (Non-Af Amer) 22.6 ml/min 07/08/18 04:30 BUN/Creatinine Ratio 15.2 07/08/18 04:30 Glucose 130 mg/dL (70-105) H 07/08/18 04:30 POC Glucose 102 MG/DL (70 - 105) 07/08/18 05:35 Whole Bld Lactic Acid 1.15 mmol/L (0.60-1.99) 06/30/18 15:20 Calcium 8.8 mg/dL (8.6-10.3) 07/08/18 04:30 Phosphorus 2.6 mg/dL (2.5-5.0) 06/30/18 15:20 Magnesium 2.8 mg/dL (1.9-2.7) H 06/30/18 15:20 Iron 20 ug/dL (27-139) L 07/01/18 05:25 TIBC 98 ug/dL (250-450) L 07/01/18 05:25 Iron Saturation 20 % (15-55) 07/01/18 05:25 Unsaturated IBC 78 ug/dL (118-369) L 07/01/18 05:25 Transferrin 78 mg/dL (200-370) L 07/01/18 05:25 Erythropoietin 16.0 mIU/mL (2.6-18.5) 07/01/18 05:25 Ferritin 3105 ng/mL (15-150) H 07/01/18 05:25 Total Bilirubin 0.4 mg/dL (0.3-1.0) 07/08/18 04:30 AST 15 U/L (13-39) 07/08/18 04:30 ALT 16 U/L (7-52) 07/08/18 04:30 Alkaline Phosphatase 305 U/L (34-104) H 07/08/18 04:30 Lactate Dehydrogenase 217 U/L (140-271) 07/01/18 05:25 Troponin I 0.07 ng/mL (0.01-0.05) H* 06/30/18 15:20 Total Protein 5.8 gm/dL (6.0-8.3) L 07/08/18 04:30 Albumin 2.5 gm/dL (3.7-5.3) L 07/08/18 04:30 Globulin 3.3 gm/dL 07/08/18 04:30 Albumin/Globulin Ratio 0.8 (1.0-1.8) L 07/08/18 04:30 Vitamin B12 >1999 pg/mL (232-1245) H 07/01/18 05:25 Folic Acid 18.3 ng/mL (>3.0) 07/01/18 05:25 Stool Occult Blood POSITIVE (NEGATIVE) H 07/04/18 03:12 Vancomycin Trough 24.9 ug/mL (5-10) H 07/04/18 06:00 Random Vancomycin 30.0 ug/mL (5.0-40.0) 07/03/18 04:20 Hep Bs Antigen Negative (Negative) 06/30/18 15:20 Hepatitis C Antibody <0.1 s/co ratio (0.0-0.9) 06/30/18 15:20 Blood Type O POSITIVE 07/05/18 09:40 Antibody Screen NEGATIVE 07/05/18 09:40 Crossmatch See Detail 07/05/18 09:40 - Physical Exam Vitals and I&O: Vital Signs Temp 99.3 F 07/08/18 05:00 Pulse 103 07/08/18 07:28 Resp 24 07/08/18 06:00 BP 136/61 07/08/18 06:00 Pulse Ox 100 07/08/18 07:28 Intake & Output 07/07/18 07/08/18 07/08/18 18:59 06:59 18:59 Intake Total 777 500 Output Total 0 1500 Balance 777 -1000 Weight (lbs) 78.925 kg 78.925 kg Intake: Intake, IV Amount 400 300 Linezolid 600mg/300mL 600 300 300 mg In 300 ml @ 300 mls/ hr IV Q12HR [facility] Rx#: [id number] Piperacillin Sodium/ 100 Tazobact 2.25 gm In Sodium Chloride 0.9% 50 ml @ 100 mls/hr IV Q8H [facility] Rx#:[id number] Tube Feeding 177 Other 200 200 Output: Urine 0 Hemodialysis 1500 Other: # Bowel Movements 2 3 Stool Characteristics Soft Soft Liquid Liquid Brown Brown Weight Source Bedscale Bedscale Active Medications: Current Medications Acetylcysteine (Mucomyst 20%) 3 ml HHN Q4HRT [facility] Stop: 08/30/18 14:59 Last Admin: 07/08/18 07:27 Dose: 3 ml Albuterol Sulfate (Albuterol 2.5mg/3ml Neb Ud) 2.5 mg HHN Q4HRT [facility] Stop: 08/30/18 14:59 Last Admin: 07/08/18 07:27 Dose: 2.5 mg Ascorbic Acid (Vitamin C) 500 mg GT BID [facility] Stop: 08/30/18 08:59 Last Admin: 07/07/18 17:28 Dose: 500 mg Atorvastatin Calcium (Lipitor) 40 mg GT HS [facility] Stop: 08/30/18 20:59 Last Admin: 07/07/18 20:37 Dose: 40 mg Calamine/Phenol (Calmoseptine) 1 appl TP QID PRN PRN Reason: Skin Irritation Stop: 09/03/18 16:24 Last Admin: 07/06/18 08:19 Dose: 1 appl Calcium Carbonate (Os-[place]) 500 mg GT Q12H [facility] Stop: 08/30/18 08:59 Last Admin: 07/07/18 20:37 Dose: 500 mg [place] Oil/[place] Balsam/Trypsin (Venelex) 1 appl TP BID [facility] Stop: 08/31/18 08:59 Last Admin: 07/07/18 18:05 Dose: 1 appl Chlorhexidine Gluconate (Peridex) 15 ml MM 0800,2000 [facility] Stop: 08/30/18 19:59 Last Admin: 07/07/18 20:38 Dose: 15 ml Dextrose (D50w) 50 ml IVP PRN PRN PRN Reason: Blood Glucose less than 70 Stop: 08/29/18 18:34 Last Admin: 06/30/18 19:15 Dose: 50 ml Dextrose (Glutose 40%) 18.75 gm PO PRN PRN PRN Reason: Blood Glucose less than 70 Stop: 08/29/18 18:34 Epoetin Rj (Epogen) 10,000 units SUBQ TuThSa@1700 [facility] Stop: 09/02/18 15:59 Last Admin: 07/06/18 16:26 Dose: 10,000 units Folic Acid (Folate) 1 mg GT DAILY [facility] Stop: 08/31/18 08:59 Last Admin: 07/07/18 09:54 Dose: Not Given Glucagon (Glucagen) 1 mg IM PRN PRN PRN Reason: Blood Glucose less than 70 Stop: 08/29/18 18:34 Linezolid (Zyvox) 600 mg in 300 mls @ 300 mls/hr IV Q12HR [facility] Stop: 09/02/18 20:59 Last Infusion: 07/07/18 21:40 Dose: Infused Colistimethate Sodium 150 mg/ (Sodium Chloride) 100 mls @ 100 mls/hr IV Q36H [facility] Stop: 09/03/18 16:59 Last Infusion: 07/07/18 06:00 Dose: Infused Ibuprofen (Motrin) 400 mg GT Q6H PRN PRN Reason: PAIN OR TEMP >101 Stop: 08/30/18 03:13 Last Admin: 07/07/18 17:28 Dose: 400 mg Insulin Aspart (Novolog Insulin Sliding Scale) 0 units SUBQ Q6H [facility]; Protocol Stop: 08/30/18 05:59 Last Admin: 07/08/18 05:36 Dose: Not Given Insulin Detemir (Levemir Insulin) 20 units SUBQ Q12H [facility]; Protocol Stop: 08/30/18 08:59 Last Admin: 07/07/18 20:41 Dose: 20 units Ipratropium [place] (Atrovent Neb 0.5mg/2.5ml) 0.5 mg HHN Q4HRT [facility] Stop: 08/30/18 14:59 Last Admin: 07/08/18 07:27 Dose: 0.5 mg Lactobacillus Rhamnosus (Culturelle 15b) 1 each GT DAILY [facility] Stop: 08/30/18 08:59 Last Admin: 07/07/18 09:55 Dose: Not Given Miscellaneous (Vte Chemical Prophylaxis Screen/Icu Transfer) 1 ea PRN PRN PRN Reason: PROTOCOL Stop: 08/30/18 08:08 Miscellaneous (Probiotic Screen) 1 [facility] PRN PRN PRN Reason: PROTOCOL Stop: 09/01/18 09:26 Pantoprazole Sodium (Protonix) 40 mg GT DAILY [facility] Stop: 08/30/18 08:59 Last Admin: 07/07/18 09:55 Dose: Not Given Psyllium Hydrophilic Mucilloid (Metamucil) 1 pkt GT Q12HR [facility] Stop: 08/30/18 08:59 Last Admin: 07/07/18 20:29 Dose: Not Given Vitamin B Complex/Vit C/Folic Acid (Vitamin B Complex W/Vitamin C) 1 tab GT DAILY [facility] Stop: 08/30/18 08:59 Last Admin: 07/07/18 10:01 Dose: Not Given Zinc Sulfate (Zinc Sulfate) 220 mg GT DAILY [facility] Stop: 08/30/18 08:59 Last Admin: 07/07/18 10:01 Dose: Not Given General: Other (MECHANICALLY VENTILATED VIA TRACH, SEEN ON DIALYSIS) HEENT: Atraumatic, PERRLA Neck: Supple Cardiovascular: Regular rate, Normal S1, Normal S2 Abdomen: Bowel sounds, Soft, Other (gastric tube), no Tender, no Hepatomegaly, no Distended, no Rebound, no Mass, no Guarding Extremities: Edema (BUE 1-2 edema) - Procedures Procedures: Procedures Procedure Code Date EXCISION OF BACK SUBCU/FASCIA, OPEN APPROACH [id number] 06/30/18 PERFORMANCE OF URINARY FILTRATION, <6 HRS/DAY [id number] 06/30/18 RESPIRATORY VENTILATION, GREATER THAN 96 CONSECUTIVE HOURS [id number] 06/30/18 TRANSFUSE NONAUT RED BLOOD CELLS IN PERIPH VEIN, PERC 55435S4 06/30/18 Assessment/Plan - Problem List Patient Problems: All Active Problems ANEMIA WITH HB OF 6.8 (Acute) - Assessment Assessment: 67 yo F with respiratory failure with trach, dysphagia with G tube, chronic anemia , admitted with sepsis. 1. FOBT+, then negative 2. Anemia - multifactorial 3. Recent negative colonoscopy 4. ESRD, septicemia Plan: -Has had a recent colonoscopy , risks outweigh benefits, no overt bleeding; multifactorial anemia -Iron supplementation, supportive care -Pt is not acting like an acute bowel obstruction, may have mild ileus but not clinically active just yet -PRBCs if Hg<7 -Gi is not planning any endoscopic intervention without obvious signs of GI bleeding, she may continue to drop Hg as her production of RBC is likely significantly impaired -Will follow
[2018-07-08] MEDS: Linezolid 600mg/300mL 600 MG/300 ML BAG IV SCH (09:06)
[2018-07-08] MEDS: Vitamin B Complex w/Vitamin C Tab GT SCH (09:09)
[2018-07-08] MEDS: Pantoprazole 40 mg/Packet GT SCH (09:09)
[2018-07-08] MEDS: Lactobacillus Rhamnosus GG 15 Billion CFU CAP.SPRINK GT SCH (09:09)
[2018-07-08] MEDS: Venelex 60gm Tube TP SCH ×2 (09:12→17:16)
[2018-07-08] MEDS: Insulin Detemir 100 units/mL 10mL Vial SUBQ SCH (09:14)
[2018-07-08] MEDS ORDERED: Propofol 10 mg/mL 20mL Vial **SURGERY USE ONLY IV ONE (11:30)
--- NOTE | 2018-07-08 13:27 | General Progress Note ---
Subjective - Review of Systems Service Date: 07/08/18 Subjective: non communicative on vent/ trach s/p debridment Objective - Results Result Diagrams: 07/08/18 04:30 07/08/18 04:30 Recent Labs: Laboratory Last Values WBC 16.3 Th/cmm (4.8-10.8) H D 07/08/18 04:30 RBC 2.92 Mil/cmm (3.80-5.20) L 07/08/18 04:30 Hgb 8.3 gm/dL (12-16) L 07/08/18 04:30 Hct 24.8 % (41.0-60) L 07/08/18 04:30 MCV 85.0 fl (81-100) 07/08/18 04:30 MCH 28.6 pg (27.0-31.0) 07/08/18 04:30 MCHC Differential 33.6 pg (28.0-36.0) 07/08/18 04:30 RDW 15.8 % (11.5-20.0) 07/08/18 04:30 Plt Count 256 Th/cmm (150-400) 07/08/18 04:30 MPV 6.7 fl 07/08/18 04:30 Add Manual Diff YES 07/04/18 06:00 Neutrophils % 87.3 % (40.0-80.0) H 07/08/18 04:30 Band Neutrophils % 1 % (0-10) 07/08/18 04:30 Lymphocytes % 6.6 % (20.0-50.0) L 07/08/18 04:30 Monocytes % 3.7 % (2.0-10.0) 07/08/18 04:30 Eosinophils % 1.6 % (0.0-5.0) 07/08/18 04:30 Basophils % 0.8 % (0.0-2.0) 07/08/18 04:30 Neutrophils (Manual) 88 % (40-80) H 07/08/18 04:30 Lymphocytes 7 % (20-50) L 07/08/18 04:30 Monocytes 3 % (2-10) 07/08/18 04:30 Eosinophils 1 % (0-5) 07/08/18 04:30 Basophils 0 % (0-3) 07/04/18 06:00 Total Retics Counted 3.8 % (0.5-1.5) H 07/01/18 05:25 Absolute Retic 117.4 Th/cmm 07/01/18 05:25 Corrected Retic Count 2.2 % (0.5-1.5) H 07/01/18 05:25 PT 10.2 SECONDS (9.5-11.5) 06/30/18 15:20 INR 0.98 (0.5-1.4) 06/30/18 15:20 PTT (Actin FS) 29.5 SECONDS (26.0-38.0) 06/30/18 15:20 Sodium 143 mEq/L (136-145) D 07/08/18 04:30 Potassium 3.1 mEq/L (3.5-5.1) L 07/08/18 04:30 Chloride 98 mEq/L (98-107) 07/08/18 04:30 Carbon Dioxide 30.3 mEq/L (21.0-31.0) 07/08/18 04:30 Anion Gap 17.8 (7.0-16.0) H 07/08/18 04:30 BUN 35 mg/dL (7-25) H 07/08/18 04:30 Creatinine 2.3 mg/dL (0.6-1.2) H 07/08/18 04:30 Est GFR ( Amer) 27.4 ml/min (>90) 07/08/18 04:30 Est GFR (Non-Af Amer) 22.6 ml/min 07/08/18 04:30 BUN/Creatinine Ratio 15.2 07/08/18 04:30 Glucose 130 mg/dL (70-105) H 07/08/18 04:30 POC Glucose 110 MG/DL (70 - 105) H 07/08/18 11:19 Whole Bld Lactic Acid 1.15 mmol/L (0.60-1.99) 06/30/18 15:20 Calcium 8.8 mg/dL (8.6-10.3) 07/08/18 04:30 Phosphorus 2.6 mg/dL (2.5-5.0) 06/30/18 15:20 Magnesium 2.8 mg/dL (1.9-2.7) H 06/30/18 15:20 Iron 20 ug/dL (27-139) L 07/01/18 05:25 TIBC 98 ug/dL (250-450) L 07/01/18 05:25 Iron Saturation 20 % (15-55) 07/01/18 05:25 Unsaturated IBC 78 ug/dL (118-369) L 07/01/18 05:25 Transferrin 78 mg/dL (200-370) L 07/01/18 05:25 Erythropoietin 16.0 mIU/mL (2.6-18.5) 07/01/18 05:25 Ferritin 3105 ng/mL (15-150) H 07/01/18 05:25 Total Bilirubin 0.4 mg/dL (0.3-1.0) 07/08/18 04:30 AST 15 U/L (13-39) 07/08/18 04:30 ALT 16 U/L (7-52) 07/08/18 04:30 Alkaline Phosphatase 305 U/L (34-104) H 07/08/18 04:30 Lactate Dehydrogenase 217 U/L (140-271) 07/01/18 05:25 Troponin I 0.07 ng/mL (0.01-0.05) H* 06/30/18 15:20 Total Protein 5.8 gm/dL (6.0-8.3) L 07/08/18 04:30 Albumin 2.5 gm/dL (3.7-5.3) L 07/08/18 04:30 Globulin 3.3 gm/dL 07/08/18 04:30 Albumin/Globulin Ratio 0.8 (1.0-1.8) L 07/08/18 04:30 Vitamin B12 >1999 pg/mL (232-1245) H 07/01/18 05:25 Folic Acid 18.3 ng/mL (>3.0) 07/01/18 05:25 Stool Occult Blood POSITIVE (NEGATIVE) H 07/04/18 03:12 Vancomycin Trough 24.9 ug/mL (5-10) H 07/04/18 06:00 Random Vancomycin 30.0 ug/mL (5.0-40.0) 07/03/18 04:20 Hep Bs Antigen Negative (Negative) 06/30/18 15:20 Hepatitis C Antibody <0.1 s/co ratio (0.0-0.9) 06/30/18 15:20 Blood Type O POSITIVE 07/05/18 09:40 Antibody Screen NEGATIVE 07/05/18 09:40 Crossmatch See Detail 07/05/18 09:40 - Physical Exam Vitals and I&O: Vital Signs Temp 98.5 F 07/08/18 12:00 Pulse 103 07/08/18 13:18 Resp 24 07/08/18 12:00 BP 146/58 07/08/18 12:00 Pulse Ox 100 07/08/18 13:18 Intake & Output 07/07/18 07/08/18 07/08/18 18:59 06:59 18:59 Intake Total 777 500 300 Output Total 0 1500 Balance 777 -1000 300 Weight (lbs) 78.925 kg 78.925 kg Intake: Intake, IV Amount 400 300 300 Linezolid 600mg/300mL 600 300 300 300 mg In 300 ml @ 300 mls/ hr IV Q12HR [facility] Rx#: [id number] Piperacillin Sodium/ 100 Tazobact 2.25 gm In Sodium Chloride 0.9% 50 ml @ 100 mls/hr IV Q8H [facility] Rx#:[id number] Tube Feeding 177 Other 200 200 Output: Urine 0 Hemodialysis 1500 Other: # Bowel Movements 2 3 Stool Characteristics Soft Soft Soft Liquid Liquid Liquid Brown Brown Brown Weight Source Bedscale Bedscale Active Medications: Current Medications Acetylcysteine (Mucomyst 20%) 3 ml HHN Q4HRT [facility] Stop: 08/30/18 14:59 Last Admin: 07/08/18 11:18 Dose: 3 ml Albuterol Sulfate (Albuterol 2.5mg/3ml Neb Ud) 2.5 mg HHN Q4HRT [facility] Stop: 08/30/18 14:59 Last Admin: 07/08/18 11:18 Dose: 2.5 mg Ascorbic Acid (Vitamin C) 500 mg GT BID [facility] Stop: 08/30/18 08:59 Last Admin: 07/08/18 09:09 Dose: 500 mg Atorvastatin Calcium (Lipitor) 40 mg GT HS [facility] Stop: 08/30/18 20:59 Last Admin: 07/07/18 20:37 Dose: 40 mg Calamine/Phenol (Calmoseptine) 1 appl TP QID PRN PRN Reason: Skin Irritation Stop: 09/03/18 16:24 Last Admin: 07/06/18 08:19 Dose: 1 appl Calcium Carbonate (Os-[place]) 500 mg GT Q12H [facility] Stop: 08/30/18 08:59 Last Admin: 07/08/18 09:09 Dose: 500 mg [place] Oil/[place] Balsam/Trypsin (Venelex) 1 appl TP BID [facility] Stop: 08/31/18 08:59 Last Admin: 07/08/18 09:12 Dose: 1 appl Chlorhexidine Gluconate (Peridex) 15 ml MM 0800,1999 [facility] Stop: 08/30/18 19:59 Last Admin: 07/08/18 08:40 Dose: 15 ml Dextrose (D50w) 50 ml IVP PRN PRN PRN Reason: Blood Glucose less than 70 Stop: 08/29/18 18:34 Last Admin: 06/30/18 19:15 Dose: 50 ml Dextrose (Glutose 40%) 18.75 gm PO PRN PRN PRN Reason: Blood Glucose less than 70 Stop: 08/29/18 18:34 Epoetin Rj (Epogen) 10,000 units SUBQ TuThSa@1700 [facility] Stop: 09/02/18 15:59 Last Admin: 07/06/18 16:26 Dose: 10,000 units Folic Acid (Folate) 1 mg GT DAILY [facility] Stop: 08/31/18 08:59 Last Admin: 07/08/18 09:09 Dose: 1 mg Glucagon (Glucagen) 1 mg IM PRN PRN PRN Reason: Blood Glucose less than 70 Stop: 08/29/18 18:34 Linezolid (Zyvox) 600 mg in 300 mls @ 300 mls/hr IV Q12HR [facility] Stop: 09/02/18 20:59 Last Infusion: 07/08/18 10:10 Dose: Infused Colistimethate Sodium 150 mg/ (Sodium Chloride) 100 mls @ 100 mls/hr IV Q36H [facility] Stop: 09/03/18 16:59 Last Infusion: 07/07/18 06:00 Dose: Infused Ibuprofen (Motrin) 400 mg GT Q6H PRN PRN Reason: PAIN OR TEMP >101 Stop: 08/30/18 03:13 Last Admin: 07/07/18 17:28 Dose: 400 mg Insulin Aspart (Novolog Insulin Sliding Scale) 0 units SUBQ Q6H [facility]; Protocol Stop: 08/30/18 05:59 Last Admin: 07/08/18 11:20 Dose: Not Given Insulin Detemir (Levemir Insulin) 20 units SUBQ Q12H [facility]; Protocol Stop: 08/30/18 08:59 Last Admin: 07/08/18 09:14 Dose: Not Given Ipratropium [place] (Atrovent Neb 0.5mg/2.5ml) 0.5 mg HHN Q4HRT [facility] Stop: 08/30/18 14:59 Last Admin: 07/08/18 11:18 Dose: 0.5 mg Lactobacillus Rhamnosus (Culturelle 15b) 1 each GT DAILY [facility] Stop: 08/30/18 08:59 Last Admin: 07/08/18 09:09 Dose: 1 each Miscellaneous (Vte Chemical Prophylaxis Screen/Icu Transfer) 1 [facility] PRN PRN PRN Reason: PROTOCOL Stop: 08/30/18 08:08 Miscellaneous (Probiotic Screen) 1 [facility] PRN PRN PRN Reason: PROTOCOL Stop: 09/01/18 09:26 Pantoprazole Sodium (Protonix) 40 mg GT DAILY [facility] Stop: 08/30/18 08:59 Last Admin: 07/08/18 09:09 Dose: 40 mg Psyllium Hydrophilic Mucilloid (Metamucil) 1 pkt GT Q12HR [facility] Stop: 08/30/18 08:59 Last Admin: 07/08/18 09:11 Dose: 1 pkt Vitamin B Complex/Vit C/Folic Acid (Vitamin B Complex W/Vitamin C) 1 tab GT DAILY [facility] Stop: 08/30/18 08:59 Last Admin: 07/08/18 09:09 Dose: 1 tab Zinc Sulfate (Zinc Sulfate) 220 mg GT DAILY [facility] Stop: 08/30/18 08:59 Last Admin: 07/08/18 09:09 Dose: 220 mg General: Other (MECHANICALLY VENTILATED VIA TRACH, SEEN ON DIALYSIS) HEENT: Atraumatic, PERRLA Neck: Supple Cardiovascular: Regular rate, Normal S1, Normal S2 Lungs: Clear to auscultation Abdomen: Bowel sounds, Soft, Other (gastric tube), no Tender, no Hepatomegaly, no Distended, no Rebound, no Mass, no Guarding Extremities: Edema (BUE 1-2 edema) - Procedures Procedures: Procedures Procedure Code Date EXCISION OF BACK SUBCU/FASCIA, OPEN APPROACH [id number] 06/30/18 PERFORMANCE OF URINARY FILTRATION, <6 HRS/DAY [id number] 06/30/18 RESPIRATORY VENTILATION, GREATER THAN 96 CONSECUTIVE HOURS [id number] 06/30/18 TRANSFUSE NONAUT RED BLOOD CELLS IN PERIPH VEIN, PERC 29261X1 06/30/18 Assessment/Plan - Problem List Patient Problems: All Active Problems ANEMIA WITH HB OF 6.8 (Acute) - Assessment Assessment: Normocytic anemia, most likely multifactorial from chronic kidney disease and possible blood loss from the sacral decubitus ulcer and/or GI source. I will follow the iron studies and the patient will benefit from IV iron. If the ferritin is less than 400 and if she has adequate iron reserves, then Epogen injection will be started. Also, stool occult blood to evaluate for GI blood loss. I will start the patient on Ferrlecit. Pending the iron results. Follow the B12 and folate level and stool occult blood and consider Epogen if the iron reserve is adequate. 07/05: hgb is lower, tx with HD today. Continue iv ferrlecit, epo, folic acid and follow anemia wagner 07/06: lab noted ferritin>3000. dc ferrlecit and continue epo and folic acid. For sacral dec debridment 07/07: lab noted. hgb lower likely blood loss from decube. continue epo, folate 07/08: hgb slightly better. Continue epo and folic acid Nutritional Asmnt/Malnutr-PDOC - Dietary Evaluation Malnutrition Findings (Please click <Entered> for more info): Nutritional Asmnt/Malnutrition Start: 07/01/18 10: 22 Text: Status: Complete Freq: Protocol: Document 07/04/18 14:30 MBONUS (Rec: 07/04/18 14:39 [id number]) Nutritional Asmnt/Malnutrition Patient General Information Nutritional Screening High Risk Diagnosis pneumonia and dialysis dependent Pertinent Medical Hx/Surgical Hx HTN, RESP FAILURE, DM, ANEMIA Subjective Information PER NURSING NOTE, PT OBTUNDED, TRACH TO VENT, ABDOMEN SOFT, NONTENDER, BOWEL SOUNDS NOTED 2+ EDEMA Current Diet Order/ Nutrition Support NEPRO @ 63 ML/HR Patient / S.O Not Indicated Pertinent Medications MULTI VIT, PROTONIX, CULTURFELLE, ZINC SULFATE, LEVEMIR, INS-SS, VIT C, LIPITOR, OS MAGO, FOLATE, GLUCAGEN Pertinent Labs NA 133, POTASS 3.3, CL 93, BUN /CR 50/2.6, eGFR 19.6, CA 8.4, WBC 12.4 BEDSIDE GLUCOSE: 239, 282, 292 , 144 Nutritional Hx/Data Height 1.57 m Height (Calculated Centimeters) 157.5 Current Weight (lbs) 83.461 kg Weight (Calculated Kilograms) 83.5 Weight (Calculated Grams) 04088.0 [place] Body Weight 110 % [place] Body Weight 167 Body Mass Index (BMI) 33.6 Weight Status Obese GI Symptoms Last BM TODAY X 2 Difficult in: Chewing Swallowing Food Allergies No Skin Integrity/Comment: REED: 12, PRESSURE AREAS: SACRUM, XUAN HEEL Estimated Nutritional Goals BEE in Kcals: Adj wt of IBW Protein: Adj wt of IBW
[2018-07-08] MEDS: Epoetin Alfa 20000 Units/mL Vial SUBQ SCH (17:17)
--- NOTE | 2018-07-12 16:53 | Pathology Report ---
[id number] Collection Date: 07/07/2018 Surgeon: Dr. Aramis Perkins. Specimen Description: Debrided tissue, sacral decubitus ulcer. Gross Description: Received in formalin are multiple irregular leal-stokes degenerated soft tissue fragments ranging from 0.8 to 2.0 cm in greatest dimension. Sectioning shows soft necrotic-appearing soft tissue. Grinder Operator Surface Tool sections are submitted in 1 cassette. Microscopic Description: The histologic sections show ulcerated skin and soft tissue with areas of suppurative inflammation and necrosis, consisting of large collections of neutrophils with a degenerated necrotic background appreciated. Diagnosis: Ulcerated necrotic skin and soft tissue consistent with debridement, sacral decubitus ulcer. [facility]# [id number]
== END 2018-07-08 18:10 | DRG 853 ==
LOC: ER 14:34 → ICU 17:09
PROVIDERS: ADMIT Internal Medicine Infectious Disease; ATTEND Internal Medicine Infectious Disease
PROC: 5A1955Z Respiratory Ventilation, Greater than 96 Consecutive Hours (ICD-10-PCS; principal; 2018-06-30)
PROC: 30233N1 Transfusion of Nonautologous Red Blood Cells into Peripheral Vein, Percutaneous Approach (ICD-10-PCS; 2018-06-30)
PROC: 5A1D70Z Performance of Urinary Filtration, Intermittent, Less than 6 Hours Per Day (ICD-10-PCS; 2018-06-30)
PROC: 5A1D70Z Performance of Urinary Filtration, Intermittent, Less than 6 Hours Per Day (ICD-10-PCS; 2018-07-03)
PROC: 5A1D70Z Performance of Urinary Filtration, Intermittent, Less than 6 Hours Per Day (ICD-10-PCS; 2018-07-05)
PROC: 0JB70ZZ Excision of Back Subcutaneous Tissue and Fascia, Open Approach (ICD-10-PCS; 2018-07-07)
PROC: 5A1D70Z Performance of Urinary Filtration, Intermittent, Less than 6 Hours Per Day (ICD-10-PCS; 2018-07-07)
DX: A41.2 Sepsis due to unspecified staphylococcus (principal); L89.154 Pressure ulcer of sacral region, stage 4; N18.6 End stage renal disease; J69.0 Pneumonitis due to inhalation of food and vomit; G93.41 Metabolic encephalopathy; I12.0 Hypertensive chronic kidney disease with stage 5 chronic kidney disease or end stage renal disease; Z99.11 Dependence on respirator [ventilator] status; J96.10 Chronic respiratory failure, unspecified whether with hypoxia or hypercapnia; G93.1 Anoxic brain damage, not elsewhere classified; K92.2 Gastrointestinal hemorrhage, unspecified; E11.52 Type 2 diabetes mellitus with diabetic peripheral angiopathy with gangrene; I96 Gangrene, not elsewhere classified; R65.20 Severe sepsis without septic shock; D63.1 Anemia in chronic kidney disease; I25.10 Atherosclerotic heart disease of native coronary artery without angina pectoris; E78.5 Hyperlipidemia, unspecified; I48.91 Unspecified atrial fibrillation; R13.10 Dysphagia, unspecified; E11.649 Type 2 diabetes mellitus with hypoglycemia without coma; Z79.4 Long term (current) use of insulin; Z90.49 Acquired absence of other specified parts of digestive tract; Z99.2 Dependence on renal dialysis; Z88.5 Allergy status to narcotic agent; Z88.8 Allergy status to other drugs, medicaments and biological substances; Z93.1 Gastrostomy status; Z99.81 Dependence on supplemental oxygen; Z93.0 Tracheostomy status
CPT/HCPCS: 36415-UA; 71045-TC; 71250-TC; 78315-TC; 80048-TC; 80053-TC; 80202-TC; 82270-TC; 82607-90; 82668-90; 82728-90; 82746-90; 82948-90; 83036-90; 83540-90; 83550-90; 83605; 83615-TC; 83735-TC; 84100-TC; 84466-90; 84484-TC; 85007-TC; 85014-TC; 85018-TC; 85025-TC; 85044-TC; 85610-TC; 86803-90; 86850-TC; 86900-TC; 86901-TC; 86922-TC; 87070; 87070-90; 87340-90; 90779; 90937; 93005; 93970-TC-50; 94002; 94003; 94640; 96372; 96374; 96375; A4217; A9503; J0770; J0885; J1644; J1815; J1956; J2020; J2543; J2704; J2916; J3370; J3480; J7030; J7040; J7042; J7070; J7613; J7799; P9016; P9046; V2790; Z7610

== ENCOUNTER 2018-07-28 12:19 | Inpatient (IN) | payer MEDICARE, MEDICAID ==
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
[2018-07-28 13:25] LABS: HEMATOCRIT 22.4 % (41.0-60); RED BLOOD COUNT 2.55 Mil/cmm (3.80-5.20)
[2018-07-28 13:29] LABS: HEMOGLOBIN 7.2 gm/dL (12-16); WHITE BLOOD COUNT 23.5 Th/cmm (4.8-10.8)
[2018-07-28 13:30] LABS: MEAN CORPUSCULAR HEMOGLOBIN 28.1 pg (27.0-31.0); MEAN CORPUSCULAR HGB CONC 31.9 pg (28.0-36.0); MEAN PLATELET VOLUME 7.5 fl; PLATELET COUNT 255 Th/cmm (150-400)
--- NOTE | 2018-07-28 13:32 | ED Physician Chart ---
ED Chief Complaint/HPI - Patient Information Date Seen:: 07/28/18 Time Seen:: 12:20 Chief Complaint:: abnormal labs & fever History of Present Illness:: abnormal labs & fever in a patient who is ventilator dependent. Allergies:: Allergies Allergy/AdvReac Type Severity Reaction Status Date / Time acetaminophen Allergy Verified 07/28/18 12:45 codeine Allergy Verified 07/28/18 12:45 hydrocodone Allergy Verified 07/28/18 12:45 tramadol Allergy Verified 07/28/18 12:45 Vitals:: Vital Signs - 8 hr 07/28/18 12:34 Temp 99.7 F HR 117 RR 18 BP 152/69 Review:: Nurse's Note Reviewed, Transfer documents Reviewed ED Review of Systems - Review of Systems General/Constitutional: Fever, Weakness Skin: No skin lesions, No rash, No bruising Head: No headache, No light-headedness Eyes: No loss of vision, No pain, No diplopia ENT: No earache, No nasal drainage, No sore throat, No tinnitus Neck: No neck pain, No swelling, No thyromegaly, No stiffness, No mass noted Cardio Vascular: No chest pain, No palpitations, No PND, No orthopnea, No edema Pulmonary: SOB, Sputum GI: No nausea, No vomiting, No diarrhea, No pain, No melena, No hematochezia, No constipation, No hematemesis G/U: No dysuria, No frequency, No hematuria, Other (nearly anuric) Musculoskeletal: No bone or joint pain, No back pain, No muscle pain Endocrine: No polyuria, No polydipsia Psychiatric: No prior psych history, No depression, No anxiety, No suicidal ideation Hematopoietic: No bruising, No lymphadenopathy Allergic/Immuno: No urticaria, No angioedema Neurological: No syncope, No focal symptoms, No weakness, No paresthesia, No headache, No seizure, No dizziness, No confusion, No vertigo ED Past Medical History - Past Medical History Obtainable: No Past Medical History: Other (sepsis; anemia; anoxic brain damage; sacral decubitus) Family Medical History - Family Member Mother History Unknown: Yes ED Physical Exam - Physical Examination Other Gen/Cons comments:: not visibly responsive (baseline) Head: Atraumatic Eyes: Lids, conjuctiva normal, PERRL, EOMI Skin: No ecchymosis Other Skin comments:: 8 CM X 6 CM SACRAL DECUBITUS WHICH SMELLS VERY FOUL LIKE ANAEROBES AND WHICH IS RIGHT BY HER RECTUM WITH STOOL. ENMT: External ears, nose nl Neck: Nontender, No nuchal rigidity, No stridor Other Respiratory comments:: decreased breath sounds at bases ventilator dependent with trach at neck. Cardio Vascular: RRR, No murmur, gallop, rubs, NL S1 S2 Other Extremities comments:: no spontaneous movement of legs or arms. Other Neuro/Psych comments:: not visibly responsive (baseline) ED Labs/Radiology/EKG Results - Lab Results Results: Laboratory Tests 07/28/18 07/28/18 12:38 13:10 WBC 23.5 H* RBC 2.55 L Hgb 7.2 L* Hct 22.4 L MCV 88.0 MCH 28.1 MCHC Differential 31.9 RDW 19.0 Plt Count 255 MPV 7.5 Add Manual Diff YES POC Glucose 186 H ED Assessment - Assessment General Assessment: presented case to Dr. Olguin who will admit this patient. CXR: bilateral lobar pneumonia. called Dr. Lua two times after calling Dr. Wilkerson. Dr. Lua is the patient 's hand spring repairer helper. Dr. Jazmyn Hernandez answered for Dr. Lua. She will arrange for dialysis. ED Septic Shock - . Is Septic Shock (SBP<90, OR Lactate>4 mmol\L) present?: No - <6hrs of presentation: Vital Signs: Vital Signs - 8 hr 07/28/18 12:34 Temp 99.7 F HR 117 RR 18 BP 152/69 ED Reassessment (Disposition) - Reassessment Reassessment Condition:: Improved - Diagnosis Diagnosis:: Ventilator dependent patient Pneumonia Leukocytosis with left shift Anemia with hematocrit of 22.4 Chronic renal failure, dialysis dependent anoxic brain damage large, stage IV sacral decubitus with osteomyelitis - Patient Disposition Discharge/Transfer:: Acute Care w/in this hosp Admitted to:: ICU Condition at Disposition:: Stable, Improved
[2018-07-28 13:39] LABS: ALB/GLOB RATIO 0.6 (1.0-1.8); ALBUMIN 2.4 gm/dL (3.7-5.3); BILIRUBIN,TOTAL 0.4 mg/dL (0.3-1.0); CALCIUM SERUM 8.6 mg/dL (8.6-10.3); CARBON DIOXIDE 24.5 mEq/L (21.0-31.0); GFR AFRICAN-AMERICAN 20.1 ml/min (>90); GFR NON AFRICAN-AMERICAN 16.6 ml/min; MAGNESIUM 2.5 mg/dL (1.9-2.7); PHOSPHOROUS 1.5 mg/dL (2.5-5.0); POTASSIUM SERUM 4.5 mEq/L (3.5-5.1); TOTAL PROTEIN,SERUM 6.5 gm/dL (6.0-8.3)
[2018-07-28 13:41] LABS: URINE SOURCE CATH
[2018-07-28 13:47] LABS: URINE BILIRUBIN NEGATIVE (NEGATIVE); URINE BLOOD MODERATE (NEGATIVE); URINE GLUCOSE (UA) NEGATIVE (NEGATIVE); URINE KETONE NEGATIVE (NEGATIVE); URINE LEUKOCYTE ESTERASE MODERATE (NEGATIVE); URINE MICROSCOPIC INDICATED? YES; URINE NITRATE NEGATIVE (NEGATIVE); URINE PH 7.5 (4.6 - 8.0); URINE PROTEIN 100 mg/dL (NEGATIVE); URINE UROBILINOGEN 0.2 E.U./dL (0.2 - 1.0)
[2018-07-28 14:09] LABS: AMPHETAMINE URINE NEGATIVE (NEGATIVE); BARBITURATES URINE NEGATIVE (NEGATIVE); CANNABINOID THC NEGATIVE (NEGATIVE); COCAINE METABOLITE QUAL URINE NEGATIVE (NEGATIVE); METHADONE URINE NEGATIVE (NEGATIVE); METHAMPHETAMINES QUAL URINE NEGATIVE (NEGATIVE); OPIATES (MORPHINE) QUAL. URINE NEGATIVE (NEGATIVE); PHENCYCLIDINE (PCP) URINE NEGATIVE (NEGATIVE); TRICYCLICS (TCA) QUAL. URINE NEGATIVE (NEGATIVE)
[2018-07-28 14:10] LABS: BENZODIAZEPINES QUAL URINE NEGATIVE (NEGATIVE)
[2018-07-28 14:26] LABS: URINE CLARITY HAZY (CLEAR); URINE COLOR YELLOW
[2018-07-28 14:32] LABS: URINE EPITHELIAL CELLS FEW /lpf (FEW); URINE WBC 50-100 /hpf (0-5)
[2018-07-28 14:33] LABS: URINE BACTERIA 4+ /hpf (NONE SEEN)
[2018-07-28 16:26] LABS: BAND NEUTROPHILE 4 % (0-10); BASOPHIL 1 % (0-3); LYMPHOCYTE 6 % (20-50); MONOCYTE 3 % (2-10); NEUTROPHILS 86 % (40-80)
[2018-07-28 16:52] LABS: ALLEN TEST Positive; pH 7.53 (7.35-7.45)
[2018-07-28] MEDS ORDERED: Chlorhexidine Gluconate 0.12% 15mL Mouthwash MM SCH ×2 (20:00)
[2018-07-28 20:41] LABS: INR 1.14 (0.5-1.4); PROTHROMBIN TIME (TEST) 11.8 SECONDS (9.5-11.5)
[2018-07-28] MEDS: Chlorhexidine Gluconate 0.12% 15mL Mouthwash MM SCH (20:45)
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
[2018-07-28] MEDS: Albuterol/Ipratropium Neb 3 ML AERS HHN SCH (23:24)
[2018-07-29] MEDS: INSULIN ASPART SLIDING SCALE 100 UNITS/ML UNIT SUBQ SCH ×5 (00:27→23:46)
[2018-07-29] MEDS: Albuterol/Ipratropium Neb 3 ML AERS HHN SCH ×6 (04:08→22:50)
[2018-07-29 05:50] LABS: BASOPHILE ABSOLUTE 0.1 Th/cumm (0-0.2); HEMATOCRIT 21.7 % (41.0-60); LYMPHOCYTE ABSOLUTE 0.7 Th/cmm (1.5-3.0); MEAN CELL VOLUME 86.9 fl (81-100); MEAN CORPUSCULAR HEMOGLOBIN 29.2 pg (27.0-31.0); MEAN CORPUSCULAR HGB CONC 33.6 pg (28.0-36.0); MEAN PLATELET VOLUME 7.2 fl; MONOCYTE ABSOLUTE 1.2 Th/cmm (0.3-1.0); NEUTROPHILE ABSOLUTE 21.6 Th/cmm (1.8-8.0); RED CELL DISTRIBUTION WIDTH 16.6 % (11.5-20.0)
[2018-07-29 06:14] LABS: ANION GAP 14.5 (7.0-16.0); CALCIUM SERUM 8.1 mg/dL (8.6-10.3); CARBON DIOXIDE 24.9 mEq/L (21.0-31.0); CREATININE - SERUM 2.7 mg/dL (0.6-1.2); GFR AFRICAN-AMERICAN 22.7 ml/min (>90); GFR NON AFRICAN-AMERICAN 18.8 ml/min; HEMOGLOBIN 7.3 gm/dL (12-16); POTASSIUM SERUM 3.4 mEq/L (3.5-5.1); WHITE BLOOD COUNT 23.6 Th/cmm (4.8-10.8)
[2018-07-29 06:37] LABS: PLATELET COUNT 369 Th/cmm (150-400)
[2018-07-29 06:39] LABS: BAND NEUTROPHILE 1 % (0-10); EOSINOPHIL 0 % (0-5); LYMPHOCYTE 4 % (20-50); MONOCYTE 5 % (2-10); NEUTROPHILS 90 % (40-80)
[2018-07-29 07:22] VITALS: BP 140/67
[2018-07-29] MEDS: Chlorhexidine Gluconate 0.12% 15mL Mouthwash MM SCH ×2 (08:20→19:54)
--- NOTE | 2018-07-29 08:57 | Diagnostic Imaging Report ---
Portable chest x-ray HISTORY: Vascular catheter placement, shortness of breath Compared with the prior exam taken earlier in the day (1252 hours), a right-sided vascular catheter has been inserted. The tip is in the region of the superior vena cava. Compared with the earlier exam, persistent density is noted in the left lower hemithorax. This corresponds to extensive pulmonary parenchymal changes within the left lower lobe seen on earlier CT scan of 07/03/2018. The heart remains enlarged. IMPRESSION: 1. New vascular catheter placement as noted above 2. No change in the pulmonary status
[2018-07-29] MEDS ORDERED: Non-Formulary Item 1 EA (Atorvastatin Calcium [Lipitor] 40 MG) GT SCH (09:00)
[2018-07-29] MEDS ORDERED: Non-Formulary Item 1 EA (Esomeprazole Magnesium [Nexium] 40 MG) GT SCH (09:00)
[2018-07-29] MEDS: Epoetin Alfa 20000 Units/mL Vial SUBQ SCH (12:12)
--- NOTE | 2018-07-29 13:51 | General Progress Note ---
Subjective - Review of Systems Events since last encounter: patient admitted with with UROSEPSIS BILATERAL PNEUMONIA,DECUBITUS ULCER. pt has gtube pt with trach pt is unresponsive Objective - Results Result Diagrams: 08/03/18 04:30 08/03/18 04:30 Recent Labs: Laboratory Last Values WBC 23.6 Th/cmm (4.8-10.8) H* 07/29/18 05:02 RBC 2.50 Mil/cmm (3.80-5.20) L 07/29/18 05:02 Hgb 7.3 gm/dL (12-16) L* 07/29/18 05:02 Hct 21.7 % (41.0-60) L 07/29/18 05:02 MCV 86.9 fl (81-100) 07/29/18 05:02 MCH 29.2 pg (27.0-31.0) 07/29/18 05:02 MCHC Differential 33.6 pg (28.0-36.0) 07/29/18 05:02 RDW 16.6 % (11.5-20.0) 07/29/18 05:02 Plt Count 369 Th/cmm (150-400) D 07/29/18 05:02 MPV 7.2 fl 07/29/18 05:02 Add Manual Diff YES 07/29/18 05:02 Band Neutrophils % 1 % (0-10) 07/29/18 05:02 Neutrophils (Manual) 90 % (40-80) H 07/29/18 05:02 Lymphocytes 4 % (20-50) L 07/29/18 05:02 Monocytes 5 % (2-10) 07/29/18 05:02 Eosinophils 0 % (0-5) 07/29/18 05:02 Basophils 1 % (0-3) 07/28/18 13:10 PT 11.8 SECONDS (9.5-11.5) H 07/28/18 20:00 INR 1.14 (0.5-1.4) 07/28/18 20:00 PTT (Actin FS) 31.2 SECONDS (26.0-38.0) 07/28/18 20:00 Specimen Source Arterial 07/28/18 16:15 Sample Site Right Radial 07/28/18 16:15 pH 7.53 (7.35-7.45) H 07/28/18 16:15 pCO2 34.0 mmHg (35.0-45.0) L 07/28/18 16:15 pO2 198.0 mmHg (80.0-100.0) H 07/28/18 16:15 HCO3 29.4 mEq/L (20.0-26.0) H 07/28/18 16:15 Base Excess 5.7 mEq/L (-3.0-3.0) H 07/28/18 16:15 O2 Saturation 100.0 % (92.0-100.0) 07/28/18 16:15 Reinaldo Test Positive 07/28/18 16:15 Vent Rate 16 07/28/18 16:15 Inspired O2 50 07/28/18 16:15 Tidal Volume 500 07/28/18 16:15 PEEP 3 07/28/18 16:15 Pressure (ins/psv/peep) N/A 07/28/18 16:15 Critical Value DM 07/28/18 16:15 Sodium 139 mEq/L (136-145) 07/29/18 05:02 Potassium 3.4 mEq/L (3.5-5.1) L 07/29/18 05:02 Chloride 103 mEq/L (98-107) 07/29/18 05:02 Carbon Dioxide 24.9 mEq/L (21.0-31.0) 07/29/18 05:02 Anion Gap 14.5 (7.0-16.0) 07/29/18 05:02 BUN 54 mg/dL (7-25) H 07/29/18 05:02 Creatinine 2.7 mg/dL (0.6-1.2) H 07/29/18 05:02 Est GFR ( Amer) 22.7 ml/min (>90) 07/29/18 05:02 Est GFR (Non-Af Amer) 18.8 ml/min 07/29/18 05:02 BUN/Creatinine Ratio 20.0 07/29/18 05:02 Glucose 233 mg/dL (70-105) H 07/29/18 05:02 POC Glucose 164 MG/DL (70 - 105) H 07/29/18 11:41 Whole Bld Lactic Acid 1.85 mmol/L (0.60-1.99) 07/28/18 13:30 Calcium 8.1 mg/dL (8.6-10.3) L 07/29/18 05:02 Phosphorus 1.5 mg/dL (2.5-5.0) L 07/28/18 13:10 Magnesium 2.5 mg/dL (1.9-2.7) 07/28/18 13:10 Total Bilirubin 0.4 mg/dL (0.3-1.0) 07/28/18 13:10 AST 32 U/L (13-39) 07/28/18 13:10 ALT 34 U/L (7-52) 07/28/18 13:10 Alkaline Phosphatase 465 U/L (34-104) H 07/28/18 13:10 Total Protein 6.5 gm/dL (6.0-8.3) 07/28/18 13:10 Albumin 2.4 gm/dL (3.7-5.3) L 07/28/18 13:10 Globulin 4.1 gm/dL 07/28/18 13:10 Albumin/Globulin Ratio 0.6 (1.0-1.8) L 07/28/18 13:10 Urine Source CATH 07/28/18 13:35 Urine Color YELLOW 07/28/18 13:35 Urine Clarity HAZY (CLEAR) 07/28/18 13:35 Urine pH 7.5 (4.6 - 8.0) 07/28/18 13:35 Ur Specific [place] 1.020 (1.005-1.030) 07/28/18 13:35 Urine Protein 100 mg/dL (NEGATIVE) H 07/28/18 13:35 Urine Glucose (UA) NEGATIVE mg/dL (NEGATIVE) 07/28/18 13:35 Urine Ketones NEGATIVE mg/dL (NEGATIVE) 07/28/18 13:35 Urine Blood MODERATE (NEGATIVE) H 07/28/18 13:35 Urine Nitrate NEGATIVE (NEGATIVE) 07/28/18 13:35 Urine Bilirubin NEGATIVE (NEGATIVE) 07/28/18 13:35 Urine Urobilinogen 0.2 E.U./dL (0.2 - 1.0) 07/28/18 13:35 Ur Leukocyte Esterase MODERATE (NEGATIVE) H 07/28/18 13:35 Urine RBC 10-25 /hpf (0-5) H 07/28/18 13:35 Urine WBC 50-100 /hpf (0-5) H 07/28/18 13:35 Ur Epithelial Cells FEW /lpf (FEW) 07/28/18 13:35 Urine Bacteria 4+ /hpf (NONE SEEN) H 07/28/18 13:35 Stool Occult Blood POSITIVE (NEGATIVE) H 07/29/18 11:00 Urine Opiates Screen NEGATIVE (NEGATIVE) 07/28/18 13:35 Urine Methadone Screen NEGATIVE (NEGATIVE) 07/28/18 13:35 Ur Barbiturates Screen NEGATIVE (NEGATIVE) 07/28/18 13:35 Ur Tricyclics Screen NEGATIVE (NEGATIVE) 07/28/18 13:35 Ur Phencyclidine Scrn NEGATIVE (NEGATIVE) 07/28/18 13:35 Amphetamines Screen NEGATIVE (NEGATIVE) 07/28/18 13:35 U Methamphetamines Scrn NEGATIVE (NEGATIVE) 07/28/18 13:35 U Benzodiazepines Scrn NEGATIVE (NEGATIVE) 07/28/18 13:35 U Cocaine Metab Screen NEGATIVE (NEGATIVE) 07/28/18 13:35 U Cannabinoids Screen NEGATIVE (NEGATIVE) 07/28/18 13:35 Blood Type O POSITIVE 07/29/18 00:00 Antibody Screen NEGATIVE 07/28/18 20:00 Crossmatch See Detail 07/28/18 20:00 - Physical Exam Vitals and I&O: Vital Signs Temp 98.8 F 07/29/18 13:00 Pulse 100 07/29/18 13:15 Resp 18 07/29/18 13:00 BP 100/20 07/29/18 13:15 Pulse Ox 100 07/29/18 13:15 Intake & Output 07/28/18 07/29/18 07/29/18 18:59 06:59 18:59 Intake Total 420 50 Balance 420 50 Weight (lbs) 84.368 kg 80.513 kg Intake: Intake, IV Amount 50 50 Aztreonam 1 gm In 50 50 Dextrose 5% 50 ml @ 100 mls/hr IV Q12HR [facility] Rx#: [id number] Blood Product 250 Other 120 Other: # Voids 0 # Bowel Movements 1 Stool Characteristics Soft Soft Soft Brown Liquid Brown Weight Source Estimated Bedscale Active Medications: Current Medications Acetaminophen (Tylenol 650mg Supp) 650 mg RC Q4H PRN PRN Reason: Fever > 101 Stop: 09/27/18 00:59 Albuterol/Ipratropium (Duoneb Neb) 3 ml HHN Q4HRT [facility] Stop: 09/26/18 22:59 Last Admin: 07/29/18 11:10 Dose: 3 ml Atorvastatin Calcium (Lipitor) 40 mg GT HS [facility] Stop: 09/27/18 20:59 Calcium Carbonate (Os-Alon) 500 mg GT BID [facility] Stop: 09/27/18 08:59 Last Admin: 07/29/18 09:16 Dose: 500 mg Chlorhexidine Gluconate (Peridex) 15 ml MM 0800,1999 [facility] Stop: 09/26/18 19:59 Last Admin: 07/29/18 08:20 Dose: 15 ml Epoetin Rj (Epogen) 10,000 units SUBQ TuThSa [facility] Stop: 09/27/18 11:14 Last Admin: 07/29/18 12:12 Dose: 10,000 units Folic Acid (Folate) 1 mg GT DAILY [facility] Stop: 09/27/18 08:59 Last Admin: 07/29/18 09:16 Dose: 1 mg Aztreonam 1 gm/ Dextrose 50 mls @ 100 mls/hr IV Q12HR [facility] Stop: 09/26/18 13:59 Last Infusion: 07/29/18 09:40 Dose: Infused Norepinephrine Bitartrate 8 mg (/ Dextrose) 258 mls @ 7.74 mls/hr IV TITR PRN; Protocol PRN Reason: BP MAINTENANCE (PER PROTOCOL) Stop: 09/27/18 11:24 Last Admin: 07/29/18 12:12 Dose: 4 mcg/min, 7.74 mls/hr Ibuprofen (Motrin) 400 mg PO Q6H PRN PRN Reason: Fever > 101 Stop: 09/27/18 02:58 Last Admin: 07/29/18 09:23 Dose: 400 mg Insulin Aspart (Novolog Insulin Sliding Scale) 0 units SUBQ Q6HR [facility]; Protocol Stop: 09/27/18 00:00 Last Admin: 07/29/18 11:41 Dose: 2 units Pantoprazole Sodium (Protonix) 40 mg IVP DAILY [facility] Stop: 09/27/18 08:59 Last Admin: 07/29/18 09:21 Dose: 40 mg Zinc Sulfate (Zinc Sulfate) 220 mg GT DAILY [facility] Stop: 09/27/18 08:59 Last Admin: 07/29/18 09:16 Dose: 220 mg General: Other (unresponsive , on vent) HEENT: Mucous membr. moist/pink Neck: Supple Cardiovascular: Regular rate, Normal S1, Normal S2 Lungs: Other ([place] rales ) Abdomen: Bowel sounds (has peg tube ) - Procedures Procedures: Procedures Procedure Code Date EXCISION OF BACK SUBCU/FASCIA, OPEN APPROACH [id number] 06/30/18 PERFORMANCE OF URINARY FILTRATION, <6 HRS/DAY [id number] 06/30/18 RESPIRATORY VENTILATION, GREATER THAN 96 CONSECUTIVE HOURS [id number] 06/30/18 TRANSFUSE NONAUT RED BLOOD CELLS IN PERIPH VEIN, PERC 27010H4 06/30/18 Assessment/Plan - Assessment Assessment: respiratory failure, on vent esrd/hd acute anemia infected sacral hypotension - Plan Plan: HD pulmo support wound care antibiotics as per order sheet Nutritional Asmnt/Malnutr-PDOC - Dietary Evaluation Malnutrition Findings (Please click <Entered> for more info): Nutritional Asmnt/Malnutrition Start: 07/29/18 09: 22 Text: Status: Active Freq: Protocol: Document 07/29/18 09:23 [email or web address] (Rec: 07/29/18 10:10 [email or web address] GENAO- [email or web address]) Nutritional Asmnt/Malnutrition Patient General Information Nutritional Screening High Risk Consult Diagnosis Urosepsis, bilateral pneumonia , Decubitus ulcer Pertinent Medical Hx/Surgical Hx Hyperlipidemia, ESRD (No H&P) Subjective Information Consult recieved for Wound Stage IV. Patient receives HD, trach to vent. She was admitted from [facility]. Current TF provides 800 ml volume, 1440 kcal, 64gm protein. Current Diet Order/ Nutrition Support Tube feeding Nepro 50 ml/hr x 16 hours Patient / S.O Not Indicated Pertinent Medications Lipitor, Os-alon, Folate, Novolog, Protonix, Zinc sulfate Pertinent Labs (07/29) K 3.4, BUN 54, Cr 2.7 ( decreasing), Glucose 186-233, Ca 8.1, Phos 1.5, Albumin 2.4 Nutritional Hx/Data Height 1.83 m Height (Calculated Centimeters) 182.9 Current Weight (lbs) 80.286 kg Weight (Calculated Kilograms) 80.3 Weight (Calculated Grams) 74570.8 [place] Body Weight 160 % [place] Body Weight 110 Body Mass Index (BMI) 24.0 Recent Weight Change No Weight Status Approriate GI Symptoms GI Symptoms None Last BM 07/29 x1 Difficult in: Swallowing Food Allergies No Cultural/Ethnic/Cheondoism Belief None indicated Usual diet at home Unknown Skin Integrity/Comment: Edvin 8, 2+ edema, stage IV wound Estimated Nutritional Goals BEE in Kcals: Using Current wt Calories/Kcals/Kg CBW 80.4kg Kcals Calculated ~7400-8578 kcal/day (27-32 kcal/kg) - considering HD, Stage IV wound, vent Protein: Using Current wt Protein g/k.5-1.7 gm/kg - wound, HD, vent Protein Calculated ~120-135 gm/day Fluid: ml Per MD due to HD Nutritional Problem 2. Problem Problem Altered nutrition related lab values related to Etiology electrotlyte imbalance and uncontrolled hyperglycemia aeb Signs/Symptoms: K 3.4, Glucose 186-233, Ca 8.1 , Phos 1.5, Albumin 2.4 1. Problem Problem Inadequate energy/protein intake related to Etiology current TF regimen inadequate aeb Signs/Symptoms: Current TF regimen meeting ~65 % of calorie and ~55% of protein needs Intervention/Recommendation Comments 1. Consider increasing Nepro to 50ml/hr continuously for 24 hours to provide 1200ml volume, 2160 kcal, 97 gm protein. Add Prosource 2 packets/day for an additional 30gm protein . (total 112gm protein) 2. MD to modify insulin regimen for optimal glycemic control and replace lytes as medically appropriate. May consider modifying Tube feednig formula to Nutren 2.0 if she consistently has hypokalemia and hypophosphatemia (Nepro is low in Potassium and phosphorus). Expected Outcomes/Goals Expected Outcomes/Goals TF meets >75% of nutrient needs, improved skin integrity , nutrition related labs normalize F/U in 2-3 days as HR (07/31- )
--- NOTE | 2018-07-29 18:55 | Consultation ---
Consult Note - Consult Note Service Date: 07/29/18 Referring Physician: Dewey Olguin Consult Note: PHYSICIAN Consultation Note: Date of Admission: 07/28/18 Purpose of Consultation: Chief Complaint: History of Present Illness: Patient RASHAAD HUANG was admitted to location Intensive Care Unit with UROSEPSIS, BILATERAL PNEUMONIA,DECUBITUS ULCER. Past Medical History: ESRD ON MAINTENANCE HD AT [facility] CHRONIC VENT DEPENDENT RESP FAILURE DYSPHAGIA WITH G TUBE STATUS ANEMIA OF CHRONIC KIDNEY DISEASE SACRAL DECUBITUS ULCER SURG HX: TRACH PEG PERMACATH SHX NO T/E/D Allergies Allergy/AdvReac Type Severity Reaction Status Date / Time acetaminophen Allergy Verified 07/28/18 12:45 codeine Allergy Verified 07/28/18 12:45 hydrocodone Allergy Verified 07/28/18 12:45 tramadol Allergy Verified 07/28/18 12:45 Vital Signs Temp 98.2 F 07/29/18 18:00 Pulse 92 07/29/18 18:15 Resp 16 07/29/18 18:00 BP 109/25 07/29/18 18:15 Pulse Ox 100 07/29/18 18:00 Intake & Output 07/28/18 07/29/18 07/29/18 18:59 06:59 18:59 Intake Total 420 650 Balance 420 650 Weight (lbs) 84.368 kg 80.513 kg 80.541 kg Intake: Intake, IV Amount 50 50 Aztreonam 1 gm In 50 50 Dextrose 5% 50 ml @ 100 mls/hr IV Q12HR [facility] Rx#: [id number] Tube Feeding 350 Blood Product 250 Other 120 250 Other: # Voids 0 # Bowel Movements 1 2 Stool Characteristics Soft Soft Soft Brown Liquid Brown Weight Source Estimated Bedscale Bedscale Laboratory Results - last 24 hr 07/28/18 07/28/18 07/29/18 20:00 20:00 00:00 WBC RBC Hgb Hct MCV MCH MCHC Differential RDW Plt Count MPV Add Manual Diff Band Neutrophils % Neutrophils (Manual) Lymphocytes Monocytes Eosinophils PT 11.8 H INR 1.14 PTT (Actin FS) 31.2 Sodium Potassium Chloride Carbon Dioxide Anion Gap BUN Creatinine Est GFR ( Amer) Est GFR (Non-Af Amer) BUN/Creatinine Ratio Glucose POC Glucose Calcium Stool Occult Blood Blood Type O POSITIVE O POSITIVE Antibody Screen NEGATIVE NEGATIVE Crossmatch See Detail See Detail 07/29/18 07/29/18 07/29/18 00:00 00:11 05:02 WBC 23.6 H* RBC 2.50 L Hgb 7.3 L* Hct 21.7 L MCV 86.9 MCH 29.2 MCHC Differential 33.6 RDW 16.6 Plt Count 369 D MPV 7.2 Add Manual Diff YES Band Neutrophils % 1 Neutrophils (Manual) 90 H Lymphocytes 4 L Monocytes 5 Eosinophils 0 PT INR PTT (Actin FS) Sodium Potassium Chloride Carbon Dioxide Anion Gap BUN Creatinine Est GFR ( Amer) Est GFR (Non-Af Amer) BUN/Creatinine Ratio Glucose POC Glucose 197 H Calcium Stool Occult Blood Blood Type O POSITIVE Antibody Screen NEGATIVE Crossmatch 07/29/18 07/29/18 07/29/18 05:02 06:13 11:00 WBC RBC Hgb Hct MCV MCH MCHC Differential RDW Plt Count MPV Add Manual Diff Band Neutrophils % Neutrophils (Manual) Lymphocytes Monocytes Eosinophils PT INR PTT (Actin FS) Sodium 139 Potassium 3.4 L Chloride 103 Carbon Dioxide 24.9 Anion Gap 14.5 BUN 54 H Creatinine 2.7 H Est GFR ( Amer) 22.7 Est GFR (Non-Af Amer) 18.8 BUN/Creatinine Ratio 20.0 Glucose 233 H POC Glucose 227 H Calcium 8.1 L Stool Occult Blood POSITIVE H Blood Type Antibody Screen Crossmatch 07/29/18 07/29/18 07/29/18 11:41 17:35 20:00 WBC RBC Hgb Hct MCV MCH MCHC Differential RDW Plt Count MPV Add Manual Diff Band Neutrophils % Neutrophils (Manual) Lymphocytes Monocytes Eosinophils PT INR PTT (Actin FS) Sodium Potassium Chloride Carbon Dioxide Anion Gap BUN Creatinine Est GFR ( Amer) Est GFR (Non-Af Amer) BUN/Creatinine Ratio Glucose POC Glucose 164 H 257 H Calcium Stool Occult Blood Blood Type Antibody Screen Crossmatch See Detail 07/29/18 20:00 WBC RBC Hgb Hct MCV MCH MCHC Differential RDW Plt Count MPV Add Manual Diff Band Neutrophils % Neutrophils (Manual) Lymphocytes Monocytes Eosinophils PT INR PTT (Actin FS) Sodium Potassium Chloride Carbon Dioxide Anion Gap BUN Creatinine Est GFR ( Amer) Est GFR (Non-Af Amer) BUN/Creatinine Ratio Glucose POC Glucose Calcium Stool Occult Blood Blood Type Antibody Screen Crossmatch See Detail Home Medication Medication Instructions Recorded Type Arginine/Ascorbate Sod/Melvina AC BID 07/28/18 History [Arginaid Powder] Ascorbic Acid [Vitamin C] GT DAILY 07/28/18 History Atorvastatin Calcium [Lipitor] 40 mg GT DAILY 07/28/18 History Calcium Carbonate [Os-Alon] 500 mg GT BID 07/28/18 History Chlorhexidine Gluconate 0.12% 07/28/18 History [Peridex] Esomeprazole Magnesium [Nexium] 40 mg GT DAILY 07/28/18 History Folic Acid [Folate*] 1 mg GT DAILY 07/28/18 History Folic Acid/Vit Bcomp,C GT DAILY 07/28/18 History [Nephro-Melvina Tablet] Ibuprofen GT Q6HR PRN 07/28/18 History Insulin Detemir [Levemir Insulin] 20 units SUBQ 07/28/18 History Psyllium [Metamucil] GT 07/28/18 History Zinc Sulfate 220 mg GT DAILY 07/28/18 History Current Medications Generic Name Dose Route Start Last Admin Trade Name Freq PRN Reason Stop Dose Admin Acetaminophen 650 mg 07/29/18 01:00 Tylenol 650mg Supp RC 09/27/18 00:59 Q4H PRN Fever > 101 Albuterol/Ipratropium 3 ml 07/28/18 23:00 07/29/18 15:12 Duoneb Neb HHN 09/26/18 22:59 3 ml Q4HRT ALONDRA Administration Atorvastatin Calcium 40 mg 07/29/18 21:00 Lipitor GT 09/27/18 20:59 HS ALONDRA Calcium Carbonate 500 mg 07/29/18 09:00 07/29/18 17:32 Os-Alon GT 09/27/18 08:59 500 mg BID ALONDRA Administration Chlorhexidine Gluconate 15 ml 07/28/18 20:00 07/29/18 08:20 Peridex MM 09/26/18 19:59 15 ml 0800,2000 ALONDRA Administration Epoetin Rj 10,000 units 07/29/18 11:15 07/29/18 12:12 Epogen SUBQ 09/27/18 11:14 10,000 units TuThSa ALONDRA Administration Folic Acid 1 mg 07/29/18 09:00 07/29/18 09:16 Folate GT 09/27/18 08:59 1 mg DAILY ALONDRA Administration Aztreonam 1 gm/ Dextrose 50 mls @ 100 mls/hr 07/28/18 14:00 07/29/18 09:40 IV 09/26/18 13:59 Infused Q12HR ALONDRA Infusion Norepinephrine Bitartrate 8 mg 258 mls @ 7.74 mls/hr 07/29/18 11:25 07/29/18 12:12 / Dextrose IV 09/27/18 11:24 4 mcg/min TITR PRN 7.74 mls/hr BP MAINTENANCE (PER PROTOCOL) Administration Protocol 4 MCG/MIN Ibuprofen 400 mg 07/29/18 02:59 07/29/18 09:23 Motrin PO 09/27/18 02:58 400 mg Q6H PRN Administration Fever > 101 Insulin Aspart 0 units 07/29/18 00:00 07/29/18 17:36 Novolog Insulin Sliding Scale SUBQ 09/27/18 00:00 6 units Q6HR ALONDRA Administration Protocol Pantoprazole Sodium 40 mg 07/29/18 09:00 07/29/18 09:21 Protonix IVP 09/27/18 08:59 40 mg DAILY ALONDRA Administration Zinc Sulfate 220 mg 07/29/18 09:00 07/29/18 09:16 Zinc Sulfate GT 09/27/18 08:59 220 mg DAILY ALONDRA Administration Review of Systems: A 12 point ROS was reviewed with the pertinent positive and negatives noted in the HPI. Social History Smoking Status Unknown if ever smoked Drug Use No Alcohol Use No Family Medical History Family Medical History Start: 07/28/18 16: 51 Freq: ONCE Status: Active Protocol: Document 07/28/18 16:51 [email or web address] (Rec: 07/28/18 20:30 LALIT [id number]) Family Medical History Mother History Unknown Yes Physical Exam: General: MECHANICALLY VENTILATED VIA TRACH HEENT: TRACH IN PLACE Cardio: S1 S2 Respiratory: COARSE BS Abdominal: +PEG TUBE Extremities: NO EDEMA Neurological: NON-VERBAL +DIALYSIS CATHETER Assessment: 1.ESRD 2/2 DM, HTN ON MAINTENANCE HD, STABLE -WAS DIALYZED LAST NIGHT -NEXT HD 07/30 WITH 2 UNITS PRBCS 2. ACUTE ANEMIA SUPERIMPOSED ON ANEMIA OF CKD, STABLE -S/P 1 UNIT PRBCS BUT STILL SUBOPTIMAL -DIALYSIS AGAIN TOMORROW WITH 2 UNITS PRBCS -EPOGEN -STOOL OB +, CONT PROTONIX, CONSIDER GI EVAL 3. CHRONIC VENT DEPENDENT RESP FAILURE, STABLE -CONT VENT SUPPORT 4. INFECTED SACRAL DECUBITUS ULCER, STABLE -CONT WOUND CARE, IV ABX 5. HYPOTENSIVE SEPTIC SHOCK, REQUIRING LEVOPHED -CONT ABX, LEVOPHED Plan: ABOVE. THANK YOU, WILL FOLLOW David Jimenez Amna A., M.D. [id number]
--- NOTE | 2018-07-29 19:15 | Consultation ---
DATE OF CONSULTATION: 07/28/[address] Olguin. Thank you very much, Dr. Olguin for this consultation. HISTORY OF PRESENT ILLNESS: This is a 67-year-old female, who has history of anoxic encephalopathy, chronic respiratory failure, chronic kidney disease, on dialysis, presented with some fever, anemia and leukocytosis and admitted for treatment measures. She will start IV antibiotics. She will be due for dialysis today. The patient appears to be comfortable. She is nonverbal. PHYSICAL EXAMINATION: VITAL SIGNS: Temperature 97.8, pulse 101, respirations 20, blood pressure 140/67, saturation 100% on 40% oxygen. HEENT: Atraumatic, normocephalic. Pupils are reactive to light and accommodation. Ears, nose and throat normal. NECK: Supple. No JVD. CHEST: There are a few rhonchi in bases. HEART: Regular rhythm. ABDOMEN: Soft. EXTREMITIES: No edema. LABORATORY DATA: WBC 23.5, hemoglobin 7.2, hematocrit 22.5, platelets 255. ABGs: pH 7.53, pCO2 of 34, pO2 of 98, bicarbonate is 29, saturation 100%. Sodium 134, potassium 4.5, BUN 70, creatinine 3.0, alkaline phosphatase 465. IMPRESSION: This is a 67-year-old female; 1. Respiratory failure. 2. Anemia. 3. Respiratory bronchitis. No change on the chest x-ray or any new infiltrate. PLAN: 1. Ventilator support. 2. Antibiotics. 3. Nebulizer treatment. 4. Follow up cultures and ID followup. Plan to follow the patient with you. Thank you very much for this consultation. JOB# [id number]
[2018-07-29] MEDS: Atorvastatin Calcium 10 MG TAB GT SCH (20:40)
[2018-07-30] MEDS ORDERED: Albumin 25% 25gm/100mL 25 GM/100 ML BTL IV ONE
[2018-07-30] MEDS ORDERED: Sodium Chloride 0.9% 500 ML IV PRN
[2018-07-30] MEDS: Albuterol/Ipratropium Neb 3 ML AERS HHN SCH ×6 (02:58→22:49)
[2018-07-30] MEDS: INSULIN ASPART SLIDING SCALE 100 UNITS/ML UNIT SUBQ SCH ×3 (05:07→17:56)
[2018-07-30 06:33] LABS: BASOPHILE ABSOLUTE 0.1 Th/cumm (0-0.2); EOSINOPHILE ABSOLUTE 0.1 Th/cmm (0.1-0.4); LYMPHOCYTE ABSOLUTE 1.4 Th/cmm (1.5-3.0); MEAN CELL VOLUME 87.3 fl (81-100); MEAN CORPUSCULAR HEMOGLOBIN 28.4 pg (27.0-31.0); MEAN CORPUSCULAR HGB CONC 32.5 pg (28.0-36.0); MEAN PLATELET VOLUME 7.4 fl; MONOCYTE ABSOLUTE 1.5 Th/cmm (0.3-1.0); NEUTROPHILE ABSOLUTE 20.4 Th/cmm (1.8-8.0); PLATELET COUNT 400 Th/cmm (150-400); RED BLOOD COUNT 2.34 Mil/cmm (3.80-5.20); RED CELL DISTRIBUTION WIDTH 17.3 % (11.5-20.0)
[2018-07-30 06:45] LABS: ALB/GLOB RATIO 0.6 (1.0-1.8); BILIRUBIN,TOTAL 0.3 mg/dL (0.3-1.0); CALCIUM SERUM 8.4 mg/dL (8.6-10.3); CARBON DIOXIDE 24.2 mEq/L (21.0-31.0); CREATININE - SERUM 3.5 mg/dL (0.6-1.2); GFR AFRICAN-AMERICAN 16.9 ml/min (>90); GFR NON AFRICAN-AMERICAN 13.9 ml/min; POTASSIUM SERUM 3.2 mEq/L (3.5-5.1); TOTAL PROTEIN,SERUM 5.6 gm/dL (6.0-8.3)
[2018-07-30 06:47] LABS: WHITE BLOOD COUNT 23.5 Th/cmm (4.8-10.8)
[2018-07-30 06:48] LABS: HEMATOCRIT 20.4 % (41.0-60); HEMOGLOBIN 6.6 gm/dL (12-16)
[2018-07-30 08:22] LABS: BAND NEUTROPHILE 1 % (0-10); LYMPHOCYTE 9 % (20-50); MONOCYTE 4 % (2-10); NEUTROPHILS 86 % (40-80)
[2018-07-30] MEDS: Chlorhexidine Gluconate 0.12% 15mL Mouthwash MM SCH ×2 (08:30→20:19)
--- NOTE | 2018-07-30 09:04 | Diagnostic Imaging Report ---
Portable chest x-ray HISTORY: Shortness of breath Compared to prior exam of July 28, 2018, the heart is enlarged. Persistent density noted in left lower hemithorax which may be associated pleural fluid. Underlying consolidation and/or atelectasis cannot be excluded. IMPRESSION: 1. No change in the pulmonary status as noted above.
--- NOTE | 2018-07-30 09:48 | General Progress Note ---
Subjective - Review of Systems Service Date: 07/30/18 Events since last encounter: REMAINS MECHANICALLY VENTILATED ON LOW DOSE PRESSOR SUPPORT IN ICU LEVOPHED CURRENTLY AT 2MCG HB FURTHER DECREASED TO 6.6, PLAN FOR 2 UNITS PRBCS WITH HD TODAY STOOL OB+, GI CONSULT PENDING PER STUNT PERFORMER, SHE JUST RECEIVED A CALL FROM LAB THAT BLD CX +YEAST WBC STILL ELEVATED Subjective: UNABLE TO OBTAIN, PT IS NON-VERBAL Objective - Results Result Diagrams: 07/30/18 04:00 07/30/18 04:00 Recent Labs: Laboratory Last Values WBC 23.5 Th/cmm (4.8-10.8) H* 07/30/18 04:00 RBC 2.34 Mil/cmm (3.80-5.20) L 07/30/18 04:00 Hgb 6.6 gm/dL (12-16) L* 07/30/18 04:00 Hct 20.4 % (41.0-60) L* 07/30/18 04:00 MCV 87.3 fl (81-100) 07/30/18 04:00 MCH 28.4 pg (27.0-31.0) 07/30/18 04:00 MCHC Differential 32.5 pg (28.0-36.0) 07/30/18 04:00 RDW 17.3 % (11.5-20.0) 07/30/18 04:00 Plt Count 400 Th/cmm (150-400) 07/30/18 04:00 MPV 7.4 fl 07/30/18 04:00 Add Manual Diff YES 07/30/18 04:00 Band Neutrophils % 1 % (0-10) 07/30/18 04:00 Neutrophils (Manual) 86 % (40-80) H 07/30/18 04:00 Lymphocytes 9 % (20-50) L 07/30/18 04:00 Monocytes 4 % (2-10) 07/30/18 04:00 Eosinophils 0 % (0-5) 07/29/18 05:02 Basophils 1 % (0-3) 07/28/18 13:10 PT 11.8 SECONDS (9.5-11.5) H 07/28/18 20:00 INR 1.14 (0.5-1.4) 07/28/18 20:00 PTT (Actin FS) 31.2 SECONDS (26.0-38.0) 07/28/18 20:00 Specimen Source Arterial 07/28/18 16:15 Sample Site Right Radial 07/28/18 16:15 pH 7.53 (7.35-7.45) H 07/28/18 16:15 pCO2 34.0 mmHg (35.0-45.0) L 07/28/18 16:15 pO2 198.0 mmHg (80.0-100.0) H 07/28/18 16:15 HCO3 29.4 mEq/L (20.0-26.0) H 07/28/18 16:15 Base Excess 5.7 mEq/L (-3.0-3.0) H 07/28/18 16:15 O2 Saturation 100.0 % (92.0-100.0) 07/28/18 16:15 Reinaldo Test Positive 07/28/18 16:15 Vent Rate 16 07/28/18 16:15 Inspired O2 50 07/28/18 16:15 Tidal Volume 500 07/28/18 16:15 PEEP 3 07/28/18 16:15 Pressure (ins/psv/peep) N/A 07/28/18 16:15 Critical Value DM 07/28/18 16:15 Sodium 140 mEq/L (136-145) 07/30/18 04:00 Potassium 3.2 mEq/L (3.5-5.1) L 07/30/18 04:00 Chloride 103 mEq/L (98-107) 07/30/18 04:00 Carbon Dioxide 24.2 mEq/L (21.0-31.0) 07/30/18 04:00 Anion Gap 16.0 (7.0-16.0) 07/30/18 04:00 BUN 70 mg/dL (7-25) H 07/30/18 04:00 Creatinine 3.5 mg/dL (0.6-1.2) H 07/30/18 04:00 Est GFR ( Amer) 16.9 ml/min (>90) 07/30/18 04:00 Est GFR (Non-Af Amer) 13.9 ml/min 07/30/18 04:00 BUN/Creatinine Ratio 20.0 07/30/18 04:00 Glucose 264 mg/dL (70-105) H 07/30/18 04:00 POC Glucose 220 MG/DL (70 - 105) H 07/30/18 05:02 Whole Bld Lactic Acid 1.85 mmol/L (0.60-1.99) 07/28/18 13:30 Calcium 8.4 mg/dL (8.6-10.3) L 07/30/18 04:00 Phosphorus 1.5 mg/dL (2.5-5.0) L 07/28/18 13:10 Magnesium 2.5 mg/dL (1.9-2.7) 07/28/18 13:10 Total Bilirubin 0.3 mg/dL (0.3-1.0) 07/30/18 04:00 AST 21 U/L (13-39) 07/30/18 04:00 ALT 20 U/L (7-52) 07/30/18 04:00 Alkaline Phosphatase 361 U/L (34-104) H 07/30/18 04:00 Total Protein 5.6 gm/dL (6.0-8.3) L 07/30/18 04:00 Albumin 2.0 gm/dL (3.7-5.3) L 07/30/18 04:00 Globulin 3.6 gm/dL 07/30/18 04:00 Albumin/Globulin Ratio 0.6 (1.0-1.8) L 07/30/18 04:00 Urine Source CATH 07/28/18 13:35 Urine Color YELLOW 07/28/18 13:35 Urine Clarity HAZY (CLEAR) 07/28/18 13:35 Urine pH 7.5 (4.6 - 8.0) 07/28/18 13:35 Ur Specific Solomon 1.020 (1.005-1.030) 07/28/18 13:35 Urine Protein 100 mg/dL (NEGATIVE) H 07/28/18 13:35 Urine Glucose (UA) NEGATIVE mg/dL (NEGATIVE) 07/28/18 13:35 Urine Ketones NEGATIVE mg/dL (NEGATIVE) 07/28/18 13:35 Urine Blood MODERATE (NEGATIVE) H 07/28/18 13:35 Urine Nitrate NEGATIVE (NEGATIVE) 07/28/18 13:35 Urine Bilirubin NEGATIVE (NEGATIVE) 07/28/18 13:35 Urine Urobilinogen 0.2 E.U./dL (0.2 - 1.0) 07/28/18 13:35 Ur Leukocyte Esterase MODERATE (NEGATIVE) H 07/28/18 13:35 Urine RBC 10-25 /hpf (0-5) H 07/28/18 13:35 Urine WBC 50-100 /hpf (0-5) H 07/28/18 13:35 Ur Epithelial Cells FEW /lpf (FEW) 07/28/18 13:35 Urine Bacteria 4+ /hpf (NONE SEEN) H 07/28/18 13:35 Stool Occult Blood POSITIVE (NEGATIVE) H 07/29/18 11:00 Urine Opiates Screen NEGATIVE (NEGATIVE) 07/28/18 13:35 Urine Methadone Screen NEGATIVE (NEGATIVE) 07/28/18 13:35 Ur Barbiturates Screen NEGATIVE (NEGATIVE) 07/28/18 13:35 Ur Tricyclics Screen NEGATIVE (NEGATIVE) 07/28/18 13:35 Ur Phencyclidine Scrn NEGATIVE (NEGATIVE) 07/28/18 13:35 Amphetamines Screen NEGATIVE (NEGATIVE) 07/28/18 13:35 U Methamphetamines Scrn NEGATIVE (NEGATIVE) 07/28/18 13:35 U Benzodiazepines Scrn NEGATIVE (NEGATIVE) 07/28/18 13:35 U Cocaine Metab Screen NEGATIVE (NEGATIVE) 07/28/18 13:35 U Cannabinoids Screen NEGATIVE (NEGATIVE) 07/28/18 13:35 Blood Type O POSITIVE 07/29/18 00:00 Antibody Screen NEGATIVE 07/29/18 00:00 Crossmatch See Detail 07/29/18 20:00 - Physical Exam Vitals and I&O: Vital Signs Temp 98.4 F 07/30/18 05:00 Pulse 95 07/30/18 09:16 Resp 14 07/30/18 06:00 BP 115/38 07/30/18 06:45 Pulse Ox 100 07/30/18 09:16 Intake & Output 07/29/18 07/30/18 07/30/18 18:59 06:59 18:59 Intake Total 650 287.462 Balance 650 287.462 Weight (lbs) 80.541 kg 78.018 kg Intake: Intake, IV Amount 50 137.462 Aztreonam 1 gm In 50 50 Dextrose 5% 50 ml @ 100 mls/hr IV Q12HR [facility] Rx#: [id number] Norepinephrine 8 mg In 87.462 Dextrose 5% 250 ml @ 4 MCG/MIN 7.74 mls/hr IV TITR PRN Rx#:[id number] Tube Feeding 350 Other 250 150 Other: # Voids 0 # Bowel Movements 2 1 Stool Characteristics Soft Soft Liquid Liquid Brown Brown Weight Source Bedscale Bedscale Active Medications: Current Medications Acetaminophen (Tylenol 650mg Supp) 650 mg RC Q4H PRN PRN Reason: Fever > 101 Stop: 07/30/18 00:07 Albuterol/Ipratropium (Duoneb Neb) 3 ml HHN Q4HRT ALONDRA Stop: 09/26/18 22:59 Last Admin: 07/30/18 07:17 Dose: 3 ml Atorvastatin Calcium (Lipitor) 40 mg GT HS ALONDRA Stop: 09/27/18 20:59 Last Admin: 07/29/18 20:40 Dose: 40 mg Calcium Carbonate (Os-Alon) 500 mg GT BID ALONDRA Stop: 09/27/18 08:59 Last Admin: 07/29/18 17:32 Dose: 500 mg Chlorhexidine Gluconate (Peridex) 15 ml MM 0800,1999 ALONDRA Stop: 09/26/18 19:59 Last Admin: 07/29/18 19:54 Dose: 15 ml Epoetin Rj (Epogen) 10,000 units SUBQ TuThSa ALONDRA Stop: 09/27/18 11:14 Last Admin: 07/29/18 12:12 Dose: 10,000 units Folic Acid (Folate) 1 mg GT DAILY ALONDRA Stop: 09/27/18 08:59 Last Admin: 07/29/18 09:16 Dose: 1 mg Heparin Sodium (Porcine) (Heparin) 5,000 units HD UD [facility] Stop: 07/31/18 00:00 Aztreonam 1 gm/ Dextrose 50 mls @ 100 mls/hr IV Q12HR ALONDRA Stop: 09/26/18 13:59 Last Infusion: 07/29/18 21:10 Dose: Infused Norepinephrine Bitartrate 8 mg (/ Dextrose) 258 mls @ 7.74 mls/hr IV TITR PRN; Protocol PRN Reason: BP MAINTENANCE (PER PROTOCOL) Stop: 09/27/18 11:24 Last Titration: 07/29/18 23:30 Dose: 2 mcg/min, 3.87 mls/hr Sodium Chloride (Nacl 0.9%) 500 mls @ 0 mls/hr IV .Q0M PRN PRN Reason: BP Support During Hemodialysis Stop: 07/30/18 23:59 Ibuprofen (Motrin) 400 mg PO Q6H PRN PRN Reason: Fever > 101 Stop: 09/27/18 02:58 Last Admin: 07/30/18 00:39 Dose: 400 mg Insulin Aspart (Novolog Insulin Sliding Scale) 0 units SUBQ Q6HR ALONDRA; Protocol Stop: 09/27/18 00:00 Last Admin: 07/30/18 05:07 Dose: 4 units Pantoprazole Sodium (Protonix) 40 mg IVP DAILY [facility] Stop: 09/27/18 08:59 Last Admin: 07/29/18 09:21 Dose: 40 mg Zinc Sulfate (Zinc Sulfate) 220 mg GT DAILY [facility] Stop: 09/27/18 08:59 Last Admin: 07/29/18 09:16 Dose: 220 mg General: Other (NON-VERBAL, MECHANICALLY VENTILATED VIA TRACH) HEENT: Other (+TRACH) Cardiovascular: Normal S1, Normal S2 Lungs: Clear to auscultation Abdomen: Other (+ GTUBE) Extremities: Other (NO EDEMA, LUE AVF+ THRILL) Neurological: Other (NONVERBAL) - Procedures Procedures: Procedures Procedure Code Date EXCISION OF BACK SUBCU/FASCIA, OPEN APPROACH [id number] 06/30/18 PERFORMANCE OF URINARY FILTRATION, <6 HRS/DAY [id number] 06/30/18 RESPIRATORY VENTILATION, GREATER THAN 96 CONSECUTIVE HOURS [id number] 06/30/18 TRANSFUSE NONAUT RED BLOOD CELLS IN PERIPH VEIN, PERC [id number] 06/30/18 Assessment/Plan - Assessment Assessment: 1.ESRD 2/2 DM, HTN ON MAINTENANCE HD, STABLE -HD TODAY WITH 2 UNITS PRBCS -NEXT HD TUESDAY 08/01 UNLESS OTHERWISE INDICATED 2. ACUTE ANEMIA SUPERIMPOSED ON ANEMIA OF CKD, DOWNWARD TRENDING -S/P 1 UNIT PRBCS BUT STILL SUBOPTIMAL -DIALYSIS AGAIN TODAY WITH 2 UNITS PRBCS -CONT MAX DOSE EPOGEN -STOOL OB +, CONT PROTONIX, PLEASE CONSIDER GI EVAL 3. CHRONIC VENT DEPENDENT RESP FAILURE, STABLE -CONT VENT SUPPORT 4. INFECTED SACRAL DECUBITUS ULCER, STABLE -CONT WOUND CARE, IV ABX, PRESSOR SUPPORT 5. HYPOTENSIVE SEPTIC SHOCK, REQUIRING LEVOPHED LIKELY SECONDARY TO RECENTLY REPORTED YEAST ON BLOOD CULTURE -CONT ABX, LEVOPHED -INITIATE ANTIFUNGALS PER ID - Plan Plan: ABOVE DW STUNT PERFORMER TO CONTACT DR SULLIVAN RE PREFERENCE FOR GI EVAL, AND TO CONTACT DR SARAVIA RE INITIATION OF ANTIFUNGAL THERAPY PROGNOSIS IS GUARDED Nutritional Asmnt/Malnutr-PDOC - Dietary Evaluation Malnutrition Findings (Please click <Entered> for more info): Nutritional Asmnt/Malnutrition Start: 07/29/18 09: 22 Text: Status: Complete Freq: Protocol: Document 07/29/18 09:23 [email or web address] (Rec: 07/29/18 10:10 MMULHALEY GENAO- [id number]) Nutritional Asmnt/Malnutrition Patient General Information Nutritional Screening High Risk Consult Diagnosis Urosepsis, bilateral pneumonia , Decubitus ulcer Pertinent Medical Hx/Surgical Hx Hyperlipidemia, ESRD (No H&P) Subjective Information Consult recieved for Wound Stage IV. Patient receives HD, trach to vent. She was admitted from [facility]. Current TF provides 800 ml volume, 1440 kcal, 64gm protein. Current Diet Order/ Nutrition Support Tube feeding Nepro 50 ml/hr x 16 hours Patient / S.O Not Indicated Pertinent Medications Lipitor, Os-alon, Folate, Novolog, Protonix, Zinc sulfate Pertinent Labs (07/29) K 3.4, BUN 54, Cr 2.7 ( decreasing), Glucose 186-233, Ca 8.1, Phos 1.5, Albumin 2.4 Nutritional Hx/Data Height 1.83 m Height (Calculated Centimeters) 182.9 Current Weight (lbs) 80.286 kg Weight (Calculated Kilograms) 80.3 Weight (Calculated Grams) 37302.8 Friendly Body Weight 160 % Friendly Body Weight 110 Body Mass Index (BMI) 24.0 Recent Weight Change No Weight Status Approriate GI Symptoms GI Symptoms None Last BM 07/29 x1 Difficult in: Swallowing Food Allergies No Cultural/Ethnic/Hindu Belief None indicated Usual diet at home Unknown Skin Integrity/Comment: Edvin 8, 2+ edema, stage IV wound Estimated Nutritional Goals BEE in Kcals: Using Current wt Calories/Kcals/Kg CBW 80.4kg Kcals Calculated ~0724-8216 kcal/day (27-32 kcal/kg) - considering HD, Stage IV wound, vent Protein: Using Current wt Protein g/k.5-1.7 gm/kg - wound, HD, vent Protein Calculated ~120-135 gm/day Fluid: ml Per MD due to HD Nutritional Problem 2. Problem Problem Altered nutrition related lab values related to Etiology electrotlyte imbalance and uncontrolled hyperglycemia aeb Signs/Symptoms: K 3.4, Glucose 186-233, Ca 8.1 , Phos 1.5, Albumin 2.4 1. Problem Problem Inadequate energy/protein intake related to Etiology current TF regimen inadequate aeb Signs/Symptoms: Current TF regimen meeting ~65 % of calorie and ~55% of protein needs Intervention/Recommendation Comments 1. Consider increasing Nepro to 50ml/hr continuously for 24 hours to provide 1200ml volume, 2160 kcal, 97 gm protein. Add Prosource 2 packets/day for an additional 30gm protein . (total 112gm protein) 2. MD to modify insulin regimen for optimal glycemic control and replace lytes as medically appropriate. May consider modifying Tube feednig formula to Nutren 2.0 if she consistently has hypokalemia and hypophosphatemia (Nepro is low in Potassium and phosphorus). Expected Outcomes/Goals Expected Outcomes/Goals TF meets >75% of nutrient needs, improved skin integrity , nutrition related labs normalize F/U in 2-3 days as HR (07/31- )
[2018-07-30] MEDS: Micafungin 100 MG in Sodium Chloride 0.9% 100 ML IV SCH (15:02)
[2018-07-30] MEDS: Venelex 60gm Tube TP SCH (16:00)
[2018-07-30] MEDS: Menthol/Zinc Oxide Oint 113gm Tube TP SCH (16:00)
--- NOTE | 2018-07-30 19:58 | General Progress Note ---
Subjective - Review of Systems Events since last encounter: nonverbal on vent supoort Objective - Results Result Diagrams: 08/03/18 04:30 08/03/18 04:30 Recent Labs: Laboratory Last Values WBC 23.5 Th/cmm (4.8-10.8) H* 07/30/18 04:00 RBC 2.34 Mil/cmm (3.80-5.20) L 07/30/18 04:00 Hgb 6.6 gm/dL (12-16) L* 07/30/18 04:00 Hct 20.4 % (41.0-60) L* 07/30/18 04:00 MCV 87.3 fl (81-100) 07/30/18 04:00 MCH 28.4 pg (27.0-31.0) 07/30/18 04:00 MCHC Differential 32.5 pg (28.0-36.0) 07/30/18 04:00 RDW 17.3 % (11.5-20.0) 07/30/18 04:00 Plt Count 400 Th/cmm (150-400) 07/30/18 04:00 MPV 7.4 fl 07/30/18 04:00 Add Manual Diff YES 07/30/18 04:00 Band Neutrophils % 1 % (0-10) 07/30/18 04:00 Neutrophils (Manual) 86 % (40-80) H 07/30/18 04:00 Lymphocytes 9 % (20-50) L 07/30/18 04:00 Monocytes 4 % (2-10) 07/30/18 04:00 Eosinophils 0 % (0-5) 07/29/18 05:02 Basophils 1 % (0-3) 07/28/18 13:10 PT 11.8 SECONDS (9.5-11.5) H 07/28/18 20:00 INR 1.14 (0.5-1.4) 07/28/18 20:00 PTT (Actin FS) 31.2 SECONDS (26.0-38.0) 07/28/18 20:00 Specimen Source Arterial 07/28/18 16:15 Sample Site Right Radial 07/28/18 16:15 pH 7.53 (7.35-7.45) H 07/28/18 16:15 pCO2 34.0 mmHg (35.0-45.0) L 07/28/18 16:15 pO2 198.0 mmHg (80.0-100.0) H 07/28/18 16:15 HCO3 29.4 mEq/L (20.0-26.0) H 07/28/18 16:15 Base Excess 5.7 mEq/L (-3.0-3.0) H 07/28/18 16:15 O2 Saturation 100.0 % (92.0-100.0) 07/28/18 16:15 Reinaldo Test Positive 07/28/18 16:15 Vent Rate 16 07/28/18 16:15 Inspired O2 50 07/28/18 16:15 Tidal Volume 500 07/28/18 16:15 PEEP 3 07/28/18 16:15 Pressure (ins/psv/peep) N/A 07/28/18 16:15 Critical Value DM 07/28/18 16:15 Sodium 140 mEq/L (136-145) 07/30/18 04:00 Potassium 3.2 mEq/L (3.5-5.1) L 07/30/18 04:00 Chloride 103 mEq/L (98-107) 07/30/18 04:00 Carbon Dioxide 24.2 mEq/L (21.0-31.0) 07/30/18 04:00 Anion Gap 16.0 (7.0-16.0) 07/30/18 04:00 BUN 70 mg/dL (7-25) H 07/30/18 04:00 Creatinine 3.5 mg/dL (0.6-1.2) H 07/30/18 04:00 Est GFR ( Amer) 16.9 ml/min (>90) 07/30/18 04:00 Est GFR (Non-Af Amer) 13.9 ml/min 07/30/18 04:00 BUN/Creatinine Ratio 20.0 07/30/18 04:00 Glucose 264 mg/dL (70-105) H 07/30/18 04:00 POC Glucose 220 MG/DL (70 - 105) H 07/30/18 17:52 Whole Bld Lactic Acid 1.85 mmol/L (0.60-1.99) 07/28/18 13:30 Calcium 8.4 mg/dL (8.6-10.3) L 07/30/18 04:00 Phosphorus 1.5 mg/dL (2.5-5.0) L 07/28/18 13:10 Magnesium 2.5 mg/dL (1.9-2.7) 07/28/18 13:10 Total Bilirubin 0.3 mg/dL (0.3-1.0) 07/30/18 04:00 AST 21 U/L (13-39) 07/30/18 04:00 ALT 20 U/L (7-52) 07/30/18 04:00 Alkaline Phosphatase 361 U/L (34-104) H 07/30/18 04:00 Total Protein 5.6 gm/dL (6.0-8.3) L 07/30/18 04:00 Albumin 2.0 gm/dL (3.7-5.3) L 07/30/18 04:00 Globulin 3.6 gm/dL 07/30/18 04:00 Albumin/Globulin Ratio 0.6 (1.0-1.8) L 07/30/18 04:00 Urine Source CATH 07/28/18 13:35 Urine Color YELLOW 07/28/18 13:35 Urine Clarity HAZY (CLEAR) 07/28/18 13:35 Urine pH 7.5 (4.6 - 8.0) 07/28/18 13:35 Ur Specific [place] 1.020 (1.005-1.030) 07/28/18 13:35 Urine Protein 100 mg/dL (NEGATIVE) H 07/28/18 13:35 Urine Glucose (UA) NEGATIVE mg/dL (NEGATIVE) 07/28/18 13:35 Urine Ketones NEGATIVE mg/dL (NEGATIVE) 07/28/18 13:35 Urine Blood MODERATE (NEGATIVE) H 07/28/18 13:35 Urine Nitrate NEGATIVE (NEGATIVE) 07/28/18 13:35 Urine Bilirubin NEGATIVE (NEGATIVE) 07/28/18 13:35 Urine Urobilinogen 0.2 E.U./dL (0.2 - 1.0) 07/28/18 13:35 Ur Leukocyte Esterase MODERATE (NEGATIVE) H 07/28/18 13:35 Urine RBC 10-25 /hpf (0-5) H 07/28/18 13:35 Urine WBC 50-100 /hpf (0-5) H 07/28/18 13:35 Ur Epithelial Cells FEW /lpf (FEW) 07/28/18 13:35 Urine Bacteria 4+ /hpf (NONE SEEN) H 07/28/18 13:35 Stool Occult Blood NEGATIVE (NEGATIVE) 07/30/18 05:00 Urine Opiates Screen NEGATIVE (NEGATIVE) 07/28/18 13:35 Urine Methadone Screen NEGATIVE (NEGATIVE) 07/28/18 13:35 Ur Barbiturates Screen NEGATIVE (NEGATIVE) 07/28/18 13:35 Ur Tricyclics Screen NEGATIVE (NEGATIVE) 07/28/18 13:35 Ur Phencyclidine Scrn NEGATIVE (NEGATIVE) 07/28/18 13:35 Amphetamines Screen NEGATIVE (NEGATIVE) 07/28/18 13:35 U Methamphetamines Scrn NEGATIVE (NEGATIVE) 07/28/18 13:35 U Benzodiazepines Scrn NEGATIVE (NEGATIVE) 07/28/18 13:35 U Cocaine Metab Screen NEGATIVE (NEGATIVE) 07/28/18 13:35 U Cannabinoids Screen NEGATIVE (NEGATIVE) 07/28/18 13:35 Blood Type O POSITIVE 07/29/18 00:00 Antibody Screen NEGATIVE 07/29/18 00:00 Crossmatch See Detail 07/29/18 20:00 - Physical Exam Vitals and I&O: Vital Signs Temp 98.7 F 07/30/18 16:00 Pulse 111 07/30/18 19:00 Resp 24 07/30/18 19:00 BP 120/33 07/30/18 19:00 Pulse Ox 100 07/30/18 19:00 Intake & Output 07/30/18 07/30/18 07/31/18 06:59 18:59 06:59 Intake Total 287.462 150 Balance 287.462 150 Weight (lbs) 78.018 kg Intake: Intake, IV Amount 137.462 150 Aztreonam 1 gm In 50 50 Dextrose 5% 50 ml @ 100 mls/hr IV Q12HR ALONDRA Rx#: [id number] Micafungin 100 mg In 100 Sodium Chloride 0.9% 100 ml @ 100 mls/hr IV Q24H ALONDRA Rx#:[id number] Norepinephrine 8 mg In 87.462 Dextrose 5% 250 ml @ 4 MCG/MIN 7.74 mls/hr IV TITR PRN Rx#:[id number] Other 150 Other: # Voids 0 # Bowel Movements 1 Stool Characteristics Soft Soft Liquid Brown Brown Black Green Weight Source Bedscale Active Medications: Current Medications Acetaminophen (Tylenol 650mg Supp) 650 mg RC Q4H PRN PRN Reason: Fever > 101 Stop: 07/30/18 00:07 Albuterol/Ipratropium (Duoneb Neb) 3 ml HHN Q4HRT ALONDRA Stop: 09/26/18 22:59 Last Admin: 07/30/18 18:44 Dose: 3 ml Atorvastatin Calcium (Lipitor) 40 mg GT HS ALONDRA Stop: 09/27/18 20:59 Last Admin: 07/29/18 20:40 Dose: 40 mg Calamine/Phenol (Calmoseptine) 1 appl TP BID ALONDRA Stop: 09/28/18 16:59 Last Admin: 07/30/18 16:00 Dose: 1 appl Calcium Carbonate (Os-Keith) 500 mg GT BID ALONDRA Stop: 09/27/18 08:59 Last Admin: 07/30/18 18:00 Dose: 500 mg [place] Oil/[place] Balsam/Trypsin (Venelex) 1 appl TP DAILY ALONDRA Stop: 09/28/18 10:59 Last Admin: 07/30/18 16:00 Dose: 1 appl Chlorhexidine Gluconate (Peridex) 15 ml MM 0800,2000 ALONDRA Stop: 09/26/18 19:59 Last Admin: 07/30/18 08:30 Dose: 15 ml Epoetin Rj (Epogen) 10,000 units SUBQ TuThSa [facility] Stop: 09/27/18 11:14 Last Admin: 07/29/18 12:12 Dose: 10,000 units Folic Acid (Folate) 1 mg GT DAILY LAONDRA Stop: 09/27/18 08:59 Last Admin: 07/30/18 11:35 Dose: Not Given Heparin Sodium (Porcine) (Heparin) 5,000 units HD UD ALONDRA Stop: 07/31/18 00:00 Last Admin: 07/30/18 12:00 Dose: Not Given Aztreonam 1 gm/ Dextrose 50 mls @ 100 mls/hr IV Q12HR ALONDRA Stop: 09/26/18 13:59 Last Infusion: 07/30/18 15:01 Dose: Infused Norepinephrine Bitartrate 8 mg (/ Dextrose) 258 mls @ 7.74 mls/hr IV TITR PRN; Protocol PRN Reason: BP MAINTENANCE (PER PROTOCOL) Stop: 09/27/18 11:24 Last Titration: 07/29/18 23:30 Dose: 2 mcg/min, 3.87 mls/hr Sodium Chloride (Nacl 0.9%) 500 mls @ 0 mls/hr IV .Q0M PRN PRN Reason: BP Support During Hemodialysis Stop: 07/30/18 23:59 Micafungin Sodium 100 mg/ (Sodium Chloride) 100 mls @ 100 mls/hr IV Q24H [facility] Stop: 09/28/18 10:44 Last Infusion: 07/30/18 15:03 Dose: Infused Ibuprofen (Motrin) 400 mg PO Q6H PRN PRN Reason: Fever > 101 Stop: 09/27/18 02:58 Last Admin: 07/30/18 00:39 Dose: 400 mg Insulin Aspart (Novolog Insulin Sliding Scale) 0 units SUBQ Q6HR [facility]; Protocol Stop: 09/27/18 00:00 Last Admin: 07/30/18 17:56 Dose: 4 units Pantoprazole Sodium (Protonix) 40 mg IVP BID [facility] Stop: 09/28/18 19:44 Zinc Sulfate (Zinc Sulfate) 220 mg GT DAILY [facility] Stop: 09/27/18 08:59 Last Admin: 07/30/18 11:35 Dose: Not Given HEENT: Other (+TRACH) Cardiovascular: Normal S1, Normal S2 Lungs: Other Extremities: Other (NO EDEMA, LUE AVF+ THRILL) Neurological: Other (NONVERBAL) - Procedures Procedures: Procedures Procedure Code Date EXCISION OF BACK SUBCU/FASCIA, OPEN APPROACH [id number] 06/30/18 PERFORMANCE OF URINARY FILTRATION, <6 HRS/DAY [id number] 06/30/18 RESPIRATORY VENTILATION, GREATER THAN 96 CONSECUTIVE HOURS [id number] 06/30/18 TRANSFUSE NONAUT RED BLOOD CELLS IN PERIPH VEIN, PERC [id number] 06/30/18 Assessment/Plan - Assessment Assessment: respiratory failure, vent support esrd/hd acute anemia infected sacral hypotensiove - Plan Plan: as per order sheet Nutritional Asmnt/Malnutr-PDOC - Dietary Evaluation Malnutrition Findings (Please click <Entered> for more info): Nutritional Asmnt/Malnutrition Start: 07/29/18 09: 22 Text: Status: Complete Freq: Protocol: Document 07/29/18 09:23 AUGUSTINE (Rec: 07/29/18 10:10 AUGUSTINE GENAO- [email or web address]) Nutritional Asmnt/Malnutrition Patient General Information Nutritional Screening High Risk Consult Diagnosis Urosepsis, bilateral pneumonia , Decubitus ulcer Pertinent Medical Hx/Surgical Hx Hyperlipidemia, ESRD (No H&P) Subjective Information Consult recieved for Wound Stage IV. Patient receives HD, trach to vent. She was admitted from [facility]. Current TF provides 800 ml volume, 1440 kcal, 64gm protein. Current Diet Order/ Nutrition Support Tube feeding Nepro 50 ml/hr x 16 hours Patient / S.O Not Indicated Pertinent Medications Lipitor, Os-keith, Folate, Novolog, Protonix, Zinc sulfate Pertinent Labs (07/29) K 3.4, BUN 54, Cr 2.7 ( decreasing), Glucose 186-233, Ca 8.1, Phos 1.5, Albumin 2.4 Nutritional Hx/Data Height 1.83 m Height (Calculated Centimeters) 182.9 Current Weight (lbs) 80.286 kg Weight (Calculated Kilograms) 80.3 Weight (Calculated Grams) 90560.8 [place] Body Weight 160 % [place] Body Weight 110 Body Mass Index (BMI) 24.0 Recent Weight Change No Weight Status Approriate GI Symptoms GI Symptoms None Last BM 07/29 x1 Difficult in: Swallowing Food Allergies No Cultural/Ethnic/Tenriism Belief None indicated Usual diet at home Unknown Skin Integrity/Comment: Edvin 8, 2+ edema, stage IV wound Estimated Nutritional Goals BEE in Kcals: Using Current wt Calories/Kcals/Kg CBW 80.4kg Kcals Calculated ~6805-7185 kcal/day (27-32 kcal/kg) - considering HD, Stage IV wound, vent Protein: Using Current wt Protein g/k.5-1.7 gm/kg - wound, HD, vent Protein Calculated ~120-135 gm/day Fluid: ml Per MD due to HD Nutritional Problem 2. Problem Problem Altered nutrition related lab values related to Etiology electrotlyte imbalance and uncontrolled hyperglycemia aeb Signs/Symptoms: K 3.4, Glucose 186-233, Ca 8.1 , Phos 1.5, Albumin 2.4 1. Problem Problem Inadequate energy/protein intake related to Etiology current TF regimen inadequate aeb Signs/Symptoms: Current TF regimen meeting ~65 % of calorie and ~55% of protein needs Intervention/Recommendation Comments 1. Consider increasing Nepro to 50ml/hr continuously for 24 hours to provide 1200ml volume, 2160 kcal, 97 gm protein. Add Prosource 2 packets/day for an additional 30gm protein . (total 112gm protein) 2. MD to modify insulin regimen for optimal glycemic control and replace lytes as medically appropriate. May consider modifying Tube feednig formula to Nutren 2.0 if she consistently has hypokalemia and hypophosphatemia (Nepro is low in Potassium and phosphorus). Expected Outcomes/Goals Expected Outcomes/Goals TF meets >75% of nutrient needs, improved skin integrity , nutrition related labs normalize F/U in 2-3 days as HR (07/31- )
[2018-07-30] MEDS: Atorvastatin Calcium 10 MG TAB GT SCH (20:18)
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
[2018-07-31] MEDS: INSULIN ASPART SLIDING SCALE 100 UNITS/ML UNIT SUBQ SCH ×4 (00:49→17:36)
[2018-07-31] MEDS: Albuterol/Ipratropium Neb 3 ML AERS HHN SCH ×6 (02:40→23:12)
[2018-07-31 06:09] LABS: ALB/GLOB RATIO 0.5 (1.0-1.8); ALBUMIN 2.1 gm/dL (3.7-5.3); ANION GAP 14.2 (7.0-16.0); BASOPHILE ABSOLUTE 0.1 Th/cumm (0-0.2); BILIRUBIN,TOTAL 0.4 mg/dL (0.3-1.0); CALCIUM SERUM 8.5 mg/dL (8.6-10.3); CARBON DIOXIDE 27.5 mEq/L (21.0-31.0); CREATININE - SERUM 3.1 mg/dL (0.6-1.2); EOSINOPHILE ABSOLUTE 0.1 Th/cmm (0.1-0.4); GFR AFRICAN-AMERICAN 19.4 ml/min (>90); HEMATOCRIT 28.2 % (41.0-60); HEMOGLOBIN 9.4 gm/dL (12-16); LYMPHOCYTE ABSOLUTE 1.2 Th/cmm (1.5-3.0); MEAN CELL VOLUME 87.8 fl (81-100); MEAN CORPUSCULAR HEMOGLOBIN 29.2 pg (27.0-31.0); MEAN CORPUSCULAR HGB CONC 33.2 pg (28.0-36.0); MEAN PLATELET VOLUME 7.8 fl; MONOCYTE ABSOLUTE 1.7 Th/cmm (0.3-1.0); NEUTROPHILE ABSOLUTE 21.5 Th/cmm (1.8-8.0); PLATELET COUNT 359 Th/cmm (150-400); RED BLOOD COUNT 3.21 Mil/cmm (3.80-5.20); RED CELL DISTRIBUTION WIDTH 15.6 % (11.5-20.0)
[2018-07-31 06:11] LABS: POTASSIUM SERUM 2.7 mEq/L (3.5-5.1)
[2018-07-31 06:25] LABS: WHITE BLOOD COUNT 24.6 Th/cmm (4.8-10.8)
[2018-07-31 07:53] LABS: BAND NEUTROPHILE 2 % (0-10); LYMPHOCYTE 6 % (20-50); MONOCYTE 4 % (2-10); NEUTROPHILS 88 % (40-80)
[2018-07-31] MEDS: KCL 20mEq/100mL Premix 20 MEQ/100 ML PIGGYBACK IV SCH ×2 (08:30→10:24)
[2018-07-31] MEDS: Menthol/Zinc Oxide Oint 113gm Tube TP SCH ×2 (09:00→17:35)
[2018-07-31] MEDS: Chlorhexidine Gluconate 0.12% 15mL Mouthwash MM SCH ×2 (09:08→20:18)
[2018-07-31] MEDS: Micafungin 100 MG in Sodium Chloride 0.9% 100 ML IV SCH (12:57)
[2018-07-31] MEDS: Venelex 60gm Tube TP SCH (14:00)
--- NOTE | 2018-07-31 16:39 | General Progress Note ---
Subjective - Review of Systems Service Date: 07/31/18 Events since last encounter: UNDERWENT HD WITH 2 UNITS PRBCS HB IMPROVED NO LONGER ON PRESSOR SUPPORT REMAINS MECHANICALLY VENTILATED VIA TRACH Subjective: UNABLE TO OBTAIN, PT IS NON-VERBAL Objective - Results Result Diagrams: 07/31/18 05:30 07/31/18 05:30 Recent Labs: Laboratory Last Values WBC 24.6 Th/cmm (4.8-10.8) H* 07/31/18 05:30 RBC 3.21 Mil/cmm (3.80-5.20) L 07/31/18 05:30 Hgb 9.4 gm/dL (12-16) L 07/31/18 05:30 Hct 28.2 % (41.0-60) L 07/31/18 05:30 MCV 87.8 fl (81-100) 07/31/18 05:30 MCH 29.2 pg (27.0-31.0) 07/31/18 05:30 MCHC Differential 33.2 pg (28.0-36.0) 07/31/18 05:30 RDW 15.6 % (11.5-20.0) 07/31/18 05:30 Plt Count 359 Th/cmm (150-400) 07/31/18 05:30 MPV 7.8 fl 07/31/18 05:30 Add Manual Diff YES 07/31/18 05:30 Band Neutrophils % 2 % (0-10) 07/31/18 05:30 Neutrophils (Manual) 88 % (40-80) H 07/31/18 05:30 Lymphocytes 6 % (20-50) L 07/31/18 05:30 Monocytes 4 % (2-10) 07/31/18 05:30 Eosinophils 0 % (0-5) 07/29/18 05:02 Basophils 1 % (0-3) 07/28/18 13:10 PT 11.8 SECONDS (9.5-11.5) H 07/28/18 20:00 INR 1.14 (0.5-1.4) 07/28/18 20:00 PTT (Actin FS) 31.2 SECONDS (26.0-38.0) 07/28/18 20:00 Specimen Source Arterial 07/28/18 16:15 Sample Site Right Radial 07/28/18 16:15 pH 7.53 (7.35-7.45) H 07/28/18 16:15 pCO2 34.0 mmHg (35.0-45.0) L 07/28/18 16:15 pO2 198.0 mmHg (80.0-100.0) H 07/28/18 16:15 HCO3 29.4 mEq/L (20.0-26.0) H 07/28/18 16:15 Base Excess 5.7 mEq/L (-3.0-3.0) H 07/28/18 16:15 O2 Saturation 100.0 % (92.0-100.0) 07/28/18 16:15 Reinaldo Test Positive 07/28/18 16:15 Vent Rate 16 07/28/18 16:15 Inspired O2 50 07/28/18 16:15 Tidal Volume 500 07/28/18 16:15 PEEP 3 07/28/18 16:15 Pressure (ins/psv/peep) N/A 07/28/18 16:15 Critical Value DM 07/28/18 16:15 Sodium 141 mEq/L (136-145) 07/31/18 05:30 Potassium 2.7 mEq/L (3.5-5.1) L* 07/31/18 05:30 Chloride 102 mEq/L (98-107) 07/31/18 05:30 Carbon Dioxide 27.5 mEq/L (21.0-31.0) 07/31/18 05:30 Anion Gap 14.2 (7.0-16.0) 07/31/18 05:30 BUN 55 mg/dL (7-25) H 07/31/18 05:30 Creatinine 3.1 mg/dL (0.6-1.2) H 07/31/18 05:30 Est GFR ( Amer) 19.4 ml/min (>90) 07/31/18 05:30 Est GFR (Non-Af Amer) 16.0 ml/min 07/31/18 05:30 BUN/Creatinine Ratio 17.7 07/31/18 05:30 Glucose 203 mg/dL (70-105) H 07/31/18 05:30 POC Glucose 248 MG/DL (70 - 105) H 07/31/18 13:12 Whole Bld Lactic Acid 1.85 mmol/L (0.60-1.99) 07/28/18 13:30 Calcium 8.5 mg/dL (8.6-10.3) L 07/31/18 05:30 Phosphorus 1.5 mg/dL (2.5-5.0) L 07/28/18 13:10 Magnesium 2.5 mg/dL (1.9-2.7) 07/28/18 13:10 Total Bilirubin 0.4 mg/dL (0.3-1.0) 07/31/18 05:30 AST 16 U/L (13-39) 07/31/18 05:30 ALT 17 U/L (7-52) 07/31/18 05:30 Alkaline Phosphatase 349 U/L (34-104) H 07/31/18 05:30 Total Protein 6.0 gm/dL (6.0-8.3) 07/31/18 05:30 Albumin 2.1 gm/dL (3.7-5.3) L 07/31/18 05:30 Globulin 3.9 gm/dL 07/31/18 05:30 Albumin/Globulin Ratio 0.5 (1.0-1.8) L 07/31/18 05:30 Urine Source CATH 07/28/18 13:35 Urine Color YELLOW 07/28/18 13:35 Urine Clarity HAZY (CLEAR) 07/28/18 13:35 Urine pH 7.5 (4.6 - 8.0) 07/28/18 13:35 Ur Specific [place] 1.020 (1.005-1.030) 07/28/18 13:35 Urine Protein 100 mg/dL (NEGATIVE) H 07/28/18 13:35 Urine Glucose (UA) NEGATIVE mg/dL (NEGATIVE) 07/28/18 13:35 Urine Ketones NEGATIVE mg/dL (NEGATIVE) 07/28/18 13:35 Urine Blood MODERATE (NEGATIVE) H 07/28/18 13:35 Urine Nitrate NEGATIVE (NEGATIVE) 07/28/18 13:35 Urine Bilirubin NEGATIVE (NEGATIVE) 07/28/18 13:35 Urine Urobilinogen 0.2 E.U./dL (0.2 - 1.0) 07/28/18 13:35 Ur Leukocyte Esterase MODERATE (NEGATIVE) H 07/28/18 13:35 Urine RBC 10-25 /hpf (0-5) H 07/28/18 13:35 Urine WBC 50-100 /hpf (0-5) H 07/28/18 13:35 Ur Epithelial Cells FEW /lpf (FEW) 07/28/18 13:35 Urine Bacteria 4+ /hpf (NONE SEEN) H 07/28/18 13:35 Stool Occult Blood NEGATIVE (NEGATIVE) 07/31/18 05:00 Urine Opiates Screen NEGATIVE (NEGATIVE) 07/28/18 13:35 Urine Methadone Screen NEGATIVE (NEGATIVE) 07/28/18 13:35 Ur Barbiturates Screen NEGATIVE (NEGATIVE) 07/28/18 13:35 Ur Tricyclics Screen NEGATIVE (NEGATIVE) 07/28/18 13:35 Ur Phencyclidine Scrn NEGATIVE (NEGATIVE) 07/28/18 13:35 Amphetamines Screen NEGATIVE (NEGATIVE) 07/28/18 13:35 U Methamphetamines Scrn NEGATIVE (NEGATIVE) 07/28/18 13:35 U Benzodiazepines Scrn NEGATIVE (NEGATIVE) 07/28/18 13:35 U Cocaine Metab Screen NEGATIVE (NEGATIVE) 07/28/18 13:35 U Cannabinoids Screen NEGATIVE (NEGATIVE) 07/28/18 13:35 Blood Type O POSITIVE 07/29/18 00:00 Antibody Screen NEGATIVE 07/29/18 00:00 Crossmatch See Detail 07/29/18 20:00 - Physical Exam Vitals and I&O: Vital Signs Temp 98.4 F 07/31/18 06:00 Pulse 109 07/31/18 15:20 Resp 18 07/31/18 06:00 BP 110/78 07/31/18 06:00 Pulse Ox 99 07/31/18 15:20 Intake & Output 07/30/18 07/31/18 07/31/18 18:59 06:59 18:59 Intake Total 150 1720 245 Output Total 3000 Balance 150 -1280 245 Weight (lbs) 74.48 kg Intake: Intake, IV Amount 150 50 245 Aztreonam 1 gm In 50 50 50 Dextrose 5% 50 ml @ 100 mls/hr IV Q12HR [facility] Rx#: [id number] KCL 20mEq/100mL Premix 20 95 meq In 100 ml @ 50 mls/ hr IV Q2H [facility] Rx#: [id number] Micafungin 100 mg In 100 100 Sodium Chloride 0.9% 100 ml @ 100 mls/hr IV Q24H [facility] Rx#:[id number] Tube Feeding 850 Blood Product 500 Other 320 Output: Hemodialysis 3000 Other: # Voids 0 # Bowel Movements 1 Stool Characteristics Soft Soft Soft Brown Brown Brown Black Green Black Green Green Weight Source Bedscale Active Medications: Current Medications Acetaminophen (Tylenol 650mg Supp) 650 mg RC Q4H PRN PRN Reason: Fever > 101 Stop: 07/30/18 00:07 Albuterol/Ipratropium (Duoneb Neb) 3 ml HHN Q4HRT [facility] Stop: 09/26/18 22:59 Last Admin: 07/31/18 15:20 Dose: 3 ml Atorvastatin Calcium (Lipitor) 40 mg GT HS [facility] Stop: 09/27/18 20:59 Last Admin: 07/30/18 20:18 Dose: 40 mg Calamine/Phenol (Calmoseptine) 1 appl TP BID [facility] Stop: 09/28/18 16:59 Last Admin: 07/30/18 16:00 Dose: 1 appl Calcium Carbonate (Os-Keith) 500 mg GT BID [facility] Stop: 09/27/18 08:59 Last Admin: 07/31/18 08:44 Dose: 500 mg [place] Oil/[place]ian Balsam/Trypsin (Venelex) 1 appl TP DAILY [facility] Stop: 09/28/18 10:59 Last Admin: 07/30/18 16:00 Dose: 1 appl Chlorhexidine Gluconate (Peridex) 15 ml MM 0800,1999 [facility] Stop: 09/26/18 19:59 Last Admin: 07/31/18 09:08 Dose: 15 ml Epoetin Rj (Epogen) 10,000 units SUBQ TuThSa [facility] Stop: 09/27/18 11:14 Last Admin: 07/29/18 12:12 Dose: 10,000 units Folic Acid (Folate) 1 mg GT DAILY [facility] Stop: 09/27/18 08:59 Last Admin: 07/31/18 08:44 Dose: 1 mg Aztreonam 1 gm/ Dextrose 50 mls @ 100 mls/hr IV Q12HR [facility] Stop: 09/26/18 13:59 Last Infusion: 07/31/18 13:47 Dose: Infused Norepinephrine Bitartrate 8 mg (/ Dextrose) 258 mls @ 7.74 mls/hr IV TITR PRN; Protocol PRN Reason: BP MAINTENANCE (PER PROTOCOL) Stop: 09/27/18 11:24 Last Titration: 07/29/18 23:30 Dose: 2 mcg/min, 3.87 mls/hr Micafungin Sodium 100 mg/ (Sodium Chloride) 100 mls @ 100 mls/hr IV Q24H [facility] Stop: 09/28/18 10:44 Last Infusion: 07/31/18 13:21 Dose: Infused Ibuprofen (Motrin) 400 mg PO Q6H PRN PRN Reason: Fever > 101 Stop: 09/27/18 02:58 Last Admin: 07/30/18 21:45 Dose: 400 mg Insulin Aspart (Novolog Insulin Sliding Scale) 0 units SUBQ Q6HR [facility]; Protocol Stop: 09/27/18 00:00 Last Admin: 07/31/18 13:18 Dose: 4 units Miscellaneous (Clinical Monitoring) 1 ea MC DAILY PRN PRN Reason: RENAL DOSING Stop: 09/29/18 09:05 Pantoprazole Sodium (Protonix) 40 mg IVP BID [facility] Stop: 09/28/18 19:44 Last Admin: 07/31/18 08:54 Dose: 40 mg Zinc Sulfate (Zinc Sulfate) 220 mg GT DAILY [facility] Stop: 09/27/18 08:59 Last Admin: 07/31/18 08:45 Dose: 220 mg General: Other (NON-VERBAL, MECHANICALLY VENTILATED VIA TRACH) HEENT: Other (+TRACH) Cardiovascular: Normal S1, Normal S2 Lungs: Clear to auscultation Abdomen: Other (+ GTUBE) Extremities: Other (NO EDEMA, LUE AVF+ THRILL) Neurological: Other (NONVERBAL) - Procedures Procedures: Procedures Procedure Code Date EXCISION OF BACK SUBCU/FASCIA, OPEN APPROACH [id number] 06/30/18 PERFORMANCE OF URINARY FILTRATION, <6 HRS/DAY [id number] 06/30/18 RESPIRATORY VENTILATION, 24-96 CONSECUTIVE HOURS [id number] 07/28/18 RESPIRATORY VENTILATION, GREATER THAN 96 CONSECUTIVE HOURS [id number] 06/30/18 TRANSFUSE NONAUT RED BLOOD CELLS IN PERIPH VEIN, PERC [id number] 06/30/18 Assessment/Plan - Assessment Assessment: 1.ESRD 2/2 DM, HTN ON MAINTENANCE HD, STABLE -NEXT HD TUESDAY 08/01 2. ACUTE ANEMIA SUPERIMPOSED ON ANEMIA OF CKD, IMPROVED AFTER 3 UNITS PRBCS TOTAL SO FAR -TRANSFUSE NECESSARY -PENDING EGD TOMORROW -CONT MAX DOSE EPOGEN -CONT PROTONIX 3. CHRONIC VENT DEPENDENT RESP FAILURE, STABLE -CONT VENT SUPPORT 4. INFECTED SACRAL DECUBITUS ULCER, STABLE -CONT WOUND CARE, IV ABX, PRESSOR SUPPORT 5. HYPOTENSIVE SEPTIC SHOCK, REQUIRING LEVOPHED LIKELY SECONDARY TO RECENTLY REPORTED YEAST ON BLOOD CULTURE, BP IMPROVED -CONT ABX, LEVOPHED -INITIATE ANTIFUNGALS PER ID - Plan Plan: ABOVE DW [employer] Nutritional Asmnt/Malnutr-PDOC - Dietary Evaluation Malnutrition Findings (Please click <Entered> for more info): Nutritional Asmnt/Malnutrition Start: 07/29/18 09: 22 Text: Status: Complete Freq: Protocol: Document 07/29/18 09:23 MMULHALEY (Rec: 07/29/18 10:10 MMULHALEY GENAO- FNS1) Nutritional Asmnt/Malnutrition Patient General Information Nutritional Screening High Risk Consult Diagnosis Urosepsis, bilateral pneumonia , Decubitus ulcer Pertinent Medical Hx/Surgical Hx Hyperlipidemia, ESRD (No H&P) Subjective Information Consult recieved for Wound Stage IV. Patient receives HD, trach to vent. She was admitted from [facility]. Current TF provides 800 ml volume, 1440 kcal, 64gm protein. Current Diet Order/ Nutrition Support Tube feeding Nepro 50 ml/hr x 16 hours Patient / S.O Not Indicated Pertinent Medications Lipitor, Os-keith, Folate, Novolog, Protonix, Zinc sulfate Pertinent Labs (07/29) K 3.4, BUN 54, Cr 2.7 ( decreasing), Glucose 186-233, Ca 8.1, Phos 1.5, Albumin 2.4 Nutritional Hx/Data Height 1.83 m Height (Calculated Centimeters) 182.9 Current Weight (lbs) 80.286 kg Weight (Calculated Kilograms) 80.3 Weight (Calculated Grams) 44963.8 [place] Body Weight 160 % [place] Body Weight 110 Body Mass Index (BMI) 24.0 Recent Weight Change No Weight Status Approriate GI Symptoms GI Symptoms None Last BM 07/29 x1 Difficult in: Swallowing Food Allergies No Cultural/Ethnic/Adventist Belief None indicated Usual diet at home Unknown Skin Integrity/Comment: Edvin 8, 2+ edema, stage IV wound Estimated Nutritional Goals BEE in Kcals: Using Current wt Calories/Kcals/Kg CBW 80.4kg Kcals Calculated ~5596-7900 kcal/day (27-32 kcal/kg) - considering HD, Stage IV wound, vent Protein: Using Current wt Protein g/k.5-1.7 gm/kg - wound, HD, vent Protein Calculated ~120-135 gm/day Fluid: ml Per MD due to HD Nutritional Problem 2. Problem Problem Altered nutrition related lab values related to Etiology electrotlyte imbalance and uncontrolled hyperglycemia aeb Signs/Symptoms: K 3.4, Glucose 186-233, Ca 8.1 , Phos 1.5, Albumin 2.4 1. Problem Problem Inadequate energy/protein intake related to Etiology current TF regimen inadequate aeb Signs/Symptoms: Current TF regimen meeting ~65 % of calorie and ~55% of protein needs Intervention/Recommendation Comments 1. Consider increasing Nepro to 50ml/hr continuously for 24 hours to provide 1200ml volume, 2160 kcal, 97 gm protein. Add Prosource 2 packets/day for an additional 30gm protein . (total 112gm protein) 2. MD to modify insulin regimen for optimal glycemic control and replace lytes as medically appropriate. May consider modifying Tube feednig formula to Nutren 2.0 if she consistently has hypokalemia and hypophosphatemia (Nepro is low in Potassium and phosphorus). Expected Outcomes/Goals Expected Outcomes/Goals TF meets >75% of nutrient needs, improved skin integrity , nutrition related labs normalize F/U in 2-3 days as HR (07/31- )
--- NOTE | 2018-07-31 16:53 | Internal Medicine Prog Note ---
Internal Medicine Subjective - Subjective Patient seen and examined:: chart reviewed Patient is:: non-verbal, other (UNDERWENT HD WITH 2 UNITS PRBCS) Patient Complaints of:: congestion Per staff patient has:: no adverse event Internal Medicine Objective - Results Result Diagrams: 07/31/18 05:30 07/31/18 05:30 Recent Labs: Laboratory Last Values WBC 24.6 Th/cmm (4.8-10.8) H* 07/31/18 05:30 RBC 3.21 Mil/cmm (3.80-5.20) L 07/31/18 05:30 Hgb 9.4 gm/dL (12-16) L 07/31/18 05:30 Hct 28.2 % (41.0-60) L 07/31/18 05:30 MCV 87.8 fl (81-100) 07/31/18 05:30 MCH 29.2 pg (27.0-31.0) 07/31/18 05:30 MCHC Differential 33.2 pg (28.0-36.0) 07/31/18 05:30 RDW 15.6 % (11.5-20.0) 07/31/18 05:30 Plt Count 359 Th/cmm (150-400) 07/31/18 05:30 MPV 7.8 fl 07/31/18 05:30 Add Manual Diff YES 07/31/18 05:30 Band Neutrophils % 2 % (0-10) 07/31/18 05:30 Neutrophils (Manual) 88 % (40-80) H 07/31/18 05:30 Lymphocytes 6 % (20-50) L 07/31/18 05:30 Monocytes 4 % (2-10) 07/31/18 05:30 Eosinophils 0 % (0-5) 07/29/18 05:02 Basophils 1 % (0-3) 07/28/18 13:10 PT 11.8 SECONDS (9.5-11.5) H 07/28/18 20:00 INR 1.14 (0.5-1.4) 07/28/18 20:00 PTT (Actin FS) 31.2 SECONDS (26.0-38.0) 07/28/18 20:00 Specimen Source Arterial 07/28/18 16:15 Sample Site Right Radial 07/28/18 16:15 pH 7.53 (7.35-7.45) H 07/28/18 16:15 pCO2 34.0 mmHg (35.0-45.0) L 07/28/18 16:15 pO2 198.0 mmHg (80.0-100.0) H 07/28/18 16:15 HCO3 29.4 mEq/L (20.0-26.0) H 07/28/18 16:15 Base Excess 5.7 mEq/L (-3.0-3.0) H 07/28/18 16:15 O2 Saturation 100.0 % (92.0-100.0) 07/28/18 16:15 Reinaldo Test Positive 07/28/18 16:15 Vent Rate 16 07/28/18 16:15 Inspired O2 50 07/28/18 16:15 Tidal Volume 500 07/28/18 16:15 PEEP 3 07/28/18 16:15 Pressure (ins/psv/peep) N/A 07/28/18 16:15 Critical Value DM 07/28/18 16:15 Sodium 141 mEq/L (136-145) 07/31/18 05:30 Potassium 2.7 mEq/L (3.5-5.1) L* 07/31/18 05:30 Chloride 102 mEq/L (98-107) 07/31/18 05:30 Carbon Dioxide 27.5 mEq/L (21.0-31.0) 07/31/18 05:30 Anion Gap 14.2 (7.0-16.0) 07/31/18 05:30 BUN 55 mg/dL (7-25) H 07/31/18 05:30 Creatinine 3.1 mg/dL (0.6-1.2) H 07/31/18 05:30 Est GFR ( Amer) 19.4 ml/min (>90) 07/31/18 05:30 Est GFR (Non-Af Amer) 16.0 ml/min 07/31/18 05:30 BUN/Creatinine Ratio 17.7 07/31/18 05:30 Glucose 203 mg/dL (70-105) H 07/31/18 05:30 POC Glucose 248 MG/DL (70 - 105) H 07/31/18 13:12 Whole Bld Lactic Acid 1.85 mmol/L (0.60-1.99) 07/28/18 13:30 Calcium 8.5 mg/dL (8.6-10.3) L 07/31/18 05:30 Phosphorus 1.5 mg/dL (2.5-5.0) L 07/28/18 13:10 Magnesium 2.5 mg/dL (1.9-2.7) 07/28/18 13:10 Total Bilirubin 0.4 mg/dL (0.3-1.0) 07/31/18 05:30 AST 16 U/L (13-39) 07/31/18 05:30 ALT 17 U/L (7-52) 07/31/18 05:30 Alkaline Phosphatase 349 U/L (34-104) H 07/31/18 05:30 Total Protein 6.0 gm/dL (6.0-8.3) 07/31/18 05:30 Albumin 2.1 gm/dL (3.7-5.3) L 07/31/18 05:30 Globulin 3.9 gm/dL 07/31/18 05:30 Albumin/Globulin Ratio 0.5 (1.0-1.8) L 07/31/18 05:30 Urine Source CATH 07/28/18 13:35 Urine Color YELLOW 07/28/18 13:35 Urine Clarity HAZY (CLEAR) 07/28/18 13:35 Urine pH 7.5 (4.6 - 8.0) 07/28/18 13:35 Ur Specific [place] 1.020 (1.005-1.030) 07/28/18 13:35 Urine Protein 100 mg/dL (NEGATIVE) H 07/28/18 13:35 Urine Glucose (UA) NEGATIVE mg/dL (NEGATIVE) 07/28/18 13:35 Urine Ketones NEGATIVE mg/dL (NEGATIVE) 07/28/18 13:35 Urine Blood MODERATE (NEGATIVE) H 07/28/18 13:35 Urine Nitrate NEGATIVE (NEGATIVE) 07/28/18 13:35 Urine Bilirubin NEGATIVE (NEGATIVE) 07/28/18 13:35 Urine Urobilinogen 0.2 E.U./dL (0.2 - 1.0) 07/28/18 13:35 Ur Leukocyte Esterase MODERATE (NEGATIVE) H 07/28/18 13:35 Urine RBC 10-25 /hpf (0-5) H 07/28/18 13:35 Urine WBC 50-100 /hpf (0-5) H 07/28/18 13:35 Ur Epithelial Cells FEW /lpf (FEW) 07/28/18 13:35 Urine Bacteria 4+ /hpf (NONE SEEN) H 07/28/18 13:35 Stool Occult Blood NEGATIVE (NEGATIVE) 07/31/18 05:00 Urine Opiates Screen NEGATIVE (NEGATIVE) 07/28/18 13:35 Urine Methadone Screen NEGATIVE (NEGATIVE) 07/28/18 13:35 Ur Barbiturates Screen NEGATIVE (NEGATIVE) 07/28/18 13:35 Ur Tricyclics Screen NEGATIVE (NEGATIVE) 07/28/18 13:35 Ur Phencyclidine Scrn NEGATIVE (NEGATIVE) 07/28/18 13:35 Amphetamines Screen NEGATIVE (NEGATIVE) 07/28/18 13:35 U Methamphetamines Scrn NEGATIVE (NEGATIVE) 07/28/18 13:35 U Benzodiazepines Scrn NEGATIVE (NEGATIVE) 07/28/18 13:35 U Cocaine Metab Screen NEGATIVE (NEGATIVE) 07/28/18 13:35 U Cannabinoids Screen NEGATIVE (NEGATIVE) 07/28/18 13:35 Blood Type O POSITIVE 07/29/18 00:00 Antibody Screen NEGATIVE 07/29/18 00:00 Crossmatch See Detail 07/29/18 20:00 - Physical Exam Vitals and I&O: Vital Signs Temp 98.4 F 07/31/18 06:00 Pulse 109 07/31/18 15:20 Resp 18 07/31/18 06:00 BP 110/78 07/31/18 06:00 Pulse Ox 99 07/31/18 15:20 Intake & Output 07/30/18 07/31/18 07/31/18 18:59 06:59 18:59 Intake Total 150 1720 245 Output Total 3000 Balance 150 -1280 245 Weight (lbs) 74.48 kg Intake: Intake, IV Amount 150 50 245 Aztreonam 1 gm In 50 50 50 Dextrose 5% 50 ml @ 100 mls/hr IV Q12HR [facility] Rx#: [id number] KCL 20mEq/100mL Premix 20 95 meq In 100 ml @ 50 mls/ hr IV Q2H [facility] Rx#: [id number] Micafungin 100 mg In 100 100 Sodium Chloride 0.9% 100 ml @ 100 mls/hr IV Q24H [facility] Rx#:[id number] Tube Feeding 850 Blood Product 500 Other 320 Output: Hemodialysis 3000 Other: # Voids 0 # Bowel Movements 1 Stool Characteristics Soft Soft Soft Brown Brown Brown Black Green Black Green Green Weight Source Bedscale Active Medications: Current Medications Acetaminophen (Tylenol 650mg Supp) 650 mg RC Q4H PRN PRN Reason: Fever > 101 Stop: 07/30/18 00:07 Albuterol/Ipratropium (Duoneb Neb) 3 ml HHN Q4HRT [facility] Stop: 09/26/18 22:59 Last Admin: 07/31/18 15:20 Dose: 3 ml Atorvastatin Calcium (Lipitor) 40 mg GT HS [facility] Stop: 09/27/18 20:59 Last Admin: 07/30/18 20:18 Dose: 40 mg Calamine/Phenol (Calmoseptine) 1 appl TP BID [facility] Stop: 09/28/18 16:59 Last Admin: 07/30/18 16:00 Dose: 1 appl Calcium Carbonate (Os-Keith) 500 mg GT BID [facility] Stop: 09/27/18 08:59 Last Admin: 07/31/18 08:44 Dose: 500 mg [place] Oil/[place] Balsam/Trypsin (Venelex) 1 appl TP DAILY [facility] Stop: 09/28/18 10:59 Last Admin: 07/30/18 16:00 Dose: 1 appl Chlorhexidine Gluconate (Peridex) 15 ml MM 0800,2000 [facility] Stop: 09/26/18 19:59 Last Admin: 07/31/18 09:08 Dose: 15 ml Epoetin Rj (Epogen) 10,000 units SUBQ TuThSa [facility] Stop: 09/27/18 11:14 Last Admin: 07/29/18 12:12 Dose: 10,000 units Folic Acid (Folate) 1 mg GT DAILY [facility] Stop: 09/27/18 08:59 Last Admin: 07/31/18 08:44 Dose: 1 mg Aztreonam 1 gm/ Dextrose 50 mls @ 100 mls/hr IV Q12HR [facility] Stop: 09/26/18 13:59 Last Infusion: 07/31/18 13:47 Dose: Infused Norepinephrine Bitartrate 8 mg (/ Dextrose) 258 mls @ 7.74 mls/hr IV TITR PRN; Protocol PRN Reason: BP MAINTENANCE (PER PROTOCOL) Stop: 09/27/18 11:24 Last Titration: 07/29/18 23:30 Dose: 2 mcg/min, 3.87 mls/hr Micafungin Sodium 100 mg/ (Sodium Chloride) 100 mls @ 100 mls/hr IV Q24H [facility] Stop: 09/28/18 10:44 Last Infusion: 07/31/18 13:21 Dose: Infused Ibuprofen (Motrin) 400 mg PO Q6H PRN PRN Reason: Fever > 101 Stop: 09/27/18 02:58 Last Admin: 07/30/18 21:45 Dose: 400 mg Insulin Aspart (Novolog Insulin Sliding Scale) 0 units SUBQ Q6HR ALONDRA; Protocol Stop: 09/27/18 00:00 Last Admin: 07/31/18 13:18 Dose: 4 units Miscellaneous (Clinical Monitoring) 1 ea MC DAILY PRN PRN Reason: RENAL DOSING Stop: 09/29/18 09:05 Pantoprazole Sodium (Protonix) 40 mg IVP BID [facility] Stop: 09/28/18 19:44 Last Admin: 07/31/18 08:54 Dose: 40 mg Zinc Sulfate (Zinc Sulfate) 220 mg GT DAILY [facility] Stop: 09/27/18 08:59 Last Admin: 07/31/18 08:45 Dose: 220 mg General: weak, other (on vent ) HEENT: NC/AT Neck: Supple Lungs: CTAB Cardiovascular: RRR, Normal S1, Normal S2 Abdomen: soft Extremities: clear, edema Neurological: no change - Procedures Procedures: Procedures Procedure Code Date EXCISION OF BACK SUBCU/FASCIA, OPEN APPROACH [id number] 06/30/18 PERFORMANCE OF URINARY FILTRATION, <6 HRS/DAY [id number] 06/30/18 RESPIRATORY VENTILATION, 24-96 CONSECUTIVE HOURS [id number] 07/28/18 RESPIRATORY VENTILATION, GREATER THAN 96 CONSECUTIVE HOURS [id number] 06/30/18 TRANSFUSE NONAUT RED BLOOD CELLS IN PERIPH VEIN, PERC 21495X3 06/30/18 Internal Medicine Assmt/Plan - Assessment Assessment: ESRD/HD ACUTE ANEMIA 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 HYPOTENSIVE - Plan Plan: as per order sheet Nutritional Asmnt/Malnutr-PDOC - Dietary Evaluation Malnutrition Findings (Please click <Entered> for more info): Nutritional Asmnt/Malnutrition Start: 07/29/18 09: 22 Text: Status: Complete Freq: Protocol: Document 07/29/18 09:23 AUGUSTINE (Rec: 07/29/18 10:10 AUGUSTINE CHADWICK- [email or web address]) Nutritional Asmnt/Malnutrition Patient General Information Nutritional Screening High Risk Consult Diagnosis Urosepsis, bilateral pneumonia , Decubitus ulcer Pertinent Medical Hx/Surgical Hx Hyperlipidemia, ESRD (No H&P) Subjective Information Consult recieved for Wound Stage IV. Patient receives HD, trach to vent. She was admitted from [facility]. Current TF provides 800 ml volume, 1440 kcal, 64gm protein. Current Diet Order/ Nutrition Support Tube feeding Nepro 50 ml/hr x 16 hours Patient / S.O Not Indicated Pertinent Medications Lipitor, Os-keith, Folate, Novolog, Protonix, Zinc sulfate Pertinent Labs (07/29) K 3.4, BUN 54, Cr 2.7 ( decreasing), Glucose 186-233, Ca 8.1, Phos 1.5, Albumin 2.4 Nutritional Hx/Data Height 1.83 m Height (Calculated Centimeters) 182.9 Current Weight (lbs) 80.286 kg Weight (Calculated Kilograms) 80.3 Weight (Calculated Grams) 66950.8 [place] Body Weight 160 % [place] Body Weight 110 Body Mass Index (BMI) 24.0 Recent Weight Change No Weight Status Approriate GI Symptoms GI Symptoms None Last BM 07/29 x1 Difficult in: Swallowing Food Allergies No Cultural/Ethnic/Yarsanism Belief None indicated Usual diet at home Unknown Skin Integrity/Comment: Edvin 8, 2+ edema, stage IV wound Estimated Nutritional Goals BEE in Kcals: Using Current wt Calories/Kcals/Kg CBW 80.4kg Kcals Calculated ~6780-1893 kcal/day (27-32 kcal/kg) - considering HD, Stage IV wound, vent Protein: Using Current wt Protein g/k.5-1.7 gm/kg - wound, HD, vent Protein Calculated ~120-135 gm/day Fluid: ml Per MD due to HD Nutritional Problem 2. Problem Problem Altered nutrition related lab values related to Etiology electrotlyte imbalance and uncontrolled hyperglycemia aeb Signs/Symptoms: K 3.4, Glucose 186-233, Ca 8.1 , Phos 1.5, Albumin 2.4 1. Problem Problem Inadequate energy/protein intake related to Etiology current TF regimen inadequate aeb Signs/Symptoms: Current TF regimen meeting ~65 % of calorie and ~55% of protein needs Intervention/Recommendation Comments 1. Consider increasing Nepro to 50ml/hr continuously for 24 hours to provide 1200ml volume, 2160 kcal, 97 gm protein. Add Prosource 2 packets/day for an additional 30gm protein . (total 112gm protein) 2. MD to modify insulin regimen for optimal glycemic control and replace lytes as medically appropriate. May consider modifying Tube feednig formula to Nutren 2.0 if she consistently has hypokalemia and hypophosphatemia (Nepro is low in Potassium and phosphorus). Expected Outcomes/Goals Expected Outcomes/Goals TF meets >75% of nutrient needs, improved skin integrity , nutrition related labs normalize F/U in 2-3 days as HR (07/31- )
[2018-07-31] MEDS: Atorvastatin Calcium 10 MG TAB GT SCH (20:23)
--- NOTE | 2018-07-31 21:36 | Consultation ---
DATE OF CONSULTATION: 07/31/2018 GASTROENTEROLOGY CONSULTATION REQUESTING PHYSICIAN: Dr. Isma Olguin. REASON FOR CONSULTATION: Occult gastrointestinal bleed and anemia. HISTORY OF PRESENT ILLNESS: A 67-year-old female with history of end-stage renal disease, hemodialysis dependent, chronic ventilator dependency, status post tracheostomy, dysphagia with G-tube insertion and sacral decubitus ulcer. She was admitted for urosepsis and placed in ICU. She was noted to have a low hemoglobin requiring blood transfusion. She was noted to have stool OB positivity. PAST MEDICAL HISTORY: As above. PAST SURGICAL HISTORY: Notable for tracheostomy, G-tube insertion and Perm-A-Cath placement. SOCIAL HISTORY: skilled nursing resident. No recent tobacco, alcohol, or drugs. MEDICATIONS: Here are Tylenol, DuoNeb nebulizer, Lipitor, aztreonam, Os-Alon, Epogen, folic acid, insulin sliding scale, Protonix IV b.i.d. and zinc sulfate. ALLERGIES: ACETAMINOPHEN, CODEINE, HYDROCODONE, TRAMADOL. REVIEW OF SYSTEMS: A comprehensive 12-point review of system was conducted and is only positive for those signs and symptoms present in history of present illness. PHYSICAL EXAMINATION: VITAL SIGNS: Temperature 98.4, O2 sat is 100% on FIO2 30%. Other vital signs were as per hospital nursing notes. GENERAL: The patient is well developed, clinically-appearing female in no acute distress. HEENT: Tracheostomy is intact, attached to a ventilator. CARDIOVASCULAR: Regular rate and rhythm. LUNGS: With occasional rhonchi at the bases. ABDOMEN: Soft, nontender, nondistended. Intact G-tube. EXTREMITIES: Contractured, no edema. RECTAL: Deferred. LABORATORY DATA AND IMAGING: WBC 24.6; hemoglobin 9.4, on admission was 6.6; platelet count normal. Potassium 2.7, creatinine 3.1, alkaline phosphatase 349. Liver labs are normal. Stool OB is negative, most recently, but initially was positive on the . IMPRESSION: 1. Anemia with occult gastrointestinal bleed, which could be from gastritis, peptic ulcer disease, neoplasm. Also, could be from anemia of chronic disease and/or chronic kidney disease, and less likely hematologic source. 2. Dysphagia with G tube. 3. Respiratory failure and vent dependency, status post tracheostomy. 4. End-stage renal disease, hemodialysis dependent. RECOMMENDATIONS: 1. Upper endoscopy in the morning given dark stools and melena. 2. Colonoscopy would be needed if upper endoscopy is negative and if there is ongoing transfusion need; this can be done the following day if needed. 3. Monitor hemoglobin and transfuse as necessary. 4. G-tube feedings to be continued for now, but hold overnight for upper endoscopy. 5. Further care as per other consultants and hospitalist. Thank you, Dr. Isma Olguin for involving us in the care of your patient. If you have any further questions, please call us. JOB# [id number] MTDD
[2018-08-01] MEDS: INSULIN ASPART SLIDING SCALE 100 UNITS/ML UNIT SUBQ SCH ×4 (00:40→17:14)
[2018-08-01] MEDS: Albuterol/Ipratropium Neb 3 ML AERS HHN SCH ×5 (03:31→19:22)
[2018-08-01 04:44] LABS: HEMATOCRIT 27.2 % (41.0-60); HEMOGLOBIN 8.8 gm/dL (12-16); MEAN CELL VOLUME 86.4 fl (81-100); MEAN CORPUSCULAR HEMOGLOBIN 27.9 pg (27.0-31.0); MEAN CORPUSCULAR HGB CONC 32.3 pg (28.0-36.0); MEAN PLATELET VOLUME 7.6 fl; PLATELET COUNT 353 Th/cmm (150-400); RED BLOOD COUNT 3.14 Mil/cmm (3.80-5.20); RED CELL DISTRIBUTION WIDTH 16.1 % (11.5-20.0)
[2018-08-01 04:51] LABS: INR 1.09 (0.5-1.4); PROTHROMBIN TIME (TEST) 11.3 SECONDS (9.5-11.5)
[2018-08-01 05:07] LABS: WHITE BLOOD COUNT 17.1 Th/cmm (4.8-10.8)
[2018-08-01 05:19] LABS: ALB/GLOB RATIO 0.5 (1.0-1.8); ANION GAP 16.8 (7.0-16.0); BILIRUBIN,TOTAL 0.4 mg/dL (0.3-1.0); CALCIUM SERUM 8.5 mg/dL (8.6-10.3); CREATININE - SERUM 3.9 mg/dL (0.6-1.2); GFR AFRICAN-AMERICAN 14.9 ml/min (>90); GFR NON AFRICAN-AMERICAN 12.3 ml/min; POTASSIUM SERUM 3.8 mEq/L (3.5-5.1); TOTAL PROTEIN,SERUM 5.8 gm/dL (6.0-8.3)
[2018-08-01 06:33] LABS: BAND NEUTROPHILE 0 % (0-10); NEUTROPHILS 86 % (40-80)
[2018-08-01 06:34] LABS: BASOPHIL 0 % (0-3); EOSINOPHIL 1 % (0-5); LYMPHOCYTE 8 % (20-50); MONOCYTE 5 % (2-10)
[2018-08-01] MEDS: Chlorhexidine Gluconate 0.12% 15mL Mouthwash MM SCH ×2 (07:30→20:46)
--- NOTE | 2018-08-01 08:46 | Diagnostic Imaging Report ---
Portable chest x-ray HISTORY: Shortness of breath Compared with the prior exam of 2018, persistent cardiomegaly. There is persistent density within the left lower hemithorax corresponds to predominantly pulmonary parenchymal changes consistent with atelectasis/consolidation noted on the earlier CT scan of 07/03/2018. There is developed suggestion of faint infiltrate within the right infrahilar area. Pneumonia cannot be excluded. IMPRESSION: 1. Suggestion of new infiltrate within the right infrahilar area. Pneumonia cannot be excluded. 2. Persistent chronic density within the left lower hemithorax as noted above 3. Persistent cardiomegaly
[2018-08-01] MEDS: Menthol/Zinc Oxide Oint 113gm Tube TP SCH ×2 (09:00→16:57)
[2018-08-01] MEDS: Micafungin 100 MG in Sodium Chloride 0.9% 100 ML IV SCH (09:44)
--- NOTE | 2018-08-01 12:56 | Internal Medicine Prog Note ---
Internal Medicine Subjective - Subjective Service Date: 08/01/18 (undergoing hd) Patient is:: non-verbal, other (UNDERWENT HD WITH 2 UNITS PRBCS) Patient Complaints of:: congestion Per staff patient has:: no adverse event Internal Medicine Objective - Results Result Diagrams: 08/01/18 04:15 08/01/18 04:15 Recent Labs: Laboratory Last Values WBC 17.1 Th/cmm (4.8-10.8) H D 08/01/18 04:15 RBC 3.14 Mil/cmm (3.80-5.20) L 08/01/18 04:15 Hgb 8.8 gm/dL (12-16) L 08/01/18 04:15 Hct 27.2 % (41.0-60) L 08/01/18 04:15 MCV 86.4 fl (81-100) 08/01/18 04:15 MCH 27.9 pg (27.0-31.0) 08/01/18 04:15 MCHC Differential 32.3 pg (28.0-36.0) 08/01/18 04:15 RDW 16.1 % (11.5-20.0) 08/01/18 04:15 Plt Count 353 Th/cmm (150-400) 08/01/18 04:15 MPV 7.6 fl 08/01/18 04:15 Add Manual Diff YES 08/01/18 04:15 Band Neutrophils % 0 % (0-10) 08/01/18 04:15 Neutrophils (Manual) 86 % (40-80) H 08/01/18 04:15 Lymphocytes 8 % (20-50) L 08/01/18 04:15 Monocytes 5 % (2-10) 08/01/18 04:15 Eosinophils 1 % (0-5) 08/01/18 04:15 Basophils 0 % (0-3) 08/01/18 04:15 PT 11.3 SECONDS (9.5-11.5) 08/01/18 04:15 INR 1.09 (0.5-1.4) 08/01/18 04:15 PTT (Actin FS) 31.2 SECONDS (26.0-38.0) 07/28/18 20:00 Specimen Source Arterial 07/28/18 16:15 Sample Site Right Radial 07/28/18 16:15 pH 7.53 (7.35-7.45) H 07/28/18 16:15 pCO2 34.0 mmHg (35.0-45.0) L 07/28/18 16:15 pO2 198.0 mmHg (80.0-100.0) H 07/28/18 16:15 HCO3 29.4 mEq/L (20.0-26.0) H 07/28/18 16:15 Base Excess 5.7 mEq/L (-3.0-3.0) H 07/28/18 16:15 O2 Saturation 100.0 % (92.0-100.0) 07/28/18 16:15 Reinaldo Test Positive 07/28/18 16:15 Vent Rate 16 07/28/18 16:15 Inspired O2 50 07/28/18 16:15 Tidal Volume 500 07/28/18 16:15 PEEP 3 07/28/18 16:15 Pressure (ins/psv/peep) N/A 07/28/18 16:15 Critical Value DM 07/28/18 16:15 Sodium 140 mEq/L (136-145) 08/01/18 04:15 Potassium 3.8 mEq/L (3.5-5.1) 08/01/18 04:15 Chloride 103 mEq/L (98-107) 08/01/18 04:15 Carbon Dioxide 24.0 mEq/L (21.0-31.0) 08/01/18 04:15 Anion Gap 16.8 (7.0-16.0) H 08/01/18 04:15 BUN 70 mg/dL (7-25) H 08/01/18 04:15 Creatinine 3.9 mg/dL (0.6-1.2) H 08/01/18 04:15 Est GFR ( Amer) 14.9 ml/min (>90) 08/01/18 04:15 Est GFR (Non-Af Amer) 12.3 ml/min 08/01/18 04:15 BUN/Creatinine Ratio 17.9 08/01/18 04:15 Glucose 307 mg/dL (70-105) H D 08/01/18 04:15 POC Glucose 247 MG/DL (70 - 105) H 08/01/18 11:55 Whole Bld Lactic Acid 1.85 mmol/L (0.60-1.99) 07/28/18 13:30 Calcium 8.5 mg/dL (8.6-10.3) L 08/01/18 04:15 Phosphorus 1.5 mg/dL (2.5-5.0) L 07/28/18 13:10 Magnesium 2.5 mg/dL (1.9-2.7) 07/28/18 13:10 Total Bilirubin 0.4 mg/dL (0.3-1.0) 08/01/18 04:15 AST 14 U/L (13-39) 08/01/18 04:15 ALT 16 U/L (7-52) 08/01/18 04:15 Alkaline Phosphatase 368 U/L (34-104) H 08/01/18 04:15 Total Protein 5.8 gm/dL (6.0-8.3) L 08/01/18 04:15 Albumin 2.0 gm/dL (3.7-5.3) L 08/01/18 04:15 Globulin 3.8 gm/dL 08/01/18 04:15 Albumin/Globulin Ratio 0.5 (1.0-1.8) L 08/01/18 04:15 Urine Source CATH 07/28/18 13:35 Urine Color YELLOW 07/28/18 13:35 Urine Clarity HAZY (CLEAR) 07/28/18 13:35 Urine pH 7.5 (4.6 - 8.0) 07/28/18 13:35 Ur Specific [place] 1.020 (1.005-1.030) 07/28/18 13:35 Urine Protein 100 mg/dL (NEGATIVE) H 07/28/18 13:35 Urine Glucose (UA) NEGATIVE mg/dL (NEGATIVE) 07/28/18 13:35 Urine Ketones NEGATIVE mg/dL (NEGATIVE) 07/28/18 13:35 Urine Blood MODERATE (NEGATIVE) H 07/28/18 13:35 Urine Nitrate NEGATIVE (NEGATIVE) 07/28/18 13:35 Urine Bilirubin NEGATIVE (NEGATIVE) 07/28/18 13:35 Urine Urobilinogen 0.2 E.U./dL (0.2 - 1.0) 07/28/18 13:35 Ur Leukocyte Esterase MODERATE (NEGATIVE) H 07/28/18 13:35 Urine RBC 10-25 /hpf (0-5) H 07/28/18 13:35 Urine WBC 50-100 /hpf (0-5) H 07/28/18 13:35 Ur Epithelial Cells FEW /lpf (FEW) 07/28/18 13:35 Urine Bacteria 4+ /hpf (NONE SEEN) H 07/28/18 13:35 Stool Occult Blood NEGATIVE (NEGATIVE) 07/31/18 05:00 Urine Opiates Screen NEGATIVE (NEGATIVE) 07/28/18 13:35 Urine Methadone Screen NEGATIVE (NEGATIVE) 07/28/18 13:35 Ur Barbiturates Screen NEGATIVE (NEGATIVE) 07/28/18 13:35 Ur Tricyclics Screen NEGATIVE (NEGATIVE) 07/28/18 13:35 Ur Phencyclidine Scrn NEGATIVE (NEGATIVE) 07/28/18 13:35 Amphetamines Screen NEGATIVE (NEGATIVE) 07/28/18 13:35 U Methamphetamines Scrn NEGATIVE (NEGATIVE) 07/28/18 13:35 U Benzodiazepines Scrn NEGATIVE (NEGATIVE) 07/28/18 13:35 U Cocaine Metab Screen NEGATIVE (NEGATIVE) 07/28/18 13:35 U Cannabinoids Screen NEGATIVE (NEGATIVE) 07/28/18 13:35 Blood Type O POSITIVE 07/29/18 00:00 Antibody Screen NEGATIVE 07/29/18 00:00 Crossmatch See Detail 07/29/18 20:00 - Physical Exam Vitals and I&O: Vital Signs Temp 98.7 F 08/01/18 08:00 Pulse 93 08/01/18 10:47 Resp 14 08/01/18 09:43 BP 111/57 08/01/18 08:00 Pulse Ox 100 08/01/18 10:47 Intake & Output 07/31/18 08/01/18 08/01/18 18:59 06:59 18:59 Intake Total 245 730 50 Output Total 0 Balance 245 730 50 Weight (lbs) 174 lb 4.8 oz Intake: Intake, IV Amount 245 50 50 Aztreonam 1 gm In 50 50 50 Dextrose 5% 50 ml @ 100 mls/hr IV Q12HR ALONDRA Rx#: [id number] KCL 20mEq/100mL Premix 20 95 meq In 100 ml @ 50 mls/ hr IV Q2H ALONDRA Rx#: [id number] Micafungin 100 mg In 100 Sodium Chloride 0.9% 100 ml @ 100 mls/hr IV Q24H ALONDRA Rx#:[id number] Tube Feeding 250 Other 430 Output: Urine 0 Other: # Bowel Movements 1 Stool Characteristics Soft Brown Black Green Weight Source Bedscale Active Medications: Current Medications Acetaminophen (Tylenol 650mg Supp) 650 mg RC Q4H PRN PRN Reason: Fever > 101 Stop: 07/30/18 00:07 Albuterol/Ipratropium (Duoneb Neb) 3 ml HHN Q4HRT ALONDRA Stop: 09/26/18 22:59 Last Admin: 08/01/18 10:47 Dose: 3 ml Atorvastatin Calcium (Lipitor) 40 mg GT HS ALONDRA Stop: 09/27/18 20:59 Last Admin: 07/31/18 20:23 Dose: 40 mg Calamine/Phenol (Calmoseptine) 1 appl TP BID ALONDRA Stop: 09/28/18 16:59 Last Admin: 07/31/18 17:35 Dose: 1 appl Calcium Carbonate (Os-Keith) 500 mg GT BID ALONDRA Stop: 09/27/18 08:59 Last Admin: 08/01/18 09:49 Dose: Not Given [place] Oil/[place] Balsam/Trypsin (Venelex) 1 appl TP DAILY ALONDRA Stop: 09/28/18 10:59 Last Admin: 07/31/18 14:00 Dose: 1 appl Chlorhexidine Gluconate (Peridex) 15 ml MM 0800,1999 [facility] Stop: 09/26/18 19:59 Last Admin: 08/01/18 07:30 Dose: 15 ml Epoetin Rj (Epogen) 10,000 units SUBQ TuThSa ALONDRA Stop: 09/27/18 11:14 Last Admin: 07/29/18 12:12 Dose: 10,000 units Folic Acid (Folate) 1 mg GT DAILY ALONDRA Stop: 09/27/18 08:59 Last Admin: 08/01/18 09:49 Dose: Not Given Aztreonam 1 gm/ Dextrose 50 mls @ 100 mls/hr IV Q12HR ALONDRA Stop: 09/26/18 13:59 Last Infusion: 08/01/18 09:47 Dose: Infused Norepinephrine Bitartrate 8 mg (/ Dextrose) 258 mls @ 7.74 mls/hr IV TITR PRN; Protocol PRN Reason: BP MAINTENANCE (PER PROTOCOL) Stop: 09/27/18 11:24 Last Titration: 07/29/18 23:30 Dose: 2 mcg/min, 3.87 mls/hr Micafungin Sodium 100 mg/ (Sodium Chloride) 100 mls @ 100 mls/hr IV Q24H [facility] Stop: 09/28/18 10:44 Last Admin: 08/01/18 09:44 Dose: 100 mls/hr Ibuprofen (Motrin) 400 mg PO Q6H PRN PRN Reason: Fever > 101 Stop: 09/27/18 02:58 Last Admin: 07/30/18 21:45 Dose: 400 mg Insulin Aspart (Novolog Insulin Sliding Scale) 0 units SUBQ Q6HR [facility]; Protocol Stop: 09/27/18 00:00 Last Admin: 08/01/18 06:43 Dose: Not Given Miscellaneous (Clinical Monitoring) 1 ea MC DAILY PRN PRN Reason: RENAL DOSING Stop: 09/29/18 09:05 Pantoprazole Sodium (Protonix) 40 mg IVP BID [facility] Stop: 09/28/18 19:44 Last Admin: 08/01/18 09:51 Dose: 40 mg Zinc Sulfate (Zinc Sulfate) 220 mg GT DAILY [facility] Stop: 09/27/18 08:59 Last Admin: 08/01/18 09:48 Dose: Not Given General: weak, other (on vent ) HEENT: NC/AT Neck: Supple Lungs: CTAB Cardiovascular: RRR, Normal S1, Normal S2 Abdomen: soft Extremities: clear, edema Neurological: no change - Procedures Procedures: Procedures Procedure Code Date EXCISION OF BACK SUBCU/FASCIA, OPEN APPROACH [id number] 06/30/18 PERFORMANCE OF URINARY FILTRATION, <6 HRS/DAY [id number] 06/30/18 RESPIRATORY VENTILATION, 24-96 CONSECUTIVE HOURS [id number] 07/28/18 RESPIRATORY VENTILATION, GREATER THAN 96 CONSECUTIVE HOURS [id number] 06/30/18 TRANSFUSE NONAUT RED BLOOD CELLS IN PERIPH VEIN, PERC 58046U1 06/30/18 Internal Medicine Assmt/Plan - Assessment Assessment: ESRD/HD ACUTE ANEMIA 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 HYPOTENSIVE - Plan Plan: monitor h.h closely cont with hd as per renal vent support to continue follow up labs in am cpm Nutritional Asmnt/Malnutr-PDOC - Dietary Evaluation Malnutrition Findings (Please click <Entered> for more info): Nutritional Asmnt/Malnutrition Start: 07/29/18 09: 22 Text: Status: Complete Freq: Protocol: Document 07/29/18 09:23 AUGUSTINE (Rec: 07/29/18 10:10 AUGUSTINE GENAO- [email or web address]) Nutritional Asmnt/Malnutrition Patient General Information Nutritional Screening High Risk Consult Diagnosis Urosepsis, bilateral pneumonia , Decubitus ulcer Pertinent Medical Hx/Surgical Hx Hyperlipidemia, ESRD (No H&P) Subjective Information Consult recieved for Wound Stage IV. Patient receives HD, trach to vent. She was admitted from [facility]. Current TF provides 800 ml volume, 1440 kcal, 64gm protein. Current Diet Order/ Nutrition Support Tube feeding Nepro 50 ml/hr x 16 hours Patient / S.O Not Indicated Pertinent Medications Lipitor, Os-keith, Folate, Novolog, Protonix, Zinc sulfate Pertinent Labs (07/29) K 3.4, BUN 54, Cr 2.7 ( decreasing), Glucose 186-233, Ca 8.1, Phos 1.5, Albumin 2.4 Nutritional Hx/Data Height 6 ft Height (Calculated Centimeters) 182.9 Current Weight (lbs) 177 lb Weight (Calculated Kilograms) 80.3 Weight (Calculated Grams) 15005.8 Guild Body Weight 160 % Guild Body Weight 110 Body Mass Index (BMI) 24.0 Recent Weight Change No Weight Status Approriate GI Symptoms GI Symptoms None Last BM 07/29 x1 Difficult in: Swallowing Food Allergies No Cultural/Ethnic/Voodoo Belief None indicated Usual diet at home Unknown Skin Integrity/Comment: Edvin 8, 2+ edema, stage IV wound Estimated Nutritional Goals BEE in Kcals: Using Current wt Calories/Kcals/Kg CBW 80.4kg Kcals Calculated ~9593-2567 kcal/day (27-32 kcal/kg) - considering HD, Stage IV wound, vent Protein: Using Current wt Protein g/k.5-1.7 gm/kg - wound, HD, vent Protein Calculated ~120-135 gm/day Fluid: ml Per MD due to HD Nutritional Problem 2. Problem Problem Altered nutrition related lab values related to Etiology electrotlyte imbalance and uncontrolled hyperglycemia aeb Signs/Symptoms: K 3.4, Glucose 186-233, Ca 8.1 , Phos 1.5, Albumin 2.4 1. Problem Problem Inadequate energy/protein intake related to Etiology current TF regimen inadequate aeb Signs/Symptoms: Current TF regimen meeting ~65 % of calorie and ~55% of protein needs Intervention/Recommendation Comments 1. Consider increasing Nepro to 50ml/hr continuously for 24 hours to provide 1200ml volume, 2160 kcal, 97 gm protein. Add Prosource 2 packets/day for an additional 30gm protein . (total 112gm protein) 2. MD to modify insulin regimen for optimal glycemic control and replace lytes as medically appropriate. May consider modifying Tube feednig formula to Nutren 2.0 if she consistently has hypokalemia and hypophosphatemia (Nepro is low in Potassium and phosphorus). Expected Outcomes/Goals Expected Outcomes/Goals TF meets >75% of nutrient needs, improved skin integrity , nutrition related labs normalize F/U in 2-3 days as HR (07/31- )
[2018-08-01] MEDS: Epoetin Alfa 20000 Units/mL Vial SUBQ SCH (16:54)
[2018-08-01] MEDS: Venelex 60gm Tube TP SCH (16:56)
[2018-08-01] MEDS: Atorvastatin Calcium 10 MG TAB GT SCH (20:45)
--- NOTE | 2018-08-01 21:07 | Operative Report ---
DATE OF SURGERY: 08/01/2018 PROCEDURE: Esophagogastroduodenoscopy with biopsy. PREPROCEDURE DIAGNOSIS: Anemia and occult GI bleeding along with melena. POST-PROCEDURE DIAGNOSES: 1. Mild gastritis, status post biopsy and CLOtest. 2. Mild duodenitis, status post biopsy. 3. Intact original type gastrostomy tube in mid body, greater curvature of the stomach. INDICATIONS: A 67-year-old female with vent-dependent respiratory failure and she was noted to be hemodialysis dependent. She was noted to be anemic requiring blood transfusion. She was also noted to be stool OB positive. She also had dark stool/melena. She had an upper endoscopy and colonoscopy and perhaps angiography done at a local hospital in [place], in February of last year and upper endoscopy is planned today for further evaluation. CONSENT: Informed consent was obtained from the patient's daughter prior to procedure after detailed explanation of risks, benefits and alternatives including but not limited to infection, bleeding, perforation, and . SEDATION: Monitored anesthesia care per Dr. Thomason. DESCRIPTION OF PROCEDURE AND FINDINGS: The procedure took place as an inpatient at the bedside in the Intensive Care Unit of [facility]. The patient was kept in the left lateral decubitus position. Adequate sedation was achieved with above medications. Diagnostic upper endoscope was advanced via the patient's mouth and into the esophagus. The esophagus appeared normal with no evidence of esophagitis, stricture, or mass lesions. The Z line was normal appearing at 38 cm from the gums. Retroflexion in the stomach revealed no GE junction mass or varices. No hiatal hernia was identified. Mild gastritis was identified in the antrum. Biopsies were obtained and submitted for CLOtest as well as pathology. An intact original-type gastrostomy tube was identified in the mid body greater curvature of the stomach. The tip of the G-tube was able to be placed away from the underlying wall and no underlying ulcers were identified. There was some granulation tissue that appeared to be appropriate. The pyloric channel appeared normal. There was mild erosive duodenitis of the bulb and second portion. Random biopsies were obtained from the second portion to rule out celiac disease. The scope was then withdrawn from the patient. The patient tolerated the procedure well and no complications are anticipated. RECOMMENDATIONS: 1. Follow biopsy results. 2. Resume G-tube feeding. 3. We will obtain outside records from [place] and consider colonoscopy if gastrointestinal blood loss persists. 4. Monitor hemoglobin and keep greater than 7. Thank you Dr. Isma Olguin for involving us in the care of your patient. If you have any further questions, please call us. JOB# [id number] MTDD
--- NOTE | 2018-08-02 00:15 | Infectious Disease Prog Note ---
Infectious Disease Subjective - Review of Systems Service Date: 08/01/18 Subjective: There is no new change, no fever. Infectious Disease Objective - Results Result Diagrams: 08/01/18 04:15 08/01/18 04:15 Recent Labs: Laboratory Last Values WBC 17.1 Th/cmm (4.8-10.8) H D 08/01/18 04:15 RBC 3.14 Mil/cmm (3.80-5.20) L 08/01/18 04:15 Hgb 8.8 gm/dL (12-16) L 08/01/18 04:15 Hct 27.2 % (41.0-60) L 08/01/18 04:15 MCV 86.4 fl (81-100) 08/01/18 04:15 MCH 27.9 pg (27.0-31.0) 08/01/18 04:15 MCHC Differential 32.3 pg (28.0-36.0) 08/01/18 04:15 RDW 16.1 % (11.5-20.0) 08/01/18 04:15 Plt Count 353 Th/cmm (150-400) 08/01/18 04:15 MPV 7.6 fl 08/01/18 04:15 Add Manual Diff YES 08/01/18 04:15 Band Neutrophils % 0 % (0-10) 08/01/18 04:15 Neutrophils (Manual) 86 % (40-80) H 08/01/18 04:15 Lymphocytes 8 % (20-50) L 08/01/18 04:15 Monocytes 5 % (2-10) 08/01/18 04:15 Eosinophils 1 % (0-5) 08/01/18 04:15 Basophils 0 % (0-3) 08/01/18 04:15 PT 11.3 SECONDS (9.5-11.5) 08/01/18 04:15 INR 1.09 (0.5-1.4) 08/01/18 04:15 PTT (Actin FS) 31.2 SECONDS (26.0-38.0) 07/28/18 20:00 Specimen Source Arterial 07/28/18 16:15 Sample Site Right Radial 07/28/18 16:15 pH 7.53 (7.35-7.45) H 07/28/18 16:15 pCO2 34.0 mmHg (35.0-45.0) L 07/28/18 16:15 pO2 198.0 mmHg (80.0-100.0) H 07/28/18 16:15 HCO3 29.4 mEq/L (20.0-26.0) H 07/28/18 16:15 Base Excess 5.7 mEq/L (-3.0-3.0) H 07/28/18 16:15 O2 Saturation 100.0 % (92.0-100.0) 07/28/18 16:15 Reinaldo Test Positive 07/28/18 16:15 Vent Rate 16 07/28/18 16:15 Inspired O2 50 07/28/18 16:15 Tidal Volume 500 07/28/18 16:15 PEEP 3 07/28/18 16:15 Pressure (ins/psv/peep) N/A 07/28/18 16:15 Critical Value DM 07/28/18 16:15 Sodium 140 mEq/L (136-145) 08/01/18 04:15 Potassium 3.8 mEq/L (3.5-5.1) 08/01/18 04:15 Chloride 103 mEq/L (98-107) 08/01/18 04:15 Carbon Dioxide 24.0 mEq/L (21.0-31.0) 08/01/18 04:15 Anion Gap 16.8 (7.0-16.0) H 08/01/18 04:15 BUN 70 mg/dL (7-25) H 08/01/18 04:15 Creatinine 3.9 mg/dL (0.6-1.2) H 08/01/18 04:15 Est GFR ( Amer) 14.9 ml/min (>90) 08/01/18 04:15 Est GFR (Non-Af Amer) 12.3 ml/min 08/01/18 04:15 BUN/Creatinine Ratio 17.9 08/01/18 04:15 Glucose 307 mg/dL (70-105) H D 08/01/18 04:15 POC Glucose 191 MG/DL (70 - 105) H 08/01/18 17:11 Whole Bld Lactic Acid 1.85 mmol/L (0.60-1.99) 07/28/18 13:30 Calcium 8.5 mg/dL (8.6-10.3) L 08/01/18 04:15 Phosphorus 1.5 mg/dL (2.5-5.0) L 07/28/18 13:10 Magnesium 2.5 mg/dL (1.9-2.7) 07/28/18 13:10 Total Bilirubin 0.4 mg/dL (0.3-1.0) 08/01/18 04:15 AST 14 U/L (13-39) 08/01/18 04:15 ALT 16 U/L (7-52) 08/01/18 04:15 Alkaline Phosphatase 368 U/L (34-104) H 08/01/18 04:15 Total Protein 5.8 gm/dL (6.0-8.3) L 08/01/18 04:15 Albumin 2.0 gm/dL (3.7-5.3) L 08/01/18 04:15 Globulin 3.8 gm/dL 08/01/18 04:15 Albumin/Globulin Ratio 0.5 (1.0-1.8) L 08/01/18 04:15 Urine Source CATH 07/28/18 13:35 Urine Color YELLOW 07/28/18 13:35 Urine Clarity HAZY (CLEAR) 07/28/18 13:35 Urine pH 7.5 (4.6 - 8.0) 07/28/18 13:35 Ur Specific [place] 1.020 (1.005-1.030) 07/28/18 13:35 Urine Protein 100 mg/dL (NEGATIVE) H 07/28/18 13:35 Urine Glucose (UA) NEGATIVE mg/dL (NEGATIVE) 07/28/18 13:35 Urine Ketones NEGATIVE mg/dL (NEGATIVE) 07/28/18 13:35 Urine Blood MODERATE (NEGATIVE) H 07/28/18 13:35 Urine Nitrate NEGATIVE (NEGATIVE) 07/28/18 13:35 Urine Bilirubin NEGATIVE (NEGATIVE) 07/28/18 13:35 Urine Urobilinogen 0.2 E.U./dL (0.2 - 1.0) 07/28/18 13:35 Ur Leukocyte Esterase MODERATE (NEGATIVE) H 07/28/18 13:35 Urine RBC 10-25 /hpf (0-5) H 07/28/18 13:35 Urine WBC 50-100 /hpf (0-5) H 07/28/18 13:35 Ur Epithelial Cells FEW /lpf (FEW) 07/28/18 13:35 Urine Bacteria 4+ /hpf (NONE SEEN) H 07/28/18 13:35 Stool Occult Blood NEGATIVE (NEGATIVE) 07/31/18 05:00 Urine Opiates Screen NEGATIVE (NEGATIVE) 07/28/18 13:35 Urine Methadone Screen NEGATIVE (NEGATIVE) 07/28/18 13:35 Ur Barbiturates Screen NEGATIVE (NEGATIVE) 07/28/18 13:35 Ur Tricyclics Screen NEGATIVE (NEGATIVE) 07/28/18 13:35 Ur Phencyclidine Scrn NEGATIVE (NEGATIVE) 07/28/18 13:35 Amphetamines Screen NEGATIVE (NEGATIVE) 07/28/18 13:35 U Methamphetamines Scrn NEGATIVE (NEGATIVE) 07/28/18 13:35 U Benzodiazepines Scrn NEGATIVE (NEGATIVE) 07/28/18 13:35 U Cocaine Metab Screen NEGATIVE (NEGATIVE) 07/28/18 13:35 U Cannabinoids Screen NEGATIVE (NEGATIVE) 07/28/18 13:35 Blood Type O POSITIVE 07/29/18 00:00 Antibody Screen NEGATIVE 07/29/18 00:00 Crossmatch See Detail 07/29/18 20:00 - Physical Exam Vitals and I&O: Vital Signs Temp 97.2 F 08/02/18 00:00 Pulse 94 08/02/18 00:00 Resp 14 08/02/18 00:00 BP 122/25 08/02/18 00:00 Pulse Ox 100 08/02/18 00:00 Intake & Output 08/01/18 08/01/18 08/02/18 06:59 18:59 06:59 Intake Total 933 037 4780 Output Total 0 2000 Balance 730 150 -1000 Weight (lbs) 79.061 kg 72.62 kg Intake: Intake, IV Amount 50 150 Aztreonam 1 gm In 50 50 Dextrose 5% 50 ml @ 100 mls/hr IV Q12HR [facility] Rx#: [id number] Micafungin 100 mg In 100 Sodium Chloride 0.9% 100 ml @ 100 mls/hr IV Q24H [facility] Rx#:[id number] Tube Feeding 250 300 Other 430 700 Output: Urine 0 Hemodialysis 2000 Other: # Bowel Movements 1 1 Stool Characteristics Soft Brown Black Green Weight Source Bedscale Bedscale Active Medications: Current Medications Albuterol/Ipratropium (Duoneb Neb) 3 ml HHN Q4HRT [facility] Stop: 09/26/18 22:59 Last Admin: 08/01/18 19:22 Dose: 3 ml Atorvastatin Calcium (Lipitor) 40 mg GT HS [facility] Stop: 09/27/18 20:59 Last Admin: 08/01/18 20:45 Dose: 40 mg Calamine/Phenol (Calmoseptine) 1 appl TP BID [facility] Stop: 09/28/18 16:59 Last Admin: 08/01/18 16:57 Dose: 1 appl Calcium Carbonate (Os-Alon) 500 mg GT BID [facility] Stop: 09/27/18 08:59 Last Admin: 08/01/18 17:01 Dose: 500 mg [place] Oil/[place] Balsam/Trypsin (Venelex) 1 appl TP DAILY [facility] Stop: 09/28/18 10:59 Last Admin: 08/01/18 16:56 Dose: 1 appl Chlorhexidine Gluconate (Peridex) 15 ml MM 0800,2000 [facility] Stop: 09/26/18 19:59 Last Admin: 08/01/18 20:46 Dose: 15 ml Epoetin Rj (Epogen) 10,000 units SUBQ TuThSa [facility] Stop: 09/27/18 11:14 Last Admin: 08/01/18 16:54 Dose: 10,000 units Folic Acid (Folate) 1 mg GT DAILY [facility] Stop: 09/27/18 08:59 Last Admin: 08/01/18 09:49 Dose: Not Given Aztreonam 1 gm/ Dextrose 50 mls @ 100 mls/hr IV Q12HR [facility] Stop: 09/26/18 13:59 Last Admin: 08/01/18 20:45 Dose: 100 mls/hr Norepinephrine Bitartrate 8 mg (/ Dextrose) 258 mls @ 7.74 mls/hr IV TITR PRN; Protocol PRN Reason: BP MAINTENANCE (PER PROTOCOL) Stop: 09/27/18 11:24 Last Titration: 07/29/18 23:30 Dose: 2 mcg/min, 3.87 mls/hr Micafungin Sodium 100 mg/ (Sodium Chloride) 100 mls @ 100 mls/hr IV Q24H [facility] Stop: 09/28/18 10:44 Last Infusion: 08/01/18 14:38 Dose: Infused Ibuprofen (Motrin) 400 mg PO Q6H PRN PRN Reason: Fever > 101 Stop: 09/27/18 02:58 Last Admin: 07/30/18 21:45 Dose: 400 mg Insulin Aspart (Novolog Insulin Sliding Scale) 0 units SUBQ Q6HR [facility]; Protocol Stop: 09/27/18 00:00 Last Admin: 08/01/18 17:14 Dose: 2 units Miscellaneous (Clinical Monitoring) 1 ea MC DAILY PRN PRN Reason: RENAL DOSING Stop: 09/29/18 09:05 Pantoprazole Sodium (Protonix) 40 mg IVP BID [facility] Stop: 09/28/18 19:44 Last Admin: 08/01/18 17:01 Dose: 40 mg Zinc Sulfate (Zinc Sulfate) 220 mg GT DAILY [facility] Stop: 09/27/18 08:59 Last Admin: 08/01/18 09:48 Dose: Not Given General: no acute distress, cachectic, other (on the ventilator, s/p trach) HEENT: atraumatic, normocephalic, PERRLA, EOMI, moist mucous membrane Neck: supple, tracheostomy, no thyromegaly Cardiovascular: S1S2, regular Lungs: clear to auscultation bilaterally, clear to percussion, crackles Abdomen: soft, no tender, no distended Extremities: no cyanosis, no clubbing, no edema Neurological: awake, alert Skin: other (sacral stage 4 ulcer.) - Procedures Procedures: Procedures Procedure Code Date EXCISION OF BACK SUBCU/FASCIA, OPEN APPROACH [id number] 06/30/18 PERFORMANCE OF URINARY FILTRATION, <6 HRS/DAY [id number] 06/30/18 RESPIRATORY VENTILATION, 24-96 CONSECUTIVE HOURS [id number] 07/28/18 RESPIRATORY VENTILATION, GREATER THAN 96 CONSECUTIVE HOURS [id number] 06/30/18 TRANSFUSE NONAUT RED BLOOD CELLS IN PERIPH VEIN, PERC [id number] 06/30/18 Infectious Disease Assmt/Plan - Assessment Assessment: 1. Sepsis. 2. Candidemia. 3. CKD 5 on HD. 4. Sacral stage 4 decubitus. 5. VDRF. 6. HTN. 7. Pneumonia - Plan Plan: Conitnue micafungin. Continue aztreonam Nutritional Asmnt/Malnutr-PDOC - Dietary Evaluation Malnutrition Findings (Please click <Entered> for more info): Nutritional Asmnt/Malnutrition Start: 07/29/18 09: 22 Text: Status: Complete Freq: Protocol: Document 07/29/18 09:23 AUGUSTINE (Rec: 07/29/18 10:10 [email or web address] GENAO- [id number]) Nutritional Asmnt/Malnutrition Patient General Information Nutritional Screening High Risk Consult Diagnosis Urosepsis, bilateral pneumonia , Decubitus ulcer Pertinent Medical Hx/Surgical Hx Hyperlipidemia, ESRD (No H&P) Subjective Information Consult recieved for Wound Stage IV. Patient receives HD, trach to vent. She was admitted from [facility]. Current TF provides 800 ml volume, 1440 kcal, 64gm protein. Current Diet Order/ Nutrition Support Tube feeding Nepro 50 ml/hr x 16 hours Patient / S.O Not Indicated Pertinent Medications Lipitor, Os-alon, Folate, Novolog, Protonix, Zinc sulfate Pertinent Labs (07/29) K 3.4, BUN 54, Cr 2.7 ( decreasing), Glucose 186-233, Ca 8.1, Phos 1.5, Albumin 2.4 Nutritional Hx/Data Height 1.83 m Height (Calculated Centimeters) 182.9 Current Weight (lbs) 80.286 kg Weight (Calculated Kilograms) 80.3 Weight (Calculated Grams) 51056.8 [place] Body Weight 160 % [place] Body Weight 110 Body Mass Index (BMI) 24.0 Recent Weight Change No Weight Status Approriate GI Symptoms GI Symptoms None Last BM 07/29 x1 Difficult in: Swallowing Food Allergies No Cultural/Ethnic/Denominational Belief None indicated Usual diet at home Unknown Skin Integrity/Comment: Edvin 8, 2+ edema, stage IV wound Estimated Nutritional Goals BEE in Kcals: Using Current wt Calories/Kcals/Kg CBW 80.4kg Kcals Calculated ~4936-9949 kcal/day (27-32 kcal/kg) - considering HD, Stage IV wound, vent Protein: Using Current wt Protein g/k.5-1.7 gm/kg - wound, HD, vent Protein Calculated ~120-135 gm/day Fluid: ml Per MD due to HD Nutritional Problem 2. Problem Problem Altered nutrition related lab values related to Etiology electrotlyte imbalance and uncontrolled hyperglycemia aeb Signs/Symptoms: K 3.4, Glucose 186-233, Ca 8.1 , Phos 1.5, Albumin 2.4 1. Problem Problem Inadequate energy/protein intake related to Etiology current TF regimen inadequate aeb Signs/Symptoms: Current TF regimen meeting ~65 % of calorie and ~55% of protein needs Intervention/Recommendation Comments 1. Consider increasing Nepro to 50ml/hr continuously for 24 hours to provide 1200ml volume, 2160 kcal, 97 gm protein. Add Prosource 2 packets/day for an additional 30gm protein . (total 112gm protein) 2. MD to modify insulin regimen for optimal glycemic control and replace lytes as medically appropriate. May consider modifying Tube feednig formula to Nutren 2.0 if she consistently has hypokalemia and hypophosphatemia (Nepro is low in Potassium and phosphorus). Expected Outcomes/Goals Expected Outcomes/Goals TF meets >75% of nutrient needs, improved skin integrity , nutrition related labs normalize F/U in 2-3 days as HR (07/31- )
[2018-08-02] MEDS: INSULIN ASPART SLIDING SCALE 100 UNITS/ML UNIT SUBQ SCH ×4 (00:26→17:50)
[2018-08-02] MEDS: Albuterol/Ipratropium Neb 3 ML AERS HHN SCH ×7 (00:54→23:47)
[2018-08-02 05:23] LABS: ALB/GLOB RATIO 0.5 (1.0-1.8); ALBUMIN 2.2 gm/dL (3.7-5.3); ANION GAP 15.6 (7.0-16.0); BILIRUBIN,TOTAL 0.4 mg/dL (0.3-1.0); CALCIUM SERUM 8.7 mg/dL (8.6-10.3); CARBON DIOXIDE 27.7 mEq/L (21.0-31.0); CREATININE - SERUM 2.8 mg/dL (0.6-1.2); GFR AFRICAN-AMERICAN 21.8 ml/min (>90); POTASSIUM SERUM 3.3 mEq/L (3.5-5.1); TOTAL PROTEIN,SERUM 6.6 gm/dL (6.0-8.3)
[2018-08-02] MEDS ORDERED: Potassium Chloride Elixir 20 mEq /15 mL UDC GT ONE (06:30)
[2018-08-02 07:33] LABS: HEMATOCRIT 27.8 % (41.0-60); HEMOGLOBIN 9.2 gm/dL (12-16); MEAN CELL VOLUME 86.8 fl (81-100); MEAN CORPUSCULAR HEMOGLOBIN 28.6 pg (27.0-31.0); MEAN PLATELET VOLUME 7.6 fl; PLATELET COUNT 354 Th/cmm (150-400); RED BLOOD COUNT 3.21 Mil/cmm (3.80-5.20); RED CELL DISTRIBUTION WIDTH 15.5 % (11.5-20.0); WHITE BLOOD COUNT 13.9 Th/cmm (4.8-10.8)
[2018-08-02 08:09] LABS: BAND NEUTROPHILE 2 % (0-10); BASOPHIL 0 % (0-3); EOSINOPHIL 1 % (0-5); LYMPHOCYTE 8 % (20-50); MONOCYTE 4 % (2-10); NEUTROPHILS 85 % (40-80)
[2018-08-02] MEDS: Chlorhexidine Gluconate 0.12% 15mL Mouthwash MM SCH ×2 (08:13→21:14)
[2018-08-02] MEDS ORDERED: Propofol 10 mg/mL 20mL Vial **SURGERY USE ONLY IV ONE (08:50)
[2018-08-02] MEDS: Menthol/Zinc Oxide Oint 113gm Tube TP SCH ×2 (08:50→17:12)
[2018-08-02] MEDS ORDERED: Lidocaine 2% Gel 5 mL TP ONE (08:50)
[2018-08-02] MEDS: Venelex 60gm Tube TP SCH (08:50)
[2018-08-02] MEDS: Micafungin 100 MG in Sodium Chloride 0.9% 100 ML IV SCH (10:55)
--- NOTE | 2018-08-02 12:40 | GI Progress Note ---
Subjective - Review of Systems Subjective: NO REPORTED GI BLOOD LOSS Objective - Results Result Diagrams: 08/02/18 07:00 08/02/18 04:20 Recent Labs: Laboratory Last Values WBC 13.9 Th/cmm (4.8-10.8) H 08/02/18 07:00 RBC 3.21 Mil/cmm (3.80-5.20) L 08/02/18 07:00 Hgb 9.2 gm/dL (12-16) L 08/02/18 07:00 Hct 27.8 % (41.0-60) L 08/02/18 07:00 MCV 86.8 fl (81-100) 08/02/18 07:00 MCH 28.6 pg (27.0-31.0) 08/02/18 07:00 MCHC Differential 33.0 pg (28.0-36.0) 08/02/18 07:00 RDW 15.5 % (11.5-20.0) 08/02/18 07:00 Plt Count 354 Th/cmm (150-400) 08/02/18 07:00 MPV 7.6 fl 08/02/18 07:00 Add Manual Diff YES 08/02/18 07:00 Band Neutrophils % 2 % (0-10) 08/02/18 07:00 Neutrophils (Manual) 85 % (40-80) H 08/02/18 07:00 Lymphocytes 8 % (20-50) L 08/02/18 07:00 Monocytes 4 % (2-10) 08/02/18 07:00 Eosinophils 1 % (0-5) 08/02/18 07:00 Basophils 0 % (0-3) 08/02/18 07:00 PT 11.3 SECONDS (9.5-11.5) 08/01/18 04:15 INR 1.09 (0.5-1.4) 08/01/18 04:15 PTT (Actin FS) 31.2 SECONDS (26.0-38.0) 07/28/18 20:00 Specimen Source Arterial 07/28/18 16:15 Sample Site Right Radial 07/28/18 16:15 pH 7.53 (7.35-7.45) H 07/28/18 16:15 pCO2 34.0 mmHg (35.0-45.0) L 07/28/18 16:15 pO2 198.0 mmHg (80.0-100.0) H 07/28/18 16:15 HCO3 29.4 mEq/L (20.0-26.0) H 07/28/18 16:15 Base Excess 5.7 mEq/L (-3.0-3.0) H 07/28/18 16:15 O2 Saturation 100.0 % (92.0-100.0) 07/28/18 16:15 Reinaldo Test Positive 07/28/18 16:15 Vent Rate 16 07/28/18 16:15 Inspired O2 50 07/28/18 16:15 Tidal Volume 500 07/28/18 16:15 PEEP 3 07/28/18 16:15 Pressure (ins/psv/peep) N/A 07/28/18 16:15 Critical Value DM 07/28/18 16:15 Sodium 140 mEq/L (136-145) 08/02/18 04:20 Potassium 3.3 mEq/L (3.5-5.1) L 08/02/18 04:20 Chloride 100 mEq/L (98-107) 08/02/18 04:20 Carbon Dioxide 27.7 mEq/L (21.0-31.0) 08/02/18 04:20 Anion Gap 15.6 (7.0-16.0) 08/02/18 04:20 BUN 44 mg/dL (7-25) H 08/02/18 04:20 Creatinine 2.8 mg/dL (0.6-1.2) H 08/02/18 04:20 Est GFR ( Amer) 21.8 ml/min (>90) 08/02/18 04:20 Est GFR (Non-Af Amer) 18.0 ml/min 08/02/18 04:20 BUN/Creatinine Ratio 15.7 08/02/18 04:20 Glucose 239 mg/dL (70-105) H 08/02/18 04:20 POC Glucose 316 MG/DL (70 - 105) H 08/02/18 00:18 Whole Bld Lactic Acid 1.85 mmol/L (0.60-1.99) 07/28/18 13:30 Calcium 8.7 mg/dL (8.6-10.3) 08/02/18 04:20 Phosphorus 1.5 mg/dL (2.5-5.0) L 07/28/18 13:10 Magnesium 2.5 mg/dL (1.9-2.7) 07/28/18 13:10 Total Bilirubin 0.4 mg/dL (0.3-1.0) 08/02/18 04:20 AST 26 U/L (13-39) 08/02/18 04:20 ALT 20 U/L (7-52) 08/02/18 04:20 Alkaline Phosphatase 442 U/L (34-104) H 08/02/18 04:20 Total Protein 6.6 gm/dL (6.0-8.3) 08/02/18 04:20 Albumin 2.2 gm/dL (3.7-5.3) L 08/02/18 04:20 Globulin 4.4 gm/dL 08/02/18 04:20 Albumin/Globulin Ratio 0.5 (1.0-1.8) L 08/02/18 04:20 Urine Source CATH 07/28/18 13:35 Urine Color YELLOW 07/28/18 13:35 Urine Clarity HAZY (CLEAR) 07/28/18 13:35 Urine pH 7.5 (4.6 - 8.0) 07/28/18 13:35 Ur Specific [place] 1.020 (1.005-1.030) 07/28/18 13:35 Urine Protein 100 mg/dL (NEGATIVE) H 07/28/18 13:35 Urine Glucose (UA) NEGATIVE mg/dL (NEGATIVE) 07/28/18 13:35 Urine Ketones NEGATIVE mg/dL (NEGATIVE) 07/28/18 13:35 Urine Blood MODERATE (NEGATIVE) H 07/28/18 13:35 Urine Nitrate NEGATIVE (NEGATIVE) 07/28/18 13:35 Urine Bilirubin NEGATIVE (NEGATIVE) 07/28/18 13:35 Urine Urobilinogen 0.2 E.U./dL (0.2 - 1.0) 07/28/18 13:35 Ur Leukocyte Esterase MODERATE (NEGATIVE) H 07/28/18 13:35 Urine RBC 10-25 /hpf (0-5) H 07/28/18 13:35 Urine WBC 50-100 /hpf (0-5) H 07/28/18 13:35 Ur Epithelial Cells FEW /lpf (FEW) 07/28/18 13:35 Urine Bacteria 4+ /hpf (NONE SEEN) H 07/28/18 13:35 Stool Occult Blood NEGATIVE (NEGATIVE) 07/31/18 05:00 Urine Opiates Screen NEGATIVE (NEGATIVE) 07/28/18 13:35 Urine Methadone Screen NEGATIVE (NEGATIVE) 07/28/18 13:35 Ur Barbiturates Screen NEGATIVE (NEGATIVE) 07/28/18 13:35 Ur Tricyclics Screen NEGATIVE (NEGATIVE) 07/28/18 13:35 Ur Phencyclidine Scrn NEGATIVE (NEGATIVE) 07/28/18 13:35 Amphetamines Screen NEGATIVE (NEGATIVE) 07/28/18 13:35 U Methamphetamines Scrn NEGATIVE (NEGATIVE) 07/28/18 13:35 U Benzodiazepines Scrn NEGATIVE (NEGATIVE) 07/28/18 13:35 U Cocaine Metab Screen NEGATIVE (NEGATIVE) 07/28/18 13:35 U Cannabinoids Screen NEGATIVE (NEGATIVE) 07/28/18 13:35 Helicobacter pylori Ab NEGATIVE (NEGATIVE) 08/01/18 09:15 Blood Type O POSITIVE 07/29/18 00:00 Antibody Screen NEGATIVE 07/29/18 00:00 Crossmatch See Detail 07/29/18 20:00 - Physical Exam Vitals and I&O: Vital Signs Temp 99.1 F 08/02/18 10:00 Pulse 99 08/02/18 10:37 Resp 15 08/02/18 10:00 BP 136/54 08/02/18 10:00 Pulse Ox 100 08/02/18 12:00 Intake & Output 08/01/18 08/02/18 08/02/18 18:59 06:59 18:59 Intake Total 150 2125 Output Total 1999 Balance 150 125 Weight (lbs) 73.709 kg Intake: Intake, IV Amount 150 50 Aztreonam 1 gm In 50 50 Dextrose 5% 50 ml @ 100 mls/hr IV Q12HR [facility] Rx#: [id number] Micafungin 100 mg In 100 Sodium Chloride 0.9% 100 ml @ 100 mls/hr IV Q24H [facility] Rx#:[id number] Tube Feeding 1075 Other 1000 Output: Urine 0 Hemodialysis 1999 Other: # Bowel Movements 0 Stool Characteristics Soft Soft Brown Liquid Black Brown Green Weight Source Bedscale Active Medications: Current Medications Albuterol/Ipratropium (Duoneb Neb) 3 ml HHN Q4HRT [facility] Stop: 09/26/18 22:59 Last Admin: 08/02/18 10:37 Dose: 3 ml Atorvastatin Calcium (Lipitor) 40 mg GT HS [facility] Stop: 09/27/18 20:59 Last Admin: 08/01/18 20:45 Dose: 40 mg Calamine/Phenol (Calmoseptine) 1 appl TP BID [facility] Stop: 09/28/18 16:59 Last Admin: 08/02/18 08:50 Dose: 1 appl Calcium Carbonate (Os-Alon) 500 mg GT BID [facility] Stop: 09/27/18 08:59 Last Admin: 08/02/18 08:50 Dose: 500 mg [place] Oil/[place] Balsam/Trypsin (Venelex) 1 appl TP DAILY [facility] Stop: 09/28/18 10:59 Last Admin: 08/02/18 08:50 Dose: 1 appl Chlorhexidine Gluconate (Peridex) 15 ml MM 0800,2000 [facility] Stop: 09/26/18 19:59 Last Admin: 08/02/18 08:13 Dose: 15 ml Epoetin Rj (Epogen) 10,000 units SUBQ TuThSa [facility] Stop: 09/27/18 11:14 Last Admin: 08/01/18 16:54 Dose: 10,000 units Folic Acid (Folate) 1 mg GT DAILY [facility] Stop: 09/27/18 08:59 Last Admin: 08/02/18 08:50 Dose: 1 mg Aztreonam 1 gm/ Dextrose 50 mls @ 100 mls/hr IV Q12HR [facility] Stop: 09/26/18 13:59 Last Admin: 08/02/18 08:50 Dose: 100 mls/hr Norepinephrine Bitartrate 8 mg (/ Dextrose) 258 mls @ 7.74 mls/hr IV TITR PRN; Protocol PRN Reason: BP MAINTENANCE (PER PROTOCOL) Stop: 09/27/18 11:24 Last Titration: 07/29/18 23:30 Dose: 2 mcg/min, 3.87 mls/hr Micafungin Sodium 100 mg/ (Sodium Chloride) 100 mls @ 100 mls/hr IV Q24H [facility] Stop: 09/28/18 10:44 Last Admin: 08/02/18 10:55 Dose: 100 mls/hr Ibuprofen (Motrin) 400 mg PO Q6H PRN PRN Reason: Fever > 101 Stop: 09/27/18 02:58 Last Admin: 07/30/18 21:45 Dose: 400 mg Insulin Aspart (Novolog Insulin Sliding Scale) 0 units SUBQ Q6HR [facility]; Protocol Stop: 09/27/18 00:00 Last Admin: 08/02/18 12:17 Dose: Not Given Miscellaneous (Clinical Monitoring) 1 ea MC DAILY PRN PRN Reason: RENAL DOSING Stop: 09/29/18 09:05 Pantoprazole Sodium (Protonix) 40 mg IVP BID [facility] Stop: 09/28/18 19:44 Last Admin: 08/02/18 08:50 Dose: 40 mg Zinc Sulfate (Zinc Sulfate) 220 mg GT DAILY [facility] Stop: 09/27/18 08:59 Last Admin: 08/02/18 08:50 Dose: 220 mg General: Other (NON-VERBAL, MECHANICALLY VENTILATED VIA TRACH) HEENT: Other (+TRACH) Cardiovascular: Normal S1, Normal S2 Lungs: Clear to auscultation Abdomen: Other (+ GTUBE) Extremities: Other (NO EDEMA, LUE AVF+ THRILL) Neurological: Other (NONVERBAL) - Procedures Procedures: Procedures Procedure Code Date EXCISION OF BACK SUBCU/FASCIA, OPEN APPROACH [id number] 06/30/18 PERFORMANCE OF URINARY FILTRATION, <6 HRS/DAY [id number] 06/30/18 RESPIRATORY VENTILATION, GREATER THAN 96 CONSECUTIVE HOURS [id number] 07/28/18 TRANSFUSE NONAUT RED BLOOD CELLS IN PERIPH VEIN, PERC 18113X6 06/30/18 Assessment/Plan - Assessment Assessment: 67 YO FEMALE WITH ANEMIA EGD SHOWED GASTRITIS, DUODENITIS AND GT. NO OVERT GI BLEED HGB STABLE 1.CONT PROTONIX 2.FOLLOW H/H 3.GET RECORDS OF COLO 4.CONSIDER COLO IF GI BLEED OCCURS
--- NOTE | 2018-08-02 14:06 | Internal Medicine Prog Note ---
Internal Medicine Subjective - Subjective Patient seen and examined:: chart reviewed Patient is:: non-verbal, other (vent. dependent via trach. ) Patient Complaints of:: congestion Per staff patient has:: no adverse event Internal Medicine Objective - Results Result Diagrams: 08/02/18 07:00 08/02/18 04:20 Recent Labs: Laboratory Last Values WBC 13.9 Th/cmm (4.8-10.8) H 08/02/18 07:00 RBC 3.21 Mil/cmm (3.80-5.20) L 08/02/18 07:00 Hgb 9.2 gm/dL (12-16) L 08/02/18 07:00 Hct 27.8 % (41.0-60) L 08/02/18 07:00 MCV 86.8 fl (81-100) 08/02/18 07:00 MCH 28.6 pg (27.0-31.0) 08/02/18 07:00 MCHC Differential 33.0 pg (28.0-36.0) 08/02/18 07:00 RDW 15.5 % (11.5-20.0) 08/02/18 07:00 Plt Count 354 Th/cmm (150-400) 08/02/18 07:00 MPV 7.6 fl 08/02/18 07:00 Add Manual Diff YES 08/02/18 07:00 Band Neutrophils % 2 % (0-10) 08/02/18 07:00 Neutrophils (Manual) 85 % (40-80) H 08/02/18 07:00 Lymphocytes 8 % (20-50) L 08/02/18 07:00 Monocytes 4 % (2-10) 08/02/18 07:00 Eosinophils 1 % (0-5) 08/02/18 07:00 Basophils 0 % (0-3) 08/02/18 07:00 PT 11.3 SECONDS (9.5-11.5) 08/01/18 04:15 INR 1.09 (0.5-1.4) 08/01/18 04:15 PTT (Actin FS) 31.2 SECONDS (26.0-38.0) 07/28/18 20:00 Specimen Source Arterial 07/28/18 16:15 Sample Site Right Radial 07/28/18 16:15 pH 7.53 (7.35-7.45) H 07/28/18 16:15 pCO2 34.0 mmHg (35.0-45.0) L 07/28/18 16:15 pO2 198.0 mmHg (80.0-100.0) H 07/28/18 16:15 HCO3 29.4 mEq/L (20.0-26.0) H 07/28/18 16:15 Base Excess 5.7 mEq/L (-3.0-3.0) H 07/28/18 16:15 O2 Saturation 100.0 % (92.0-100.0) 07/28/18 16:15 Reinaldo Test Positive 07/28/18 16:15 Vent Rate 16 07/28/18 16:15 Inspired O2 50 07/28/18 16:15 Tidal Volume 500 07/28/18 16:15 PEEP 3 07/28/18 16:15 Pressure (ins/psv/peep) N/A 07/28/18 16:15 Critical Value DM 07/28/18 16:15 Sodium 140 mEq/L (136-145) 08/02/18 04:20 Potassium 3.3 mEq/L (3.5-5.1) L 08/02/18 04:20 Chloride 100 mEq/L (98-107) 08/02/18 04:20 Carbon Dioxide 27.7 mEq/L (21.0-31.0) 08/02/18 04:20 Anion Gap 15.6 (7.0-16.0) 08/02/18 04:20 BUN 44 mg/dL (7-25) H 08/02/18 04:20 Creatinine 2.8 mg/dL (0.6-1.2) H 08/02/18 04:20 Est GFR ( Amer) 21.8 ml/min (>90) 08/02/18 04:20 Est GFR (Non-Af Amer) 18.0 ml/min 08/02/18 04:20 BUN/Creatinine Ratio 15.7 08/02/18 04:20 Glucose 239 mg/dL (70-105) H 08/02/18 04:20 POC Glucose 316 MG/DL (70 - 105) H 08/02/18 00:18 Whole Bld Lactic Acid 1.85 mmol/L (0.60-1.99) 07/28/18 13:30 Calcium 8.7 mg/dL (8.6-10.3) 08/02/18 04:20 Phosphorus 1.5 mg/dL (2.5-5.0) L 07/28/18 13:10 Magnesium 2.5 mg/dL (1.9-2.7) 07/28/18 13:10 Total Bilirubin 0.4 mg/dL (0.3-1.0) 08/02/18 04:20 AST 26 U/L (13-39) 08/02/18 04:20 ALT 20 U/L (7-52) 08/02/18 04:20 Alkaline Phosphatase 442 U/L (34-104) H 08/02/18 04:20 Total Protein 6.6 gm/dL (6.0-8.3) 08/02/18 04:20 Albumin 2.2 gm/dL (3.7-5.3) L 08/02/18 04:20 Globulin 4.4 gm/dL 08/02/18 04:20 Albumin/Globulin Ratio 0.5 (1.0-1.8) L 08/02/18 04:20 Urine Source CATH 07/28/18 13:35 Urine Color YELLOW 07/28/18 13:35 Urine Clarity HAZY (CLEAR) 07/28/18 13:35 Urine pH 7.5 (4.6 - 8.0) 07/28/18 13:35 Ur Specific [place] 1.020 (1.005-1.030) 07/28/18 13:35 Urine Protein 100 mg/dL (NEGATIVE) H 07/28/18 13:35 Urine Glucose (UA) NEGATIVE mg/dL (NEGATIVE) 07/28/18 13:35 Urine Ketones NEGATIVE mg/dL (NEGATIVE) 07/28/18 13:35 Urine Blood MODERATE (NEGATIVE) H 07/28/18 13:35 Urine Nitrate NEGATIVE (NEGATIVE) 07/28/18 13:35 Urine Bilirubin NEGATIVE (NEGATIVE) 07/28/18 13:35 Urine Urobilinogen 0.2 E.U./dL (0.2 - 1.0) 07/28/18 13:35 Ur Leukocyte Esterase MODERATE (NEGATIVE) H 07/28/18 13:35 Urine RBC 10-25 /hpf (0-5) H 07/28/18 13:35 Urine WBC 50-100 /hpf (0-5) H 07/28/18 13:35 Ur Epithelial Cells FEW /lpf (FEW) 07/28/18 13:35 Urine Bacteria 4+ /hpf (NONE SEEN) H 07/28/18 13:35 Stool Occult Blood NEGATIVE (NEGATIVE) 07/31/18 05:00 Urine Opiates Screen NEGATIVE (NEGATIVE) 07/28/18 13:35 Urine Methadone Screen NEGATIVE (NEGATIVE) 07/28/18 13:35 Ur Barbiturates Screen NEGATIVE (NEGATIVE) 07/28/18 13:35 Ur Tricyclics Screen NEGATIVE (NEGATIVE) 07/28/18 13:35 Ur Phencyclidine Scrn NEGATIVE (NEGATIVE) 07/28/18 13:35 Amphetamines Screen NEGATIVE (NEGATIVE) 07/28/18 13:35 U Methamphetamines Scrn NEGATIVE (NEGATIVE) 07/28/18 13:35 U Benzodiazepines Scrn NEGATIVE (NEGATIVE) 07/28/18 13:35 U Cocaine Metab Screen NEGATIVE (NEGATIVE) 07/28/18 13:35 U Cannabinoids Screen NEGATIVE (NEGATIVE) 07/28/18 13:35 Helicobacter pylori Ab NEGATIVE (NEGATIVE) 08/01/18 09:15 Blood Type O POSITIVE 07/29/18 00:00 Antibody Screen NEGATIVE 07/29/18 00:00 Crossmatch See Detail 07/29/18 20:00 - Physical Exam Vitals and I&O: Vital Signs Temp 98.0 F 08/02/18 13:00 Pulse 97 08/02/18 13:00 Resp 14 08/02/18 13:00 BP 123/39 08/02/18 13:00 Pulse Ox 100 08/02/18 13:00 Intake & Output 08/01/18 08/02/18 08/02/18 18:59 06:59 18:59 Intake Total 150 2125 Output Total 1999 Balance 150 125 Weight (lbs) 73.709 kg Intake: Intake, IV Amount 150 50 Aztreonam 1 gm In 50 50 Dextrose 5% 50 ml @ 100 mls/hr IV Q12HR ALONDRA Rx#: [id number] Micafungin 100 mg In 100 Sodium Chloride 0.9% 100 ml @ 100 mls/hr IV Q24H ALONDRA Rx#:[id number] Tube Feeding 1075 Other 1000 Output: Urine 0 Hemodialysis 1999 Other: # Bowel Movements 0 Stool Characteristics Soft Soft Brown Liquid Black Brown Green Weight Source Bedscale Active Medications: Current Medications Albuterol/Ipratropium (Duoneb Neb) 3 ml HHN Q4HRT ALONDRA Stop: 09/26/18 22:59 Last Admin: 08/02/18 14:01 Dose: 3 ml Atorvastatin Calcium (Lipitor) 40 mg GT HS ALONDRA Stop: 09/27/18 20:59 Last Admin: 08/01/18 20:45 Dose: 40 mg Calamine/Phenol (Calmoseptine) 1 appl TP BID ALONDRA Stop: 09/28/18 16:59 Last Admin: 08/02/18 08:50 Dose: 1 appl Calcium Carbonate (Os-Keith) 500 mg GT BID ALONDRA Stop: 09/27/18 08:59 Last Admin: 08/02/18 08:50 Dose: 500 mg [place] Oil/[place]ian Balsam/Trypsin (Venelex) 1 appl TP DAILY ALONDRA Stop: 09/28/18 10:59 Last Admin: 08/02/18 08:50 Dose: 1 appl Chlorhexidine Gluconate (Peridex) 15 ml MM 0800,1999 ALONDRA Stop: 09/26/18 19:59 Last Admin: 08/02/18 08:13 Dose: 15 ml Epoetin Rj (Epogen) 10,000 units SUBQ TuThSa ALONDRA Stop: 09/27/18 11:14 Last Admin: 08/01/18 16:54 Dose: 10,000 units Folic Acid (Folate) 1 mg GT DAILY ALONDRA Stop: 09/27/18 08:59 Last Admin: 08/02/18 08:50 Dose: 1 mg Aztreonam 1 gm/ Dextrose 50 mls @ 100 mls/hr IV Q12HR ALONDRA Stop: 09/26/18 13:59 Last Admin: 08/02/18 08:50 Dose: 100 mls/hr Norepinephrine Bitartrate 8 mg (/ Dextrose) 258 mls @ 7.74 mls/hr IV TITR PRN; Protocol PRN Reason: BP MAINTENANCE (PER PROTOCOL) Stop: 09/27/18 11:24 Last Titration: 07/29/18 23:30 Dose: 2 mcg/min, 3.87 mls/hr Micafungin Sodium 100 mg/ (Sodium Chloride) 100 mls @ 100 mls/hr IV Q24H ALONDRA Stop: 09/28/18 10:44 Last Admin: 08/02/18 10:55 Dose: 100 mls/hr Ibuprofen (Motrin) 400 mg PO Q6H PRN PRN Reason: Fever > 101 Stop: 09/27/18 02:58 Last Admin: 07/30/18 21:45 Dose: 400 mg Insulin Aspart (Novolog Insulin Sliding Scale) 0 units SUBQ Q6HR ALONDRA; Protocol Stop: 09/27/18 00:00 Last Admin: 08/02/18 12:17 Dose: Not Given Miscellaneous (Clinical Monitoring) 1 ea MC DAILY PRN PRN Reason: RENAL DOSING Stop: 09/29/18 09:05 Pantoprazole Sodium (Protonix) 40 mg IVP BID ALONDRA Stop: 09/28/18 19:44 Last Admin: 08/02/18 08:50 Dose: 40 mg Zinc Sulfate (Zinc Sulfate) 220 mg GT DAILY ALONDRA Stop: 09/27/18 08:59 Last Admin: 08/02/18 08:50 Dose: 220 mg General: weak, other (on vent ) HEENT: NC/AT Neck: Supple Lungs: CTAB Cardiovascular: RRR, Normal S1, Normal S2 Abdomen: soft, +GT Extremities: clear, edema Neurological: no change - Procedures Procedures: Procedures Procedure Code Date EXCISION OF BACK SUBCU/FASCIA, OPEN APPROACH [id number] 06/30/18 PERFORMANCE OF URINARY FILTRATION, <6 HRS/DAY [id number] 06/30/18 RESPIRATORY VENTILATION, GREATER THAN 96 CONSECUTIVE HOURS [id number] 07/28/18 TRANSFUSE NONAUT RED BLOOD CELLS IN PERIPH VEIN, PERC 10843Z6 06/30/18 Internal Medicine Assmt/Plan - Assessment Assessment: ESRD/HD ANEMIA with occult GI bleed, which could be Gastritis vs peptic ulcer disease vs neoplasm CHRONIC VENT DEPENDENT Dysphagia with g-tube INFECTED SACRAL DECUBITIUS ULCER HYPOTENSIVE - Plan Plan: f/u with consultants labs, monitor h/h as per order sheet Nutritional Asmnt/Malnutr-PDOC - Dietary Evaluation Malnutrition Findings (Please click <Entered> for more info): Nutritional Asmnt/Malnutrition Start: 07/29/18 09: 22 Text: Status: Complete Freq: Protocol: Document 07/29/18 09:23 AUGUSTINE (Rec: 07/29/18 10:10 AUGUSTINE JEAN [email or web address]) Nutritional Asmnt/Malnutrition Patient General Information Nutritional Screening High Risk Consult Diagnosis Urosepsis, bilateral pneumonia , Decubitus ulcer Pertinent Medical Hx/Surgical Hx Hyperlipidemia, ESRD (No H&P) Subjective Information Consult recieved for Wound Stage IV. Patient receives HD, trach to vent. She was admitted from [facility]. Current TF provides 800 ml volume, 1440 kcal, 64gm protein. Current Diet Order/ Nutrition Support Tube feeding Nepro 50 ml/hr x 16 hours Patient / S.O Not Indicated Pertinent Medications Lipitor, Os-keith, Folate, Novolog, Protonix, Zinc sulfate Pertinent Labs (07/29) K 3.4, BUN 54, Cr 2.7 ( decreasing), Glucose 186-233, Ca 8.1, Phos 1.5, Albumin 2.4 Nutritional Hx/Data Height 1.83 m Height (Calculated Centimeters) 182.9 Current Weight (lbs) 80.286 kg Weight (Calculated Kilograms) 80.3 Weight (Calculated Grams) 85312.8 Amelia Body Weight 160 % Amelia Body Weight 110 Body Mass Index (BMI) 24.0 Recent Weight Change No Weight Status Approriate GI Symptoms GI Symptoms None Last BM 07/29 x1 Difficult in: Swallowing Food Allergies No Cultural/Ethnic/Christianity Belief None indicated Usual diet at home Unknown Skin Integrity/Comment: Edvin 8, 2+ edema, stage IV wound Estimated Nutritional Goals BEE in Kcals: Using Current wt Calories/Kcals/Kg CBW 80.4kg Kcals Calculated ~3575-7659 kcal/day (27-32 kcal/kg) - considering HD, Stage IV wound, vent Protein: Using Current wt Protein g/k.5-1.7 gm/kg - wound, HD, vent Protein Calculated ~120-135 gm/day Fluid: ml Per MD due to HD Nutritional Problem 2. Problem Problem Altered nutrition related lab values related to Etiology electrotlyte imbalance and uncontrolled hyperglycemia aeb Signs/Symptoms: K 3.4, Glucose 186-233, Ca 8.1 , Phos 1.5, Albumin 2.4 1. Problem Problem Inadequate energy/protein intake related to Etiology current TF regimen inadequate aeb Signs/Symptoms: Current TF regimen meeting ~65 % of calorie and ~55% of protein needs Intervention/Recommendation Comments 1. Consider increasing Nepro to 50ml/hr continuously for 24 hours to provide 1200ml volume, 2160 kcal, 97 gm protein. Add Prosource 2 packets/day for an additional 30gm protein . (total 112gm protein) 2. MD to modify insulin regimen for optimal glycemic control and replace lytes as medically appropriate. May consider modifying Tube feednig formula to Nutren 2.0 if she consistently has hypokalemia and hypophosphatemia (Nepro is low in Potassium and phosphorus). Expected Outcomes/Goals Expected Outcomes/Goals TF meets >75% of nutrient needs, improved skin integrity , nutrition related labs normalize F/U in 2-3 days as HR (07/31- )
--- NOTE | 2018-08-02 16:03 | Consultation ---
DATE OF CONSULTATION: 07/31/[address] Olguin. HISTORY OF PRESENT ILLNESS: This is a 67-year-old female patient with chronic respiratory failure, on ventilator with tracheostomy and has stage IV sacral decubitus ulcer. The patient was brought to [facility]. The patient was in septic shock, hypotension, on Levophed. At this time, Cardiology consult was requested. PAST MEDICAL HISTORY: Chronic respiratory failure, on ventilator with tracheostomy; diabetes mellitus type 2; diabetic CKD, stage V; end-stage renal disease, on dialysis; hypertension; iron-deficiency anemia; dysphagia with PEG placement; protein-calorie malnutrition; pressure ulcer, left heel; and stage IV sacral decubitus ulcer. FAMILY HISTORY: Unremarkable. SOCIAL HISTORY: No history of smoking, alcohol abuse. ALLERGIES: No known allergies. PHYSICAL EXAMINATION: VITAL SIGNS: Blood pressure 90 systolic, on Levophed; pulse 100; and respiration on ventilator with tracheostomy. HEAD: Normocephalic. No lumps or bumps. EYES: Pupils equal, reactive to light. Fundi show AV nicking, sclerae white, conjunctivae pink. NECK: Carotid 2+. Normal upstroke. JVD flat. Thyroid not palpable. Lymph nodes not palpable. The patient has tracheostomy. LUNGS: Wheezing, rhonchi. HEART: Regular rhythm, S1, S2. No S3, S4, sinus tachycardia. ABDOMEN: Soft with a PEG in place. No organomegaly. NEUROLOGIC: No focal neurological deficit. EXTREMITIES: Peripheral pulses feeble. CLINICAL IMPRESSION: 1 Septic shock, hypotension. 2. Sacral and coccyx stage IV decubitus ulcer, infected. 3. Aspiration pneumonia, pseudomonas. 4. Chronic respiratory failure, on ventilator with tracheostomy. 5. Diabetes mellitus type 2. 6. Diabetic chronic kidney disease, stage V. 7. End-stage renal disease, on dialysis. 8. Hypertension. 9. Iron deficiency anemia, needing transfusion. 10. Dysphagia with PEG placement. 11. Protein-calorie malnutrition. 12. Pressure ulcer, left heel. 13. Stage IV sacral decubitus ulcer. PLAN: The patient to have debridement, start the patient on IV antibiotic, wound care. Continue dialysis with ultrafiltration. Continue Levophed. [facility]# [id number]
--- NOTE | 2018-08-02 19:50 | Pathology Report ---
[id number] Collection Date: 08/01/2018 Surgeon: Dr. Alisha Vasquez Specimen Description: 1. Duodenum biopsy. 2. Antrum biopsy. Gross Description: Part I: Received in formalin are three leal soft tissue fragments ranging from 0.1 to 0.2 cm in greatest dimension. Totally submitted in one cassette labelled A. Gross Description: Part II: Received in formalin are two leal soft tissue fragments ranging from 0.1 to 0.2 cm in greatest dimension. Totally submitted in one cassette labelled B. Microscopic Description: Part I: The histologic sections show duodenal mucosa with intact intestinal villi, showing no evidence for villous abnormality. There is mild chronic inflammation present consisting of scattered lymphocytes and plasma cells. There is no evidence for ulceration or atypia. Diagnosis: Part I: 1. Mild nonspecific chronic inflammation, duodenal biopsy. 2. There is no evidence for celiac disease/sprue. Microscopic Description: Part II: The histologic sections show gastric mucosa with mild chronic inflammation present consisting of lymphocytes and plasma cells. The Giemsa stain shows no evidence for Helicobacter pylori. Diagnosis: Part II: 1. Mild chronic gastritis, antrum biopsy. 2. The Giemsa stain is negative for Helicobacter pylori. JOB# [id number] [facility]
[2018-08-02] MEDS: Atorvastatin Calcium 10 MG TAB GT SCH (21:14)
[2018-08-03] MEDS: INSULIN ASPART SLIDING SCALE 100 UNITS/ML UNIT SUBQ SCH ×4 (00:30→17:39)
[2018-08-03] MEDS: Albuterol/Ipratropium Neb 3 ML AERS HHN SCH ×6 (03:25→22:00)
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
[2018-08-03 07:24] LABS: HEMATOCRIT 28.8 % (41.0-60); HEMOGLOBIN 9.5 gm/dL (12-16); MEAN CELL VOLUME 87.7 fl (81-100); MEAN CORPUSCULAR HEMOGLOBIN 28.9 pg (27.0-31.0); MEAN PLATELET VOLUME 7.6 fl; PLATELET COUNT 369 Th/cmm (150-400); RED BLOOD COUNT 3.28 Mil/cmm (3.80-5.20); RED CELL DISTRIBUTION WIDTH 15.5 % (11.5-20.0)
[2018-08-03 07:36] LABS: ANION GAP 15.6 (7.0-16.0); CALCIUM SERUM 8.9 mg/dL (8.6-10.3); CARBON DIOXIDE 26.9 mEq/L (21.0-31.0); CREATININE - SERUM 3.7 mg/dL (0.6-1.2); GFR AFRICAN-AMERICAN 15.8 ml/min (>90); GFR NON AFRICAN-AMERICAN 13.1 ml/min; POTASSIUM SERUM 3.5 mEq/L (3.5-5.1)
[2018-08-03] MEDS: Chlorhexidine Gluconate 0.12% 15mL Mouthwash MM SCH ×2 (08:00→20:10)
[2018-08-03 08:05] LABS: WHITE BLOOD COUNT 17.2 Th/cmm (4.8-10.8)
[2018-08-03 08:21] LABS: BAND NEUTROPHILE 1 % (0-10); EOSINOPHIL 2 % (0-5); LYMPHOCYTE 5 % (20-50); MONOCYTE 5 % (2-10); NEUTROPHILS 87 % (40-80); PLATELET ESTIMATE ADEQUATE (NORMAL)
[2018-08-03] MEDS: Menthol/Zinc Oxide Oint 113gm Tube TP SCH ×2 (09:00→17:39)
--- NOTE | 2018-08-03 09:15 | Diagnostic Imaging Report ---
Abdominal percent HISTORY: Hepatitis The liver is enlarged. There is a 3.6 x 3.2 x 4.0 cm echogenic mass within the right lobe of the liver. This is indeterminate. This is not appreciated on a prior noncontrast CT scan of 07/03/2018. A dedicated [address] scan of the liver recommended for further characterization and assessment. The gallbladder is not seen consistent with patient's surgical history. No biliary dilatation. Pancreas bowel seen due to bowel gas. The right kidney measures 11.4 x 5.9 x 4.0 cm). Increased cortical echogenicity is seen. No hydronephrosis. The left kidney measures 12.6 x 8.2 x 5.2 cm. No focal lesions. No hydronephrosis. Spleen is normal in size. Evidence of atherosclerotic calcification seen within the abdominal aorta. IMPRESSION: 1. Approximate 4.0 cm echogenic density within the right lobe of the liver. Etiology is indeterminate. A dedicated [address] scan of the liver recommended for further characterization and assessment. 2. Slight increase in right renal cortical echogenicity. Significance should be correlated with renal function tests. No hydronephrosis 3. Nonvisualization of the gallbladder consistent with the patient's surgical history.
--- NOTE | 2018-08-03 13:04 | General Progress Note ---
Subjective - Review of Systems Service Date: 08/03/18 Subjective: Patient still on ventilatory tracheostomy congested Objective - Results Result Diagrams: 08/03/18 04:30 08/03/18 04:30 Recent Labs: Laboratory Last Values WBC 17.2 Th/cmm (4.8-10.8) H D 08/03/18 04:30 RBC 3.28 Mil/cmm (3.80-5.20) L 08/03/18 04:30 Hgb 9.5 gm/dL (12-16) L 08/03/18 04:30 Hct 28.8 % (41.0-60) L 08/03/18 04:30 MCV 87.7 fl (81-100) 08/03/18 04:30 MCH 28.9 pg (27.0-31.0) 08/03/18 04:30 MCHC Differential 33.0 pg (28.0-36.0) 08/03/18 04:30 RDW 15.5 % (11.5-20.0) 08/03/18 04:30 Plt Count 369 Th/cmm (150-400) 08/03/18 04:30 MPV 7.6 fl 08/03/18 04:30 Add Manual Diff YES 08/03/18 04:30 Band Neutrophils % 1 % (0-10) 08/03/18 04:30 Neutrophils (Manual) 87 % (40-80) H 08/03/18 04:30 Lymphocytes 5 % (20-50) L 08/03/18 04:30 Monocytes 5 % (2-10) 08/03/18 04:30 Eosinophils 2 % (0-5) 08/03/18 04:30 Basophils 0 % (0-3) 08/02/18 07:00 Platelet Estimate ADEQUATE (NORMAL) 08/03/18 04:30 PT 11.3 SECONDS (9.5-11.5) 08/01/18 04:15 INR 1.09 (0.5-1.4) 08/01/18 04:15 PTT (Actin FS) 31.2 SECONDS (26.0-38.0) 07/28/18 20:00 Specimen Source Arterial 07/28/18 16:15 Sample Site Right Radial 07/28/18 16:15 pH 7.53 (7.35-7.45) H 07/28/18 16:15 pCO2 34.0 mmHg (35.0-45.0) L 07/28/18 16:15 pO2 198.0 mmHg (80.0-100.0) H 07/28/18 16:15 HCO3 29.4 mEq/L (20.0-26.0) H 07/28/18 16:15 Base Excess 5.7 mEq/L (-3.0-3.0) H 07/28/18 16:15 O2 Saturation 100.0 % (92.0-100.0) 07/28/18 16:15 Reinaldo Test Positive 07/28/18 16:15 Vent Rate 16 07/28/18 16:15 Inspired O2 50 07/28/18 16:15 Tidal Volume 500 07/28/18 16:15 PEEP 3 07/28/18 16:15 Pressure (ins/psv/peep) N/A 07/28/18 16:15 Critical Value DM 07/28/18 16:15 Sodium 140 mEq/L (136-145) 08/03/18 04:30 Potassium 3.5 mEq/L (3.5-5.1) 08/03/18 04:30 Chloride 101 mEq/L (98-107) 08/03/18 04:30 Carbon Dioxide 26.9 mEq/L (21.0-31.0) 08/03/18 04:30 Anion Gap 15.6 (7.0-16.0) 08/03/18 04:30 BUN 63 mg/dL (7-25) H 08/03/18 04:30 Creatinine 3.7 mg/dL (0.6-1.2) H 08/03/18 04:30 Est GFR ( Amer) 15.8 ml/min (>90) 08/03/18 04:30 Est GFR (Non-Af Amer) 13.1 ml/min 08/03/18 04:30 BUN/Creatinine Ratio 17.0 08/03/18 04:30 Glucose 300 mg/dL (70-105) H 08/03/18 04:30 POC Glucose 281 MG/DL (70 - 105) H 08/03/18 12:18 Whole Bld Lactic Acid 1.85 mmol/L (0.60-1.99) 07/28/18 13:30 Calcium 8.9 mg/dL (8.6-10.3) 08/03/18 04:30 Phosphorus 1.5 mg/dL (2.5-5.0) L 07/28/18 13:10 Magnesium 2.5 mg/dL (1.9-2.7) 07/28/18 13:10 Total Bilirubin 0.4 mg/dL (0.3-1.0) 08/02/18 04:20 AST 26 U/L (13-39) 08/02/18 04:20 ALT 20 U/L (7-52) 08/02/18 04:20 Alkaline Phosphatase 442 U/L (34-104) H 08/02/18 04:20 Total Protein 6.6 gm/dL (6.0-8.3) 08/02/18 04:20 Albumin 2.2 gm/dL (3.7-5.3) L 08/02/18 04:20 Globulin 4.4 gm/dL 08/02/18 04:20 Albumin/Globulin Ratio 0.5 (1.0-1.8) L 08/02/18 04:20 Urine Source CATH 07/28/18 13:35 Urine Color YELLOW 07/28/18 13:35 Urine Clarity HAZY (CLEAR) 07/28/18 13:35 Urine pH 7.5 (4.6 - 8.0) 07/28/18 13:35 Ur Specific [place] 1.020 (1.005-1.030) 07/28/18 13:35 Urine Protein 100 mg/dL (NEGATIVE) H 07/28/18 13:35 Urine Glucose (UA) NEGATIVE mg/dL (NEGATIVE) 07/28/18 13:35 Urine Ketones NEGATIVE mg/dL (NEGATIVE) 07/28/18 13:35 Urine Blood MODERATE (NEGATIVE) H 07/28/18 13:35 Urine Nitrate NEGATIVE (NEGATIVE) 07/28/18 13:35 Urine Bilirubin NEGATIVE (NEGATIVE) 07/28/18 13:35 Urine Urobilinogen 0.2 E.U./dL (0.2 - 1.0) 07/28/18 13:35 Ur Leukocyte Esterase MODERATE (NEGATIVE) H 07/28/18 13:35 Urine RBC 10-25 /hpf (0-5) H 07/28/18 13:35 Urine WBC 50-100 /hpf (0-5) H 07/28/18 13:35 Ur Epithelial Cells FEW /lpf (FEW) 07/28/18 13:35 Urine Bacteria 4+ /hpf (NONE SEEN) H 07/28/18 13:35 Stool Occult Blood NEGATIVE (NEGATIVE) 07/31/18 05:00 Urine Opiates Screen NEGATIVE (NEGATIVE) 07/28/18 13:35 Urine Methadone Screen NEGATIVE (NEGATIVE) 07/28/18 13:35 Ur Barbiturates Screen NEGATIVE (NEGATIVE) 07/28/18 13:35 Ur Tricyclics Screen NEGATIVE (NEGATIVE) 07/28/18 13:35 Ur Phencyclidine Scrn NEGATIVE (NEGATIVE) 07/28/18 13:35 Amphetamines Screen NEGATIVE (NEGATIVE) 07/28/18 13:35 U Methamphetamines Scrn NEGATIVE (NEGATIVE) 07/28/18 13:35 U Benzodiazepines Scrn NEGATIVE (NEGATIVE) 07/28/18 13:35 U Cocaine Metab Screen NEGATIVE (NEGATIVE) 07/28/18 13:35 U Cannabinoids Screen NEGATIVE (NEGATIVE) 07/28/18 13:35 Helicobacter pylori Ab NEGATIVE (NEGATIVE) 08/01/18 09:15 Blood Type O POSITIVE 07/29/18 00:00 Antibody Screen NEGATIVE 07/29/18 00:00 Crossmatch See Detail 07/29/18 20:00 - Physical Exam Vitals and I&O: Vital Signs Temp 99.3 F 08/03/18 08:00 Pulse 98 08/03/18 11:54 Resp 10 08/03/18 09:00 BP 123/69 08/03/18 09:00 Pulse Ox 100 08/03/18 11:54 Intake & Output 08/02/18 08/03/18 08/03/18 18:59 06:59 18:59 Intake Total 550 1130 Balance 550 1130 Weight (lbs) 79.832 kg 79.152 kg Intake: Intake, IV Amount 50 50 Aztreonam 1 gm In 50 50 Dextrose 5% 50 ml @ 100 mls/hr IV Q12HR [facility] Rx#: [id number] Oral 0 Tube Feeding 300 720 Other 200 360 Other: # Voids 0 0 # Bowel Movements 1 1 Stool Characteristics Soft Liquid Brown Weight Source Bedscale Bedscale Active Medications: Current Medications Albuterol/Ipratropium (Duoneb Neb) 3 ml HHN Q4HRT [facility]ON[facility] Stop: 09/26/18 22:59 Last Admin: 08/03/18 11:54 Dose: 3 ml Atorvastatin Calcium (Lipitor) 40 mg GT HS [facility]ON[facility] Stop: 09/27/18 20:59 Last Admin: 08/02/18 21:14 Dose: 40 mg Calamine/Phenol (Calmoseptine) 1 appl TP BID [facility] Stop: 09/28/18 16:59 Last Admin: 08/02/18 17:12 Dose: 1 appl Calcium Carbonate (Os-Keith) 500 mg GT BID [facility]ON[facility] Stop: 09/27/18 08:59 Last Admin: 08/02/18 17:12 Dose: 500 mg [place] Oil/[place] Balsam/Trypsin (Venelex) 1 appl TP DAILY [facility]ON[facility] Stop: 09/28/18 10:59 Last Admin: 08/02/18 08:50 Dose: 1 appl Chlorhexidine Gluconate (Peridex) 15 ml MM 0800,2000 [facility] Stop: 09/26/18 19:59 Last Admin: 08/02/18 21:14 Dose: 15 ml Epoetin Rj (Epogen) 10,000 units SUBQ TuThSa ALON[facility] Stop: 09/27/18 11:14 Last Admin: 08/01/18 16:54 Dose: 10,000 units Folic Acid (Folate) 1 mg GT DAILY [facility] Stop: 09/27/18 08:59 Last Admin: 08/02/18 08:50 Dose: 1 mg Aztreonam 1 gm/ Dextrose 50 mls @ 100 mls/hr IV Q12HR [facility] Stop: 09/26/18 13:59 Last Admin: 08/03/18 10:39 Dose: 100 mls/hr Norepinephrine Bitartrate 8 mg (/ Dextrose) 258 mls @ 7.74 mls/hr IV TITR PRN; Protocol PRN Reason: BP MAINTENANCE (PER PROTOCOL) Stop: 09/27/18 11:24 Last Titration: 07/29/18 23:30 Dose: 2 mcg/min, 3.87 mls/hr Micafungin Sodium 100 mg/ (Sodium Chloride) 100 mls @ 100 mls/hr IV Q24H [facility]ON[facility] Stop: 09/28/18 10:44 Last Admin: 08/02/18 10:55 Dose: 100 mls/hr Ibuprofen (Motrin) 400 mg PO Q6H PRN PRN Reason: Fever > 101 Stop: 09/27/18 02:58 Last Admin: 07/30/18 21:45 Dose: 400 mg Insulin Aspart (Novolog Insulin Sliding Scale) 0 units SUBQ Q6HR [facility]; Protocol Stop: 09/27/18 00:00 Last Admin: 08/03/18 12:21 Dose: 6 units Miscellaneous (Clinical Monitoring) 1 ea MC DAILY PRN PRN Reason: RENAL DOSING Stop: 09/29/18 09:05 Pantoprazole Sodium (Protonix) 40 mg IVP BID [facility] Stop: 09/28/18 19:44 Last Admin: 08/02/18 17:12 Dose: 40 mg Zinc Sulfate (Zinc Sulfate) 220 mg GT DAILY [facility] Stop: 09/27/18 08:59 Last Admin: 08/02/18 08:50 Dose: 220 mg General: Moderate distress, Other (NON-VERBAL, MECHANICALLY VENTILATED VIA TRACH ) HEENT: Other (unremarkable) Neck: Supple, JVD (10 cm above sternal angle), +2 carotid pulse wo bruit Cardiovascular: Normal S1, Normal S2, Systolic murmurs Lungs: Clear to auscultation, Other (wheezing and rhonchi) Abdomen: Soft, Other (+ GTUBE) Extremities: Other (NO EDEMA, LUE AVF+ THRILL) Neurological: Other (no focal neurological deficit he) Skin: Other (stage IV sacral coccyx decubitus pressure ulcer left heel) - Procedures Procedures: Procedures Procedure Code Date EXCISION OF BACK SUBCU/FASCIA, OPEN APPROACH [id number] 06/30/18 PERFORMANCE OF URINARY FILTRATION, <6 HRS/DAY [id number] 06/30/18 RESPIRATORY VENTILATION, GREATER THAN 96 CONSECUTIVE HOURS [id number] 07/28/18 TRANSFUSE NONAUT RED BLOOD CELLS IN PERIPH VEIN, PERC [id number] 06/30/18 Assessment/Plan - Assessment Assessment: Acute respiratory failure on ventilator with tracheostomy Septic shock Hypotension Sinus tachycardia Stage IV sacral decubitus ulcer infected Aspiration pneumonia pseudomonas Diabetes mellitus type 2 Diabetic sick and he states Tuesday end-stage renal disease on dialysis Hypertension Deficiency anemia Dysphagia with PEG placement Protein calorie malnutrition - Plan Plan: Continue present management continue IV antibiotics went management and wound care Nutritional Asmnt/Malnutr-PDOC - Dietary Evaluation Malnutrition Findings (Please click <Entered> for more info): Nutritional Asmnt/Malnutrition Start: 07/29/18 09: 22 Text: Status: Complete Freq: Protocol: Document 07/29/18 09:23 AUGUSTINE (Rec: 07/29/18 10:10 AUGUSTINE CHADWICK- FNS1) Nutritional Asmnt/Malnutrition Patient General Information Nutritional Screening High Risk Consult Diagnosis Urosepsis, bilateral pneumonia , Decubitus ulcer Pertinent Medical Hx/Surgical Hx Hyperlipidemia, ESRD (No H&P) Subjective Information Consult recieved for Wound Stage IV. Patient receives HD, trach to vent. She was admitted from [facility]. Current TF provides 800 ml volume, 1440 kcal, 64gm protein. Current Diet Order/ Nutrition Support Tube feeding Nepro 50 ml/hr x 16 hours Patient / S.O Not Indicated Pertinent Medications Lipitor, Os-keith, Folate, Novolog, Protonix, Zinc sulfate Pertinent Labs (07/29) K 3.4, BUN 54, Cr 2.7 ( decreasing), Glucose 186-233, Ca 8.1, Phos 1.5, Albumin 2.4 Nutritional Hx/Data Height 1.83 m Height (Calculated Centimeters) 182.9 Current Weight (lbs) 80.286 kg Weight (Calculated Kilograms) 80.3 Weight (Calculated Grams) 19018.8 [place] Body Weight 160 % [place] Body Weight 110 Body Mass Index (BMI) 24.0 Recent Weight Change No Weight Status Approriate GI Symptoms GI Symptoms None Last BM 07/29 x1 Difficult in: Swallowing Food Allergies No Cultural/Ethnic/Gnosticist Belief None indicated Usual diet at home Unknown Skin Integrity/Comment: Edvin 8, 2+ edema, stage IV wound Estimated Nutritional Goals BEE in Kcals: Using Current wt Calories/Kcals/Kg CBW 80.4kg Kcals Calculated ~6112-3954 kcal/day (27-32 kcal/kg) - considering HD, Stage IV wound, vent Protein: Using Current wt Protein g/k.5-1.7 gm/kg - wound, HD, vent Protein Calculated ~120-135 gm/day Fluid: ml Per MD due to HD Nutritional Problem 2. Problem Problem Altered nutrition related lab values related to Etiology electrotlyte imbalance and uncontrolled hyperglycemia aeb Signs/Symptoms: K 3.4, Glucose 186-233, Ca 8.1 , Phos 1.5, Albumin 2.4 1. Problem Problem Inadequate energy/protein intake related to Etiology current TF regimen inadequate aeb Signs/Symptoms: Current TF regimen meeting ~65 % of calorie and ~55% of protein needs Intervention/Recommendation Comments 1. Consider increasing Nepro to 50ml/hr continuously for 24 hours to provide 1200ml volume, 2160 kcal, 97 gm protein. Add Prosource 2 packets/day for an additional 30gm protein . (total 112gm protein) 2. MD to modify insulin regimen for optimal glycemic control and replace lytes as medically appropriate. May consider modifying Tube feednig formula to Nutren 2.0 if she consistently has hypokalemia and hypophosphatemia (Nepro is low in Potassium and phosphorus). Expected Outcomes/Goals Expected Outcomes/Goals TF meets >75% of nutrient needs, improved skin integrity , nutrition related labs normalize F/U in 2-3 days as HR (07/31- )
[2018-08-03] MEDS: Epoetin Alfa 20000 Units/mL Vial SUBQ SCH (14:49)
[2018-08-03] MEDS: Micafungin 100 MG in Sodium Chloride 0.9% 100 ML IV SCH (14:52)
--- NOTE | 2018-08-03 15:30 | Internal Medicine Prog Note ---
Internal Medicine Subjective - Subjective Patient seen and examined:: chart reviewed Patient is:: non-verbal, other (vent. dependent via trach. congested ) Patient Complaints of:: congestion Per staff patient has:: no adverse event Internal Medicine Objective - Results Result Diagrams: 08/03/18 04:30 08/03/18 04:30 Recent Labs: Laboratory Last Values WBC 17.2 Th/cmm (4.8-10.8) H D 08/03/18 04:30 RBC 3.28 Mil/cmm (3.80-5.20) L 08/03/18 04:30 Hgb 9.5 gm/dL (12-16) L 08/03/18 04:30 Hct 28.8 % (41.0-60) L 08/03/18 04:30 MCV 87.7 fl (81-100) 08/03/18 04:30 MCH 28.9 pg (27.0-31.0) 08/03/18 04:30 MCHC Differential 33.0 pg (28.0-36.0) 08/03/18 04:30 RDW 15.5 % (11.5-20.0) 08/03/18 04:30 Plt Count 369 Th/cmm (150-400) 08/03/18 04:30 MPV 7.6 fl 08/03/18 04:30 Add Manual Diff YES 08/03/18 04:30 Band Neutrophils % 1 % (0-10) 08/03/18 04:30 Neutrophils (Manual) 87 % (40-80) H 08/03/18 04:30 Lymphocytes 5 % (20-50) L 08/03/18 04:30 Monocytes 5 % (2-10) 08/03/18 04:30 Eosinophils 2 % (0-5) 08/03/18 04:30 Basophils 0 % (0-3) 08/02/18 07:00 Platelet Estimate ADEQUATE (NORMAL) 08/03/18 04:30 PT 11.3 SECONDS (9.5-11.5) 08/01/18 04:15 INR 1.09 (0.5-1.4) 08/01/18 04:15 PTT (Actin FS) 31.2 SECONDS (26.0-38.0) 07/28/18 20:00 Specimen Source Arterial 07/28/18 16:15 Sample Site Right Radial 07/28/18 16:15 pH 7.53 (7.35-7.45) H 07/28/18 16:15 pCO2 34.0 mmHg (35.0-45.0) L 07/28/18 16:15 pO2 198.0 mmHg (80.0-100.0) H 07/28/18 16:15 HCO3 29.4 mEq/L (20.0-26.0) H 07/28/18 16:15 Base Excess 5.7 mEq/L (-3.0-3.0) H 07/28/18 16:15 O2 Saturation 100.0 % (92.0-100.0) 07/28/18 16:15 Reinaldo Test Positive 07/28/18 16:15 Vent Rate 16 07/28/18 16:15 Inspired O2 50 07/28/18 16:15 Tidal Volume 500 07/28/18 16:15 PEEP 3 07/28/18 16:15 Pressure (ins/psv/peep) N/A 07/28/18 16:15 Critical Value DM 07/28/18 16:15 Sodium 140 mEq/L (136-145) 08/03/18 04:30 Potassium 3.5 mEq/L (3.5-5.1) 08/03/18 04:30 Chloride 101 mEq/L (98-107) 08/03/18 04:30 Carbon Dioxide 26.9 mEq/L (21.0-31.0) 08/03/18 04:30 Anion Gap 15.6 (7.0-16.0) 08/03/18 04:30 BUN 63 mg/dL (7-25) H 08/03/18 04:30 Creatinine 3.7 mg/dL (0.6-1.2) H 08/03/18 04:30 Est GFR ( Amer) 15.8 ml/min (>90) 08/03/18 04:30 Est GFR (Non-Af Amer) 13.1 ml/min 08/03/18 04:30 BUN/Creatinine Ratio 17.0 08/03/18 04:30 Glucose 300 mg/dL (70-105) H 08/03/18 04:30 POC Glucose 281 MG/DL (70 - 105) H 08/03/18 12:18 Whole Bld Lactic Acid 1.85 mmol/L (0.60-1.99) 07/28/18 13:30 Calcium 8.9 mg/dL (8.6-10.3) 08/03/18 04:30 Phosphorus 1.5 mg/dL (2.5-5.0) L 07/28/18 13:10 Magnesium 2.5 mg/dL (1.9-2.7) 07/28/18 13:10 Total Bilirubin 0.4 mg/dL (0.3-1.0) 08/02/18 04:20 AST 26 U/L (13-39) 08/02/18 04:20 ALT 20 U/L (7-52) 08/02/18 04:20 Alkaline Phosphatase 442 U/L (34-104) H 08/02/18 04:20 Total Protein 6.6 gm/dL (6.0-8.3) 08/02/18 04:20 Albumin 2.2 gm/dL (3.7-5.3) L 08/02/18 04:20 Globulin 4.4 gm/dL 08/02/18 04:20 Albumin/Globulin Ratio 0.5 (1.0-1.8) L 08/02/18 04:20 Urine Source CATH 07/28/18 13:35 Urine Color YELLOW 07/28/18 13:35 Urine Clarity HAZY (CLEAR) 07/28/18 13:35 Urine pH 7.5 (4.6 - 8.0) 07/28/18 13:35 Ur Specific [place] 1.020 (1.005-1.030) 07/28/18 13:35 Urine Protein 100 mg/dL (NEGATIVE) H 07/28/18 13:35 Urine Glucose (UA) NEGATIVE mg/dL (NEGATIVE) 07/28/18 13:35 Urine Ketones NEGATIVE mg/dL (NEGATIVE) 07/28/18 13:35 Urine Blood MODERATE (NEGATIVE) H 07/28/18 13:35 Urine Nitrate NEGATIVE (NEGATIVE) 07/28/18 13:35 Urine Bilirubin NEGATIVE (NEGATIVE) 07/28/18 13:35 Urine Urobilinogen 0.2 E.U./dL (0.2 - 1.0) 07/28/18 13:35 Ur Leukocyte Esterase MODERATE (NEGATIVE) H 07/28/18 13:35 Urine RBC 10-25 /hpf (0-5) H 07/28/18 13:35 Urine WBC 50-100 /hpf (0-5) H 07/28/18 13:35 Ur Epithelial Cells FEW /lpf (FEW) 07/28/18 13:35 Urine Bacteria 4+ /hpf (NONE SEEN) H 07/28/18 13:35 Stool Occult Blood NEGATIVE (NEGATIVE) 07/31/18 05:00 Urine Opiates Screen NEGATIVE (NEGATIVE) 07/28/18 13:35 Urine Methadone Screen NEGATIVE (NEGATIVE) 07/28/18 13:35 Ur Barbiturates Screen NEGATIVE (NEGATIVE) 07/28/18 13:35 Ur Tricyclics Screen NEGATIVE (NEGATIVE) 07/28/18 13:35 Ur Phencyclidine Scrn NEGATIVE (NEGATIVE) 07/28/18 13:35 Amphetamines Screen NEGATIVE (NEGATIVE) 07/28/18 13:35 U Methamphetamines Scrn NEGATIVE (NEGATIVE) 07/28/18 13:35 U Benzodiazepines Scrn NEGATIVE (NEGATIVE) 07/28/18 13:35 U Cocaine Metab Screen NEGATIVE (NEGATIVE) 07/28/18 13:35 U Cannabinoids Screen NEGATIVE (NEGATIVE) 07/28/18 13:35 Helicobacter pylori Ab NEGATIVE (NEGATIVE) 08/01/18 09:15 Blood Type O POSITIVE 07/29/18 00:00 Antibody Screen NEGATIVE 07/29/18 00:00 Crossmatch See Detail 07/29/18 20:00 - Physical Exam Vitals and I&O: Vital Signs Temp 99.3 F 08/03/18 08:00 Pulse 98 08/03/18 11:54 Resp 10 08/03/18 09:00 BP 123/69 08/03/18 09:00 Pulse Ox 100 08/03/18 11:54 Intake & Output 08/02/18 08/03/18 08/03/18 18:59 06:59 18:59 Intake Total 650 1130 Balance 650 1130 Weight (lbs) 79.832 kg 79.152 kg Intake: Intake, IV Amount 150 50 Aztreonam 1 gm In 50 50 Dextrose 5% 50 ml @ 100 mls/hr IV Q12HR [facility]ON[facility]A Rx#: [id number] Micafungin 100 mg In 100 Sodium Chloride 0.9% 100 ml @ 100 mls/hr IV Q24H ALONDRA Rx#:[id number] Oral 0 Tube Feeding 300 720 Other 200 360 Other: # Voids 0 0 # Bowel Movements 1 1 Stool Characteristics Soft Liquid Brown Weight Source Bedscale Bedscale Active Medications: Current Medications Albuterol/Ipratropium (Duoneb Neb) 3 ml HHN Q4HRT ALONDRA Stop: 09/26/18 22:59 Last Admin: 08/03/18 11:54 Dose: 3 ml Atorvastatin Calcium (Lipitor) 40 mg GT HS ALONDRA Stop: 09/27/18 20:59 Calamine/Phenol (Calmoseptine) 1 appl TP BID [facility]ON[facility]A Stop: 09/28/18 16:59 Last Admin: 08/02/18 17:12 Dose: 1 appl Calcium Carbonate (Os-Keith) 500 mg GT BID ALON[facility]A Stop: 09/27/18 08:59 Last Admin: 08/02/18 17:12 Dose: 500 mg [place] Oil/[place] Balsam/Trypsin (Venelex) 1 appl TP DAILY [facility]ON[facility] Stop: 09/28/18 10:59 Last Admin: 08/02/18 08:50 Dose: 1 appl Chlorhexidine Gluconate (Peridex) 15 ml MM 0800,2000 ALON[facility]A Stop: 09/26/18 19:59 Last Admin: 08/02/18 21:14 Dose: 15 ml Epoetin Rj (Epogen) 10,000 units SUBQ TuThSa ALONDRA Stop: 09/27/18 11:14 Last Admin: 08/03/18 14:49 Dose: 10,000 units Folic Acid (Folate) 1 mg GT DAILY ALON[facility]A Stop: 09/27/18 08:59 Last Admin: 08/02/18 08:50 Dose: 1 mg Aztreonam 1 gm/ Dextrose 50 mls @ 100 mls/hr IV Q12HR [facility]ON[facility]A Stop: 09/26/18 13:59 Last Admin: 08/03/18 10:39 Dose: 100 mls/hr Norepinephrine Bitartrate 8 mg (/ Dextrose) 258 mls @ 7.74 mls/hr IV TITR PRN; Protocol PRN Reason: BP MAINTENANCE (PER PROTOCOL) Stop: 09/27/18 11:24 Last Titration: 07/29/18 23:30 Dose: 2 mcg/min, 3.87 mls/hr Micafungin Sodium 100 mg/ (Sodium Chloride) 100 mls @ 100 mls/hr IV Q24H ALONDRA Stop: 09/28/18 10:44 Last Admin: 08/03/18 14:52 Dose: 100 mls/hr Ibuprofen (Motrin) 400 mg PO Q6H PRN PRN Reason: Fever > 101 Stop: 09/27/18 02:58 Last Admin: 07/30/18 21:45 Dose: 400 mg Insulin Aspart (Novolog Insulin Sliding Scale) 0 units SUBQ Q6HR [facility]ON[facility]A; Protocol Stop: 09/27/18 00:00 Last Admin: 08/03/18 12:21 Dose: 6 units Miscellaneous (Clinical Monitoring) 1 ea MC DAILY PRN PRN Reason: RENAL DOSING Stop: 09/29/18 09:05 Pantoprazole Sodium (Protonix) 40 mg IVP BID [facility] Stop: 09/28/18 19:44 Last Admin: 08/02/18 17:12 Dose: 40 mg Zinc Sulfate (Zinc Sulfate) 220 mg GT DAILY [facility]ON[facility]A Stop: 09/27/18 08:59 Last Admin: 08/02/18 08:50 Dose: 220 mg General: weak, other (on vent ) HEENT: NC/AT Neck: Supple Lungs: wheezing, ronchi Cardiovascular: RRR, Normal S1, Normal S2 Abdomen: soft, +GT Extremities: clear, edema Neurological: no change - Procedures Procedures: Procedures Procedure Code Date EXCISION OF BACK SUBCU/FASCIA, OPEN APPROACH [id number] 06/30/18 PERFORMANCE OF URINARY FILTRATION, <6 HRS/DAY [id number] 06/30/18 RESPIRATORY VENTILATION, GREATER THAN 96 CONSECUTIVE HOURS [id number] 07/28/18 TRANSFUSE NONAUT RED BLOOD CELLS IN PERIPH VEIN, PERC [id number] 06/30/18 Internal Medicine Assmt/Plan - Assessment Assessment: respiratory failure, vent support esrd/hd acute anemia infected sacral hypotensiove - Plan Plan: back to [facility] when bed available Nutritional Asmnt/Malnutr-PDOC - Dietary Evaluation Malnutrition Findings (Please click <Entered> for more info): Nutritional Asmnt/Malnutrition Start: 07/29/18 09: 22 Text: Status: Complete Freq: Protocol: Document 07/29/18 09:23 AUGUSTINE (Rec: 07/29/18 10:10 AUGUSTINE GENAO- FNS1) Nutritional Asmnt/Malnutrition Patient General Information Nutritional Screening High Risk Consult Diagnosis Urosepsis, bilateral pneumonia , Decubitus ulcer Pertinent Medical Hx/Surgical Hx Hyperlipidemia, ESRD (No H&P) Subjective Information Consult recieved for Wound Stage IV. Patient receives HD, trach to vent. She was admitted from [facility]. Current TF provides 800 ml volume, 1440 kcal, 64gm protein. Current Diet Order/ Nutrition Support Tube feeding Nepro 50 ml/hr x 16 hours Patient / S.O Not Indicated Pertinent Medications Lipitor, Os-keith, Folate, Novolog, Protonix, Zinc sulfate Pertinent Labs (07/29) K 3.4, BUN 54, Cr 2.7 ( decreasing), Glucose 186-233, Ca 8.1, Phos 1.5, Albumin 2.4 Nutritional Hx/Data Height 1.83 m Height (Calculated Centimeters) 182.9 Current Weight (lbs) 80.286 kg Weight (Calculated Kilograms) 80.3 Weight (Calculated Grams) 94935.8 [place] Body Weight 160 % [place] Body Weight 110 Body Mass Index (BMI) 24.0 Recent Weight Change No Weight Status Approriate GI Symptoms GI Symptoms None Last BM 07/29 x1 Difficult in: Swallowing Food Allergies No Cultural/Ethnic/Restoration Belief None indicated Usual diet at home Unknown Skin Integrity/Comment: Edvin 8, 2+ edema, stage IV wound Estimated Nutritional Goals BEE in Kcals: Using Current wt Calories/Kcals/Kg CBW 80.4kg Kcals Calculated ~2473-7907 kcal/day (27-32 kcal/kg) - considering HD, Stage IV wound, vent Protein: Using Current wt Protein g/k.5-1.7 gm/kg - wound, HD, vent Protein Calculated ~120-135 gm/day Fluid: ml Per MD due to HD Nutritional Problem 2. Problem Problem Altered nutrition related lab values related to Etiology electrotlyte imbalance and uncontrolled hyperglycemia aeb Signs/Symptoms: K 3.4, Glucose 186-233, Ca 8.1 , Phos 1.5, Albumin 2.4 1. Problem Problem Inadequate energy/protein intake related to Etiology current TF regimen inadequate aeb Signs/Symptoms: Current TF regimen meeting ~65 % of calorie and ~55% of protein needs Intervention/Recommendation Comments 1. Consider increasing Nepro to 50ml/hr continuously for 24 hours to provide 1200ml volume, 2160 kcal, 97 gm protein. Add Prosource 2 packets/day for an additional 30gm protein . (total 112gm protein) 2. MD to modify insulin regimen for optimal glycemic control and replace lytes as medically appropriate. May consider modifying Tube feednig formula to Nutren 2.0 if she consistently has hypokalemia and hypophosphatemia (Nepro is low in Potassium and phosphorus). Expected Outcomes/Goals Expected Outcomes/Goals TF meets >75% of nutrient needs, improved skin integrity , nutrition related labs normalize F/U in 2-3 days as HR (07/31- )
[2018-08-03] MEDS: Venelex 60gm Tube TP SCH (17:38)
[2018-08-04] MEDS: INSULIN ASPART SLIDING SCALE 100 UNITS/ML UNIT SUBQ SCH ×4 (00:33→17:48)
[2018-08-04] MEDS: Albuterol/Ipratropium Neb 3 ML AERS HHN SCH ×6 (02:40→23:24)
[2018-08-04 04:31] LABS: % BASOPHILS 0.8 % (0.0-2.0); % EOSINOPHILS 1.3 % (0.0-5.0); % LYMPHOCYTES 12.2 % (20.0-50.0); % NEUTROPHILS 79.7 % (40.0-80.0); BASOPHILE ABSOLUTE 0.1 Th/cumm (0-0.2); EOSINOPHILE ABSOLUTE 0.2 Th/cmm (0.1-0.4); LYMPHOCYTE ABSOLUTE 1.5 Th/cmm (1.5-3.0); MEAN CELL VOLUME 85.5 fl (81-100); MEAN CORPUSCULAR HEMOGLOBIN 28.5 pg (27.0-31.0); MEAN CORPUSCULAR HGB CONC 33.3 pg (28.0-36.0); MEAN PLATELET VOLUME 7.6 fl; MONOCYTE ABSOLUTE 0.7 Th/cmm (0.3-1.0); NEUTROPHILE ABSOLUTE 9.9 Th/cmm (1.8-8.0); PLATELET COUNT 335 Th/cmm (150-400); RED BLOOD COUNT 3.16 Mil/cmm (3.80-5.20); RED CELL DISTRIBUTION WIDTH 15.7 % (11.5-20.0); WHITE BLOOD COUNT 12.4 Th/cmm (4.8-10.8)
[2018-08-04 04:57] LABS: INR 1.13 (0.5-1.4); PROTHROMBIN TIME (TEST) 11.6 SECONDS (9.5-11.5)
[2018-08-04 05:31] LABS: ALB/GLOB RATIO 0.5 (1.0-1.8); ALBUMIN 1.9 gm/dL (3.7-5.3); ANION GAP 14.5 (7.0-16.0); BILIRUBIN,TOTAL 0.4 mg/dL (0.3-1.0); CALCIUM SERUM 8.3 mg/dL (8.6-10.3); CREATININE - SERUM 3.1 mg/dL (0.6-1.2); GFR AFRICAN-AMERICAN 19.4 ml/min (>90); POTASSIUM SERUM 3.5 mEq/L (3.5-5.1); TOTAL PROTEIN,SERUM 5.9 gm/dL (6.0-8.3)
[2018-08-04] MEDS ORDERED: Venelex 60gm Tube TP ONE (07:11)
[2018-08-04] MEDS: Chlorhexidine Gluconate 0.12% 15mL Mouthwash MM SCH ×2 (08:57→20:39)
[2018-08-04] MEDS: Venelex 60gm Tube TP SCH (09:00)
[2018-08-04] MEDS: Menthol/Zinc Oxide Oint 113gm Tube TP SCH ×2 (10:33→17:47)
[2018-08-04] MEDS: Micafungin 100 MG in Sodium Chloride 0.9% 100 ML IV SCH (10:40)
--- NOTE | 2018-08-04 10:59 | GI Progress Note ---
Subjective - Review of Systems Subjective: NO REPORTED GI BLOOD LOSS Objective - Results Result Diagrams: 08/04/18 04:00 08/04/18 04:00 Recent Labs: Laboratory Last Values WBC 12.4 Th/cmm (4.8-10.8) H D 08/04/18 04:00 RBC 3.16 Mil/cmm (3.80-5.20) L 08/04/18 04:00 Hgb 9.0 gm/dL (12-16) L 08/04/18 04:00 Hct 27.0 % (41.0-60) L 08/04/18 04:00 MCV 85.5 fl (81-100) 08/04/18 04:00 MCH 28.5 pg (27.0-31.0) 08/04/18 04:00 MCHC Differential 33.3 pg (28.0-36.0) 08/04/18 04:00 RDW 15.7 % (11.5-20.0) 08/04/18 04:00 Plt Count 335 Th/cmm (150-400) 08/04/18 04:00 MPV 7.6 fl 08/04/18 04:00 Add Manual Diff YES 08/03/18 04:30 Neutrophils % 79.7 % (40.0-80.0) 08/04/18 04:00 Band Neutrophils % 1 % (0-10) 08/03/18 04:30 Lymphocytes % 12.2 % (20.0-50.0) L 08/04/18 04:00 Monocytes % 6.0 % (2.0-10.0) 08/04/18 04:00 Eosinophils % 1.3 % (0.0-5.0) 08/04/18 04:00 Basophils % 0.8 % (0.0-2.0) 08/04/18 04:00 Neutrophils (Manual) 87 % (40-80) H 08/03/18 04:30 Lymphocytes 5 % (20-50) L 08/03/18 04:30 Monocytes 5 % (2-10) 08/03/18 04:30 Eosinophils 2 % (0-5) 08/03/18 04:30 Basophils 0 % (0-3) 08/02/18 07:00 Platelet Estimate ADEQUATE (NORMAL) 08/03/18 04:30 PT 11.6 SECONDS (9.5-11.5) H 08/04/18 04:00 INR 1.13 (0.5-1.4) 08/04/18 04:00 PTT (Actin FS) 29.0 SECONDS (26.0-38.0) 08/04/18 04:00 Specimen Source Arterial 07/28/18 16:15 Sample Site Right Radial 07/28/18 16:15 pH 7.53 (7.35-7.45) H 07/28/18 16:15 pCO2 34.0 mmHg (35.0-45.0) L 07/28/18 16:15 pO2 198.0 mmHg (80.0-100.0) H 07/28/18 16:15 HCO3 29.4 mEq/L (20.0-26.0) H 07/28/18 16:15 Base Excess 5.7 mEq/L (-3.0-3.0) H 07/28/18 16:15 O2 Saturation 100.0 % (92.0-100.0) 07/28/18 16:15 Reinaldo Test Positive 07/28/18 16:15 Vent Rate 16 07/28/18 16:15 Inspired O2 50 07/28/18 16:15 Tidal Volume 500 07/28/18 16:15 PEEP 3 07/28/18 16:15 Pressure (ins/psv/peep) N/A 07/28/18 16:15 Critical Value DM 07/28/18 16:15 Sodium 140 mEq/L (136-145) 08/04/18 04:00 Potassium 3.5 mEq/L (3.5-5.1) 08/04/18 04:00 Chloride 101 mEq/L (98-107) 08/04/18 04:00 Carbon Dioxide 28.0 mEq/L (21.0-31.0) 08/04/18 04:00 Anion Gap 14.5 (7.0-16.0) 08/04/18 04:00 BUN 48 mg/dL (7-25) H 08/04/18 04:00 Creatinine 3.1 mg/dL (0.6-1.2) H 08/04/18 04:00 Est GFR ( Amer) 19.4 ml/min (>90) 08/04/18 04:00 Est GFR (Non-Af Amer) 16.0 ml/min 08/04/18 04:00 BUN/Creatinine Ratio 15.5 08/04/18 04:00 Glucose 323 mg/dL (70-105) H 08/04/18 04:00 POC Glucose 300 MG/DL (70 - 105) H 08/04/18 06:05 Whole Bld Lactic Acid 1.85 mmol/L (0.60-1.99) 07/28/18 13:30 Calcium 8.3 mg/dL (8.6-10.3) L 08/04/18 04:00 Phosphorus 1.5 mg/dL (2.5-5.0) L 07/28/18 13:10 Magnesium 2.5 mg/dL (1.9-2.7) 07/28/18 13:10 Total Bilirubin 0.4 mg/dL (0.3-1.0) 08/04/18 04:00 AST 16 U/L (13-39) 08/04/18 04:00 ALT 16 U/L (7-52) 08/04/18 04:00 Alkaline Phosphatase 343 U/L (34-104) H 08/04/18 04:00 Total Protein 5.9 gm/dL (6.0-8.3) L 08/04/18 04:00 Albumin 1.9 gm/dL (3.7-5.3) L 08/04/18 04:00 Globulin 4.0 gm/dL 08/04/18 04:00 Albumin/Globulin Ratio 0.5 (1.0-1.8) L 08/04/18 04:00 Urine Source CATH 07/28/18 13:35 Urine Color YELLOW 07/28/18 13:35 Urine Clarity HAZY (CLEAR) 07/28/18 13:35 Urine pH 7.5 (4.6 - 8.0) 07/28/18 13:35 Ur Specific [place] 1.020 (1.005-1.030) 07/28/18 13:35 Urine Protein 100 mg/dL (NEGATIVE) H 07/28/18 13:35 Urine Glucose (UA) NEGATIVE mg/dL (NEGATIVE) 07/28/18 13:35 Urine Ketones NEGATIVE mg/dL (NEGATIVE) 07/28/18 13:35 Urine Blood MODERATE (NEGATIVE) H 07/28/18 13:35 Urine Nitrate NEGATIVE (NEGATIVE) 07/28/18 13:35 Urine Bilirubin NEGATIVE (NEGATIVE) 07/28/18 13:35 Urine Urobilinogen 0.2 E.U./dL (0.2 - 1.0) 07/28/18 13:35 Ur Leukocyte Esterase MODERATE (NEGATIVE) H 07/28/18 13:35 Urine RBC 10-25 /hpf (0-5) H 07/28/18 13:35 Urine WBC 50-100 /hpf (0-5) H 07/28/18 13:35 Ur Epithelial Cells FEW /lpf (FEW) 07/28/18 13:35 Urine Bacteria 4+ /hpf (NONE SEEN) H 07/28/18 13:35 Stool Occult Blood NEGATIVE (NEGATIVE) 07/31/18 05:00 Urine Opiates Screen NEGATIVE (NEGATIVE) 07/28/18 13:35 Urine Methadone Screen NEGATIVE (NEGATIVE) 07/28/18 13:35 Ur Barbiturates Screen NEGATIVE (NEGATIVE) 07/28/18 13:35 Ur Tricyclics Screen NEGATIVE (NEGATIVE) 07/28/18 13:35 Ur Phencyclidine Scrn NEGATIVE (NEGATIVE) 07/28/18 13:35 Amphetamines Screen NEGATIVE (NEGATIVE) 07/28/18 13:35 U Methamphetamines Scrn NEGATIVE (NEGATIVE) 07/28/18 13:35 U Benzodiazepines Scrn NEGATIVE (NEGATIVE) 07/28/18 13:35 U Cocaine Metab Screen NEGATIVE (NEGATIVE) 07/28/18 13:35 U Cannabinoids Screen NEGATIVE (NEGATIVE) 07/28/18 13:35 Helicobacter pylori Ab NEGATIVE (NEGATIVE) 08/01/18 09:15 Blood Type O POSITIVE 07/29/18 00:00 Antibody Screen NEGATIVE 07/29/18 00:00 Crossmatch See Detail 07/29/18 20:00 - Physical Exam Vitals and I&O: Vital Signs Temp 98.1 F 08/04/18 04:00 Pulse 96 08/04/18 10:17 Resp 14 08/04/18 06:00 BP 123/55 08/04/18 06:00 Pulse Ox 100 08/04/18 10:17 Intake & Output 08/03/18 08/04/18 08/04/18 18:59 06:59 18:59 Intake Total 150 1250 Output Total 600 Balance 150 650 Weight (lbs) 74.843 kg Intake: Intake, IV Amount 150 50 Aztreonam 1 gm In 50 50 Dextrose 5% 50 ml @ 100 mls/hr IV Q12HR [facility] Rx#: [id number] Micafungin 100 mg In 100 Sodium Chloride 0.9% 100 ml @ 100 mls/hr IV Q24H [facility] Rx#:[id number] Tube Feeding 850 Other 350 Output: Hemodialysis 600 Other: # Voids 0 # Bowel Movements 0 Weight Source Bedscale Active Medications: Current Medications Albuterol/Ipratropium (Duoneb Neb) 3 ml HHN Q4HRT [facility] Stop: 09/26/18 22:59 Last Admin: 08/04/18 10:17 Dose: 3 ml Atorvastatin Calcium (Lipitor) 40 mg GT HS [facility] Stop: 09/27/18 20:59 Last Admin: 08/03/18 20:10 Dose: 40 mg Calamine/Phenol (Calmoseptine) 1 appl TP BID [facility] Stop: 09/28/18 16:59 Last Admin: 08/04/18 10:33 Dose: 1 appl Calcium Carbonate (Os-Alon) 500 mg GT BID [facility] Stop: 09/27/18 08:59 Last Admin: 08/04/18 09:00 Dose: Not Given [place] Oil/[place] Balsam/Trypsin (Venelex) 1 appl TP DAILY [facility] Stop: 09/28/18 10:59 Last Admin: 08/03/18 17:38 Dose: 1 appl Chlorhexidine Gluconate (Peridex) 15 ml MM 0800,2000 [facility] Stop: 09/26/18 19:59 Last Admin: 08/04/18 08:57 Dose: 15 ml Epoetin Rj (Epogen) 10,000 units SUBQ TuThSa [facility] Stop: 09/27/18 11:14 Last Admin: 08/03/18 14:49 Dose: 10,000 units Folic Acid (Folate) 1 mg GT DAILY [facility] Stop: 09/27/18 08:59 Last Admin: 08/04/18 09:00 Dose: Not Given Aztreonam 1 gm/ Dextrose 50 mls @ 100 mls/hr IV Q12HR [facility] Stop: 09/26/18 13:59 Last Admin: 08/04/18 08:56 Dose: 100 mls/hr Norepinephrine Bitartrate 8 mg (/ Dextrose) 258 mls @ 7.74 mls/hr IV TITR PRN; Protocol PRN Reason: BP MAINTENANCE (PER PROTOCOL) Stop: 09/27/18 11:24 Last Titration: 07/29/18 23:30 Dose: 2 mcg/min, 3.87 mls/hr Micafungin Sodium 100 mg/ (Sodium Chloride) 100 mls @ 100 mls/hr IV Q24H [facility] Stop: 09/28/18 10:44 Last Admin: 08/04/18 10:40 Dose: 100 mls/hr Ibuprofen (Motrin) 400 mg PO Q6H PRN PRN Reason: Fever > 101 Stop: 09/27/18 02:58 Last Admin: 07/30/18 21:45 Dose: 400 mg Insulin Aspart (Novolog Insulin Sliding Scale) 0 units SUBQ Q6HR [facility]; Protocol Stop: 09/27/18 00:00 Last Admin: 08/04/18 06:16 Dose: Not Given Miscellaneous (Clinical Monitoring) 1 ea MC DAILY PRN PRN Reason: RENAL DOSING Stop: 09/29/18 09:05 Pantoprazole Sodium (Protonix) 40 mg IVP BID [facility] Stop: 09/28/18 19:44 Last Admin: 08/04/18 10:33 Dose: 40 mg Zinc Sulfate (Zinc Sulfate) 220 mg GT DAILY [facility] Stop: 09/27/18 08:59 Last Admin: 08/04/18 09:00 Dose: Not Given General: Other (unresponsive , on vent) HEENT: Other (+TRACH) Neck: Supple Cardiovascular: Normal S1, Normal S2 Lungs: Other Abdomen: Bowel sounds (has peg tube ) Extremities: Other (NO EDEMA, LUE AVF+ THRILL) Neurological: Other (NONVERBAL) Skin: Other (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 NO OVERT GI BLEED HGB STABLE COLO FROM OUTSIDE FACILITY IN 03/04 REVIEWED SHOWED NORMAL COLON WITH TARRY STOOL SUGGESTING UPPER SOURCE 1.CONT PROTONIX 2.FOLLOW H/H 3.CONSIDER BLEEDING SCAN OR ANGIOGRAPHY IF GI BLEED OCCURS 4.WILL SEE NEEDED; CALL IF QUESTIONS
[2018-08-04] MEDS ORDERED: Lidocaine 2% Gel 5 mL TP ONE (12:00)
[2018-08-04] MEDS ORDERED: Sodium Chloride 0.9% 1,000 ML IV ONE (12:00)
[2018-08-04] MEDS ORDERED: Propofol 10 mg/mL 20mL Vial **SURGERY USE ONLY IV ONE (12:00)
--- NOTE | 2018-08-04 12:55 | Operative Report ---
Post Operative Report - POST-OPERATIVE NOTE Preoperative diagnosis:: sacrococcyx decubitus ulcer, gangrene / infection Postoperative diagnosis:: same Operation performed:: sharp excisional debridement of skin subcut fascia bone of sacrococcyx decubitus ulcer [id number] size Specimen:: debris of sacrococcyx decubitus ulcer Anesthesia:: Mac, Local Blood Loss (fluid management):: 10ml Surgeon:: Jessee Perkins Data Compiler:: none Findings:: sacrococcyx decubitus ulcer [id number], infected, gangrenous edges and base. involvement of exposed bone, stage IV Prosthetic devices, grafts, tissue or device implanted:: none Complications:: none
--- NOTE | 2018-08-04 14:04 | Infectious Disease Prog Note ---
Infectious Disease Subjective - Review of Systems Service Date: 08/04/18 Subjective: There is no new change, no fever. Infectious Disease Objective - Results Result Diagrams: 08/06/18 03:50 08/06/18 03:50 Recent Labs: Laboratory Last Values WBC 12.4 Th/cmm (4.8-10.8) H D 08/04/18 04:00 RBC 3.16 Mil/cmm (3.80-5.20) L 08/04/18 04:00 Hgb 9.0 gm/dL (12-16) L 08/04/18 04:00 Hct 27.0 % (41.0-60) L 08/04/18 04:00 MCV 85.5 fl (81-100) 08/04/18 04:00 MCH 28.5 pg (27.0-31.0) 08/04/18 04:00 MCHC Differential 33.3 pg (28.0-36.0) 08/04/18 04:00 RDW 15.7 % (11.5-20.0) 08/04/18 04:00 Plt Count 335 Th/cmm (150-400) 08/04/18 04:00 MPV 7.6 fl 08/04/18 04:00 Add Manual Diff YES 08/03/18 04:30 Neutrophils % 79.7 % (40.0-80.0) 08/04/18 04:00 Band Neutrophils % 1 % (0-10) 08/03/18 04:30 Lymphocytes % 12.2 % (20.0-50.0) L 08/04/18 04:00 Monocytes % 6.0 % (2.0-10.0) 08/04/18 04:00 Eosinophils % 1.3 % (0.0-5.0) 08/04/18 04:00 Basophils % 0.8 % (0.0-2.0) 08/04/18 04:00 Neutrophils (Manual) 87 % (40-80) H 08/03/18 04:30 Lymphocytes 5 % (20-50) L 08/03/18 04:30 Monocytes 5 % (2-10) 08/03/18 04:30 Eosinophils 2 % (0-5) 08/03/18 04:30 Basophils 0 % (0-3) 08/02/18 07:00 Platelet Estimate ADEQUATE (NORMAL) 08/03/18 04:30 PT 11.6 SECONDS (9.5-11.5) H 08/04/18 04:00 INR 1.13 (0.5-1.4) 08/04/18 04:00 PTT (Actin FS) 29.0 SECONDS (26.0-38.0) 08/04/18 04:00 Specimen Source Arterial 07/28/18 16:15 Sample Site Right Radial 07/28/18 16:15 pH 7.53 (7.35-7.45) H 07/28/18 16:15 pCO2 34.0 mmHg (35.0-45.0) L 07/28/18 16:15 pO2 198.0 mmHg (80.0-100.0) H 07/28/18 16:15 HCO3 29.4 mEq/L (20.0-26.0) H 07/28/18 16:15 Base Excess 5.7 mEq/L (-3.0-3.0) H 07/28/18 16:15 O2 Saturation 100.0 % (92.0-100.0) 07/28/18 16:15 Reinaldo Test Positive 07/28/18 16:15 Vent Rate 16 07/28/18 16:15 Inspired O2 50 07/28/18 16:15 Tidal Volume 500 07/28/18 16:15 PEEP 3 07/28/18 16:15 Pressure (ins/psv/peep) N/A 07/28/18 16:15 Critical Value DM 07/28/18 16:15 Sodium 140 mEq/L (136-145) 08/04/18 04:00 Potassium 3.5 mEq/L (3.5-5.1) 08/04/18 04:00 Chloride 101 mEq/L (98-107) 08/04/18 04:00 Carbon Dioxide 28.0 mEq/L (21.0-31.0) 08/04/18 04:00 Anion Gap 14.5 (7.0-16.0) 08/04/18 04:00 BUN 48 mg/dL (7-25) H 08/04/18 04:00 Creatinine 3.1 mg/dL (0.6-1.2) H 08/04/18 04:00 Est GFR ( Amer) 19.4 ml/min (>90) 08/04/18 04:00 Est GFR (Non-Af Amer) 16.0 ml/min 08/04/18 04:00 BUN/Creatinine Ratio 15.5 08/04/18 04:00 Glucose 323 mg/dL (70-105) H 08/04/18 04:00 POC Glucose 265 MG/DL (70 - 105) H 08/04/18 12:10 Whole Bld Lactic Acid 1.85 mmol/L (0.60-1.99) 07/28/18 13:30 Calcium 8.3 mg/dL (8.6-10.3) L 08/04/18 04:00 Phosphorus 1.5 mg/dL (2.5-5.0) L 07/28/18 13:10 Magnesium 2.5 mg/dL (1.9-2.7) 07/28/18 13:10 Total Bilirubin 0.4 mg/dL (0.3-1.0) 08/04/18 04:00 AST 16 U/L (13-39) 08/04/18 04:00 ALT 16 U/L (7-52) 08/04/18 04:00 Alkaline Phosphatase 343 U/L (34-104) H 08/04/18 04:00 Total Protein 5.9 gm/dL (6.0-8.3) L 08/04/18 04:00 Albumin 1.9 gm/dL (3.7-5.3) L 08/04/18 04:00 Globulin 4.0 gm/dL 08/04/18 04:00 Albumin/Globulin Ratio 0.5 (1.0-1.8) L 08/04/18 04:00 Urine Source CATH 07/28/18 13:35 Urine Color YELLOW 07/28/18 13:35 Urine Clarity HAZY (CLEAR) 07/28/18 13:35 Urine pH 7.5 (4.6 - 8.0) 07/28/18 13:35 Ur Specific [place] 1.020 (1.005-1.030) 07/28/18 13:35 Urine Protein 100 mg/dL (NEGATIVE) H 07/28/18 13:35 Urine Glucose (UA) NEGATIVE mg/dL (NEGATIVE) 07/28/18 13:35 Urine Ketones NEGATIVE mg/dL (NEGATIVE) 07/28/18 13:35 Urine Blood MODERATE (NEGATIVE) H 07/28/18 13:35 Urine Nitrate NEGATIVE (NEGATIVE) 07/28/18 13:35 Urine Bilirubin NEGATIVE (NEGATIVE) 07/28/18 13:35 Urine Urobilinogen 0.2 E.U./dL (0.2 - 1.0) 07/28/18 13:35 Ur Leukocyte Esterase MODERATE (NEGATIVE) H 07/28/18 13:35 Urine RBC 10-25 /hpf (0-5) H 07/28/18 13:35 Urine WBC 50-100 /hpf (0-5) H 07/28/18 13:35 Ur Epithelial Cells FEW /lpf (FEW) 07/28/18 13:35 Urine Bacteria 4+ /hpf (NONE SEEN) H 07/28/18 13:35 Stool Occult Blood NEGATIVE (NEGATIVE) 07/31/18 05:00 Urine Opiates Screen NEGATIVE (NEGATIVE) 07/28/18 13:35 Urine Methadone Screen NEGATIVE (NEGATIVE) 07/28/18 13:35 Ur Barbiturates Screen NEGATIVE (NEGATIVE) 07/28/18 13:35 Ur Tricyclics Screen NEGATIVE (NEGATIVE) 07/28/18 13:35 Ur Phencyclidine Scrn NEGATIVE (NEGATIVE) 07/28/18 13:35 Amphetamines Screen NEGATIVE (NEGATIVE) 07/28/18 13:35 U Methamphetamines Scrn NEGATIVE (NEGATIVE) 07/28/18 13:35 U Benzodiazepines Scrn NEGATIVE (NEGATIVE) 07/28/18 13:35 U Cocaine Metab Screen NEGATIVE (NEGATIVE) 07/28/18 13:35 U Cannabinoids Screen NEGATIVE (NEGATIVE) 07/28/18 13:35 Helicobacter pylori Ab NEGATIVE (NEGATIVE) 08/01/18 09:15 Blood Type O POSITIVE 07/29/18 00:00 Antibody Screen NEGATIVE 07/29/18 00:00 Crossmatch See Detail 07/29/18 20:00 - Physical Exam Vitals and I&O: Vital Signs Temp 98.1 F 08/04/18 04:00 Pulse 102 08/04/18 14:00 Resp 14 08/04/18 06:00 BP 123/55 08/04/18 06:00 Pulse Ox 100 08/04/18 14:00 Intake & Output 08/03/18 08/04/18 08/04/18 18:59 06:59 18:59 Intake Total 150 1250 Output Total 600 Balance 150 650 Weight (lbs) 74.843 kg Intake: Intake, IV Amount 150 50 Aztreonam 1 gm In 50 50 Dextrose 5% 50 ml @ 100 mls/hr IV Q12HR [facility] Rx#: [id number] Micafungin 100 mg In 100 Sodium Chloride 0.9% 100 ml @ 100 mls/hr IV Q24H [facility] Rx#:[id number] Tube Feeding 850 Other 350 Output: Hemodialysis 600 Other: # Voids 0 # Bowel Movements 0 Weight Source Bedscale Active Medications: Current Medications Albuterol/Ipratropium (Duoneb Neb) 3 ml HHN Q4HRT [facility] Stop: 09/26/18 22:59 Last Admin: 08/04/18 14:00 Dose: 3 ml Atorvastatin Calcium (Lipitor) 40 mg GT HS [facility] Stop: 09/27/18 20:59 Last Admin: 08/03/18 20:10 Dose: 40 mg Calamine/Phenol (Calmoseptine) 1 appl TP BID [facility] Stop: 09/28/18 16:59 Last Admin: 08/04/18 10:33 Dose: 1 appl Calcium Carbonate (Os-Keith) 500 mg GT BID [facility] Stop: 09/27/18 08:59 Last Admin: 08/04/18 09:00 Dose: Not Given [place] Oil/[place] Balsam/Trypsin (Venelex) 1 appl TP DAILY [facility] Stop: 09/28/18 10:59 Last Admin: 08/03/18 17:38 Dose: 1 appl Chlorhexidine Gluconate (Peridex) 15 ml MM 0800,2000 [facility] Stop: 09/26/18 19:59 Last Admin: 08/04/18 08:57 Dose: 15 ml Epoetin Rj (Epogen) 10,000 units SUBQ TuThSa [facility] Stop: 09/27/18 11:14 Last Admin: 08/03/18 14:49 Dose: 10,000 units Folic Acid (Folate) 1 mg GT DAILY [facility] Stop: 09/27/18 08:59 Last Admin: 08/04/18 09:00 Dose: Not Given Aztreonam 1 gm/ Dextrose 50 mls @ 100 mls/hr IV Q12HR [facility] Stop: 09/26/18 13:59 Last Admin: 08/04/18 08:56 Dose: 100 mls/hr Norepinephrine Bitartrate 8 mg (/ Dextrose) 258 mls @ 7.74 mls/hr IV TITR PRN; Protocol PRN Reason: BP MAINTENANCE (PER PROTOCOL) Stop: 09/27/18 11:24 Last Titration: 07/29/18 23:30 Dose: 2 mcg/min, 3.87 mls/hr Micafungin Sodium 100 mg/ (Sodium Chloride) 100 mls @ 100 mls/hr IV Q24H [facility] Stop: 09/28/18 10:44 Last Admin: 08/04/18 10:40 Dose: 100 mls/hr Ibuprofen (Motrin) 400 mg PO Q6H PRN PRN Reason: Fever > 101 Stop: 09/27/18 02:58 Last Admin: 07/30/18 21:45 Dose: 400 mg Insulin Aspart (Novolog Insulin Sliding Scale) 0 units SUBQ Q6HR [facility]; Protocol Stop: 09/27/18 00:00 Last Admin: 08/04/18 06:16 Dose: Not Given Miscellaneous (Clinical Monitoring) 1 ea MC DAILY PRN PRN Reason: RENAL DOSING Stop: 09/29/18 09:05 Pantoprazole Sodium (Protonix) 40 mg IVP BID [facility] Stop: 09/28/18 19:44 Last Admin: 08/04/18 10:33 Dose: 40 mg Zinc Sulfate (Zinc Sulfate) 220 mg GT DAILY [facility] Stop: 09/27/18 08:59 Last Admin: 08/04/18 09:00 Dose: Not Given General: no acute distress, well developed, well nourished HEENT: atraumatic, normocephalic, PERRLA Neck: supple, tracheostomy, no thyromegaly Cardiovascular: S1S2, regular Lungs: clear to auscultation bilaterally, clear to percussion Abdomen: soft, no tender, no distended Extremities: lines (PICC line right upper extremity.), AVF/AVG (left Upper extremity), no cyanosis, no clubbing, no edema Neurological: awake, alert, oriented Skin: intact - Procedures Procedures: Procedures Procedure Code Date EXCISION OF BACK SUBCU/FASCIA, OPEN APPROACH [id number] 06/30/18 EXCISION OF DUODENUM, ENDO, DIAGN [id number] 07/28/18 PERFORMANCE OF URINARY FILTRATION, <6 HRS/DAY [id number] 06/30/18 RESPIRATORY VENTILATION, GREATER THAN 96 CONSECUTIVE HOURS [id number] 07/28/18 TRANSFUSE NONAUT RED BLOOD CELLS IN PERIPH VEIN, PERC 95086C3 06/30/18 Infectious Disease Assmt/Plan - Assessment Assessment: 1. Sepsis. 2. Candidemia. 3. CKD 5 on HD. 4. Sacral stage 4 decubitus. 5. VDRF. 6. HTN. 7. Pneumonia - Plan Plan: Conitnue micafungin. Nutritional Asmnt/Malnutr-PDOC - Dietary Evaluation Malnutrition Findings (Please click <Entered> for more info): Nutritional Asmnt/Malnutrition Start: 07/29/18 09: 22 Text: Status: Complete Freq: Protocol: Document 07/29/18 09:23 MMULHERN (Rec: 07/29/18 10:10 [email or web address] GENAO- [id number]) Nutritional Asmnt/Malnutrition Patient General Information Nutritional Screening High Risk Consult Diagnosis Urosepsis, bilateral pneumonia , Decubitus ulcer Pertinent Medical Hx/Surgical Hx Hyperlipidemia, ESRD (No H&P) Subjective Information Consult recieved for Wound Stage IV. Patient receives HD, trach to vent. She was admitted from [facility]. Current TF provides 800 ml volume, 1440 kcal, 64gm protein. Current Diet Order/ Nutrition Support Tube feeding Nepro 50 ml/hr x 16 hours Patient / S.O Not Indicated Pertinent Medications Lipitor, Os-keith, Folate, Novolog, Protonix, Zinc sulfate Pertinent Labs (07/29) K 3.4, BUN 54, Cr 2.7 ( decreasing), Glucose 186-233, Ca 8.1, Phos 1.5, Albumin 2.4 Nutritional Hx/Data Height 1.83 m Height (Calculated Centimeters) 182.9 Current Weight (lbs) 80.286 kg Weight (Calculated Kilograms) 80.3 Weight (Calculated Grams) 31112.8 [place] Body Weight 160 % [place] Body Weight 110 Body Mass Index (BMI) 24.0 Recent Weight Change No Weight Status Approriate GI Symptoms GI Symptoms None Last BM 07/29 x1 Difficult in: Swallowing Food Allergies No Cultural/Ethnic/Quaker Belief None indicated Usual diet at home Unknown Skin Integrity/Comment: Edvin 8, 2+ edema, stage IV wound Estimated Nutritional Goals BEE in Kcals: Using Current wt Calories/Kcals/Kg CBW 80.4kg Kcals Calculated ~5736-1785 kcal/day (27-32 kcal/kg) - considering HD, Stage IV wound, vent Protein: Using Current wt Protein g/k.5-1.7 gm/kg - wound, HD, vent Protein Calculated ~120-135 gm/day Fluid: ml Per MD due to HD Nutritional Problem 2. Problem Problem Altered nutrition related lab values related to Etiology electrotlyte imbalance and uncontrolled hyperglycemia aeb Signs/Symptoms: K 3.4, Glucose 186-233, Ca 8.1 , Phos 1.5, Albumin 2.4 1. Problem Problem Inadequate energy/protein intake related to Etiology current TF regimen inadequate aeb Signs/Symptoms: Current TF regimen meeting ~65 % of calorie and ~55% of protein needs Intervention/Recommendation Comments 1. Consider increasing Nepro to 50ml/hr continuously for 24 hours to provide 1200ml volume, 2160 kcal, 97 gm protein. Add Prosource 2 packets/day for an additional 30gm protein . (total 112gm protein) 2. MD to modify insulin regimen for optimal glycemic control and replace lytes as medically appropriate. May consider modifying Tube feednig formula to Nutren 2.0 if she consistently has hypokalemia and hypophosphatemia (Nepro is low in Potassium and phosphorus). Expected Outcomes/Goals Expected Outcomes/Goals TF meets >75% of nutrient needs, improved skin integrity , nutrition related labs normalize F/U in 2-3 days as HR (07/31- )
--- NOTE | 2018-08-04 15:31 | General Progress Note ---
Subjective - Review of Systems Service Date: 08/04/18 Subjective: Patient still on ventilatory tracheostomy congested patient had debridement of the decubitus in the sacrum and coccyx Objective - Results Result Diagrams: 08/04/18 04:00 08/04/18 04:00 Recent Labs: Laboratory Last Values WBC 12.4 Th/cmm (4.8-10.8) H D 08/04/18 04:00 RBC 3.16 Mil/cmm (3.80-5.20) L 08/04/18 04:00 Hgb 9.0 gm/dL (12-16) L 08/04/18 04:00 Hct 27.0 % (41.0-60) L 08/04/18 04:00 MCV 85.5 fl (81-100) 08/04/18 04:00 MCH 28.5 pg (27.0-31.0) 08/04/18 04:00 MCHC Differential 33.3 pg (28.0-36.0) 08/04/18 04:00 RDW 15.7 % (11.5-20.0) 08/04/18 04:00 Plt Count 335 Th/cmm (150-400) 08/04/18 04:00 MPV 7.6 fl 08/04/18 04:00 Add Manual Diff YES 08/03/18 04:30 Neutrophils % 79.7 % (40.0-80.0) 08/04/18 04:00 Band Neutrophils % 1 % (0-10) 08/03/18 04:30 Lymphocytes % 12.2 % (20.0-50.0) L 08/04/18 04:00 Monocytes % 6.0 % (2.0-10.0) 08/04/18 04:00 Eosinophils % 1.3 % (0.0-5.0) 08/04/18 04:00 Basophils % 0.8 % (0.0-2.0) 08/04/18 04:00 Neutrophils (Manual) 87 % (40-80) H 08/03/18 04:30 Lymphocytes 5 % (20-50) L 08/03/18 04:30 Monocytes 5 % (2-10) 08/03/18 04:30 Eosinophils 2 % (0-5) 08/03/18 04:30 Basophils 0 % (0-3) 08/02/18 07:00 Platelet Estimate ADEQUATE (NORMAL) 08/03/18 04:30 PT 11.6 SECONDS (9.5-11.5) H 08/04/18 04:00 INR 1.13 (0.5-1.4) 08/04/18 04:00 PTT (Actin FS) 29.0 SECONDS (26.0-38.0) 08/04/18 04:00 Specimen Source Arterial 07/28/18 16:15 Sample Site Right Radial 07/28/18 16:15 pH 7.53 (7.35-7.45) H 07/28/18 16:15 pCO2 34.0 mmHg (35.0-45.0) L 07/28/18 16:15 pO2 198.0 mmHg (80.0-100.0) H 07/28/18 16:15 HCO3 29.4 mEq/L (20.0-26.0) H 07/28/18 16:15 Base Excess 5.7 mEq/L (-3.0-3.0) H 07/28/18 16:15 O2 Saturation 100.0 % (92.0-100.0) 07/28/18 16:15 Reinaldo Test Positive 07/28/18 16:15 Vent Rate 16 07/28/18 16:15 Inspired O2 50 07/28/18 16:15 Tidal Volume 500 07/28/18 16:15 PEEP 3 07/28/18 16:15 Pressure (ins/psv/peep) N/A 07/28/18 16:15 Critical Value DM 07/28/18 16:15 Sodium 140 mEq/L (136-145) 08/04/18 04:00 Potassium 3.5 mEq/L (3.5-5.1) 08/04/18 04:00 Chloride 101 mEq/L (98-107) 08/04/18 04:00 Carbon Dioxide 28.0 mEq/L (21.0-31.0) 08/04/18 04:00 Anion Gap 14.5 (7.0-16.0) 08/04/18 04:00 BUN 48 mg/dL (7-25) H 08/04/18 04:00 Creatinine 3.1 mg/dL (0.6-1.2) H 08/04/18 04:00 Est GFR ( Amer) 19.4 ml/min (>90) 08/04/18 04:00 Est GFR (Non-Af Amer) 16.0 ml/min 08/04/18 04:00 BUN/Creatinine Ratio 15.5 08/04/18 04:00 Glucose 323 mg/dL (70-105) H 08/04/18 04:00 POC Glucose 265 MG/DL (70 - 105) H 08/04/18 12:10 Whole Bld Lactic Acid 1.85 mmol/L (0.60-1.99) 07/28/18 13:30 Calcium 8.3 mg/dL (8.6-10.3) L 08/04/18 04:00 Phosphorus 1.5 mg/dL (2.5-5.0) L 07/28/18 13:10 Magnesium 2.5 mg/dL (1.9-2.7) 07/28/18 13:10 Total Bilirubin 0.4 mg/dL (0.3-1.0) 08/04/18 04:00 AST 16 U/L (13-39) 08/04/18 04:00 ALT 16 U/L (7-52) 08/04/18 04:00 Alkaline Phosphatase 343 U/L (34-104) H 08/04/18 04:00 Total Protein 5.9 gm/dL (6.0-8.3) L 08/04/18 04:00 Albumin 1.9 gm/dL (3.7-5.3) L 08/04/18 04:00 Globulin 4.0 gm/dL 08/04/18 04:00 Albumin/Globulin Ratio 0.5 (1.0-1.8) L 08/04/18 04:00 Urine Source CATH 07/28/18 13:35 Urine Color YELLOW 07/28/18 13:35 Urine Clarity HAZY (CLEAR) 07/28/18 13:35 Urine pH 7.5 (4.6 - 8.0) 07/28/18 13:35 Ur Specific [place] 1.020 (1.005-1.030) 07/28/18 13:35 Urine Protein 100 mg/dL (NEGATIVE) H 07/28/18 13:35 Urine Glucose (UA) NEGATIVE mg/dL (NEGATIVE) 07/28/18 13:35 Urine Ketones NEGATIVE mg/dL (NEGATIVE) 07/28/18 13:35 Urine Blood MODERATE (NEGATIVE) H 07/28/18 13:35 Urine Nitrate NEGATIVE (NEGATIVE) 07/28/18 13:35 Urine Bilirubin NEGATIVE (NEGATIVE) 07/28/18 13:35 Urine Urobilinogen 0.2 E.U./dL (0.2 - 1.0) 07/28/18 13:35 Ur Leukocyte Esterase MODERATE (NEGATIVE) H 07/28/18 13:35 Urine RBC 10-25 /hpf (0-5) H 07/28/18 13:35 Urine WBC 50-100 /hpf (0-5) H 07/28/18 13:35 Ur Epithelial Cells FEW /lpf (FEW) 07/28/18 13:35 Urine Bacteria 4+ /hpf (NONE SEEN) H 07/28/18 13:35 Stool Occult Blood NEGATIVE (NEGATIVE) 07/31/18 05:00 Urine Opiates Screen NEGATIVE (NEGATIVE) 07/28/18 13:35 Urine Methadone Screen NEGATIVE (NEGATIVE) 07/28/18 13:35 Ur Barbiturates Screen NEGATIVE (NEGATIVE) 07/28/18 13:35 Ur Tricyclics Screen NEGATIVE (NEGATIVE) 07/28/18 13:35 Ur Phencyclidine Scrn NEGATIVE (NEGATIVE) 07/28/18 13:35 Amphetamines Screen NEGATIVE (NEGATIVE) 07/28/18 13:35 U Methamphetamines Scrn NEGATIVE (NEGATIVE) 07/28/18 13:35 U Benzodiazepines Scrn NEGATIVE (NEGATIVE) 07/28/18 13:35 U Cocaine Metab Screen NEGATIVE (NEGATIVE) 07/28/18 13:35 U Cannabinoids Screen NEGATIVE (NEGATIVE) 07/28/18 13:35 Helicobacter pylori Ab NEGATIVE (NEGATIVE) 08/01/18 09:15 Blood Type O POSITIVE 07/29/18 00:00 Antibody Screen NEGATIVE 07/29/18 00:00 Crossmatch See Detail 07/29/18 20:00 - Physical Exam Vitals and I&O: Vital Signs Temp 98.1 F 08/04/18 12:00 Pulse 101 08/04/18 14:00 Resp 12 08/04/18 14:00 BP 146/47 08/04/18 14:00 Pulse Ox 100 08/04/18 14:00 Intake & Output 08/03/18 08/04/18 08/04/18 18:59 06:59 18:59 Intake Total 150 1250 150 Output Total 600 Balance 150 650 150 Weight (lbs) 74.843 kg Intake: Intake, IV Amount 150 50 150 Aztreonam 1 gm In 50 50 50 Dextrose 5% 50 ml @ 100 mls/hr IV Q12HR [facility] Rx#: [id number] Micafungin 100 mg In 100 100 Sodium Chloride 0.9% 100 ml @ 100 mls/hr IV Q24H [facility] Rx#:[id number] Tube Feeding 850 Other 350 Output: Hemodialysis 600 Other: # Voids 0 # Bowel Movements 0 Weight Source Bedscale Active Medications: Current Medications Albuterol/Ipratropium (Duoneb Neb) 3 ml HHN Q4HRT [facility] Stop: 09/26/18 22:59 Last Admin: 08/04/18 14:00 Dose: 3 ml Atorvastatin Calcium (Lipitor) 40 mg GT HS [facility] Stop: 09/27/18 20:59 Last Admin: 08/03/18 20:10 Dose: 40 mg Calamine/Phenol (Calmoseptine) 1 appl TP BID [facility] Stop: 09/28/18 16:59 Last Admin: 08/04/18 10:33 Dose: 1 appl Calcium Carbonate (Os-Alon) 500 mg GT BID [facility] Stop: 09/27/18 08:59 Last Admin: 08/04/18 09:00 Dose: Not Given [place] Oil/Austrian Balsam/Trypsin (Venelex) 1 appl TP DAILY [facility] Stop: 09/28/18 10:59 Last Admin: 08/04/18 09:00 Dose: Not Given Chlorhexidine Gluconate (Peridex) 15 ml MM 0800,1999 [facility] Stop: 09/26/18 19:59 Last Admin: 08/04/18 08:57 Dose: 15 ml Epoetin Rj (Epogen) 10,000 units SUBQ TuThSa [facility]ON[facility] Stop: 09/27/18 11:14 Last Admin: 08/03/18 14:49 Dose: 10,000 units Folic Acid (Folate) 1 mg GT DAILY [facility] Stop: 09/27/18 08:59 Last Admin: 08/04/18 09:00 Dose: Not Given Aztreonam 1 gm/ Dextrose 50 mls @ 100 mls/hr IV Q12HR [facility] Stop: 09/26/18 13:59 Last Infusion: 08/04/18 09:30 Dose: Infused Norepinephrine Bitartrate 8 mg (/ Dextrose) 258 mls @ 7.74 mls/hr IV TITR PRN; Protocol PRN Reason: BP MAINTENANCE (PER PROTOCOL) Stop: 09/27/18 11:24 Last Titration: 07/29/18 23:30 Dose: 2 mcg/min, 3.87 mls/hr Micafungin Sodium 100 mg/ (Sodium Chloride) 100 mls @ 100 mls/hr IV Q24H [facility] Stop: 09/28/18 10:44 Last Infusion: 08/04/18 11:40 Dose: Infused Ibuprofen (Motrin) 400 mg PO Q6H PRN PRN Reason: Fever > 101 Stop: 09/27/18 02:58 Last Admin: 07/30/18 21:45 Dose: 400 mg Insulin Aspart (Novolog Insulin Sliding Scale) 0 units SUBQ Q6HR [facility]ON[facility]; Protocol Stop: 09/27/18 00:00 Last Admin: 08/04/18 12:00 Dose: Not Given Miscellaneous (Clinical Monitoring) 1 ea MC DAILY PRN PRN Reason: RENAL DOSING Stop: 09/29/18 09:05 Pantoprazole Sodium (Protonix) 40 mg IVP BID [facility] Stop: 09/28/18 19:44 Last Admin: 08/04/18 10:33 Dose: 40 mg Zinc Sulfate (Zinc Sulfate) 220 mg GT DAILY [facility] Stop: 09/27/18 08:59 Last Admin: 08/04/18 09:00 Dose: Not Given General: Other (unresponsive , on vent) HEENT: Other (+TRACH) Neck: Supple Cardiovascular: Normal S1, Normal S2 Lungs: Other Abdomen: Bowel sounds (has peg tube ) Extremities: Other (NO EDEMA, LUE AVF+ THRILL) Neurological: Other (NONVERBAL) Skin: Other (stage IV sacral coccyx decubitus pressure ulcer left heel) - Procedures Procedures: Procedures Procedure Code Date EXCISION OF BACK SUBCU/FASCIA, OPEN APPROACH [id number] 06/30/18 EXCISION OF DUODENUM, ENDO, DIAGN [id number] 07/28/18 PERFORMANCE OF URINARY FILTRATION, <6 HRS/DAY [id number] 06/30/18 RESPIRATORY VENTILATION, GREATER THAN 96 CONSECUTIVE HOURS [id number] 07/28/18 TRANSFUSE NONAUT RED BLOOD CELLS IN PERIPH VEIN, PERC 32184I7 06/30/18 Assessment/Plan - Assessment Assessment: Acute respiratory failure on ventilator with tracheostomy Septic shock Hypotension Sinus tachycardia Stage IV sacral decubitus ulcer infected Aspiration pneumonia pseudomonas Diabetes mellitus type 2 Diabetic sick and he states Tuesday end-stage renal disease on dialysis Hypertensio candiema Deficiency anemia Dysphagia with PEG placement Protein calorie malnutrition - Plan Plan: Continue present management continue IV antibiotics went management and wound care Debridement of the wound patient tolerated Continue IV antibiotics Nutritional Asmnt/Malnutr-PDOC - Dietary Evaluation Malnutrition Findings (Please click <Entered> for more info): Nutritional Asmnt/Malnutrition Start: 07/29/18 09: 22 Text: Status: Complete Freq: Protocol: Document 07/29/18 09:23 MMJAYNA (Rec: 07/29/18 10:10 MMJAYNA GENAO- [id number]) Nutritional Asmnt/Malnutrition Patient General Information Nutritional Screening High Risk Consult Diagnosis Urosepsis, bilateral pneumonia , Decubitus ulcer Pertinent Medical Hx/Surgical Hx Hyperlipidemia, ESRD (No H&P) Subjective Information Consult recieved for Wound Stage IV. Patient receives HD, trach to vent. She was admitted from [facility]. Current TF provides 800 ml volume, 1440 kcal, 64gm protein. Current Diet Order/ Nutrition Support Tube feeding Nepro 50 ml/hr x 16 hours Patient / S.O Not Indicated Pertinent Medications Lipitor, Os-alon, Folate, Novolog, Protonix, Zinc sulfate Pertinent Labs (07/29) K 3.4, BUN 54, Cr 2.7 ( decreasing), Glucose 186-233, Ca 8.1, Phos 1.5, Albumin 2.4 Nutritional Hx/Data Height 1.83 m Height (Calculated Centimeters) 182.9 Current Weight (lbs) 80.286 kg Weight (Calculated Kilograms) 80.3 Weight (Calculated Grams) 60730.8 [place] Body Weight 160 % [place] Body Weight 110 Body Mass Index (BMI) 24.0 Recent Weight Change No Weight Status Approriate GI Symptoms GI Symptoms None Last BM 07/29 x1 Difficult in: Swallowing Food Allergies No Cultural/Ethnic/Orthodoxy Belief None indicated Usual diet at home Unknown Skin Integrity/Comment: Edvin 8, 2+ edema, stage IV wound Estimated Nutritional Goals BEE in Kcals: Using Current wt Calories/Kcals/Kg CBW 80.4kg Kcals Calculated ~3750-3100 kcal/day (27-32 kcal/kg) - considering HD, Stage IV wound, vent Protein: Using Current wt Protein g/k.5-1.7 gm/kg - wound, HD, vent Protein Calculated ~120-135 gm/day Fluid: ml Per MD due to HD Nutritional Problem 2. Problem Problem Altered nutrition related lab values related to Etiology electrotlyte imbalance and uncontrolled hyperglycemia aeb Signs/Symptoms: K 3.4, Glucose 186-233, Ca 8.1 , Phos 1.5, Albumin 2.4 1. Problem Problem Inadequate energy/protein intake related to Etiology current TF regimen inadequate aeb Signs/Symptoms: Current TF regimen meeting ~65 % of calorie and ~55% of protein needs Intervention/Recommendation Comments 1. Consider increasing Nepro to 50ml/hr continuously for 24 hours to provide 1200ml volume, 2160 kcal, 97 gm protein. Add Prosource 2 packets/day for an additional 30gm protein . (total 112gm protein) 2. MD to modify insulin regimen for optimal glycemic control and replace lytes as medically appropriate. May consider modifying Tube feednig formula to Nutren 2.0 if she consistently has hypokalemia and hypophosphatemia (Nepro is low in Potassium and phosphorus). Expected Outcomes/Goals Expected Outcomes/Goals TF meets >75% of nutrient needs, improved skin integrity , nutrition related labs normalize F/U in 2-3 days as HR (07/31- )
[2018-08-04] MEDS ORDERED: Probiotic Screen MC PRN (15:35)
--- NOTE | 2018-08-04 17:18 | Operative Report ---
DATE OF SURGERY: 08/04/2018 BEDSIDE PROCEDURE TIME: 12:57 p.m. PREOPERATIVE DIAGNOSES: The patient is a 67-year-old female with bedridden, trach vent. The patient had sacral coccyx decubitus ulcer with gangrene infection and sepsis. POSTOPERATIVE DIAGNOSIS: The patient is a 67-year-old female with bedridden, trach vent. The patient had sacral coccyx decubitus ulcer with gangrene infection and sepsis. PROCEDURE: Bedside procedure is sharp excisional debridement of skin, subcutaneous tissue, fascia and bone of sacral coccyx decubitus ulcer measuring 11 x 10 cm in size. SPECIMENS: Debris of sacral coccyx decubitus ulcer. ANESTHESIA: MAC and local anesthesia. ESTIMATED BLOOD LOSS: 10 mL. SURGEON: Jessee Perkins M.D. [employer] MECH[employer]IC: None. FINDINGS: Sacral coccyx decubitus ulcer 11 x 10 cm, infected gangrene edges and base involvement of exposed bone, stage IV. PROSTHETIC DEVICES: None. COMPLICATIONS: None. DESCRIPTION OF PROCEDURE: After confirming patient identification and procedure to be done, the patient was placed in supine position, then turned to the lateral decubitus position, dressings were removed. The area was prepped and draped in usual sterile fashion. Timeout was performed. IV sedation was administered, local anesthesia was administered. The cautery machine was then set up. The cautery was used to excise the gangrenous infected edges of the wound. The base had some yellow slough and infected gangrenous nonviable tissue. This was excised with the Bovie machine scalpel, cautery, and also bone rongeur device. Some of the bone was involved, so this truly involved the skin, subcutaneous tissue, fascia and bone, stage IV decubitus ulcer. The wound was then irrigated with normal saline. Cautery was used for hemostasis. Dressings were applied. The patient tolerated the procedure well. The patient was placed back in the supine position after dressings were applied. The patient tolerated the procedure well. JOB# [id number]
[2018-08-04] MEDS: Lactobacillus Rhamnosus GG 15 Billion CFU CAP.SPRINK PO SCH (17:48)
--- NOTE | 2018-08-04 18:09 | Internal Medicine Prog Note ---
Internal Medicine Subjective - Subjective Service Date: 08/04/18 Patient seen and examined:: with staff Patient is:: non-verbal, other (vent. dependent via trach. congested ) Patient Complaints of:: congestion Per staff patient has:: no adverse event Internal Medicine Objective - Results Result Diagrams: 08/04/18 04:00 08/04/18 04:00 Recent Labs: Laboratory Last Values WBC 12.4 Th/cmm (4.8-10.8) H D 08/04/18 04:00 RBC 3.16 Mil/cmm (3.80-5.20) L 08/04/18 04:00 Hgb 9.0 gm/dL (12-16) L 08/04/18 04:00 Hct 27.0 % (41.0-60) L 08/04/18 04:00 MCV 85.5 fl (81-100) 08/04/18 04:00 MCH 28.5 pg (27.0-31.0) 08/04/18 04:00 MCHC Differential 33.3 pg (28.0-36.0) 08/04/18 04:00 RDW 15.7 % (11.5-20.0) 08/04/18 04:00 Plt Count 335 Th/cmm (150-400) 08/04/18 04:00 MPV 7.6 fl 08/04/18 04:00 Add Manual Diff YES 08/03/18 04:30 Neutrophils % 79.7 % (40.0-80.0) 08/04/18 04:00 Band Neutrophils % 1 % (0-10) 08/03/18 04:30 Lymphocytes % 12.2 % (20.0-50.0) L 08/04/18 04:00 Monocytes % 6.0 % (2.0-10.0) 08/04/18 04:00 Eosinophils % 1.3 % (0.0-5.0) 08/04/18 04:00 Basophils % 0.8 % (0.0-2.0) 08/04/18 04:00 Neutrophils (Manual) 87 % (40-80) H 08/03/18 04:30 Lymphocytes 5 % (20-50) L 08/03/18 04:30 Monocytes 5 % (2-10) 08/03/18 04:30 Eosinophils 2 % (0-5) 08/03/18 04:30 Basophils 0 % (0-3) 08/02/18 07:00 Platelet Estimate ADEQUATE (NORMAL) 08/03/18 04:30 PT 11.6 SECONDS (9.5-11.5) H 08/04/18 04:00 INR 1.13 (0.5-1.4) 08/04/18 04:00 PTT (Actin FS) 29.0 SECONDS (26.0-38.0) 08/04/18 04:00 Specimen Source Arterial 07/28/18 16:15 Sample Site Right Radial 07/28/18 16:15 pH 7.53 (7.35-7.45) H 07/28/18 16:15 pCO2 34.0 mmHg (35.0-45.0) L 07/28/18 16:15 pO2 198.0 mmHg (80.0-100.0) H 07/28/18 16:15 HCO3 29.4 mEq/L (20.0-26.0) H 07/28/18 16:15 Base Excess 5.7 mEq/L (-3.0-3.0) H 07/28/18 16:15 O2 Saturation 100.0 % (92.0-100.0) 07/28/18 16:15 Reinaldo Test Positive 07/28/18 16:15 Vent Rate 16 07/28/18 16:15 Inspired O2 50 07/28/18 16:15 Tidal Volume 500 07/28/18 16:15 PEEP 3 07/28/18 16:15 Pressure (ins/psv/peep) N/A 07/28/18 16:15 Critical Value DM 07/28/18 16:15 Sodium 140 mEq/L (136-145) 08/04/18 04:00 Potassium 3.5 mEq/L (3.5-5.1) 08/04/18 04:00 Chloride 101 mEq/L (98-107) 08/04/18 04:00 Carbon Dioxide 28.0 mEq/L (21.0-31.0) 08/04/18 04:00 Anion Gap 14.5 (7.0-16.0) 08/04/18 04:00 BUN 48 mg/dL (7-25) H 08/04/18 04:00 Creatinine 3.1 mg/dL (0.6-1.2) H 08/04/18 04:00 Est GFR ( Amer) 19.4 ml/min (>90) 08/04/18 04:00 Est GFR (Non-Af Amer) 16.0 ml/min 08/04/18 04:00 BUN/Creatinine Ratio 15.5 08/04/18 04:00 Glucose 323 mg/dL (70-105) H 08/04/18 04:00 POC Glucose 302 MG/DL (70 - 105) H 08/04/18 17:23 Whole Bld Lactic Acid 1.85 mmol/L (0.60-1.99) 07/28/18 13:30 Calcium 8.3 mg/dL (8.6-10.3) L 08/04/18 04:00 Phosphorus 1.5 mg/dL (2.5-5.0) L 07/28/18 13:10 Magnesium 2.5 mg/dL (1.9-2.7) 07/28/18 13:10 Total Bilirubin 0.4 mg/dL (0.3-1.0) 08/04/18 04:00 AST 16 U/L (13-39) 08/04/18 04:00 ALT 16 U/L (7-52) 08/04/18 04:00 Alkaline Phosphatase 343 U/L (34-104) H 08/04/18 04:00 Total Protein 5.9 gm/dL (6.0-8.3) L 08/04/18 04:00 Albumin 1.9 gm/dL (3.7-5.3) L 08/04/18 04:00 Globulin 4.0 gm/dL 08/04/18 04:00 Albumin/Globulin Ratio 0.5 (1.0-1.8) L 08/04/18 04:00 Urine Source CATH 07/28/18 13:35 Urine Color YELLOW 07/28/18 13:35 Urine Clarity HAZY (CLEAR) 07/28/18 13:35 Urine pH 7.5 (4.6 - 8.0) 07/28/18 13:35 Ur Specific [place] 1.020 (1.005-1.030) 07/28/18 13:35 Urine Protein 100 mg/dL (NEGATIVE) H 07/28/18 13:35 Urine Glucose (UA) NEGATIVE mg/dL (NEGATIVE) 07/28/18 13:35 Urine Ketones NEGATIVE mg/dL (NEGATIVE) 07/28/18 13:35 Urine Blood MODERATE (NEGATIVE) H 07/28/18 13:35 Urine Nitrate NEGATIVE (NEGATIVE) 07/28/18 13:35 Urine Bilirubin NEGATIVE (NEGATIVE) 07/28/18 13:35 Urine Urobilinogen 0.2 E.U./dL (0.2 - 1.0) 07/28/18 13:35 Ur Leukocyte Esterase MODERATE (NEGATIVE) H 07/28/18 13:35 Urine RBC 10-25 /hpf (0-5) H 07/28/18 13:35 Urine WBC 50-100 /hpf (0-5) H 07/28/18 13:35 Ur Epithelial Cells FEW /lpf (FEW) 07/28/18 13:35 Urine Bacteria 4+ /hpf (NONE SEEN) H 07/28/18 13:35 Stool Occult Blood NEGATIVE (NEGATIVE) 07/31/18 05:00 Urine Opiates Screen NEGATIVE (NEGATIVE) 07/28/18 13:35 Urine Methadone Screen NEGATIVE (NEGATIVE) 07/28/18 13:35 Ur Barbiturates Screen NEGATIVE (NEGATIVE) 07/28/18 13:35 Ur Tricyclics Screen NEGATIVE (NEGATIVE) 07/28/18 13:35 Ur Phencyclidine Scrn NEGATIVE (NEGATIVE) 07/28/18 13:35 Amphetamines Screen NEGATIVE (NEGATIVE) 07/28/18 13:35 U Methamphetamines Scrn NEGATIVE (NEGATIVE) 07/28/18 13:35 U Benzodiazepines Scrn NEGATIVE (NEGATIVE) 07/28/18 13:35 U Cocaine Metab Screen NEGATIVE (NEGATIVE) 07/28/18 13:35 U Cannabinoids Screen NEGATIVE (NEGATIVE) 07/28/18 13:35 Helicobacter pylori Ab NEGATIVE (NEGATIVE) 08/01/18 09:15 Blood Type O POSITIVE 07/29/18 00:00 Antibody Screen NEGATIVE 07/29/18 00:00 Crossmatch See Detail 07/29/18 20:00 - Physical Exam Vitals and I&O: Vital Signs Temp 98.1 F 08/04/18 12:00 Pulse 98 08/04/18 16:52 Resp 12 08/04/18 14:00 BP 146/47 08/04/18 14:00 Pulse Ox 100 08/04/18 16:52 Intake & Output 08/03/18 08/04/18 08/04/18 18:59 06:59 18:59 Intake Total 150 1250 150 Output Total 600 Balance 150 650 150 Weight (lbs) 165 lb Intake: Intake, IV Amount 150 50 150 Aztreonam 1 gm In 50 50 50 Dextrose 5% 50 ml @ 100 mls/hr IV Q12HR [facility] Rx#: [id number] Micafungin 100 mg In 100 100 Sodium Chloride 0.9% 100 ml @ 100 mls/hr IV Q24H [facility] Rx#:[id number] Tube Feeding 850 Other 350 Output: Hemodialysis 600 Other: # Voids 0 # Bowel Movements 0 Weight Source Bedscale Active Medications: Current Medications Albuterol/Ipratropium (Duoneb Neb) 3 ml HHN Q4HRT [facility] Stop: 09/26/18 22:59 Last Admin: 08/04/18 14:00 Dose: 3 ml Atorvastatin Calcium (Lipitor) 40 mg GT HS [facility] Stop: 09/27/18 20:59 Last Admin: 08/03/18 20:10 Dose: 40 mg Calamine/Phenol (Calmoseptine) 1 appl TP BID [facility] Stop: 09/28/18 16:59 Last Admin: 08/04/18 17:47 Dose: 1 appl Calcium Carbonate (Os-Keith) 500 mg GT BID [facility] Stop: 09/27/18 08:59 Last Admin: 08/04/18 17:47 Dose: 500 mg [place] Oil/[place] Balsam/Trypsin (Venelex) 1 appl TP DAILY [facility] Stop: 09/28/18 10:59 Last Admin: 08/04/18 09:00 Dose: Not Given Chlorhexidine Gluconate (Peridex) 15 ml MM 0800,1999 [facility] Stop: 09/26/18 19:59 Last Admin: 08/04/18 08:57 Dose: 15 ml Epoetin Rj (Epogen) 10,000 units SUBQ TuThSa [facility] Stop: 09/27/18 11:14 Last Admin: 08/03/18 14:49 Dose: 10,000 units Folic Acid (Folate) 1 mg GT DAILY [facility] Stop: 09/27/18 08:59 Last Admin: 08/04/18 09:00 Dose: Not Given Aztreonam 1 gm/ Dextrose 50 mls @ 100 mls/hr IV Q12HR [facility] Stop: 09/26/18 13:59 Last Infusion: 08/04/18 09:30 Dose: Infused Norepinephrine Bitartrate 8 mg (/ Dextrose) 258 mls @ 7.74 mls/hr IV TITR PRN; Protocol PRN Reason: BP MAINTENANCE (PER PROTOCOL) Stop: 09/27/18 11:24 Last Titration: 07/29/18 23:30 Dose: 2 mcg/min, 3.87 mls/hr Micafungin Sodium 100 mg/ (Sodium Chloride) 100 mls @ 100 mls/hr IV Q24H [facility] Stop: 09/28/18 10:44 Last Infusion: 08/04/18 11:40 Dose: Infused Ibuprofen (Motrin) 400 mg PO Q6H PRN PRN Reason: Fever > 101 Stop: 09/27/18 02:58 Last Admin: 07/30/18 21:45 Dose: 400 mg Insulin Aspart (Novolog Insulin Sliding Scale) 0 units SUBQ Q6HR [facility]; Protocol Stop: 09/27/18 00:00 Last Admin: 08/04/18 17:48 Dose: 8 units Lactobacillus Rhamnosus (Culturelle 15b) 1 each PO DAILY [facility] Stop: 10/03/18 15:59 Last Admin: 08/04/18 17:48 Dose: 1 each Miscellaneous (Clinical Monitoring) 1 ea MC DAILY PRN PRN Reason: RENAL DOSING Stop: 09/29/18 09:05 Miscellaneous (Probiotic Screen) 1 ea MC PRN PRN PRN Reason: PROTOCOL Stop: 10/03/18 15:34 Pantoprazole Sodium (Protonix) 40 mg IVP BID [facility] Stop: 09/28/18 19:44 Last Admin: 08/04/18 17:47 Dose: 40 mg Zinc Sulfate (Zinc Sulfate) 220 mg GT DAILY [facility] Stop: 09/27/18 08:59 Last Admin: 08/04/18 09:00 Dose: Not Given General: weak, other (on vent ) HEENT: NC/AT Neck: Supple Lungs: wheezing, ronchi Cardiovascular: RRR, Normal S1, Normal S2 Abdomen: soft, +GT Extremities: clear, edema Neurological: no change - Procedures Procedures: Procedures Procedure Code Date EXCISION OF BACK SUBCU/FASCIA, OPEN APPROACH [id number] 06/30/18 EXCISION OF DUODENUM, ENDO, DIAGN [id number] 07/28/18 PERFORMANCE OF URINARY FILTRATION, <6 HRS/DAY [id number] 06/30/18 RESPIRATORY VENTILATION, GREATER THAN 96 CONSECUTIVE HOURS [id number] 07/28/18 TRANSFUSE NONAUT RED BLOOD CELLS IN PERIPH VEIN, PERC 18554W6 06/30/18 Internal Medicine Assmt/Plan - Assessment Assessment: ESRD/HD ACUTE ANEMIA 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 HYPOTENSIVE - Plan Plan: monitor h.h closely cont with hd as per renal vent support to continue follow up labs in am cpm Nutritional Asmnt/Malnutr-PDOC - Dietary Evaluation Malnutrition Findings (Please click <Entered> for more info): Nutritional Asmnt/Malnutrition Start: 07/29/18 09: 22 Text: Status: Complete Freq: Protocol: Document 07/29/18 09:23 MMULHALEY (Rec: 07/29/18 10:10 [email or web address] GENAO- [id number]) Nutritional Asmnt/Malnutrition Patient General Information Nutritional Screening High Risk Consult Diagnosis Urosepsis, bilateral pneumonia , Decubitus ulcer Pertinent Medical Hx/Surgical Hx Hyperlipidemia, ESRD (No H&P) Subjective Information Consult recieved for Wound Stage IV. Patient receives HD, trach to vent. She was admitted from [facility]. Current TF provides 800 ml volume, 1440 kcal, 64gm protein. Current Diet Order/ Nutrition Support Tube feeding Nepro 50 ml/hr x 16 hours Patient / S.O Not Indicated Pertinent Medications Lipitor, Os-keith, Folate, Novolog, Protonix, Zinc sulfate Pertinent Labs (07/29) K 3.4, BUN 54, Cr 2.7 ( decreasing), Glucose 186-233, Ca 8.1, Phos 1.5, Albumin 2.4 Nutritional Hx/Data Height 6 ft Height (Calculated Centimeters) 182.9 Current Weight (lbs) 177 lb Weight (Calculated Kilograms) 80.3 Weight (Calculated Grams) 78562.8 [place] Body Weight 160 % [place] Body Weight 110 Body Mass Index (BMI) 24.0 Recent Weight Change No Weight Status Approriate GI Symptoms GI Symptoms None Last BM 07/29 x1 Difficult in: Swallowing Food Allergies No Cultural/Ethnic/Anabaptist Belief None indicated Usual diet at home Unknown Skin Integrity/Comment: Edvin 8, 2+ edema, stage IV wound Estimated Nutritional Goals BEE in Kcals: Using Current wt Calories/Kcals/Kg CBW 80.4kg Kcals Calculated ~0863-6114 kcal/day (27-32 kcal/kg) - considering HD, Stage IV wound, vent Protein: Using Current wt Protein g/k.5-1.7 gm/kg - wound, HD, vent Protein Calculated ~120-135 gm/day Fluid: ml Per MD due to HD Nutritional Problem 2. Problem Problem Altered nutrition related lab values related to Etiology electrotlyte imbalance and uncontrolled hyperglycemia aeb Signs/Symptoms: K 3.4, Glucose 186-233, Ca 8.1 , Phos 1.5, Albumin 2.4 1. Problem Problem Inadequate energy/protein intake related to Etiology current TF regimen inadequate aeb Signs/Symptoms: Current TF regimen meeting ~65 % of calorie and ~55% of protein needs Intervention/Recommendation Comments 1. Consider increasing Nepro to 50ml/hr continuously for 24 hours to provide 1200ml volume, 2160 kcal, 97 gm protein. Add Prosource 2 packets/day for an additional 30gm protein . (total 112gm protein) 2. MD to modify insulin regimen for optimal glycemic control and replace lytes as medically appropriate. May consider modifying Tube feednig formula to Nutren 2.0 if she consistently has hypokalemia and hypophosphatemia (Nepro is low in Potassium and phosphorus). Expected Outcomes/Goals Expected Outcomes/Goals TF meets >75% of nutrient needs, improved skin integrity , nutrition related labs normalize F/U in 2-3 days as HR (07/31- )
[2018-08-05] MEDS: INSULIN ASPART SLIDING SCALE 100 UNITS/ML UNIT SUBQ SCH ×4 (00:33→17:10)
[2018-08-05] MEDS: Albuterol/Ipratropium Neb 3 ML AERS HHN SCH ×6 (03:33→23:20)
[2018-08-05 04:59] LABS: BASOPHILE ABSOLUTE 0.1 Th/cumm (0-0.2); EOSINOPHILE ABSOLUTE 0.2 Th/cmm (0.1-0.4); HEMATOCRIT 27.2 % (41.0-60); HEMOGLOBIN 8.8 gm/dL (12-16); LYMPHOCYTE ABSOLUTE 1.3 Th/cmm (1.5-3.0); MEAN CELL VOLUME 87.7 fl (81-100); MEAN CORPUSCULAR HEMOGLOBIN 28.2 pg (27.0-31.0); MEAN CORPUSCULAR HGB CONC 32.2 pg (28.0-36.0); MEAN PLATELET VOLUME 7.8 fl; MONOCYTE ABSOLUTE 0.8 Th/cmm (0.3-1.0); NEUTROPHILE ABSOLUTE 18.1 Th/cmm (1.8-8.0); PLATELET COUNT 405 Th/cmm (150-400); RED CELL DISTRIBUTION WIDTH 16.2 % (11.5-20.0)
[2018-08-05 05:20] LABS: WHITE BLOOD COUNT 20.5 Th/cmm (4.8-10.8)
[2018-08-05 05:50] LABS: ANION GAP 18.7 (7.0-16.0); CALCIUM SERUM 8.4 mg/dL (8.6-10.3); CARBON DIOXIDE 24.7 mEq/L (21.0-31.0); GFR NON AFRICAN-AMERICAN 11.6 ml/min; POTASSIUM SERUM 3.4 mEq/L (3.5-5.1)
[2018-08-05 05:54] LABS: CREATININE - SERUM 4.1 mg/dL (0.6-1.2)
[2018-08-05 05:58] LABS: LYMPHOCYTE 7 % (20-50); MONOCYTE 4 % (2-10); NEUTROPHILS 89 % (40-80)
[2018-08-05] MEDS: Menthol/Zinc Oxide Oint 113gm Tube TP SCH ×2 (08:27→17:09)
[2018-08-05] MEDS: Lactobacillus Rhamnosus GG 15 Billion CFU CAP.SPRINK PO SCH (08:27)
[2018-08-05] MEDS: Chlorhexidine Gluconate 0.12% 15mL Mouthwash MM SCH ×2 (08:36→21:17)
[2018-08-05] MEDS: Micafungin 100 MG in Sodium Chloride 0.9% 100 ML IV SCH (12:34)
[2018-08-05] MEDS: Epoetin Alfa 20000 Units/mL Vial SUBQ SCH (13:50)
--- NOTE | 2018-08-05 14:32 | General Progress Note ---
Subjective - Review of Systems Service Date: 08/05/18 Subjective: Patient still on ventilatory tracheostomy congested patient had debridement of the decubitus in the sacrum and coccyx clinically unchanged Objective - Results Result Diagrams: 08/05/18 04:20 08/05/18 04:20 Recent Labs: Laboratory Last Values WBC 20.5 Th/cmm (4.8-10.8) H* 08/05/18 04:20 RBC 3.10 Mil/cmm (3.80-5.20) L 08/05/18 04:20 Hgb 8.8 gm/dL (12-16) L 08/05/18 04:20 Hct 27.2 % (41.0-60) L 08/05/18 04:20 MCV 87.7 fl (81-100) 08/05/18 04:20 MCH 28.2 pg (27.0-31.0) 08/05/18 04:20 MCHC Differential 32.2 pg (28.0-36.0) 08/05/18 04:20 RDW 16.2 % (11.5-20.0) 08/05/18 04:20 Plt Count 405 Th/cmm (150-400) H 08/05/18 04:20 MPV 7.8 fl 08/05/18 04:20 Add Manual Diff YES 08/05/18 04:20 Neutrophils % 79.7 % (40.0-80.0) 08/04/18 04:00 Band Neutrophils % 1 % (0-10) 08/03/18 04:30 Lymphocytes % 12.2 % (20.0-50.0) L 08/04/18 04:00 Monocytes % 6.0 % (2.0-10.0) 08/04/18 04:00 Eosinophils % 1.3 % (0.0-5.0) 08/04/18 04:00 Basophils % 0.8 % (0.0-2.0) 08/04/18 04:00 Neutrophils (Manual) 89 % (40-80) H 08/05/18 04:20 Lymphocytes 7 % (20-50) L 08/05/18 04:20 Monocytes 4 % (2-10) 08/05/18 04:20 Eosinophils 2 % (0-5) 08/03/18 04:30 Basophils 0 % (0-3) 08/02/18 07:00 Platelet Estimate ADEQUATE (NORMAL) 08/03/18 04:30 PT 11.6 SECONDS (9.5-11.5) H 08/04/18 04:00 INR 1.13 (0.5-1.4) 08/04/18 04:00 PTT (Actin FS) 29.0 SECONDS (26.0-38.0) 08/04/18 04:00 Specimen Source Arterial 07/28/18 16:15 Sample Site Right Radial 07/28/18 16:15 pH 7.53 (7.35-7.45) H 07/28/18 16:15 pCO2 34.0 mmHg (35.0-45.0) L 07/28/18 16:15 pO2 198.0 mmHg (80.0-100.0) H 07/28/18 16:15 HCO3 29.4 mEq/L (20.0-26.0) H 07/28/18 16:15 Base Excess 5.7 mEq/L (-3.0-3.0) H 07/28/18 16:15 O2 Saturation 100.0 % (92.0-100.0) 07/28/18 16:15 Reinaldo Test Positive 07/28/18 16:15 Vent Rate 16 07/28/18 16:15 Inspired O2 50 07/28/18 16:15 Tidal Volume 500 07/28/18 16:15 PEEP 3 07/28/18 16:15 Pressure (ins/psv/peep) N/A 07/28/18 16:15 Critical Value DM 07/28/18 16:15 Sodium 140 mEq/L (136-145) 08/05/18 04:20 Potassium 3.4 mEq/L (3.5-5.1) L 08/05/18 04:20 Chloride 100 mEq/L (98-107) 08/05/18 04:20 Carbon Dioxide 24.7 mEq/L (21.0-31.0) 08/05/18 04:20 Anion Gap 18.7 (7.0-16.0) H 08/05/18 04:20 BUN 63 mg/dL (7-25) H 08/05/18 04:20 Creatinine 4.1 mg/dL (0.6-1.2) H* 08/05/18 04:20 Est GFR ( Amer) 14.0 ml/min (>90) 08/05/18 04:20 Est GFR (Non-Af Amer) 11.6 ml/min 08/05/18 04:20 BUN/Creatinine Ratio 15.4 08/05/18 04:20 Glucose 300 mg/dL (70-105) H 08/05/18 04:20 POC Glucose 216 MG/DL (70 - 105) H 08/05/18 11:08 Whole Bld Lactic Acid 1.85 mmol/L (0.60-1.99) 07/28/18 13:30 Calcium 8.4 mg/dL (8.6-10.3) L 08/05/18 04:20 Phosphorus 1.5 mg/dL (2.5-5.0) L 07/28/18 13:10 Magnesium 2.5 mg/dL (1.9-2.7) 07/28/18 13:10 Total Bilirubin 0.4 mg/dL (0.3-1.0) 08/04/18 04:00 AST 16 U/L (13-39) 08/04/18 04:00 ALT 16 U/L (7-52) 08/04/18 04:00 Alkaline Phosphatase 343 U/L (34-104) H 08/04/18 04:00 Total Protein 5.9 gm/dL (6.0-8.3) L 08/04/18 04:00 Albumin 1.9 gm/dL (3.7-5.3) L 08/04/18 04:00 Globulin 4.0 gm/dL 08/04/18 04:00 Albumin/Globulin Ratio 0.5 (1.0-1.8) L 08/04/18 04:00 Urine Source CATH 07/28/18 13:35 Urine Color YELLOW 07/28/18 13:35 Urine Clarity HAZY (CLEAR) 07/28/18 13:35 Urine pH 7.5 (4.6 - 8.0) 07/28/18 13:35 Ur Specific [place] 1.020 (1.005-1.030) 07/28/18 13:35 Urine Protein 100 mg/dL (NEGATIVE) H 07/28/18 13:35 Urine Glucose (UA) NEGATIVE mg/dL (NEGATIVE) 07/28/18 13:35 Urine Ketones NEGATIVE mg/dL (NEGATIVE) 07/28/18 13:35 Urine Blood MODERATE (NEGATIVE) H 07/28/18 13:35 Urine Nitrate NEGATIVE (NEGATIVE) 07/28/18 13:35 Urine Bilirubin NEGATIVE (NEGATIVE) 07/28/18 13:35 Urine Urobilinogen 0.2 E.U./dL (0.2 - 1.0) 07/28/18 13:35 Ur Leukocyte Esterase MODERATE (NEGATIVE) H 07/28/18 13:35 Urine RBC 10-25 /hpf (0-5) H 07/28/18 13:35 Urine WBC 50-100 /hpf (0-5) H 07/28/18 13:35 Ur Epithelial Cells FEW /lpf (FEW) 07/28/18 13:35 Urine Bacteria 4+ /hpf (NONE SEEN) H 07/28/18 13:35 Stool Occult Blood NEGATIVE (NEGATIVE) 07/31/18 05:00 Urine Opiates Screen NEGATIVE (NEGATIVE) 07/28/18 13:35 Urine Methadone Screen NEGATIVE (NEGATIVE) 07/28/18 13:35 Ur Barbiturates Screen NEGATIVE (NEGATIVE) 07/28/18 13:35 Ur Tricyclics Screen NEGATIVE (NEGATIVE) 07/28/18 13:35 Ur Phencyclidine Scrn NEGATIVE (NEGATIVE) 07/28/18 13:35 Amphetamines Screen NEGATIVE (NEGATIVE) 07/28/18 13:35 U Methamphetamines Scrn NEGATIVE (NEGATIVE) 07/28/18 13:35 U Benzodiazepines Scrn NEGATIVE (NEGATIVE) 07/28/18 13:35 U Cocaine Metab Screen NEGATIVE (NEGATIVE) 07/28/18 13:35 U Cannabinoids Screen NEGATIVE (NEGATIVE) 07/28/18 13:35 Helicobacter pylori Ab NEGATIVE (NEGATIVE) 08/01/18 09:15 Blood Type O POSITIVE 07/29/18 00:00 Antibody Screen NEGATIVE 07/29/18 00:00 Crossmatch See Detail 07/29/18 20:00 - Physical Exam Vitals and I&O: Vital Signs Temp 98.4 F 08/05/18 12:00 Pulse 97 08/05/18 13:17 Resp 27 08/05/18 13:00 BP 126/49 08/05/18 13:00 Pulse Ox 95 08/05/18 13:17 Intake & Output 08/04/18 08/05/18 08/05/18 18:59 06:59 18:59 Intake Total 500 1150 Output Total 0 Balance 500 1150 Weight (lbs) 74.843 kg 74.843 kg Intake: Intake, IV Amount 150 50 Aztreonam 1 gm In 50 50 Dextrose 5% 50 ml @ 100 mls/hr IV Q12HR [facility] Rx#: [id number] Micafungin 100 mg In 100 Sodium Chloride 0.9% 100 ml @ 100 mls/hr IV Q24H [facility] Rx#:[id number] Tube Feeding 200 750 Other 150 350 Output: Urine 0 Other: # Bowel Movements 1 0 Weight Source Bedscale Bedscale Active Medications: Current Medications Albuterol/Ipratropium (Duoneb Neb) 3 ml HHN Q4HRT [facility] Stop: 09/26/18 22:59 Last Admin: 08/05/18 11:27 Dose: 3 ml Atorvastatin Calcium (Lipitor) 40 mg GT HS [facility] Stop: 09/27/18 20:59 Last Admin: 08/04/18 20:38 Dose: 40 mg Calamine/Phenol (Calmoseptine) 1 appl TP BID [facility] Stop: 09/28/18 16:59 Last Admin: 08/05/18 08:27 Dose: 1 appl Calcium Carbonate (Os-Keith) 500 mg GT BID [facility] Stop: 09/27/18 08:59 Last Admin: 08/05/18 08:27 Dose: 500 mg [place] Oil/[place] Balsam/Trypsin (Venelex) 1 appl TP DAILY [facility] Stop: 09/28/18 10:59 Last Admin: 08/04/18 09:00 Dose: Not Given Chlorhexidine Gluconate (Peridex) 15 ml MM 0800,1999 [facility] Stop: 09/26/18 19:59 Last Admin: 08/05/18 08:36 Dose: 15 ml Epoetin Rj (Epogen) 10,000 units SUBQ TuThSa [facility] Stop: 09/27/18 11:14 Last Admin: 08/05/18 13:50 Dose: 10,000 units Folic Acid (Folate) 1 mg GT DAILY [facility] Stop: 09/27/18 08:59 Last Admin: 08/05/18 08:27 Dose: 1 mg Aztreonam 1 gm/ Dextrose 50 mls @ 100 mls/hr IV Q12HR [facility] Stop: 09/26/18 13:59 Last Admin: 08/05/18 08:26 Dose: 100 mls/hr Norepinephrine Bitartrate 8 mg (/ Dextrose) 258 mls @ 7.74 mls/hr IV TITR PRN; Protocol PRN Reason: BP MAINTENANCE (PER PROTOCOL) Stop: 09/27/18 11:24 Last Titration: 07/29/18 23:30 Dose: 2 mcg/min, 3.87 mls/hr Micafungin Sodium 100 mg/ (Sodium Chloride) 100 mls @ 100 mls/hr IV Q24H [facility] Stop: 09/28/18 10:44 Last Admin: 08/05/18 12:34 Dose: 100 mls/hr Ibuprofen (Motrin) 400 mg PO Q6H PRN PRN Reason: Fever > 101 Stop: 09/27/18 02:58 Last Admin: 08/05/18 06:11 Dose: 400 mg Insulin Aspart (Novolog Insulin Sliding Scale) 0 units SUBQ Q6HR [facility]; Protocol Stop: 09/27/18 00:00 Last Admin: 08/05/18 12:35 Dose: 4 units Lactobacillus Rhamnosus (Culturelle 15b) 1 each PO DAILY [facility] Stop: 10/03/18 15:59 Last Admin: 08/05/18 08:27 Dose: 1 each Miscellaneous (Clinical Monitoring) 1 ea MC DAILY PRN PRN Reason: RENAL DOSING Stop: 09/29/18 09:05 Miscellaneous (Probiotic Screen) 1 ea MC PRN PRN PRN Reason: PROTOCOL Stop: 10/03/18 15:34 Pantoprazole Sodium (Protonix) 40 mg IVP BID [facility] Stop: 09/28/18 19:44 Last Admin: 08/05/18 08:27 Dose: 40 mg Zinc Sulfate (Zinc Sulfate) 220 mg GT DAILY [facility] Stop: 09/27/18 08:59 Last Admin: 08/05/18 08:27 Dose: 220 mg General: Other (unresponsive , on vent) HEENT: Other (+TRACH) Neck: Supple Cardiovascular: Normal S1, Normal S2 Lungs: Other Abdomen: Bowel sounds (has peg tube ) Extremities: Other (NO EDEMA, LUE AVF+ THRILL) Neurological: Other (NONVERBAL) Skin: Other (stage IV sacral coccyx decubitus pressure ulcer left heel) - Procedures Procedures: Procedures Procedure Code Date EXCISION OF BACK SUBCU/FASCIA, OPEN APPROACH [id number] 06/30/18 EXCISION OF DUODENUM, ENDO, DIAGN [id number] 07/28/18 PERFORMANCE OF URINARY FILTRATION, <6 HRS/DAY [id number] 06/30/18 RESPIRATORY VENTILATION, GREATER THAN 96 CONSECUTIVE HOURS [id number] 07/28/18 TRANSFUSE NONAUT RED BLOOD CELLS IN PERIPH VEIN, PERC 14905F5 06/30/18 Assessment/Plan - Assessment Assessment: Acute respiratory failure on ventilator with tracheostomy Septic shock Hypotension Sinus tachycardia Stage IV sacral decubitus ulcer infected Aspiration pneumonia pseudomonas Diabetes mellitus type 2 Diabetic sick and he states Tuesday end-stage renal disease on dialysis Hypertensio candiema Deficiency anemia Dysphagia with PEG placement Protein calorie malnutrition - Plan Plan: Continue present management continue IV antibiotics went management and wound care Debridement of the wound patient tolerated Continue IV antibiotics Nutritional Asmnt/Malnutr-PDOC - Dietary Evaluation Malnutrition Findings (Please click <Entered> for more info): Nutritional Asmnt/Malnutrition Start: 07/29/18 09: 22 Text: Status: Complete Freq: Protocol: Document 07/29/18 09:23 MMULHERN (Rec: 07/29/18 10:10 MMULHERN [email or web address]) Nutritional Asmnt/Malnutrition Patient General Information Nutritional Screening High Risk Consult Diagnosis Urosepsis, bilateral pneumonia , Decubitus ulcer Pertinent Medical Hx/Surgical Hx Hyperlipidemia, ESRD (No H&P) Subjective Information Consult recieved for Wound Stage IV. Patient receives HD, trach to vent. She was admitted from [facility]. Current TF provides 800 ml volume, 1440 kcal, 64gm protein. Current Diet Order/ Nutrition Support Tube feeding Nepro 50 ml/hr x 16 hours Patient / S.O Not Indicated Pertinent Medications Lipitor, Os-keith, Folate, Novolog, Protonix, Zinc sulfate Pertinent Labs (07/29) K 3.4, BUN 54, Cr 2.7 ( decreasing), Glucose 186-233, Ca 8.1, Phos 1.5, Albumin 2.4 Nutritional Hx/Data Height 1.83 m Height (Calculated Centimeters) 182.9 Current Weight (lbs) 80.286 kg Weight (Calculated Kilograms) 80.3 Weight (Calculated Grams) 33003.8 [place] Body Weight 160 % [place] Body Weight 110 Body Mass Index (BMI) 24.0 Recent Weight Change No Weight Status Approriate GI Symptoms GI Symptoms None Last BM 07/29 x1 Difficult in: Swallowing Food Allergies No Cultural/Ethnic/Yaz[employer]ism Belief None indicated Usual diet at home Unknown Skin Integrity/Comment: Edvin 8, 2+ edema, stage IV wound Estimated Nutritional Goals BEE in Kcals: Using Current wt Calories/Kcals/Kg CBW 80.4kg Kcals Calculated ~2962-3672 kcal/day (27-32 kcal/kg) - considering HD, Stage IV wound, vent Protein: Using Current wt Protein g/k.5-1.7 gm/kg - wound, HD, vent Protein Calculated ~120-135 gm/day Fluid: ml Per MD due to HD Nutritional Problem 2. Problem Problem Altered nutrition related lab values related to Etiology electrotlyte imbalance and uncontrolled hyperglycemia aeb Signs/Symptoms: K 3.4, Glucose 186-233, Ca 8.1 , Phos 1.5, Albumin 2.4 1. Problem Problem Inadequate energy/protein intake related to Etiology current TF regimen inadequate aeb Signs/Symptoms: Current TF regimen meeting ~65 % of calorie and ~55% of protein needs Intervention/Recommendation Comments 1. Consider increasing Nepro to 50ml/hr continuously for 24 hours to provide 1200ml volume, 2160 kcal, 97 gm protein. Add Prosource 2 packets/day for an additional 30gm protein . (total 112gm protein) 2. MD to modify insulin regimen for optimal glycemic control and replace lytes as medically appropriate. May consider modifying Tube feednig formula to Nutren 2.0 if she consistently has hypokalemia and hypophosphatemia (Nepro is low in Potassium and phosphorus). Expected Outcomes/Goals Expected Outcomes/Goals TF meets >75% of nutrient needs, improved skin integrity , nutrition related labs normalize F/U in 2-3 days as HR (07/31- )
[2018-08-05] MEDS ORDERED: Morphine Sulfate 4 mg/mL 1mL Syr ONE (15:05)
--- NOTE | 2018-08-05 15:12 | Operative Report ---
Post Operative Report - POST-OPERATIVE NOTE Preoperative diagnosis:: overgrown dystrophic R and L thumbnails Postoperative diagnosis:: same Operation performed:: trimming and debridement of Right and Left thumbnails and debris Blood Loss (fluid management):: none Surgeon:: Jessee Perkins [employer]:: none Findings:: overgrown and dystrophic R and L thumbnails, debris Prosthetic devices, grafts, tissue or device implanted:: none Complications:: none
[2018-08-05] MEDS: Venelex 60gm Tube TP SCH (17:10)
--- NOTE | 2018-08-05 18:10 | Operative Report ---
DATE OF SURGERY: 08/05/2018 TIME OF PROCEDURE: 3:12 p.m. PREOPERATIVE DIAGNOSIS: The patient with overgrown dystrophic right and left thumbnail, requested by family for trimming and debridement of the areas. POSTOPERATIVE DIAGNOSIS: The patient with overgrown dystrophic right and left thumbnail, requested by family for trimming and debridement of the areas. OPERATION PERFORMED: Trimming and debridement of right and left thumb nails and debris. ANESTHESIA: None. ANESTHESIOLOGIST: None. ESTIMATED BLOOD LOSS: None. SURGEON: Jessee Perkins M.D. RELAYS DRAFTSPERSON: None. FINDINGS: Overgrown and dystrophic right and left thumbnail and debris. PROSTHETIC DEVICES: Graft tissues. DEVICE IMPLANTED: None. COMPLICATIONS: None. DESCRIPTION OF PROCEDURE: After confirming patient identification and procedure to be done the patient's fingernails were prepped, toe nail clipper was then used to trim the fingernails and some underlying debris was cleaned away as well too. The patient tolerated the procedure well. Dressings were applied. JOB# [id number]
--- NOTE | 2018-08-05 23:06 | Progress Notes ---
DATE: 08/05/2018 SUBJECTIVE: The patient was seen today in ICU. The patient is pending for discharge to subacute. Apparently, today's white count went up to 20.5, currently with the multiple IV antibiotics. The patient also had hemodialysis done today. Otherwise, the patient appears to be in no acute distress. OBJECTIVE: VITAL SIGNS: Temperature 97.8, heart rate of 100, blood pressure 117/22, respiration of 18 and 100% oxygen saturation. HEENT: Head is atraumatic and normocephalic. Eyes: Bilateral conjunctivae are clear. Bilateral pupils are equally round and reactive. NECK: Supple. No JVD. The patient has tracheostomy connected to ventilator. CARDIOVASCULAR: S1 and S2, without murmur, sinus rhythm on the monitor. PULMONARY: Fine scattered rhonchi noted. GASTROINTESTINAL: Soft and nontender without guarding. Positive bowel sounds. GENITOURINARY: The patient has a gastrostomy tube in place. MUSCULOSKELETAL: No clubbing. No cyanosis. Positive muscle weakness. Trace edema noted. ASSESSMENT: 1. Sepsis. 2. Ventilator dependent respiratory failure. 3. Hemodialysis dependent end-stage renal disease. 4. Dysphagia. 5. Anemia. PLAN: We will monitor H and H level. Continue to monitor and continue hemodialysis as scheduled per Dr. Olguin. Will hold discharge due to increasing white count. Treatment plans were discussed with the patient's nurse. Treatment plans were discussed with Dr. Olguin. JOB# [id number]
[2018-08-06] MEDS: INSULIN ASPART SLIDING SCALE 100 UNITS/ML UNIT SUBQ SCH ×4 (00:09→18:25)
[2018-08-06] MEDS: Albuterol/Ipratropium Neb 3 ML AERS HHN SCH ×5 (03:52→19:14)
[2018-08-06 04:29] LABS: % BASOPHILS 0.6 % (0.0-2.0); % EOSINOPHILS 1.2 % (0.0-5.0); % LYMPHOCYTES 7.1 % (20.0-50.0); % MONOCYTES 4.5 % (2.0-10.0); % NEUTROPHILS 86.6 % (40.0-80.0); BASOPHILE ABSOLUTE 0.1 Th/cumm (0-0.2); EOSINOPHILE ABSOLUTE 0.2 Th/cmm (0.1-0.4); HEMATOCRIT 26.1 % (41.0-60); HEMOGLOBIN 8.6 gm/dL (12-16); MEAN CELL VOLUME 87.6 fl (81-100); MEAN CORPUSCULAR HEMOGLOBIN 28.7 pg (27.0-31.0); MEAN CORPUSCULAR HGB CONC 32.7 pg (28.0-36.0); MEAN PLATELET VOLUME 7.7 fl; MONOCYTE ABSOLUTE 0.7 Th/cmm (0.3-1.0); NEUTROPHILE ABSOLUTE 12.6 Th/cmm (1.8-8.0); PLATELET COUNT 391 Th/cmm (150-400); RED BLOOD COUNT 2.98 Mil/cmm (3.80-5.20); RED CELL DISTRIBUTION WIDTH 16.8 % (11.5-20.0); WHITE BLOOD COUNT 14.6 Th/cmm (4.8-10.8)
[2018-08-06 05:04] LABS: BAND NEUTROPHILE 1 % (0-10); LYMPHOCYTE 10 % (20-50); MONOCYTE 4 % (2-10); NEUTROPHILS 85 % (40-80)
[2018-08-06 05:07] LABS: ANION GAP 14.7 (7.0-16.0); CALCIUM SERUM 8.3 mg/dL (8.6-10.3); CARBON DIOXIDE 28.7 mEq/L (21.0-31.0); CREATININE - SERUM 3.2 mg/dL (0.6-1.2); GFR AFRICAN-AMERICAN 18.7 ml/min (>90); GFR NON AFRICAN-AMERICAN 15.5 ml/min; POTASSIUM SERUM 3.4 mEq/L (3.5-5.1)
[2018-08-06] MEDS: Chlorhexidine Gluconate 0.12% 15mL Mouthwash MM SCH ×2 (07:54→20:15)
[2018-08-06] MEDS: Menthol/Zinc Oxide Oint 113gm Tube TP SCH ×2 (08:53→16:27)
[2018-08-06] MEDS: Venelex 60gm Tube TP SCH (08:53)
[2018-08-06] MEDS: Lactobacillus Rhamnosus GG 15 Billion CFU CAP.SPRINK PO SCH (08:53)
[2018-08-06] MEDS: Micafungin 100 MG in Sodium Chloride 0.9% 100 ML IV SCH (11:07)
--- NOTE | 2018-08-06 11:34 | Diagnostic Imaging Report ---
Exam: Portable summation of chest. HISTORY: Shortness of breath. Findings: Portable initially chest at 0841 hours reviewed compatible prior study 08/01/2018 demonstrates left-sided pneumonia and effusion. The right lung parenchyma is well aerated. Tracheostomy tube and right-sided PICC line unchanged appearance. Again noted deformity of left shoulder joint. IMPRESSION left-sided pneumonia small effusion. Follow-up exam is recommended
--- NOTE | 2018-08-06 11:57 | Internal Medicine Prog Note ---
Internal Medicine Subjective - Subjective Patient seen and examined:: chart reviewed Patient is:: non-verbal, other (vent. dependent via trach. congested Patient still on ventilatory tracheostomy congested ,s/p debridement of the decubitus in the sacrum and coccyx ) Patient Complaints of:: congestion Per staff patient has:: no adverse event Internal Medicine Objective - Results Result Diagrams: 08/06/18 03:50 08/06/18 03:50 Recent Labs: Laboratory Last Values WBC 14.6 Th/cmm (4.8-10.8) H D 08/06/18 03:50 RBC 2.98 Mil/cmm (3.80-5.20) L 08/06/18 03:50 Hgb 8.6 gm/dL (12-16) L 08/06/18 03:50 Hct 26.1 % (41.0-60) L 08/06/18 03:50 MCV 87.6 fl (81-100) 08/06/18 03:50 MCH 28.7 pg (27.0-31.0) 08/06/18 03:50 MCHC Differential 32.7 pg (28.0-36.0) 08/06/18 03:50 RDW 16.8 % (11.5-20.0) 08/06/18 03:50 Plt Count 391 Th/cmm (150-400) 08/06/18 03:50 MPV 7.7 fl 08/06/18 03:50 Add Manual Diff YES 08/05/18 04:20 Neutrophils % 86.6 % (40.0-80.0) H 08/06/18 03:50 Band Neutrophils % 1 % (0-10) 08/06/18 03:50 Lymphocytes % 7.1 % (20.0-50.0) L 08/06/18 03:50 Monocytes % 4.5 % (2.0-10.0) 08/06/18 03:50 Eosinophils % 1.2 % (0.0-5.0) 08/06/18 03:50 Basophils % 0.6 % (0.0-2.0) 08/06/18 03:50 Neutrophils (Manual) 85 % (40-80) H 08/06/18 03:50 Lymphocytes 10 % (20-50) L 08/06/18 03:50 Monocytes 4 % (2-10) 08/06/18 03:50 Eosinophils 2 % (0-5) 08/03/18 04:30 Basophils 0 % (0-3) 08/02/18 07:00 Platelet Estimate ADEQUATE (NORMAL) 08/03/18 04:30 PT 11.6 SECONDS (9.5-11.5) H 08/04/18 04:00 INR 1.13 (0.5-1.4) 08/04/18 04:00 PTT (Actin FS) 29.0 SECONDS (26.0-38.0) 08/04/18 04:00 Specimen Source Arterial 07/28/18 16:15 Sample Site Right Radial 07/28/18 16:15 pH 7.53 (7.35-7.45) H 07/28/18 16:15 pCO2 34.0 mmHg (35.0-45.0) L 07/28/18 16:15 pO2 198.0 mmHg (80.0-100.0) H 07/28/18 16:15 HCO3 29.4 mEq/L (20.0-26.0) H 07/28/18 16:15 Base Excess 5.7 mEq/L (-3.0-3.0) H 07/28/18 16:15 O2 Saturation 100.0 % (92.0-100.0) 07/28/18 16:15 Reinaldo Test Positive 07/28/18 16:15 Vent Rate 16 07/28/18 16:15 Inspired O2 50 07/28/18 16:15 Tidal Volume 500 07/28/18 16:15 PEEP 3 07/28/18 16:15 Pressure (ins/psv/peep) N/A 07/28/18 16:15 Critical Value DM 07/28/18 16:15 Sodium 143 mEq/L (136-145) 08/06/18 03:50 Potassium 3.4 mEq/L (3.5-5.1) L 08/06/18 03:50 Chloride 103 mEq/L (98-107) 08/06/18 03:50 Carbon Dioxide 28.7 mEq/L (21.0-31.0) 08/06/18 03:50 Anion Gap 14.7 (7.0-16.0) 08/06/18 03:50 BUN 41 mg/dL (7-25) H 08/06/18 03:50 Creatinine 3.2 mg/dL (0.6-1.2) H 08/06/18 03:50 Est GFR ( Amer) 18.7 ml/min (>90) 08/06/18 03:50 Est GFR (Non-Af Amer) 15.5 ml/min 08/06/18 03:50 BUN/Creatinine Ratio 12.8 08/06/18 03:50 Glucose 215 mg/dL (70-105) H 08/06/18 03:50 POC Glucose 249 MG/DL (70 - 105) H 08/06/18 05:47 Whole Bld Lactic Acid 1.85 mmol/L (0.60-1.99) 07/28/18 13:30 Calcium 8.3 mg/dL (8.6-10.3) L 08/06/18 03:50 Phosphorus 1.5 mg/dL (2.5-5.0) L 07/28/18 13:10 Magnesium 2.5 mg/dL (1.9-2.7) 07/28/18 13:10 Total Bilirubin 0.4 mg/dL (0.3-1.0) 08/04/18 04:00 AST 16 U/L (13-39) 08/04/18 04:00 ALT 16 U/L (7-52) 08/04/18 04:00 Alkaline Phosphatase 343 U/L (34-104) H 08/04/18 04:00 Total Protein 5.9 gm/dL (6.0-8.3) L 08/04/18 04:00 Albumin 1.9 gm/dL (3.7-5.3) L 08/04/18 04:00 Globulin 4.0 gm/dL 08/04/18 04:00 Albumin/Globulin Ratio 0.5 (1.0-1.8) L 08/04/18 04:00 Urine Source CATH 07/28/18 13:35 Urine Color YELLOW 07/28/18 13:35 Urine Clarity HAZY (CLEAR) 07/28/18 13:35 Urine pH 7.5 (4.6 - 8.0) 07/28/18 13:35 Ur Specific [place] 1.020 (1.005-1.030) 07/28/18 13:35 Urine Protein 100 mg/dL (NEGATIVE) H 07/28/18 13:35 Urine Glucose (UA) NEGATIVE mg/dL (NEGATIVE) 07/28/18 13:35 Urine Ketones NEGATIVE mg/dL (NEGATIVE) 07/28/18 13:35 Urine Blood MODERATE (NEGATIVE) H 07/28/18 13:35 Urine Nitrate NEGATIVE (NEGATIVE) 07/28/18 13:35 Urine Bilirubin NEGATIVE (NEGATIVE) 07/28/18 13:35 Urine Urobilinogen 0.2 E.U./dL (0.2 - 1.0) 07/28/18 13:35 Ur Leukocyte Esterase MODERATE (NEGATIVE) H 07/28/18 13:35 Urine RBC 10-25 /hpf (0-5) H 07/28/18 13:35 Urine WBC 50-100 /hpf (0-5) H 07/28/18 13:35 Ur Epithelial Cells FEW /lpf (FEW) 07/28/18 13:35 Urine Bacteria 4+ /hpf (NONE SEEN) H 07/28/18 13:35 Stool Occult Blood NEGATIVE (NEGATIVE) 07/31/18 05:00 Urine Opiates Screen NEGATIVE (NEGATIVE) 07/28/18 13:35 Urine Methadone Screen NEGATIVE (NEGATIVE) 07/28/18 13:35 Ur Barbiturates Screen NEGATIVE (NEGATIVE) 07/28/18 13:35 Ur Tricyclics Screen NEGATIVE (NEGATIVE) 07/28/18 13:35 Ur Phencyclidine Scrn NEGATIVE (NEGATIVE) 07/28/18 13:35 Amphetamines Screen NEGATIVE (NEGATIVE) 07/28/18 13:35 U Methamphetamines Scrn NEGATIVE (NEGATIVE) 07/28/18 13:35 U Benzodiazepines Scrn NEGATIVE (NEGATIVE) 07/28/18 13:35 U Cocaine Metab Screen NEGATIVE (NEGATIVE) 07/28/18 13:35 U Cannabinoids Screen NEGATIVE (NEGATIVE) 07/28/18 13:35 Helicobacter pylori Ab NEGATIVE (NEGATIVE) 08/01/18 09:15 Blood Type O POSITIVE 07/29/18 00:00 Antibody Screen NEGATIVE 07/29/18 00:00 Crossmatch See Detail 07/29/18 20:00 - Physical Exam Vitals and I&O: Vital Signs Temp 99.2 F 08/06/18 11:00 Pulse 115 08/06/18 11:20 Resp 17 08/06/18 11:00 BP 134/25 08/06/18 11:00 Pulse Ox 98 08/06/18 11:20 Intake & Output 08/05/18 08/06/18 08/06/18 18:59 06:59 18:59 Intake Total 143.333 950 0 Output Total 1 Balance 143.333 949 0 Weight (lbs) 74.389 kg Intake: Intake, IV Amount 143.333 50 0 Aztreonam 1 gm In 50 50 Dextrose 5% 50 ml @ 100 mls/hr IV Q12HR ALONDRA Rx#: [id number] Micafungin 100 mg In 93.333 0 Sodium Chloride 0.9% 100 ml @ 100 mls/hr IV Q24H ALONDRA Rx#:[id number] Oral 0 Tube Feeding 600 Other 300 Output: Urine 0 Urine/Stool Mix 1 Other: # Bowel Movements 2 Stool Characteristics Liquid Liquid Brown Brown Weight Source Bedscale Active Medications: Current Medications Albuterol/Ipratropium (Duoneb Neb) 3 ml HHN Q4HRT ALONDRA Stop: 09/26/18 22:59 Last Admin: 08/06/18 11:20 Dose: 3 ml Atorvastatin Calcium (Lipitor) 40 mg GT HS ALONDRA Stop: 09/27/18 20:59 Last Admin: 08/05/18 21:19 Dose: 40 mg Calamine/Phenol (Calmoseptine) 1 appl TP BID ALONDRA Stop: 09/28/18 16:59 Last Admin: 08/06/18 08:53 Dose: 1 appl Calcium Carbonate (Os-Keith) 500 mg GT BID ALONDRA Stop: 09/27/18 08:59 Last Admin: 08/06/18 08:53 Dose: 500 mg [place] Oil/[place]ominican Balsam/Trypsin (Venelex) 1 appl TP DAILY ALONDRA Stop: 09/28/18 10:59 Last Admin: 08/06/18 08:53 Dose: 1 appl Chlorhexidine Gluconate (Peridex) 15 ml MM 0800,2000 ALONDRA Stop: 09/26/18 19:59 Last Admin: 08/06/18 07:54 Dose: 15 ml Epoetin Jr (Epogen) 10,000 units SUBQ TuThSa ALONDRA Stop: 09/27/18 11:14 Last Admin: 08/05/18 13:50 Dose: 10,000 units Folic Acid (Folate) 1 mg GT DAILY ALONDRA Stop: 09/27/18 08:59 Last Admin: 08/06/18 08:53 Dose: 1 mg Aztreonam 1 gm/ Dextrose 50 mls @ 100 mls/hr IV Q12HR ALONDRA Stop: 09/26/18 13:59 Last Admin: 08/06/18 08:53 Dose: 100 mls/hr Norepinephrine Bitartrate 8 mg (/ Dextrose) 258 mls @ 7.74 mls/hr IV TITR PRN; Protocol PRN Reason: BP MAINTENANCE (PER PROTOCOL) Stop: 09/27/18 11:24 Last Titration: 07/29/18 23:30 Dose: 2 mcg/min, 3.87 mls/hr Micafungin Sodium 100 mg/ (Sodium Chloride) 100 mls @ 100 mls/hr IV Q24H ALONDRA Stop: 09/28/18 10:44 Last Admin: 08/06/18 11:07 Dose: 100 mls/hr Ibuprofen (Motrin) 400 mg PO Q6H PRN PRN Reason: Fever > 101 Stop: 09/27/18 02:58 Last Admin: 08/05/18 06:11 Dose: 400 mg Insulin Aspart (Novolog Insulin Sliding Scale) 0 units SUBQ Q6HR ALONDRA; Protocol Stop: 09/27/18 00:00 Last Admin: 08/06/18 05:55 Dose: 4 units Lactobacillus Rhamnosus (Culturelle 15b) 1 each PO DAILY ALONDRA Stop: 10/03/18 15:59 Last Admin: 08/06/18 08:53 Dose: 1 each Lorazepam (Ativan) 1 mg IVP Q4HR PRN; Protocol PRN Reason: Agitation Stop: 10/05/18 09:40 Miscellaneous (Clinical Monitoring) 1 ea MC DAILY PRN PRN Reason: RENAL DOSING Stop: 09/29/18 09:05 Miscellaneous (Probiotic Screen) 1 ea MC PRN PRN PRN Reason: PROTOCOL Stop: 10/03/18 15:34 Pantoprazole Sodium (Protonix) 40 mg IVP BID [facility] Stop: 09/28/18 19:44 Last Admin: 08/06/18 08:53 Dose: 40 mg Zinc Sulfate (Zinc Sulfate) 220 mg GT DAILY ALONDRA Stop: 09/27/18 08:59 Last Admin: 08/06/18 08:53 Dose: 220 mg General: weak, other (on vent ) HEENT: NC/AT Neck: Supple Lungs: wheezing, ronchi Cardiovascular: RRR, Normal S1, Normal S2 Abdomen: soft, +GT Extremities: clear, edema Neurological: no change - Procedures Procedures: Procedures Procedure Code Date EXCISION OF BACK SUBCU/FASCIA, OPEN APPROACH [id number] 06/30/18 EXCISION OF DUODENUM, ENDO, DIAGN [id number] 07/28/18 PERFORMANCE OF URINARY FILTRATION, <6 HRS/DAY [id number] 06/30/18 RESPIRATORY VENTILATION, GREATER THAN 96 CONSECUTIVE HOURS [id number] 07/28/18 TRANSFUSE NONAUT RED BLOOD CELLS IN PERIPH VEIN, PERC [id number] 06/30/18 Internal Medicine Assmt/Plan - Assessment Assessment: respiratory failure, vent support s/p debridement of the decubitus in the sacrum and coccyx esrd/hd acute anemia infected sacral hypotensiove - Plan Plan: back to [facility] when bed available Nutritional Asmnt/Malnutr-PDOC - Dietary Evaluation Malnutrition Findings (Please click <Entered> for more info): Nutritional Asmnt/Malnutrition Start: 07/29/18 09: 22 Text: Status: Complete Freq: Protocol: Document 07/29/18 09:23 MMULHERN (Rec: 07/29/18 10:10 [email or web address] [email or web address]- [email or web address]) Nutritional Asmnt/Malnutrition Patient General Information Nutritional Screening High Risk Consult Diagnosis Urosepsis, bilateral pneumonia , Decubitus ulcer Pertinent Medical Hx/Surgical Hx Hyperlipidemia, ESRD (No H&P) Subjective Information Consult recieved for Wound Stage IV. Patient receives HD, trach to vent. She was admitted from [facility]. Current TF provides 800 ml volume, 1440 kcal, 64gm protein. Current Diet Order/ Nutrition Support Tube feeding Nepro 50 ml/hr x 16 hours Patient / S.O Not Indicated Pertinent Medications Lipitor, Os-keith, Folate, Novolog, Protonix, Zinc sulfate Pertinent Labs (07/29) K 3.4, BUN 54, Cr 2.7 ( decreasing), Glucose 186-233, Ca 8.1, Phos 1.5, Albumin 2.4 Nutritional Hx/Data Height 1.83 m Height (Calculated Centimeters) 182.9 Current Weight (lbs) 80.286 kg Weight (Calculated Kilograms) 80.3 Weight (Calculated Grams) 87654.8 [place] Body Weight 160 % [place] Body Weight 110 Body Mass Index (BMI) 24.0 Recent Weight Change No Weight Status Approriate GI Symptoms GI Symptoms None Last BM 07/29 x1 Difficult in: Swallowing Food Allergies No Cultural/Ethnic/Sikh Belief None indicated Usual diet at home Unknown Skin Integrity/Comment: Edvin 8, 2+ edema, stage IV wound Estimated Nutritional Goals BEE in Kcals: Using Current wt Calories/Kcals/Kg CBW 80.4kg Kcals Calculated ~3961-1306 kcal/day (27-32 kcal/kg) - considering HD, Stage IV wound, vent Protein: Using Current wt Protein g/k.5-1.7 gm/kg - wound, HD, vent Protein Calculated ~120-135 gm/day Fluid: ml Per MD due to HD Nutritional Problem 2. Problem Problem Altered nutrition related lab values related to Etiology electrotlyte imbalance and uncontrolled hyperglycemia aeb Signs/Symptoms: K 3.4, Glucose 186-233, Ca 8.1 , Phos 1.5, Albumin 2.4 1. Problem Problem Inadequate energy/protein intake related to Etiology current TF regimen inadequate aeb Signs/Symptoms: Current TF regimen meeting ~65 % of calorie and ~55% of protein needs Intervention/Recommendation Comments 1. Consider increasing Nepro to 50ml/hr continuously for 24 hours to provide 1200ml volume, 2160 kcal, 97 gm protein. Add Prosource 2 packets/day for an additional 30gm protein . (total 112gm protein) 2. MD to modify insulin regimen for optimal glycemic control and replace lytes as medically appropriate. May consider modifying Tube feednig formula to Nutren 2.0 if she consistently has hypokalemia and hypophosphatemia (Nepro is low in Potassium and phosphorus). Expected Outcomes/Goals Expected Outcomes/Goals TF meets >75% of nutrient needs, improved skin integrity , nutrition related labs normalize F/U in 2-3 days as HR (07/31- )
--- NOTE | 2018-08-06 13:06 | Infectious Disease Prog Note ---
Infectious Disease Subjective - Review of Systems Service Date: 08/06/18 Subjective: There is no new change, had fever yesterday AM. WBC Count went upto 20K and came down to 14k today. fever has improved. Infectious Disease Objective - Results Result Diagrams: 08/06/18 03:50 08/06/18 03:50 Recent Labs: Laboratory Last Values WBC 14.6 Th/cmm (4.8-10.8) H D 08/06/18 03:50 RBC 2.98 Mil/cmm (3.80-5.20) L 08/06/18 03:50 Hgb 8.6 gm/dL (12-16) L 08/06/18 03:50 Hct 26.1 % (41.0-60) L 08/06/18 03:50 MCV 87.6 fl (81-100) 08/06/18 03:50 MCH 28.7 pg (27.0-31.0) 08/06/18 03:50 MCHC Differential 32.7 pg (28.0-36.0) 08/06/18 03:50 RDW 16.8 % (11.5-20.0) 08/06/18 03:50 Plt Count 391 Th/cmm (150-400) 08/06/18 03:50 MPV 7.7 fl 08/06/18 03:50 Add Manual Diff YES 08/05/18 04:20 Neutrophils % 86.6 % (40.0-80.0) H 08/06/18 03:50 Band Neutrophils % 1 % (0-10) 08/06/18 03:50 Lymphocytes % 7.1 % (20.0-50.0) L 08/06/18 03:50 Monocytes % 4.5 % (2.0-10.0) 08/06/18 03:50 Eosinophils % 1.2 % (0.0-5.0) 08/06/18 03:50 Basophils % 0.6 % (0.0-2.0) 08/06/18 03:50 Neutrophils (Manual) 85 % (40-80) H 08/06/18 03:50 Lymphocytes 10 % (20-50) L 08/06/18 03:50 Monocytes 4 % (2-10) 08/06/18 03:50 Eosinophils 2 % (0-5) 08/03/18 04:30 Basophils 0 % (0-3) 08/02/18 07:00 Platelet Estimate ADEQUATE (NORMAL) 08/03/18 04:30 PT 11.6 SECONDS (9.5-11.5) H 08/04/18 04:00 INR 1.13 (0.5-1.4) 08/04/18 04:00 PTT (Actin FS) 29.0 SECONDS (26.0-38.0) 08/04/18 04:00 Specimen Source Arterial 07/28/18 16:15 Sample Site Right Radial 07/28/18 16:15 pH 7.53 (7.35-7.45) H 07/28/18 16:15 pCO2 34.0 mmHg (35.0-45.0) L 07/28/18 16:15 pO2 198.0 mmHg (80.0-100.0) H 07/28/18 16:15 HCO3 29.4 mEq/L (20.0-26.0) H 07/28/18 16:15 Base Excess 5.7 mEq/L (-3.0-3.0) H 07/28/18 16:15 O2 Saturation 100.0 % (92.0-100.0) 07/28/18 16:15 Reinaldo Test Positive 07/28/18 16:15 Vent Rate 16 07/28/18 16:15 Inspired O2 50 07/28/18 16:15 Tidal Volume 500 07/28/18 16:15 PEEP 3 07/28/18 16:15 Pressure (ins/psv/peep) N/A 07/28/18 16:15 Critical Value DM 07/28/18 16:15 Sodium 143 mEq/L (136-145) 08/06/18 03:50 Potassium 3.4 mEq/L (3.5-5.1) L 08/06/18 03:50 Chloride 103 mEq/L (98-107) 08/06/18 03:50 Carbon Dioxide 28.7 mEq/L (21.0-31.0) 08/06/18 03:50 Anion Gap 14.7 (7.0-16.0) 08/06/18 03:50 BUN 41 mg/dL (7-25) H 08/06/18 03:50 Creatinine 3.2 mg/dL (0.6-1.2) H 08/06/18 03:50 Est GFR ( Amer) 18.7 ml/min (>90) 08/06/18 03:50 Est GFR (Non-Af Amer) 15.5 ml/min 08/06/18 03:50 BUN/Creatinine Ratio 12.8 08/06/18 03:50 Glucose 215 mg/dL (70-105) H 08/06/18 03:50 POC Glucose 313 MG/DL (70 - 105) H 08/06/18 12:35 Whole Bld Lactic Acid 1.85 mmol/L (0.60-1.99) 07/28/18 13:30 Calcium 8.3 mg/dL (8.6-10.3) L 08/06/18 03:50 Phosphorus 1.5 mg/dL (2.5-5.0) L 07/28/18 13:10 Magnesium 2.5 mg/dL (1.9-2.7) 07/28/18 13:10 Total Bilirubin 0.4 mg/dL (0.3-1.0) 08/04/18 04:00 AST 16 U/L (13-39) 08/04/18 04:00 ALT 16 U/L (7-52) 08/04/18 04:00 Alkaline Phosphatase 343 U/L (34-104) H 08/04/18 04:00 Total Protein 5.9 gm/dL (6.0-8.3) L 08/04/18 04:00 Albumin 1.9 gm/dL (3.7-5.3) L 08/04/18 04:00 Globulin 4.0 gm/dL 08/04/18 04:00 Albumin/Globulin Ratio 0.5 (1.0-1.8) L 08/04/18 04:00 Urine Source CATH 07/28/18 13:35 Urine Color YELLOW 07/28/18 13:35 Urine Clarity HAZY (CLEAR) 07/28/18 13:35 Urine pH 7.5 (4.6 - 8.0) 07/28/18 13:35 Ur Specific [place] 1.020 (1.005-1.030) 07/28/18 13:35 Urine Protein 100 mg/dL (NEGATIVE) H 07/28/18 13:35 Urine Glucose (UA) NEGATIVE mg/dL (NEGATIVE) 07/28/18 13:35 Urine Ketones NEGATIVE mg/dL (NEGATIVE) 07/28/18 13:35 Urine Blood MODERATE (NEGATIVE) H 07/28/18 13:35 Urine Nitrate NEGATIVE (NEGATIVE) 07/28/18 13:35 Urine Bilirubin NEGATIVE (NEGATIVE) 07/28/18 13:35 Urine Urobilinogen 0.2 E.U./dL (0.2 - 1.0) 07/28/18 13:35 Ur Leukocyte Esterase MODERATE (NEGATIVE) H 07/28/18 13:35 Urine RBC 10-25 /hpf (0-5) H 07/28/18 13:35 Urine WBC 50-100 /hpf (0-5) H 07/28/18 13:35 Ur Epithelial Cells FEW /lpf (FEW) 07/28/18 13:35 Urine Bacteria 4+ /hpf (NONE SEEN) H 07/28/18 13:35 Stool Occult Blood NEGATIVE (NEGATIVE) 07/31/18 05:00 Urine Opiates Screen NEGATIVE (NEGATIVE) 07/28/18 13:35 Urine Methadone Screen NEGATIVE (NEGATIVE) 07/28/18 13:35 Ur Barbiturates Screen NEGATIVE (NEGATIVE) 07/28/18 13:35 Ur Tricyclics Screen NEGATIVE (NEGATIVE) 07/28/18 13:35 Ur Phencyclidine Scrn NEGATIVE (NEGATIVE) 07/28/18 13:35 Amphetamines Screen NEGATIVE (NEGATIVE) 07/28/18 13:35 U Methamphetamines Scrn NEGATIVE (NEGATIVE) 07/28/18 13:35 U Benzodiazepines Scrn NEGATIVE (NEGATIVE) 07/28/18 13:35 U Cocaine Metab Screen NEGATIVE (NEGATIVE) 07/28/18 13:35 U Cannabinoids Screen NEGATIVE (NEGATIVE) 07/28/18 13:35 Helicobacter pylori Ab NEGATIVE (NEGATIVE) 08/01/18 09:15 Blood Type O POSITIVE 07/29/18 00:00 Antibody Screen NEGATIVE 07/29/18 00:00 Crossmatch See Detail 07/29/18 20:00 - Physical Exam Vitals and I&O: Vital Signs Temp 99.2 F 08/06/18 11:00 Pulse 115 08/06/18 11:20 Resp 17 08/06/18 11:00 BP 134/25 08/06/18 11:00 Pulse Ox 98 08/06/18 11:20 Intake & Output 08/05/18 08/06/18 08/06/18 18:59 06:59 18:59 Intake Total 143.333 950 0 Output Total 1 Balance 143.333 949 0 Weight (lbs) 74.389 kg Intake: Intake, IV Amount 143.333 50 0 Aztreonam 1 gm In 50 50 Dextrose 5% 50 ml @ 100 mls/hr IV Q12HR ALONDRA Rx#: [id number] Micafungin 100 mg In 93.333 0 Sodium Chloride 0.9% 100 ml @ 100 mls/hr IV Q24H ALONDRA Rx#:[id number] Oral 0 Tube Feeding 600 Other 300 Output: Urine 0 Urine/Stool Mix 1 Other: # Bowel Movements 2 Stool Characteristics Liquid Liquid Brown Brown Weight Source Bedscale Active Medications: Current Medications Albuterol/Ipratropium (Duoneb Neb) 3 ml HHN Q4HRT ALONDRA Stop: 09/26/18 22:59 Last Admin: 08/06/18 11:20 Dose: 3 ml Atorvastatin Calcium (Lipitor) 40 mg GT HS ALONDRA Stop: 09/27/18 20:59 Last Admin: 08/05/18 21:19 Dose: 40 mg Calamine/Phenol (Calmoseptine) 1 appl TP BID ALONDRA Stop: 09/28/18 16:59 Last Admin: 08/06/18 08:53 Dose: 1 appl Calcium Carbonate (Os-Keith) 500 mg GT BID ALONDRA Stop: 09/27/18 08:59 Last Admin: 08/06/18 08:53 Dose: 500 mg [place] Oil/[place] Balsam/Trypsin (Venelex) 1 appl TP DAILY ALONDRA Stop: 09/28/18 10:59 Last Admin: 08/06/18 08:53 Dose: 1 appl Chlorhexidine Gluconate (Peridex) 15 ml MM 0800,2000 ALONDRA Stop: 09/26/18 19:59 Last Admin: 08/06/18 07:54 Dose: 15 ml Epoetin Rj (Epogen) 10,000 units SUBQ TuThSa ALONDRA Stop: 09/27/18 11:14 Last Admin: 08/05/18 13:50 Dose: 10,000 units Folic Acid (Folate) 1 mg GT DAILY ALONDRA Stop: 09/27/18 08:59 Last Admin: 08/06/18 08:53 Dose: 1 mg Aztreonam 1 gm/ Dextrose 50 mls @ 100 mls/hr IV Q12HR ALONDRA Stop: 09/26/18 13:59 Last Admin: 08/06/18 08:53 Dose: 100 mls/hr Norepinephrine Bitartrate 8 mg (/ Dextrose) 258 mls @ 7.74 mls/hr IV TITR PRN; Protocol PRN Reason: BP MAINTENANCE (PER PROTOCOL) Stop: 09/27/18 11:24 Last Titration: 07/29/18 23:30 Dose: 2 mcg/min, 3.87 mls/hr Micafungin Sodium 100 mg/ (Sodium Chloride) 100 mls @ 100 mls/hr IV Q24H ALONDRA Stop: 09/28/18 10:44 Last Admin: 08/06/18 11:07 Dose: 100 mls/hr Ibuprofen (Motrin) 400 mg PO Q6H PRN PRN Reason: Fever > 101 Stop: 09/27/18 02:58 Last Admin: 08/05/18 06:11 Dose: 400 mg Insulin Aspart (Novolog Insulin Sliding Scale) 0 units SUBQ Q6HR ALONDRA; Protocol Stop: 09/27/18 00:00 Last Admin: 08/06/18 12:51 Dose: 8 units Lactobacillus Rhamnosus (Culturelle 15b) 1 each PO DAILY ALONDRA Stop: 10/03/18 15:59 Last Admin: 08/06/18 08:53 Dose: 1 each Lorazepam (Ativan) 1 mg IVP Q4HR PRN; Protocol PRN Reason: Agitation Stop: 10/05/18 09:40 Miscellaneous (Clinical Monitoring) 1 ea MC DAILY PRN PRN Reason: RENAL DOSING Stop: 09/29/18 09:05 Miscellaneous (Probiotic Screen) 1 ea PRN PRN PRN Reason: PROTOCOL Stop: 10/03/18 15:34 Pantoprazole Sodium (Protonix) 40 mg IVP BID ALONDRA Stop: 09/28/18 19:44 Last Admin: 08/06/18 08:53 Dose: 40 mg Zinc Sulfate (Zinc Sulfate) 220 mg GT DAILY ALONDRA Stop: 09/27/18 08:59 Last Admin: 08/06/18 08:53 Dose: 220 mg General: no acute distress, cachectic HEENT: atraumatic, normocephalic, PERRLA, EOMI Neck: supple, tracheostomy, no thyromegaly Cardiovascular: S1S2, regular Lungs: clear to auscultation bilaterally, clear to percussion Abdomen: soft, no tender, no distended, no mass Extremities: lines (PICC LINE IN THE RIGHT ARM), AVF/AVG (Left arm), no cyanosis , no clubbing, no edema Neurological: awake, alert, other (sacral wound) - Procedures Procedures: Procedures Procedure Code Date EXCISION OF BACK SUBCU/FASCIA, OPEN APPROACH [id number] 06/30/18 EXCISION OF DUODENUM, ENDO, DIAGN [id number] 07/28/18 PERFORMANCE OF URINARY FILTRATION, <6 HRS/DAY [id number] 06/30/18 RESPIRATORY VENTILATION, GREATER THAN 96 CONSECUTIVE HOURS [id number] 07/28/18 TRANSFUSE NONAUT RED BLOOD CELLS IN PERIPH VEIN, PERC [id number] 06/30/18 Infectious Disease Assmt/Plan - Assessment Assessment: 1. Sepsis. 2. Candidemia. 3. CKD 5 on HD. 4. Sacral stage 4 decubitus. infected. 5. VDRF. 6. HTN. 7. Pneumonia - Plan Plan: Cahgne antibiotics to Meropenem 500mg IV daily for 10 days and diflucan 200mg po daily for 5 weeks more. Check blood cs after 6 weeks Nutritional Asmnt/Malnutr-PDOC - Dietary Evaluation Malnutrition Findings (Please click <Entered> for more info): Nutritional Asmnt/Malnutrition Start: 07/29/18 09: 22 Text: Status: Complete Freq: Protocol: Document 07/29/18 09:23 MMULHALEY (Rec: 07/29/18 10:10 [email or web address] GENAO- [id number]) Nutritional Asmnt/Malnutrition Patient General Information Nutritional Screening High Risk Consult Diagnosis Urosepsis, bilateral pneumonia , Decubitus ulcer Pertinent Medical Hx/Surgical Hx Hyperlipidemia, ESRD (No H&P) Subjective Information Consult recieved for Wound Stage IV. Patient receives HD, trach to vent. She was admitted from [facility]. Current TF provides 800 ml volume, 1440 kcal, 64gm protein. Current Diet Order/ Nutrition Support Tube feeding Nepro 50 ml/hr x 16 hours Patient / S.O Not Indicated Pertinent Medications Lipitor, Os-keith, Folate, Novolog, Protonix, Zinc sulfate Pertinent Labs (07/29) K 3.4, BUN 54, Cr 2.7 ( decreasing), Glucose 186-233, Ca 8.1, Phos 1.5, Albumin 2.4 Nutritional Hx/Data Height 1.83 m Height (Calculated Centimeters) 182.9 Current Weight (lbs) 80.286 kg Weight (Calculated Kilograms) 80.3 Weight (Calculated Grams) 44793.8 [place] Body Weight 160 % [place] Body Weight 110 Body Mass Index (BMI) 24.0 Recent Weight Change No Weight Status Approriate GI Symptoms GI Symptoms None Last BM 07/29 x1 Difficult in: Swallowing Food Allergies No Cultural/Ethnic/Orthodox Belief None indicated Usual diet at home Unknown Skin Integrity/Comment: Edvin 8, 2+ edema, stage IV wound Estimated Nutritional Goals BEE in Kcals: Using Current wt Calories/Kcals/Kg CBW 80.4kg Kcals Calculated ~9993-1507 kcal/day (27-32 kcal/kg) - considering HD, Stage IV wound, vent Protein: Using Current wt Protein g/k.5-1.7 gm/kg - wound, HD, vent Protein Calculated ~120-135 gm/day Fluid: ml Per MD due to HD Nutritional Problem 2. Problem Problem Altered nutrition related lab values related to Etiology electrotlyte imbalance and uncontrolled hyperglycemia aeb Signs/Symptoms: K 3.4, Glucose 186-233, Ca 8.1 , Phos 1.5, Albumin 2.4 1. Problem Problem Inadequate energy/protein intake related to Etiology current TF regimen inadequate aeb Signs/Symptoms: Current TF regimen meeting ~65 % of calorie and ~55% of protein needs Intervention/Recommendation Comments 1. Consider increasing Nepro to 50ml/hr continuously for 24 hours to provide 1200ml volume, 2160 kcal, 97 gm protein. Add Prosource 2 packets/day for an additional 30gm protein . (total 112gm protein) 2. MD to modify insulin regimen for optimal glycemic control and replace lytes as medically appropriate. May consider modifying Tube feednig formula to Nutren 2.0 if she consistently has hypokalemia and hypophosphatemia (Nepro is low in Potassium and phosphorus). Expected Outcomes/Goals Expected Outcomes/Goals TF meets >75% of nutrient needs, improved skin integrity , nutrition related labs normalize F/U in 2-3 days as HR (07/31- )
--- NOTE | 2018-08-06 13:28 | General Progress Note ---
Subjective - Review of Systems Service Date: 08/06/18 Subjective: Patient still on ventilatory tracheostomy congested patient had debridement of the decubitus in the sacrum and coccyx clinically unchanged Objective - Results Result Diagrams: 08/06/18 03:50 08/06/18 03:50 Recent Labs: Laboratory Last Values WBC 14.6 Th/cmm (4.8-10.8) H D 08/06/18 03:50 RBC 2.98 Mil/cmm (3.80-5.20) L 08/06/18 03:50 Hgb 8.6 gm/dL (12-16) L 08/06/18 03:50 Hct 26.1 % (41.0-60) L 08/06/18 03:50 MCV 87.6 fl (81-100) 08/06/18 03:50 MCH 28.7 pg (27.0-31.0) 08/06/18 03:50 MCHC Differential 32.7 pg (28.0-36.0) 08/06/18 03:50 RDW 16.8 % (11.5-20.0) 08/06/18 03:50 Plt Count 391 Th/cmm (150-400) 08/06/18 03:50 MPV 7.7 fl 08/06/18 03:50 Add Manual Diff YES 08/05/18 04:20 Neutrophils % 86.6 % (40.0-80.0) H 08/06/18 03:50 Band Neutrophils % 1 % (0-10) 08/06/18 03:50 Lymphocytes % 7.1 % (20.0-50.0) L 08/06/18 03:50 Monocytes % 4.5 % (2.0-10.0) 08/06/18 03:50 Eosinophils % 1.2 % (0.0-5.0) 08/06/18 03:50 Basophils % 0.6 % (0.0-2.0) 08/06/18 03:50 Neutrophils (Manual) 85 % (40-80) H 08/06/18 03:50 Lymphocytes 10 % (20-50) L 08/06/18 03:50 Monocytes 4 % (2-10) 08/06/18 03:50 Eosinophils 2 % (0-5) 08/03/18 04:30 Basophils 0 % (0-3) 08/02/18 07:00 Platelet Estimate ADEQUATE (NORMAL) 08/03/18 04:30 PT 11.6 SECONDS (9.5-11.5) H 08/04/18 04:00 INR 1.13 (0.5-1.4) 08/04/18 04:00 PTT (Actin FS) 29.0 SECONDS (26.0-38.0) 08/04/18 04:00 Specimen Source Arterial 07/28/18 16:15 Sample Site Right Radial 07/28/18 16:15 pH 7.53 (7.35-7.45) H 07/28/18 16:15 pCO2 34.0 mmHg (35.0-45.0) L 07/28/18 16:15 pO2 198.0 mmHg (80.0-100.0) H 07/28/18 16:15 HCO3 29.4 mEq/L (20.0-26.0) H 07/28/18 16:15 Base Excess 5.7 mEq/L (-3.0-3.0) H 07/28/18 16:15 O2 Saturation 100.0 % (92.0-100.0) 07/28/18 16:15 Reinaldo Test Positive 07/28/18 16:15 Vent Rate 16 07/28/18 16:15 Inspired O2 50 07/28/18 16:15 Tidal Volume 500 07/28/18 16:15 PEEP 3 07/28/18 16:15 Pressure (ins/psv/peep) N/A 07/28/18 16:15 Critical Value DM 07/28/18 16:15 Sodium 143 mEq/L (136-145) 08/06/18 03:50 Potassium 3.4 mEq/L (3.5-5.1) L 08/06/18 03:50 Chloride 103 mEq/L (98-107) 08/06/18 03:50 Carbon Dioxide 28.7 mEq/L (21.0-31.0) 08/06/18 03:50 Anion Gap 14.7 (7.0-16.0) 08/06/18 03:50 BUN 41 mg/dL (7-25) H 08/06/18 03:50 Creatinine 3.2 mg/dL (0.6-1.2) H 08/06/18 03:50 Est GFR ( Amer) 18.7 ml/min (>90) 08/06/18 03:50 Est GFR (Non-Af Amer) 15.5 ml/min 08/06/18 03:50 BUN/Creatinine Ratio 12.8 08/06/18 03:50 Glucose 215 mg/dL (70-105) H 08/06/18 03:50 POC Glucose 313 MG/DL (70 - 105) H 08/06/18 12:35 Whole Bld Lactic Acid 1.85 mmol/L (0.60-1.99) 07/28/18 13:30 Calcium 8.3 mg/dL (8.6-10.3) L 08/06/18 03:50 Phosphorus 1.5 mg/dL (2.5-5.0) L 07/28/18 13:10 Magnesium 2.5 mg/dL (1.9-2.7) 07/28/18 13:10 Total Bilirubin 0.4 mg/dL (0.3-1.0) 08/04/18 04:00 AST 16 U/L (13-39) 08/04/18 04:00 ALT 16 U/L (7-52) 08/04/18 04:00 Alkaline Phosphatase 343 U/L (34-104) H 08/04/18 04:00 Total Protein 5.9 gm/dL (6.0-8.3) L 08/04/18 04:00 Albumin 1.9 gm/dL (3.7-5.3) L 08/04/18 04:00 Globulin 4.0 gm/dL 08/04/18 04:00 Albumin/Globulin Ratio 0.5 (1.0-1.8) L 08/04/18 04:00 Urine Source CATH 07/28/18 13:35 Urine Color YELLOW 07/28/18 13:35 Urine Clarity HAZY (CLEAR) 07/28/18 13:35 Urine pH 7.5 (4.6 - 8.0) 07/28/18 13:35 Ur Specific [place] 1.020 (1.005-1.030) 07/28/18 13:35 Urine Protein 100 mg/dL (NEGATIVE) H 07/28/18 13:35 Urine Glucose (UA) NEGATIVE mg/dL (NEGATIVE) 07/28/18 13:35 Urine Ketones NEGATIVE mg/dL (NEGATIVE) 07/28/18 13:35 Urine Blood MODERATE (NEGATIVE) H 07/28/18 13:35 Urine Nitrate NEGATIVE (NEGATIVE) 07/28/18 13:35 Urine Bilirubin NEGATIVE (NEGATIVE) 07/28/18 13:35 Urine Urobilinogen 0.2 E.U./dL (0.2 - 1.0) 07/28/18 13:35 Ur Leukocyte Esterase MODERATE (NEGATIVE) H 07/28/18 13:35 Urine RBC 10-25 /hpf (0-5) H 07/28/18 13:35 Urine WBC 50-100 /hpf (0-5) H 07/28/18 13:35 Ur Epithelial Cells FEW /lpf (FEW) 07/28/18 13:35 Urine Bacteria 4+ /hpf (NONE SEEN) H 07/28/18 13:35 Stool Occult Blood NEGATIVE (NEGATIVE) 07/31/18 05:00 Urine Opiates Screen NEGATIVE (NEGATIVE) 07/28/18 13:35 Urine Methadone Screen NEGATIVE (NEGATIVE) 07/28/18 13:35 Ur Barbiturates Screen NEGATIVE (NEGATIVE) 07/28/18 13:35 Ur Tricyclics Screen NEGATIVE (NEGATIVE) 07/28/18 13:35 Ur Phencyclidine Scrn NEGATIVE (NEGATIVE) 07/28/18 13:35 Amphetamines Screen NEGATIVE (NEGATIVE) 07/28/18 13:35 U Methamphetamines Scrn NEGATIVE (NEGATIVE) 07/28/18 13:35 U Benzodiazepines Scrn NEGATIVE (NEGATIVE) 07/28/18 13:35 U Cocaine Metab Screen NEGATIVE (NEGATIVE) 07/28/18 13:35 U Cannabinoids Screen NEGATIVE (NEGATIVE) 07/28/18 13:35 Helicobacter pylori Ab NEGATIVE (NEGATIVE) 08/01/18 09:15 Blood Type O POSITIVE 07/29/18 00:00 Antibody Screen NEGATIVE 07/29/18 00:00 Crossmatch See Detail 07/29/18 20:00 - Physical Exam Vitals and I&O: Vital Signs Temp 99.2 F 08/06/18 11:00 Pulse 115 08/06/18 11:20 Resp 17 08/06/18 11:00 BP 134/25 08/06/18 11:00 Pulse Ox 98 08/06/18 11:20 Intake & Output 08/05/18 08/06/18 08/06/18 18:59 06:59 18:59 Intake Total 143.333 950 0 Output Total 1 Balance 143.333 949 0 Weight (lbs) 74.389 kg Intake: Intake, IV Amount 143.333 50 0 Aztreonam 1 gm In 50 50 Dextrose 5% 50 ml @ 100 mls/hr IV Q12HR [facility] Rx#: [id number] Micafungin 100 mg In 93.333 0 Sodium Chloride 0.9% 100 ml @ 100 mls/hr IV Q24H ALONDRA Rx#:[id number] Oral 0 Tube Feeding 600 Other 300 Output: Urine 0 Urine/Stool Mix 1 Other: # Bowel Movements 2 Stool Characteristics Liquid Liquid Brown Brown Weight Source Bedscale Active Medications: Current Medications Albuterol/Ipratropium (Duoneb Neb) 3 ml HHN Q4HRT ALONDRA Stop: 09/26/18 22:59 Last Admin: 08/06/18 11:20 Dose: 3 ml Atorvastatin Calcium (Lipitor) 40 mg GT HS ALONDRA Stop: 09/27/18 20:59 Last Admin: 08/05/18 21:19 Dose: 40 mg Calamine/Phenol (Calmoseptine) 1 appl TP BID ALONDRA Stop: 09/28/18 16:59 Last Admin: 08/06/18 08:53 Dose: 1 appl Calcium Carbonate (Os-Keith) 500 mg GT BID ALONDRA Stop: 09/27/18 08:59 Last Admin: 08/06/18 08:53 Dose: 500 mg [place] Oil/[place] Balsam/Trypsin (Venelex) 1 appl TP DAILY ALONDRA Stop: 09/28/18 10:59 Last Admin: 08/06/18 08:53 Dose: 1 appl Chlorhexidine Gluconate (Peridex) 15 ml MM 0800,1999 ALONDRA Stop: 09/26/18 19:59 Last Admin: 08/06/18 07:54 Dose: 15 ml Epoetin Rj (Epogen) 10,000 units SUBQ TuThSa ALONDRA Stop: 09/27/18 11:14 Last Admin: 08/05/18 13:50 Dose: 10,000 units Folic Acid (Folate) 1 mg GT DAILY ALONDRA Stop: 09/27/18 08:59 Last Admin: 08/06/18 08:53 Dose: 1 mg Aztreonam 1 gm/ Dextrose 50 mls @ 100 mls/hr IV Q12HR ALONDRA Stop: 09/26/18 13:59 Last Admin: 08/06/18 08:53 Dose: 100 mls/hr Norepinephrine Bitartrate 8 mg (/ Dextrose) 258 mls @ 7.74 mls/hr IV TITR PRN; Protocol PRN Reason: BP MAINTENANCE (PER PROTOCOL) Stop: 09/27/18 11:24 Last Titration: 07/29/18 23:30 Dose: 2 mcg/min, 3.87 mls/hr Micafungin Sodium 100 mg/ (Sodium Chloride) 100 mls @ 100 mls/hr IV Q24H ALONDRA Stop: 09/28/18 10:44 Last Admin: 08/06/18 11:07 Dose: 100 mls/hr Meropenem 500 mg/ Sodium (Chloride) 100 mls @ 100 mls/hr IV Q24H ALONDRA Stop: 10/05/18 14:59 Ibuprofen (Motrin) 400 mg PO Q6H PRN PRN Reason: Fever > 101 Stop: 09/27/18 02:58 Last Admin: 08/05/18 06:11 Dose: 400 mg Insulin Aspart (Novolog Insulin Sliding Scale) 0 units SUBQ Q6HR ALONDRA; Protocol Stop: 09/27/18 00:00 Last Admin: 08/06/18 12:51 Dose: 8 units Lactobacillus Rhamnosus (Culturelle 15b) 1 each PO DAILY ALONDRA Stop: 10/03/18 15:59 Last Admin: 08/06/18 08:53 Dose: 1 each Lorazepam (Ativan) 1 mg IVP Q4HR PRN; Protocol PRN Reason: Agitation Stop: 10/05/18 09:40 Miscellaneous (Clinical Monitoring) 1 ea MC DAILY PRN PRN Reason: RENAL DOSING Stop: 09/29/18 09:05 Miscellaneous (Probiotic Screen) 1 ea PRN PRN PRN Reason: PROTOCOL Stop: 10/03/18 15:34 Pantoprazole Sodium (Protonix) 40 mg IVP BID [facility] Stop: 09/28/18 19:44 Last Admin: 08/06/18 08:53 Dose: 40 mg Zinc Sulfate (Zinc Sulfate) 220 mg GT DAILY [facility] Stop: 09/27/18 08:59 Last Admin: 08/06/18 08:53 Dose: 220 mg General: Other (unresponsive , on vent) HEENT: Other (+TRACH) Neck: Supple Cardiovascular: Normal S1, Normal S2 Lungs: Other Abdomen: Bowel sounds (has peg tube ) Extremities: Other (NO EDEMA, LUE AVF+ THRILL) Neurological: Other (NONVERBAL) Skin: Other (stage IV sacral coccyx decubitus pressure ulcer left heel) - Procedures Procedures: Procedures Procedure Code Date EXCISION OF BACK SUBCU/FASCIA, OPEN APPROACH [id number] 06/30/18 EXCISION OF DUODENUM, ENDO, DIAGN [id number] 07/28/18 PERFORMANCE OF URINARY FILTRATION, <6 HRS/DAY [id number] 06/30/18 RESPIRATORY VENTILATION, GREATER THAN 96 CONSECUTIVE HOURS [id number] 07/28/18 TRANSFUSE NONAUT RED BLOOD CELLS IN PERIPH VEIN, PERC 50188I2 06/30/18 Assessment/Plan - Assessment Assessment: Acute respiratory failure on ventilator with tracheostomy Septic shock Hypotension Sinus tachycardia Stage IV sacral decubitus ulcer infected Aspiration pneumonia pseudomonas Diabetes mellitus type 2 Diabetic sick and he states Tuesday end-stage renal disease on dialysis Hypertensio candiema Deficiency anemia Dysphagia with PEG placement Protein calorie malnutrition - Plan Plan: Continue present management continue IV antibiotics went management and wound care Debridement of the wound patient tolerated Continue IV antibiotics Nutritional Asmnt/Malnutr-PDOC - Dietary Evaluation Malnutrition Findings (Please click <Entered> for more info): Nutritional Asmnt/Malnutrition Start: 07/29/18 09: 22 Text: Status: Complete Freq: Protocol: Document 07/29/18 09:23 MMULHERN (Rec: 07/29/18 10:10 MMULHERN [email or web address]- [email or web address]) Nutritional Asmnt/Malnutrition Patient General Information Nutritional Screening High Risk Consult Diagnosis Urosepsis, bilateral pneumonia , Decubitus ulcer Pertinent Medical Hx/Surgical Hx Hyperlipidemia, ESRD (No H&P) Subjective Information Consult recieved for Wound Stage IV. Patient receives HD, trach to vent. She was admitted from [facility]. Current TF provides 800 ml volume, 1440 kcal, 64gm protein. Current Diet Order/ Nutrition Support Tube feeding Nepro 50 ml/hr x 16 hours Patient / S.O Not Indicated Pertinent Medications Lipitor, Os-keith, Folate, Novolog, Protonix, Zinc sulfate Pertinent Labs (07/29) K 3.4, BUN 54, Cr 2.7 ( decreasing), Glucose 186-233, Ca 8.1, Phos 1.5, Albumin 2.4 Nutritional Hx/Data Height 1.83 m Height (Calculated Centimeters) 182.9 Current Weight (lbs) 80.286 kg Weight (Calculated Kilograms) 80.3 Weight (Calculated Grams) 97415.8 [place] Body Weight 160 % [place] Body Weight 110 Body Mass Index (BMI) 24.0 Recent Weight Change No Weight Status Approriate GI Symptoms GI Symptoms None Last BM 07/29 x1 Difficult in: Swallowing Food Allergies No Cultural/Ethnic/Scientologist Belief None indicated Usual diet at home Unknown Skin Integrity/Comment: Edvin 8, 2+ edema, stage IV wound Estimated Nutritional Goals BEE in Kcals: Using Current wt Calories/Kcals/Kg CBW 80.4kg Kcals Calculated ~7620-0664 kcal/day (27-32 kcal/kg) - considering HD, Stage IV wound, vent Protein: Using Current wt Protein g/k.5-1.7 gm/kg - wound, HD, vent Protein Calculated ~120-135 gm/day Fluid: ml Per MD due to HD Nutritional Problem 2. Problem Problem Altered nutrition related lab values related to Etiology electrotlyte imbalance and uncontrolled hyperglycemia aeb Signs/Symptoms: K 3.4, Glucose 186-233, Ca 8.1 , Phos 1.5, Albumin 2.4 1. Problem Problem Inadequate energy/protein intake related to Etiology current TF regimen inadequate aeb Signs/Symptoms: Current TF regimen meeting ~65 % of calorie and ~55% of protein needs Intervention/Recommendation Comments 1. Consider increasing Nepro to 50ml/hr continuously for 24 hours to provide 1200ml volume, 2160 kcal, 97 gm protein. Add Prosource 2 packets/day for an additional 30gm protein . (total 112gm protein) 2. MD to modify insulin regimen for optimal glycemic control and replace lytes as medically appropriate. May consider modifying Tube feednig formula to Nutren 2.0 if she consistently has hypokalemia and hypophosphatemia (Nepro is low in Potassium and phosphorus). Expected Outcomes/Goals Expected Outcomes/Goals TF meets >75% of nutrient needs, improved skin integrity , nutrition related labs normalize F/U in 2-3 days as HR (07/31- )
[2018-08-06] MEDS ORDERED: Meropenem 500 MG in Sodium Chloride 0.9% 100 ML IV SCH (15:00)
[2018-08-06] MEDS ORDERED: Linezolid 600mg/300mL 600 MG/300 ML BAG IV SCH (21:00)
--- NOTE | 2018-08-08 09:24 | Progress Notes ---
DATE: 08/04/2018 SURGICAL PROGRESS NOTE TIME: 12:25 p.m. OBJECTIVE: VITAL SIGNS: The patient is afebrile. Vital signs otherwise stable. GENERAL: She is resting in bed comfortably, in no acute distress. NECK: She has trach, encephalopathic. CHEST: Clear to auscultation bilaterally. CARDIAC EXAM: Regular rate. ABDOMEN: Soft, nontender, nondistended. She has a right arm PICC line. G-tube. NEUROVASCULAR: Examination with severe contractures lower extremities. She has a sacrococcyx decubitus ulcer with yellow slough and infected gangrenous tissue unstageable at this time. LABORATORY DATA: Her white blood cell count is down from 17.2 to 12.4, H and H is 9 and 27, platelet count is 335. PT is 11.6, INR is 1.13, PTT is 29, glucose is 300. Alkaline phosphatase 343, albumin 1.9. MEDICATIONS: The patient is on albuterol, Lipitor, aztreonam, calcium, insulin, Protonix. REPORTS: No recent imaging test. IMPRESSION AND PLAN: The patient with multiple medical problems, respiratory failure, encephalopathy, dysphagia with gastric tube feedings, n.p.o. since midnight. Plan for sharp excisional debridement of the sacrococcyx decubitus wound, has a bedside procedure with MAC anesthesia. Anesthesia is available. OR team is here. The risks and benefits of the procedure explained to family. All questions answered. JOB# [id number]
== END 2018-08-06 22:30 | DRG 853 ==
LOC: ER 12:19 → ICU 15:50
PROVIDERS: ADMIT Internal Medicine; ATTEND Internal Medicine
PROC: 5A1955Z Respiratory Ventilation, Greater than 96 Consecutive Hours (ICD-10-PCS; principal; 2018-07-28)
PROC: 5A1D70Z Performance of Urinary Filtration, Intermittent, Less than 6 Hours Per Day (ICD-10-PCS; 2018-07-28)
PROC: 30233N1 Transfusion of Nonautologous Red Blood Cells into Peripheral Vein, Percutaneous Approach (ICD-10-PCS; 2018-07-29)
PROC: 5A1D70Z Performance of Urinary Filtration, Intermittent, Less than 6 Hours Per Day (ICD-10-PCS; 2018-07-29)
PROC: 5A1D70Z Performance of Urinary Filtration, Intermittent, Less than 6 Hours Per Day (ICD-10-PCS; 2018-07-30)
PROC: 5A1D70Z Performance of Urinary Filtration, Intermittent, Less than 6 Hours Per Day (ICD-10-PCS; 2018-08-01)
PROC: 0DB98ZX Excision of Duodenum, Via Natural or Artificial Opening Endoscopic, Diagnostic (ICD-10-PCS; 2018-08-01)
PROC: 0DB78ZX Excision of Stomach, Pylorus, Via Natural or Artificial Opening Endoscopic, Diagnostic (ICD-10-PCS; 2018-08-01)
PROC: 5A1D70Z Performance of Urinary Filtration, Intermittent, Less than 6 Hours Per Day (ICD-10-PCS; 2018-08-03)
PROC: 0QBS0ZZ Excision of Coccyx, Open Approach (ICD-10-PCS; 2018-08-04)
PROC: 0QB10ZZ Excision of Sacrum, Open Approach (ICD-10-PCS; 2018-08-04)
PROC: 5A1D70Z Performance of Urinary Filtration, Intermittent, Less than 6 Hours Per Day (ICD-10-PCS; 2018-08-05)
PROC: 0HBQXZZ Excision of Finger Nail, External Approach (ICD-10-PCS; 2018-08-05)
PROC: 0HBQXZZ Excision of Finger Nail, External Approach (ICD-10-PCS; 2018-08-05)
DX: A41.9 Sepsis, unspecified organism (principal); L89.154 Pressure ulcer of sacral region, stage 4; N18.6 End stage renal disease; K29.71 Gastritis, unspecified, with bleeding; K29.81 Duodenitis with bleeding; R65.21 Severe sepsis with septic shock; J69.0 Pneumonitis due to inhalation of food and vomit; N39.0 Urinary tract infection, site not specified; Z99.11 Dependence on respirator [ventilator] status; M86.18 Other acute osteomyelitis, other site; G93.1 Anoxic brain damage, not elsewhere classified; N17.9 Acute kidney failure, unspecified; J96.10 Chronic respiratory failure, unspecified whether with hypoxia or hypercapnia; I12.0 Hypertensive chronic kidney disease with stage 5 chronic kidney disease or end stage renal disease; G93.40 Encephalopathy, unspecified; E46 Unspecified protein-calorie malnutrition; R65.20 Severe sepsis without septic shock; D63.1 Anemia in chronic kidney disease; E11.69 Type 2 diabetes mellitus with other specified complication; B37.9 Candidiasis, unspecified; E11.22 Type 2 diabetes mellitus with diabetic chronic kidney disease; L60.3 Nail dystrophy; D50.9 Iron deficiency anemia, unspecified; L89.629 Pressure ulcer of left heel, unspecified stage; Z68.22 Body mass index [BMI] 22.0-22.9, adult; Z99.2 Dependence on renal dialysis; Z88.5 Allergy status to narcotic agent; Z88.8 Allergy status to other drugs, medicaments and biological substances; Z93.0 Tracheostomy status; Z74.01 Bed confinement status; Z79.4 Long term (current) use of insulin; Z93.1 Gastrostomy status
CPT/HCPCS: 36415-UA; 36600-90; 71045-TC; 76700-TC; 80048-TC; 80053-TC; 80307; 81001-TC; 82270-TC; 82803-TC; 82948-90; 83036-90; 83605; 83735-TC; 84100-TC; 85007-TC; 85025-TC; 85610-TC; 85730-TC; 86850-TC; 86900-TC; 86901-TC; 86922-TC; 87070; 87070-90; 87075-90; 87086-90; 87205-90; 87338-TC; 88304-TC; 90937; 94002; 94003; 94664; A4216; A4217; C9113; J0696; J0885; J1815; J2001; J2020; J2060; J2185; J2248; J2704; J3480; J3490; J7030; J7040; P9016; V2790; X6452; X7704; Z7610